=== PATIENT | male | born 1970 | race Caucasian/White ===

== ENCOUNTER 2023-03-24 13:52 | Outpatient (AMB) | payer OTHER, SELFPAY ==
--- NOTE | 2023-03-24 13:54 | MHC.PC.OV ---
Vital Signs 03/24/23 13:56 Height 6 ft Weight 177 lb BMI 24.0 BP 98/62 Blood Pressure Location Rt brachial Position Sitting Pulse 96 Pulse Source Pulse Oximeter Pulse Oximetry (%) 97 Oxygen Delivery Method Room Air Intake Visit Reasons: 6 Month follow up Allergies No Known Allergies Allergy (Verified 03/24/23 13:56) Medication List - Last Reconciled 03/24/23 by EVERT BradyP- hydrochlorothiazide 25 mg PO DAILY lisinopril 20 mg PO DAILY Tobacco use date assessed: 09/21/22 HPI 6 Month follow up HPI Details HTN: Pt's blood pressure is lower today, denies any dizziness. Blood pressure is managed with hydrochlorothiazide 25mg and lisinopril 20mg. Will decrease hydrochlorothiazide from 25mg to 12.5mg. Denies chest pain, shortness of breath, headache, dizziness, and blurred vision. Pt c/o left hip pain. He has been seen for this in the past. Surgery was recommended but not done due to pt's smoking. Will order hip XR to assess present condition. 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 Daniel Rodriguez, Amarilis Pitt, Hunter Jurado and colleagues, with an educational richard from [employer]. Review of Systems Const Reports as per HPI Physical exam (Primary Care) Vital Signs: Last Vital Signs Pulse 96 03/24/23 13:56 BP 98/62 03/24/23 13:56 Pulse Ox 97 03/24/23 13:56 Oxygen Delivery Method Room Air 03/24/23 13:56 BMI result Body Mass Index 24.0 Tobacco/Smoking Status: Tobacco use Status Tobacco use date assessed 09/21/22 03/24/23 13:58 Patient Tobacco Use Status Current everyday Tobacco 03/24/23 13:58 e-Cigarette/Vaping Use Never Used 03/24/23 13:58 Thrive Assessment: Date of Thrive Assessment Date Thrive assessed 09/21/22 03/24/23 13:58 Const General: cooperative Orientation/consciousness: patient oriented x3 Resp Effort & Inspection: normal respiratory effort Auscultation: clear to auscultation bilaterally (dim) Cardio Rate: regular rate Rhythm: regular rhythm Heart sounds: S1 normal heart sound present, S2 normal heart sound present and no murmurs Neuro General: patient oriented x3 Extrem Other: left hip pain noted with left knee to chest raises, adduction, and abduction Psych Appearance: grossly normal Mental Status: mental status grossly normal Speech and movement: Normal speech and movement present Affect: normal affect Attitude: cooperative Thought process: Normal thought process present Thought content: Normal thought content present Insight: Good insight present (Psych) Judgement: Good judgement present (Psych) Assessment and Plan Assessment & Plan (1) Left hip pain: Code(s): M25.552 - Pain in left hip Plan: XR ordered (2) Essential hypertension: Code(s): I10 - Essential (primary) hypertension Plan: hypotensive today (asymptomatic), decreased hctz from 25 to 12.5mg Plan The patient agreed to the use of a electromedical equipment repairer for this encounter. Scribed for DIANNA Leggett by Salma Sylvester electromedical equipment repairer, on 03/24/2023 at 14:05 EST. Orders: Orders XR hip LT min 2V Today M25.552 - Pain in left hip Medications: Changed From hydrochlorothiazide 25 mg PO DAILY 90 tabs 1RF To hydrochlorothiazide 12.5 mg PO DAILY 90 days 90 tabs 1RF Coding Level of Care Code Est Pt Level 3 (85249) Diagnoses Left hip pain M25.552 Essential hypertension I10
[2023-03-24 13:56] VITALS: BP 98/62; PULSE 96; O2SAT 97; BMI 24.0
== END 2023-03-24 15:30 | disposition home or self-care (01) ==
PROVIDERS: PCP Nurse Practitioner Family; Visit Provider Nurse Practitioner Family
DX: M25.552 Pain in left hip (principal); I10 Essential (primary) hypertension
CPT/HCPCS: 99213

== ENCOUNTER 2023-03-25 09:03 | Outpatient (REF) | payer OTHER, SELFPAY ==
--- NOTE | ~2023-03-25 | XR_ITS ---
EXAMINATION: XR HIP, LEFT CLINICAL INFORMATION: Pain. COMPARISON: None available. TECHNIQUE: AP and frog-leg lateral views of the left hip. FINDINGS: There is mild bony demineralization. There is marked narrowing of the superior left acetabular joint space. There is subchondral sclerosis of the acetabular roof. There is subchondral cyst formation of the left femoral head, which is somewhat flattened. There is peripheral osteophyte formation of the articular surfaces of the left hip. No dislocation is seen. There are iliofemoral atherosclerotic calcifications. There are pelvic phleboliths. XR/XR hip LT min 2V IMPRESSION: There are marked degenerative changes of the left hip, with findings suggesting early avascular necrosis. No acute fracture or dislocation is seen.
[2023-03-25 11:22] LABS: MANUAL DIFF FLAG NO
[2023-03-25 11:26] LABS: Appearance Urine Clear; Color Urine Yellow; Glucose Urine UA Negative (Negative); Leukocyte Esterase Urine Negative (Negative); Nitrite Urine Negative (Negative); PH 5.5 (5.0-9.0); Urine Blood Negative (Negative); Urine Ketones Negative (Negative); Urine Protein Negative (Neg-Trace)
[2023-03-25 11:54] LABS: Basophils Absolute Auto 0.1 X10*3/uL (0.0-0.2); Eosinophils Absolute Auto 0.2 X10*3/uL (0.0-0.4); Eosinophils Percent Auto 1.7 % (0-4); Hematocrit 45.3 % (42.0-52.0); Hemoglobin 15.4 g/dl (14.0-18.0); Imm Gran Abs Auto 0.04 X10*3/uL (0.00-0.03); Imm Gran Pct Auto 0.4 % (0.0-0.4); Lymphocytes Absolute Auto 3.3 X10*3/uL (1.2-4.9); Lymphocytes Percent Auto 31.9 % (20-40); Mean Corpuscular Hemoglobin 31.3 pg (27.0-33.0); Mean Corpuscular Volume 92.1 fL (80.0-98.0); Mean Platelet Volume 11.3 fL (9.4-12.4); Monocytes Absolute Auto 0.8 X10*3/uL (0.1-1.2); Monocytes Percent Auto 7.9 % (2-11); Neutrophils Absolute Auto 5.9 x10*3/uL (2.0-8.3); Neutrophils Percent Auto 57.1 % (45-73); Platelet Count 278 X10*3/uL (160-400); Red Blood Count 4.92 X10*6/uL (4.60-5.80); Red Cell Distribution Width 13.4 % (11.0-16.0); White Blood Count 10.4 X10*3/uL (4.8-10.8)
[2023-03-25 12:08] LABS: Alanine Aminotransferase 17 U/L (0-40); Albumin Level 4.4 g/dL (3.5-5.0); Alkaline Phosphatase 71 U/L (39-117); Anion Gap 12 (12-20); Aspartate Amino Transferase 19 U/L (5-37); Bilirubin Total 0.3 mg/dL (0.0-1.0); Blood Urea Nitrogen 28 mg/dL (9-16); Calcium 9.6 mg/dL (8.4-10.2); Carbon Dioxide 27 mmol/L (22-29); Chloride 103 mmol/L (96-108); Cholesterol 205 mg/dL (<200); Estimated Glomerular Filt Rate > 60; Glucose Fasting 105 mg/dL (60-99); HDL Cholesterol 54 mg/dL (>40); LDL Cholesterol Calculated 135 mg/dL (<100); Potassium 5.1 mmol/L (3.3-5.1); Sodium 137 mmol/L (135-145); Total Protein 7.8 g/dL (6.5-8.0); Triglycerides 83 mg/dL (<150)
[2023-03-25 12:10] LABS: Prostate Specific Antigen Scr 0.84 ng/mL (<0.05-4.0)
[2023-03-25 12:29] LABS: TSH reflex Free T4 0.52 uIU/mL (0.32-4.0)
[2023-03-29 01:19] LABS: Venous Lead 3.8 mcg/dL (<3.5)
== END 2023-03-25 09:04 | disposition home or self-care (01) ==
LOC: HO.HMGCX 09:03
PROVIDERS: PCP Nurse Practitioner Family; Visit Provider Nurse Practitioner Family
DX: Z00.00 Encounter for general adult medical examination without abnormal findings (principal); Z77.011 Contact with and (suspected) exposure to lead; M25.552 Pain in left hip; Z12.5 Encounter for screening for malignant neoplasm of prostate
CPT/HCPCS: 36415; 73502; 80053; 80061; 81003; 83655; 84153; 84443; 85025

== ENCOUNTER 2023-04-19 08:03 | Outpatient (AMB) | payer OTHER, SELFPAY ==
[2023-04-19 08:06] VITALS: BMI 24.4
--- NOTE | 2023-04-19 08:06 | A.OFFVIS_ITS ---
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 Dobbs is a 52-year-old male and presents with complaints of progressively worsening left hip pain. He describes his pain as sharp and severe in nature. His pain has gotten worse over the last few years in spite of continued non operative treatment. Most of his pain is located within his left groin and thigh. He has done physical therapy exercises which aggravated his pain. He has also tried Tylenol and anti-inflammatory medicines which gave him minimal relief. The patient has difficulty walking even short distances because of his pain. At this point is left hip pain is interfering with his activities of daily living and his ability to sleep well through the night. 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 Current occupational exposures/hazards: Yes Cognitive needs: No Hearing needs: No Vision needs: No Physical Exam Vital Signs: BMI result Body Mass Index 24.4 Const Other: Well-nourished well-developed very friendly male awake alert and oriented x3 in no acute distress Extrem Other: Bilateral lower extremity examination shows good capillary refill, no skin lesions noted, normal sensation light touch Left hip examination shows decreased range of motion when compared to his right hip, pain with range of motion, no tenderness over his bursa Results Reviewed Results Reviewed: X-rays of the patient's left hip show end-stage degenerative joint disease with grade 4 [id number] arthritis, subchondral sclerosis, no acute bony abnormalities Assessment & Plan Assessment & Plan (1) Osteoarthritis of left hip: Code(s): M16.12 - Unilateral primary osteoarthritis, left hip Plan Mr. Dobbs presents with progressively worsening left hip pain due to end-stage degenerative joint disease. I had a lengthy discussion with the patient regarding the treatment options. At this point he has failed continued non operative treatments. The risks and benefits of left total hip replacement surgery were discussed at length with the patient. The patient wishes to proceed with surgery in the spring. I will have my office contact the patient to pick a surgery date. I will see him back 1-2 weeks prior to his surgery to answer any final questions that he might have. Feel free to call me at any time should questions regarding his orthopedic management arise. Thank you very much for asking me to see this very friendly gentleman. I spent 22 minutes in reviewing the patient's records and imaging studies, seeing the patient and documenting in the medical record. Coding Level of Care Code New Pt Level 2 (40569) Diagnoses Osteoarthritis of left hip M16.12
== END 2023-04-19 08:35 | disposition home or self-care (01) ==
PROVIDERS: PCP Nurse Practitioner Family; Visit Provider Orthopaedic Surgery
DX: M16.12 Unilateral primary osteoarthritis, left hip (principal)
CPT/HCPCS: 99202

== ENCOUNTER → 2023-04-19 08:03 | Outpatient (BNVA) | payer OTHER, SELFPAY | PROVIDERS: PCP Nurse Practitioner Family; Visit Provider Orthopaedic Surgery | DX: M16.12 Unilateral primary osteoarthritis, left hip (principal) | CPT/HCPCS: 99202 ==

== ENCOUNTER 2023-08-24 15:03 | Outpatient (AMB) | payer OTHER, SELFPAY ==
[2023-08-24 15:06] VITALS: BP 112/76; PULSE 80; O2SAT 97; BMI 24.4
--- NOTE | 2023-08-24 15:06 | MHC.PC.OV ---
Vital Signs 08/24/23 15:06 Height 6 ft Weight 180 lb BMI 24.4 BP 112/76 Blood Pressure Location Rt brachial Position Sitting Pulse 80 Pulse Source Pulse Oximeter Pulse Oximetry (%) 97 Intake Visit Reasons: 5 month fu Intake Note: pt is here for 5 month follow up Gunstock Repairer Required: No Accompanied by: Self / Same As Patient Allergies No Known Allergies Allergy (Verified 08/24/23 15:06) Medication List - Last Reconciled 08/24/23 by DIANNA Brady hydrochlorothiazide 12.5 mg PO DAILY 90 days lisinopril 20 mg PO DAILY omeprazole 20 mg PO BID 90 days Tobacco use date assessed: 08/24/23 Dental Screening Dental Screen Date: 08/24/23 Did you have a dental visit in the last 12 months?: Yes Did you have a dental problem in the last 6 months where you did not have access to dental care?: No Was dental information given to patient?: Patient has dentist HPI 5 month fu HPI Details Pt c/o increased acid reflux. He also reports abdominal discomfort and diarrhea (for over 15 years with diarrhea). He does report having intermittent blood in stool, though does also have significant hemorrhoids. Will send omeprazole and order GI panel. Pt reports eating shortly before bed, recommended pt eat 2-3 hours before going to bed. He has bloating as well. He reports yogurt can help. He reported having a colon screen approx 3 years ago, will cont to try to track down, they told me i was clean as a whistle . Pt has been a PPD smoker since age 13. Will refer for low-dose CT. Denies chest pain, shortness of breath, and dizziness. 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 Will recheck/cont to monitor lead levels. [facility] Surgical History No pertinent past surgical history Social History Housing: House Patient Tobacco Use Status: Current everyday Tobacco user Cigarette Packs Per Day: 1 e-Cigarette/Vaping Use: Never Used Second Hand Smoke Exposure: Yes service: No Current occupational status: employed Current occupation: [employer] Current occupational exposures/hazards: Yes Cognitive needs: No Hearing needs: No Vision needs: No Questionnaire PHQ-9 Over the last 2 weeks, how often have you been bothered by any of the following problems? 1. Little interest or pleasure in doing things: nearly every day 2. Feeling down, depressed, or hopeless: not at all 3. Trouble falling or staying asleep, or sleeping too much: not at all 4. Feeling tired or having little energy: more than half the days 5. Poor appetite or overeating: nearly every day 6. Feeling bad about yourself - or that you are a failure or have let yourself or your family down: not at all 7. Trouble concentrating on things, such as reading the newspaper or watching television: not at all 8. Moving or speaking so slowly that other people could have noticed. Or the opposite - being so fidgety or restless that you have been moving around a lot more than usual: not at all 9. Thoughts that you would be better off or of hurting yourself in some way: not at all Total score: 8 Depression Screening Interpretation: Negative Depression Screening Done: Yes 22450 - PHQ-9 Billing: Yes Source: Developed by Drs. Daniel Rodriguez, Amarilis Pitt, Hunter Jurado and colleagues, with an educational richard from [employer]. Thrive Questionnaire Date Thrive assessed: 08/24/23 I am a: Patient What is your living situation today?: I have a steady place to live Within the past 12 months, did the food you bought not last and you didn't have the money to get more?: Never true Within the past 12 months, did you worry whether your food would run out before you got money to buy more?: Never true Do you have trouble paying for medicines?: No Do you have trouble getting transportation to medical appointments?: No Do you have trouble paying your heating and electricity bill?: No Do you have trouble taking care of your child, family member or friend?: No Do you have trouble with day-to-day activities such as bathing, preparing meals, shopping, managing finances, etc.?: No Are you currently unemployed and looking for a job?: No Are you interested in more education?: No Please select the resources that you would like help with: None Currently or been in a relationship where the following occur: no concerns reported THRIVE Score: 0 AUDIT C Alcohol Use Questionnaire (AUDIT-C) 1. How often do you have a drink containing alcohol?: Monthly or less 2. How many drinks containing alcohol do you have on a typical day when you are drinking?: 5 or 6 3. How often do you have six or more drinks on one occasion?: Less than monthly Total Score: 4 Score Reviewed/Action Taken: Yes SHORTY-7 AMB Questionnaire SHORTY-7 Date SHORTY - 7 assessed: 08/24/23 Feeling nervous, anxious, or on edge: 0 = Not at all Not being able to stop or control worryin = Not at all Worrying too much about different things: 0 = Not at all Trouble relaxin = Not at all Being so restless that it is hard to sit still: 0 = Not at all Becoming easily annoyed or irritable: 3 = Nearly every day Feeling afraid as if something awful might happen: 0 = Not at all Total SHORTY-7 score (0-4 normal; 5-9 mild; 10-14 moderate; 15-21 severe): 3 Source: Developed by Drs. Daniel Rodriguez, Amarilis Pitt, Hunter Jurado and colleagues, with an educational richard from [employer]. SHORTY-7 Assessment Billing SHORTY-7 Assessment Tool: SHORTY-7 Assessment 21704 Review of Systems Const Reports as per HPI Physical exam (Primary Care) Vital Signs: Last Vital Signs Pulse 80 08/24/23 15:06 BP 112/76 08/24/23 15:06 Pulse Ox 97 08/24/23 15:06 BMI result Body Mass Index 24.4 Tobacco/Smoking Status: Tobacco use Status Tobacco use date assessed 08/24/23 08/24/23 15:07 Patient Tobacco Use Status Current everyday Tobacco 08/24/23 15:07 e-Cigarette/Vaping Use Never Used 08/24/23 15:07 PHQ-9: PHQ-9 Score PHQ-9: Total score 8 08/24/23 15:18 Depression Screening Interpretation: Negative Thrive Assessment: Date of Thrive Assessment Date Thrive assessed 05/01/24 05/01/24 15:13 Currently or been in a relationship where the following occur: no concerns reported Const General: cooperative Orientation/consciousness: patient oriented x3 Resp Other: lungs diminished though moving air Effort & Inspection: normal respiratory effort Cardio Rate: regular rate Rhythm: regular rhythm Heart sounds: S1 normal heart sound present and S2 normal heart sound present GI Other: no abdominal pain with palpation, hyperactive BS Auscultation: Hyperactive bowel sounds present Skin Other: small macular discoloration to shoulders Neuro General: patient oriented x3 Psych Appearance: grossly normal Mental Status: mental status grossly normal Speech and movement: Normal speech and movement present Affect: normal affect Attitude: cooperative Thought process: Normal thought process present Thought content: Normal thought content present Insight: Good insight present (Psych) Judgement: Good judgement present (Psych) Assessment and Plan Assessment & Plan (1) Smoker: Code(s): F17.200 - Nicotine dependence, unspecified, uncomplicated Plan: Referred for low-dose CT (2) GERD (gastroesophageal reflux disease): Code(s): K21.9 - Gastro-esophageal reflux disease without esophagitis Plan: Sending omeprazole, recommended eating 2-3 hours before bed (3) Diarrhea: Code(s): R19.7 - Diarrhea, unspecified Plan: GI panel ordered (4) Elevated blood lead level: Code(s): R78.71 - Abnormal lead level in blood Plan: Will repeat, monitoring kidney function (5) Skin lesions: Code(s): L98.9 - Disorder of the skin and subcutaneous tissue, unspecified Plan: Referred to derm (6) Abdominal discomfort: Code(s): R10.9 - Unspecified abdominal pain Plan: Sending omeprazole, GI panel ordered Plan The patient agreed to the use of a biomedical equipment technician for this encounter. Scribed for DIANNA Leggett by Salma Sylvester biomedical equipment technician, on 08/24/2023 at 15:15 EST. Orders: Orders Comprehensive Met. Panel Today K21.9 - Gastro-esophageal reflux disease without esophagitis TSH reflex Free T4 Today K21.9 - Gastro-esophageal reflux disease without esophagitis H pylori Ag Stool Today R19.7 - Diarrhea, unspecified CDiff Gene PCR Today R19.7 - Diarrhea, unspecified Erythrocyte Sedimentation Rate Today R19.7 - Diarrhea, unspecified Complete Blood Count Auto Diff Today K21.9 - Gastro-esophageal reflux disease without esophagitis GI Panel Today R19.7 - Diarrhea, unspecified C Reactive Protein Today R19.7 - Diarrhea, unspecified Venous Lead Today R78.71 - Abnormal lead level in blood US abdomen complete Today R10.9 - Unspecified abdominal pain Lipase Today R10.9 - Unspecified abdominal pain Referrals Thoracic Surgery Referral F17.200 - Nicotine dependence, unspecified, uncomplicated Dermatology Referral L98.9 - Disorder of the skin and subcutaneous tissue, unspecified Medications: New omeprazole 20 mg PO BID 90 days 180 caps 0RF Coding Level of Care Code Est Pt Level 3 (31991) Diagnoses Smoker F17.200 GERD (gastroesophageal reflux disease) K21.9 Diarrhea R19.7 Elevated blood lead level R78.71 Skin lesions L98.9 Abdominal discomfort R10.9 Additional Codes SHORTY-7 Assessment Billing - SHORTY-7 Assessment Tool: SHORTY-7 Assessment 15133 ([id number])
== END 2023-08-24 15:49 | disposition home or self-care (01) ==
PROVIDERS: PCP Nurse Practitioner Family; Visit Provider Nurse Practitioner Family
DX: K21.9 Gastro-esophageal reflux disease without esophagitis (principal); F17.210 Nicotine dependence, cigarettes, uncomplicated; R19.7 Diarrhea, unspecified; R78.71 Abnormal lead level in blood; L98.9 Disorder of the skin and subcutaneous tissue, unspecified; R10.9 Unspecified abdominal pain
CPT/HCPCS: 99213

== ENCOUNTER 2023-08-29 07:04 | Outpatient (REF) | payer OTHER, SELFPAY ==
[2023-08-29 10:32] LABS: MANUAL DIFF FLAG NO
[2023-08-29 10:39] LABS: Basophils Absolute Auto 0.1 X10*3/uL (0.0-0.2); Basophils Percent Auto 1.1 % (0-2); Eosinophils Absolute Auto 0.4 X10*3/uL (0.0-0.4); Eosinophils Percent Auto 3.9 % (0-4); Hematocrit 45.4 % (42.0-52.0); Hemoglobin 15.6 g/dl (14.0-18.0); Imm Gran Abs Auto 0.04 X10*3/uL (0.00-0.03); Imm Gran Pct Auto 0.4 % (0.0-0.4); Lymphocytes Absolute Auto 3.8 X10*3/uL (1.2-4.9); Lymphocytes Percent Auto 37.1 % (20-40); Mean Corpuscular HGB Conc 34.4 g/dl (31.0-36.0); Mean Corpuscular Hemoglobin 31.7 pg (27.0-33.0); Mean Corpuscular Volume 92.3 fL (80.0-98.0); Monocytes Absolute Auto 0.9 X10*3/uL (0.1-1.2); Monocytes Percent Auto 8.3 % (2-11); Neutrophils Absolute Auto 5.1 x10*3/uL (2.0-8.3); Neutrophils Percent Auto 49.2 % (45-73); Platelet Count 164 X10*3/uL (160-400); Red Blood Count 4.92 X10*6/uL (4.60-5.80); Red Cell Distribution Width 13.7 % (11.0-16.0); White Blood Count 10.3 X10*3/uL (4.8-10.8)
[2023-08-29 11:07] LABS: Alanine Aminotransferase 19 U/L (0-40); Albumin Level 4.2 g/dL (3.5-5.0); Alkaline Phosphatase 71 U/L (39-117); Anion Gap 13 (12-20); Aspartate Amino Transferase 22 U/L (5-37); Bilirubin Total 0.5 mg/dL (0.0-1.0); Blood Urea Nitrogen 23 mg/dL (9-16); C Reactive Protein 0.13 mg/dL (< or = 0.50); Calcium 9.7 mg/dL (8.4-10.2); Carbon Dioxide 25 mmol/L (22-29); Chloride 103 mmol/L (96-108); Estimated Glomerular Filt Rate > 60; Glucose Random 105 mg/dL (60-115); Lipase 22 U/L (8-78); Potassium 4.3 mmol/L (3.3-5.1); Sodium 137 mmol/L (135-145); Total Protein 7.4 g/dL (6.5-8.0)
[2023-08-29 11:26] LABS: TSH reflex Free T4 0.75 uIU/mL (0.32-4.0)
[2023-08-29 11:42] LABS: Erythrocyte Sedimentation Rate 5 MM/HR (0-15)
[2023-08-31 16:38] LABS: Venous Lead 3.3 mcg/dL (<3.5)
== END 2023-08-29 07:05 | disposition home or self-care (01) ==
LOC: HO.HMGCLDS 07:04
PROVIDERS: PCP Nurse Practitioner Family; Visit Provider Nurse Practitioner Family
DX: K21.9 Gastro-esophageal reflux disease without esophagitis (principal); R78.71 Abnormal lead level in blood; R19.7 Diarrhea, unspecified; R10.9 Unspecified abdominal pain
CPT/HCPCS: 36415; 80053; 83655; 83690; 84443; 85025; 85652; 86140

== ENCOUNTER 2023-08-31 07:45 | Outpatient (REF) | payer OTHER, SELFPAY ==
[2023-08-31 11:33] LABS: CDiff Gene PCR NEGATIVE (Negative)
[2023-08-31 13:08] LABS: Adenovirus F 40/41 Not Detected (Not Detect.); Astrovirus Not Detected (Not Detect.); Campylobacter Not Detected (Not Detect.); Cryptosporidium Not Detected (Not Detect.); Cyclospora cayetanensis Not Detected (Not Detect.); E. coli EAEC Not Detected (Not Detect.); E. coli EPEC Not Detected (Not Detect.); E. coli ETEC Not Detected (Not Detect.); E. coli STEC Not Detected (Not Detect.); Entamoeba histolytica Not Detected (Not Detect.); Giardia lamblia Not Detected (Not Detect.); Norovirus GI/GII Not Detected (Not Detect.); Plesiomonas shigelloides Not Detected (Not Detect.); Rotavirus A Not Detected (Not Detect.); Salmonella Not Detected (Not Detect.); Sapovirus Not Detected (Not Detect.); Shigella sp./EIEC Not Detected (Not Detect.); Vibrio Not Detected (Not Detect.); Vibrio Cholerae Not Detected (Not Detect.); Yersinia enterocolitica Not Detected (Not Detect.)
== END 2023-08-31 07:46 | disposition home or self-care (01) ==
LOC: HO.HMGCLNP 07:45
PROVIDERS: PCP Nurse Practitioner Family; Visit Provider Nurse Practitioner Family
DX: R19.7 Diarrhea, unspecified (principal)
CPT/HCPCS: 87338; 87493; 87507

== ENCOUNTER 2023-08-31 08:23 | Outpatient (REF) | payer OTHER, SELFPAY ==
--- NOTE | ~2023-08-31 | US_ITS ---
EXAMINATION: US ABDOMEN COMPLETE CLINICAL INFORMATION: Unspecified abdominal pain. COMPARISON: None available. TECHNIQUE: Real-time imaging of the abdominal viscera. Limited visualization due to bowel gas. FINDINGS: PANCREAS: Limited visualization of pancreatic tail and head. Imaged portion of pancreatic body is unremarkable. ABDOMINAL AORTA: Imaged portions of abdominal aorta are unremarkable. INFERIOR VENA CAVA: Visualized portions are normal. LIVER: Diffusely heterogeneous hepatic echotexture. Limited visualization. Hepatic contour is unremarkable. Liver is not enlarged. GALLBLADDER: No gallstones. No gallbladder wall thickening. COMMON BILE DUCT: Normal in caliber measuring 0.3 cm in diameter. RIGHT KIDNEY: No hydronephrosis. No renal calculi. Limited visualization. The kidney measures 11.2 cm in maximum dimension. LEFT KIDNEY: No hydronephrosis. No renal calculi. Limited visualization. A 1.3 cm left renal midpole cyst with benign features. There is no indication for follow-up imaging. The kidney measures 11.6 cm in maximum dimension. SPLEEN: Normal. The spleen measures 8.3 cm in maximum dimension. FREE FLUID: None. US/US abdomen complete IMPRESSION: Diffusely heterogeneous hepatic echotexture. Limited visualization. Correlation with liver function tests and clinical exam recommended to determine further management.
== END 2023-08-31 08:24 | disposition home or self-care (01) ==
LOC: HO.HMGCX 08:23
PROVIDERS: PCP Nurse Practitioner Family; Visit Provider Nurse Practitioner Family
DX: R10.9 Unspecified abdominal pain (principal)
CPT/HCPCS: 76700

== ENCOUNTER 2023-12-02 09:16 | Outpatient (AMB) | payer OTHER, SELFPAY ==
--- NOTE | 2023-12-02 07:48 | A.OFFVIS_ITS ---
Intake Visit Reasons: Current Smoker Allergies No Known Allergies Allergy (Verified 08/24/23 15:06) HPI HPI Current Smoker: Details: Initial visit for this 53yo smoker with a 40PYH. Patient has been smoking since age 11 for 42 years at 1ppd. . Reports daily marijuana use. Reports social second hand smoke exposure. 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 Hx elevated lead levels Exposure to asbestos, arsenic, soot, coal dust, diesel fumes. . Denies known family history of lung cancer. Denies personal history of cancers. Denies chest CT in last year. . Denies recent travel outside the [place]. Denies recent respiratory illness or recent hospitalization for respiratory issues. Reports testing positive for COVID. Admits receiving COVID Vaccine. x 3. . Denies fever, chills, new/worsening cough, hemoptysis, hoarseness or dysphagia. Denies significant chest pain, significant dyspnea or unintentional weight loss. Patient Lung Cancer Screening Questionnaire reviewed with patient by provider. . Shared Decision Making Completed. Patient meets criteria. Discussed in detail with patient, the risk vs benefit of LDCT screening. Patient consents to proceed with scan. Discussed smoking cessation. He is motivated to quit - would like referral to our program. [facility] Medical History (Updated 12/02/23 @ 09:23 by Angle Denton PA-C) Essential hypertension Fatty liver GERD (gastroesophageal reflux disease) Osteoarthritis of left hip Nicotine dependence, cigarettes, uncomplicated Exposure to lead Surgical History (Updated 10/13/23 @ 15:36 by Angle Denton PA-C) History of esophagogastroduodenoscopy (EGD) Social History (Updated 12/02/23 @ 09:24 by Angle Denton PA-C) Housing: House Alcohol intake: current Alcohol intake frequency: holidays/special occasions only Patient Tobacco Use Status: Current everyday Tobacco user Cigarette Packs Per Day: 1 Years Smoked: onset 11yo, 1ppd x 42yrs, 40pyh e-Cigarette/Vaping Use: Never Used Second Hand Smoke Exposure: Yes service: No Current occupational status: employed Current occupation: [employer] Current occupational exposures/hazards: Yes Cognitive needs: No Hearing needs: No Vision needs: No Assessment & Plan Assessment & Plan (1) Nicotine dependence, cigarettes, uncomplicated: Comment: (current smoker - onset 11yo, 1ppd x 42yrs, 40pyh) Code(s): F17.210 - Nicotine dependence, cigarettes, uncomplicated Category: Medical Plan: - SDM visit completed today in office. - Patient meets criteria for LDCT for lung cancer screening purposes and is asymptomatic. - Smoking cessation counseling offered. Patients can always call [phone]. - Will arrange for a LDCT scan of the chest for screening purposes at [facility]. - Risks, benefits, and alternatives were discussed in detail and the patient agrees to proceed. - Risks discussed include but are not limited to: radiation exposure, anxiety during testing and while awaiting results, false negatives, false positives and possibility of additional intervention such as further imaging or surgical procedures for benign disease. - Benefits are obviously detection of lung cancer at an early stage which can lead to improved outcomes. - Discussed the importance of screening program compliance with adherence to yearly LDCT scan as scheduled - or sooner interval scans for personalized screening regimen. - Discussed follow up plan. Our office will send a letter discussing results and if needed set up phone call and office visit based on CT findings. - Patient educated on results categorization and the management decisions for suspicious findings potentially found on the screening LDCT scan. Any patient with a Lung RADS score of 3 or 4 will be reviewed by a multidisciplinary team at [facility] to form a plan of action in regards to scan findings. - If further work up is warranted for a suspicious lung finding this will be followed by the Lung Cancer Screening program in conjunction with the Thoracic Surgery Department at [facility]. - A copy of the office note and LDCT will be sent to the patient's PCP - as well as documentation on any associated further plans of care. - Incidental findings on LDCT are the PCP's responsibility. These findings are indicated with an S finding on the LDCT Assessment. A note discussing the findings will be sent to the PCP who is then responsible for further management. - All questions answered.? Coding Level of Care Code Lung Cancer Screening G0296 Diagnoses Nicotine dependence, cigarettes, uncomplicated F17.210
== END 2023-12-02 09:50 | disposition home or self-care (01) ==
PROVIDERS: PCP Nurse Practitioner Family; Referring Provider Nurse Practitioner Family; Visit Provider Physician Assistant Medical
DX: F17.210 Nicotine dependence, cigarettes, uncomplicated (principal)
CPT/HCPCS: G0296

== ENCOUNTER 2023-12-02 09:39 | Outpatient (REF) | payer OTHER, SELFPAY ==
--- NOTE | ~2023-12-02 | CT_ITS ---
EXAMINATION: CT LOW-DOSE SCREENING CHEST WITHOUT CONTRAST CLINICAL INFORMATION: Nicotine dependence, cigarettes, uncomplicated. The patient is a current smoker with a 41 pack-year history of smoking. COMPARISON: None available. TECHNIQUE: Multidetector volumetric CT imaging of the chest is performed on a Siemens SOMATOM Definition scanner without contrast using low dose technique. Additional 2D coronal and sagittal reformatted images and axial 3D maximum intensity projection (MIP) images are generated on the CT workstation. This CT examination was performed using dose optimization techniques as appropriate, variously including the following: *Automated exposure control *Adjustment of mA and/or kV according to patient size (this includes techniques or standardized protocols for targeted exams where dose is matched to indication/reason for exam; i.e. extremities or head) *Use of iterative reconstruction technique TOTAL EXAM DLP: 50 mGy-cm. CTDIvol: 1.34 mGy. FINDINGS: PULMONARY NODULES: No suspicious pulmonary nodules. LUNGS: Lungs bilaterally symmetrically expanded. There is moderate emphysema with a saber-sheath trachea. Mild bronchial thickening is noted without bronchiectasis. No effusion or pneumothorax. Central airways patent. MEDIASTINUM: No mediastinal, hilar or axillary adenopathy or free fluid collection. CORONARY ARTERY CALCIFICATION: Moderate. THYROID GLAND: Unremarkable to the extent seen. CARDIOVASCULAR STRUCTURES: Aortic and heart size normal. No pericardial effusion. CHEST WALL/AXILLA: Unremarkable. UPPER ABDOMEN: Included portions of the solid organs in the upper abdomen unremarkable on noncontrast imaging. OSSEOUS STRUCTURES: No suspicious focal findings. CT/CT lung screening IMPRESSION: No suspicious pulmonary nodules are seen. ASSESSMENT: 1. Lung-RADS Category 1: Negative. There are no nodules or there are definitely benign nodules. N/A 2. Lung-RADS Category S: Negative. There are no clinically significant or potentially clinically significant findings not related to the lungs requiring urgent additional evaluation. RECOMMENDATION: Continued routine annual low-dose CT lung screening in 1 year is recommended. An order for CT CHEST LOW DOSE CANCER SCREENING ([id number]) can be placed. Electronically signed by: Taiwo Ta MD 01/09/2024 10:03 PM EDT
== END 2023-12-02 09:40 | disposition home or self-care (01) ==
LOC: HO.CT 09:39
PROVIDERS: PCP Nurse Practitioner Family; Visit Provider Physician Assistant Medical
DX: Z12.2 Encounter for screening for malignant neoplasm of respiratory organs (principal); F17.210 Nicotine dependence, cigarettes, uncomplicated
CPT/HCPCS: 71271; G0296

== ENCOUNTER 2023-12-07 11:33 | Outpatient (AMB) | payer OTHER, SELFPAY ==
--- NOTE | 2023-12-07 11:35 | A.OFFPC_ITS ---
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 He has taken chantix in the past which did not help. Will send nicotine patches and gum. Pt goes for low-dose CTs. Pt does report shortness of breath with activity. Pt does not want any further pulmonary testing until his CT results are back. Denies fever, chills, and chest pain. [facility]LY [facility], [facility] Medical History Essential hypertension Fatty liver GERD (gastroesophageal reflux disease) Osteoarthritis of left hip Nicotine dependence, cigarettes, uncomplicated Exposure to lead Surgical History History of esophagogastroduodenoscopy (EGD) Social History Housing: House Alcohol intake: current Alcohol intake frequency: holidays/special occasions only Patient Tobacco Use Status: Current everyday Tobacco user Cigarette Packs Per Day: 1 Years Smoked: onset 11yo, 1ppd x 42yrs, 40pyh e-Cigarette/Vaping Use: Never Used Second Hand Smoke Exposure: Yes service: No Current occupational status: employed Current occupation: [employer] Current occupational exposures/hazards: Yes Cognitive needs: No Hearing needs: No Vision needs: No Questionnaire PHQ-9 Over the last 2 weeks, how often have you been bothered by any of the following problems? 96961 - PHQ-9 Billing: Patient declined-do not bill Source: Developed by Drs. Daniel Rodriguez, Amarilis Pitt, Hunter Jurado and colleagues, with an educational richard from [employer]. Thrive Questionnaire Date Thrive assessed: 08/24/23 I am a: Patient What is your living situation today?: I choose not to answer this question Within the past 12 months, did the food you bought not last and you didn't have the money to get more?: I choose not to answer this question Within the past 12 months, did you worry whether your food would run out before you got money to buy more?: I choose not to answer this question Do you have trouble paying for medicines?: I choose not to answer this question Do you have trouble getting transportation to medical appointments?: I choose not to answer this question Do you have trouble paying your heating and electricity bill?: I choose not to answer this question Do you have trouble taking care of your child, family member or friend?: I choose not to answer this question Do you have trouble with day-to-day activities such as bathing, preparing meals, shopping, managing finances, etc.?: I choose not to answer this question Are you currently unemployed and looking for a job?: I choose not to answer this question Are you interested in more education?: I choose not to answer this question Please select the resources that you would like help with: None Currently or been in a relationship where the following occur: I choose not to answer THRIVE Score: 0 AUDIT C Alcohol Use Questionnaire (AUDIT-C) 1. How often do you have a drink containing alcohol?: Never Total Score: 0 SHORTY-7 AMB Questionnaire SHORTY-7 Date SHORTY - 7 assessed: 08/24/23 Feeling nervous, anxious, or on edge: 0 = Not at all Not being able to stop or control worryin = Not at all Worrying too much about different things: 0 = Not at all Trouble relaxin = Not at all Being so restless that it is hard to sit still: 0 = Not at all Becoming easily annoyed or irritable: 0 = Not at all Feeling afraid as if something awful might happen: 0 = Not at all Total SHORTY-7 score (0-4 normal; 5-9 mild; 10-14 moderate; 15-21 severe): 0 Source: Developed by Drs. Daniel Rodriguez, Amarilis Pitt, Hunter Jurado and colleagues, with an educational richard from [employer]. SHORTY-7 Assessment Billing SHORTY-7 Assessment Tool: SHORTY-7 Assessment 91215 Review of Systems Const Reports as per HPI Physical exam (Primary Care) Vital Signs: Last Vital Signs Pulse 67 12/07/23 11:36 BP 118/70 12/07/23 11:36 Pulse Ox 97 12/07/23 11:36 Oxygen Delivery Method Room Air 12/07/23 11:36 BMI result Body Mass Index 24.0 Tobacco/Smoking Status: Tobacco use Status Tobacco use date assessed 08/24/23 12/07/23 11:37 Patient Tobacco Use Status Current everyday Tobacco 12/07/23 11:37 e-Cigarette/Vaping Use Never Used 12/07/23 11:37 Thrive Assessment: Date of Thrive Assessment Date Thrive assessed 08/24/23 12/07/23 11:37 Currently or been in a relationship where the following occur: I choose not to answer Const General: cooperative Orientation/consciousness: patient oriented x3 Resp Other: lungs fairly clear, slightly diminished Effort & Inspection: normal respiratory effort Cardio Rate: regular rate Rhythm: regular rhythm Heart sounds: S1 normal heart sound present and S2 normal heart sound present Neuro General: patient oriented x3 Psych Appearance: grossly normal Mental Status: mental status grossly normal Speech and movement: Normal speech and movement present Affect: normal affect Attitude: cooperative Thought process: Normal thought process present Thought content: Normal thought content present Insight: Good insight present (Psych) Judgement: Good judgement present (Psych) Assessment and Plan Assessment & Plan (1) Nicotine addiction: Code(s): F17.200 - Nicotine dependence, unspecified, uncomplicated (2) Smoker: Code(s): F17.200 - Nicotine dependence, unspecified, uncomplicated Plan: awaiting LDCT results. Starting nicoderm and nicotine gum. Plan The patient agreed to the use of a mobile paramedical examiner for this encounter. Scribed for DIANNA Leggett by Salma Sylvester mobile paramedical examiner, on 12/07/2023 at 11:50 EST. Medications: New nicotine (polacrilex) 4 mg buccal Q2H 100 ea 0RF nicotine 1 patch transdermal DAILY 28 ea 1RF Discontinued omeprazole Discontinued Reason: Patient Refused 20 mg PO BID 90 days 180 caps 0RF Coding Level of Care Code Est Pt Level 3 (29366) Diagnoses Nicotine addiction F17.200 Smoker F17.200 Additional Codes SHORTY-7 Assessment Billing - SHORTY-7 Assessment Tool: SHORTY-7 Assessment 32552 ([id number])
[2023-12-07 11:36] VITALS: BP 118/70; PULSE 67; O2SAT 97; BMI 24.0
== END 2023-12-07 12:05 | disposition home or self-care (01) ==
PROVIDERS: PCP Nurse Practitioner Family; Visit Provider Nurse Practitioner Family
DX: F17.210 Nicotine dependence, cigarettes, uncomplicated (principal)
CPT/HCPCS: 99213

== ENCOUNTER 2024-01-13 08:06 | Outpatient (AMB) | payer OTHER, SELFPAY ==
[2024-01-13 08:09] VITALS: BP 106/62; PULSE 101; TEMP 36.9; O2SAT 96; BMI 23.3
--- NOTE | 2024-01-13 08:09 | AM.OFFWIN_ITS ---
Intake Vital Signs 01/13/24 08:09 Height 6 ft Weight 172 lb BMI 23.3 BP 106/62 Blood Pressure Location Lt brachial Position Sitting Pulse 101 H Pulse Source Pulse Oximeter Temp 98.4 F Temp Source Oral Pulse Oximetry (%) 96 Oxygen Delivery Method Room Air Intake Visit Reasons: EP-severe abdominal pain, chills, insomnia Intake Note: Pt c/o severe abdominal pain, chills, insomnia, very gassy, soft stools .started 2 weeks ago. Patient Tobacco Use Status: Current everyday Tobacco user Allergies No Known Allergies Allergy (Verified 01/13/24 08:14) Do you need a note to return to daycare/school/sports/work: No HPI HPI Comments History of Present Illness Details Patient is a 53-year-old male complaining of increased abdominal discomfort and cramping pain every time he eats. He states he has had lifelong issues with diarrhea and if he has a formed stool, he is surprised , he reports no acute changes in his bowel habits, he denies any thing bloody or black in his stools. He denies any measured fevers but states he has felt chills recently. He states he has been very gassy but he is because he has been taking Gas-X to help with his abdominal pain but it brings him no relief. He has tried increasing his fiber and changing his diet but it does not seem to help. He denies any nausea or vomiting. He states he had a colonoscopy approximately 5 years ago and told it was perfect and he did not need to come back for 10 years. [facility] Medical History Essential hypertension Fatty liver GERD (gastroesophageal reflux disease) Osteoarthritis of left hip Nicotine dependence, cigarettes, uncomplicated Exposure to lead Surgical History History of esophagogastroduodenoscopy (EGD) Social History Housing: House Alcohol intake: current Alcohol intake frequency: holidays/special occasions only Patient Tobacco Use Status: Current everyday Tobacco user Cigarette Packs Per Day: 1 Years Smoked: onset 11yo, 1ppd x 42yrs, 40pyh e-Cigarette/Vaping Use: Never Used Second Hand Smoke Exposure: Yes service: No Current occupational status: employed Current occupation: [employer] Current occupational exposures/hazards: Yes Cognitive needs: No Hearing needs: No Vision needs: No Review of Systems Const All systems reviewed & are unremarkable except as noted in HPI and below Physical Exam Vital Signs: Last Vital Signs Temp 98.4 F 01/13/24 08:09 Pulse 101 H 01/13/24 08:09 BP 106/62 01/13/24 08:09 Pulse Ox 96 01/13/24 08:09 Oxygen Delivery Method Room Air 01/13/24 08:09 BMI result Body Mass Index 23.3 Const General: cooperative, healthy appearing, comfortable, no acute distress and well developed Orientation/consciousness: patient oriented x3 Limitations: no limitations HEENT Head: Yes normal to inspection Ears: hearing grossly normal bilaterally General nose exam: Normal external nose present Face and sinus: Yes normal facial exam Eyes General: appearance normal, both eyes and all related structures Neck Neck: Yes normal visual inspection and Yes full ROM Resp Effort & Inspection: normal respiratory effort and able to speak in complete sentences Auscultation: clear to auscultation bilaterally Cardio Rate: regular rate Rhythm: regular rhythm Heart sounds: normal S1 and S2 GI Inspection: Yes normal to inspection Palpation (GI): Soft to palpation and Tenderness to palpation present (GI) suprapubicly; Solomon's sign negative and with no rebound tenderness Skin General skin exam: no rashes or lesions noted Neuro General: patient oriented x3 Extrem General: Yes normal to inspection Results AMB Urinalysis, Automated UA Leukoctes 0 Sukumar/uL Last Edit by Edgardo Alcaraz CMA on 01/13/24 08:40 UA Nitrite Negative Last Edit by Edgardo Alcaraz CMA on 01/13/24 08:40 UA Urobilinogen 0.2 mg/dL Last Edit by Edgardo Alcaraz CMA on 01/13/24 08:40 UA Protein 15 mg/dL Last Edit by Edgardo Alcaraz CMA on 01/13/24 08:40 UA pH 6.0 Last Edit by Edgardo Alcaraz CMA on 01/13/24 08:40 UA Blood 10 Oplo/uL Last Edit by Edgardo Alcaraz CMA on 01/13/24 08:40 UA Specific [place] 1.015 Last Edit by Edgardo Alcaraz CMA on 01/13/24 08:40 UA Ketone Negative Last Edit by Edgardo Alcaraz CMA on 01/13/24 08:40 UA Bilirubin 0 mg/dL Last Edit by Edgardo Alcaraz CMA on 01/13/24 08:40 UA Glucose 250 mg/dL Last Edit by Edgardo Alcaraz CMA on 01/13/24 08:40 AMB Random Glucose (hemocue) AMB Random Glucose (hemocue) 206 mg/dL Last Edit by Edgardo Alcaraz CMA on 01/13/24 08:41 Assessment & Plan Assessment & Plan (1) Abdominal pain: Code(s): R10.9 - Unspecified abdominal pain Qualifiers: Abdominal location: lower abdomen, unspecified Qualified Code(s): R10.30 - Lower abdominal pain, unspecified Plan: Vital signs are stable, patient writhing in pain in the exam chair, physical exam remarkable for only suprapubic tenderness. UA showing glucose in the urine, no evidence of infection so we did a point of care it was 216, patient reports only having coffee with a very small amount of sugar this morning he did not eat anything with it. Due to the amount of pain the patient is in and he is not a diagnosed diabetic with a fasting glucose of 216, we did send to the emergency department for a thorough workup. Called [facility] Emergency Department with expect. Plan See above Orders: Orders AMB Urinalysis Automated Today Z13.9 - Encounter for screening, unspecified AMB Random Glucose (hemocue) Today Z13.9 - Encounter for screening, unspecified Coding Level of Care Code Est Pt Level 5 (60323) Diagnoses Lower abdominal pain R10.30 Abdominal location: lower abdomen, unspecified
== END 2024-01-13 08:54 | disposition home or self-care (01) ==
PROVIDERS: PCP Nurse Practitioner Family; Visit Provider Physician Assistant
DX: R10.30 Lower abdominal pain, unspecified (principal)

== ENCOUNTER → 2024-01-13 08:06 | Outpatient (BNVA) | payer OTHER, SELFPAY | PROVIDERS: PCP Nurse Practitioner Family | DX: R10.30 Lower abdominal pain, unspecified (principal) | CPT/HCPCS: 81003; 82948; 99212 ==

== ENCOUNTER 2024-01-13 09:05 | Inpatient (IN) | payer OTHER, SELFPAY ==
[2024-01-13] VITALS (11 sets, daily range): BP systolic 97–161; BP diastolic 51–84; PULSE 64–104; RESP 16–20; TEMP 36.1–37.4; O2SAT 96–100; BMI 23.3; BMI 24.2
--- NOTE | ~2024-01-13 | CT_ITS ---
EXAMINATION: CT ABDOMEN AND PELVIS WITH CONTRAST CLINICAL INFORMATION: Suprapubic discomfort. COMPARISON: None available. TECHNIQUE: Multidetector volumetric images were obtained from the superior aspect of the liver through the pubic symphysis following administration 85 mL of Omnipaque 350 intravenous contrast. Sagittal and coronal reformatted images were obtained on the technologist's workstation. Oral contrast: No This CT examination was performed using dose optimization techniques as appropriate, variously including the following: *Automated exposure control *Adjustment of mA and/or kV according to patient size (this includes techniques or standardized protocols for targeted exams where dose is matched to indication/reason for exam; i.e. extremities or head) *Use of iterative reconstruction technique DLP: 422 mGy-cm FINDINGS: LUNG BASES: No focal consolidation or pleural effusion. LIVER, GALLBLADDER, AND BILIARY TREE: The liver is normal in size, shape, and attenuation. No focal hepatic lesion or biliary ductal dilatation is present. The gallbladder is unremarkable with no evidence of radiopaque gallstones, gallbladder wall thickening, or obvious pericholecystic inflammatory changes. PANCREAS: No significant peripancreatic inflammatory changes. Scattered parenchymal calcifications suggestive of sequela of chronic pancreatitis. Few very small up to 0.5 cm low density cystic-appearing observations for instance in the pancreatic body (2:22) and pancreatic head (2:32). No main ductal dilatation. SPLEEN: Unremarkable. ADRENAL GLANDS: Mild asymmetric prominence of the medial limb of the left adrenal gland without a discrete nodule or mass. KIDNEYS AND URETERS: Mild asymmetric left-sided hydroureteronephrosis transitioning within the area of significant inflammatory changes in the sigmoid colon. Simple appearing cortical cyst in the anterior upper left kidney, for which no imaging follow-up is recommended. Subcentimeter vascular calcification in the medial interpolar left kidney (2:26). BLADDER: Unremarkable. GASTROINTESTINAL TRACT: Abnormal wall thickening of the sigmoid colon with organized pericolonic collections measuring on the left 5.4 x 2.6 cm and on the right 4.6 x 2.5 cm (2:66 and 2:63); these collections joint posteriorly into an approximately 4.5 x 4 cm collection (2:68). There is amorphous soft tissue thickening approaching the urinary bladder with distortion of the upper bladder, underlying fistulous connection is difficult to exclude. The stomach and the small bowel are nondilated. Normal appendix. ABDOMINAL WALL: No significant hernia is appreciated. LYMPH NODES: Prominent retroperitoneal lymph nodes measuring up to 0.8 cm in short axis, indeterminate possibly reactive for example at the level of the aortic bifurcation (2:42) and to the left of the aorta at the level of the kidneys (2:36) VASCULAR: Moderate atherosclerotic disease. Normal caliber abdominal aorta. PELVIC VISCERA: Unremarkable. OSSEOUS STRUCTURES: No acute or aggressive appearing osseous findings. Severe degenerative osteoarthritis of the left hip. Moderate degenerative changes in the lumbar spine. CT/CT abdomen pelvis w IV con IMPRESSION: Findings are most suggestive of acute complicated diverticulitis with contained perforation and mural abscesses. Amorphous soft tissue thickening extends to the vicinity of the bladder which is distorted superiorly in which underlying fistulous tracts are difficult to exclude. Out of precaution, when clinically appropriate, correlation with colonoscopy is advised to rule out an inflammatory mass. Prominent retroperitoneal lymph nodes, attention on follow-up in future examinations recommended. Mild asymmetric left-sided hydroureteronephrosis secondary to mass effect from the inflammatory changes in the distal ureter at the level of the sigmoid. Scattered pancreatic calcifications suggesting sequela of chronic pancreatitis with a few up to 0.4 cm low density cystic-appearing observations that could represent sequela of chronic pancreatitis or side branch IPMNs. Recommend evaluation with outpatient abdominal MRI of pancreas protocol/MRCP. This critical result was discussed with Anne Henry at 01/13/2024 10:34 AM CDT and it was ascertained that the content and urgency of the report was understood at the time of direct communication. Electronically signed by: Ary Hunter MD 01/13/2024 11:34 AM EDT
[2024-01-13 09:39] LABS: Glucose, Whole Blood 107 mg/dL (60-115)
[2024-01-13 09:41] LABS: Basophils Absolute Auto 0.1 X10*3/uL (0.0-0.2); Basophils Percent Auto 0.5 % (0-2); Hematocrit 42.8 % (42.0-52.0); Hemoglobin 14.7 g/dl (14.0-18.0); Imm Gran Abs Auto 0.14 X10*3/uL (0.00-0.03); Imm Gran Pct Auto 0.6 % (0.0-0.4); Lymphocytes Absolute Auto 2.7 X10*3/uL (1.2-4.9); Lymphocytes Percent Auto 11.5 % (20-40); MANUAL DIFF FLAG SCAN; Mean Corpuscular HGB Conc 34.3 g/dl (31.0-36.0); Mean Corpuscular Hemoglobin 31.6 pg (27.0-33.0); Mean Platelet Volume 10.6 fL (9.4-12.4); Monocytes Absolute Auto 1.9 X10*3/uL (0.1-1.2); Monocytes Percent Auto 7.9 % (2-11); Neutrophils Absolute Auto 18.7 x10*3/uL (2.0-8.3); Neutrophils Percent Auto 79.5 % (45-73); Platelet Count 333 X10*3/uL (160-400); Red Blood Count 4.65 X10*6/uL (4.60-5.80); SCAN SMEAR FLAG 1; White Blood Count 23.5 X10*3/uL (4.8-10.8)
[2024-01-13 09:42] LABS: Appearance Urine Clear; Color Urine Yellow; Glucose Urine UA Negative (Negative); Leukocyte Esterase Urine Negative (Negative); Nitrite Urine Negative (Negative); PH 5.5 (5.0-9.0); Urine Blood Negative (Negative); Urine Ketones Negative (Negative); Urine Protein Negative (Neg-Trace)
--- NOTE | 2024-01-13 09:46 | ED.GENADULT ---
HPI - General Adult General Chief complaint: Abdominal Pain Stated complaint: Abd pain sent by PCP Time Seen by Provider: 01/13/24 09:42 Source: patient Mode of arrival: ambulatory Limitations: no limitations History of Present Illness ED Provider: Elaine HPI narrative: 53yo M PMHx HTN, GERD, fatty liver presenting from UC with 2 weeks of abdominal pain and diarrhea (patient states his baseline is loose, unformed stools). UC concerned for undiagnosed T2DM due to elevated fasting glucose and glycosuria. Endorses intermittent, subjective fevers, chills. Denies N/V, urinary frequency, urgency, polydipsia, polyphagia. Still having loose, unformed BMs. Had a colonoscopy within the past 5 years patient reports it was normal. Related Data Previous Rx's ?Medication ?Instructions ?Recorded lisinopril 20 mg tablet 20 mg PO DAILY #90 tabs 08/14/23 hydrochlorothiazide 12.5 mg tablet 12.5 mg PO DAILY 90 days #90 tabs 10/21/23 Allergies Allergy/AdvReac Type Severity Reaction Status Date / Time No Known Allergies Allergy Verified 01/13/24 09:20 Review of Systems Review of Systems: Yes all other systems are reviewed and are negative PMFSH Past Medical History Attestation statement: The following information was validated with the patient. Source: old records reviewed and nursing notes reviewed Medical History Essential hypertension Fatty liver GERD (gastroesophageal reflux disease) Osteoarthritis of left hip Nicotine dependence, cigarettes, uncomplicated Exposure to lead Surgical History History of esophagogastroduodenoscopy (EGD) Social History Social History Housing: House Alcohol intake: current Alcohol intake frequency: holidays/special occasions only Patient Tobacco Use Status: Current everyday Tobacco user Cigarette Packs Per Day: 1 Years Smoked: onset 11yo, 1ppd x 42yrs, 40pyh e-Cigarette/Vaping Use: Never Used Second Hand Smoke Exposure: Yes Advance Directives: No Advance Directives Information Provided: No service: No Current occupational status: employed 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 Oriented X3. No acute distress. ? No accessory muscle use Head: Normal external exam. Normocephalic. Atraumatic. ? Eyes: PERRLA. EOMI. Conjunctiva and sclera normal. Eyelids normal. ? ENT: Pharynx normal. Neck: ?Soft full range of motion, no JVD CVS: ?Heart regular rate and rhythm no murmurs and rubs Respiratory: ?Breath sounds are clear to auscultation bilaterally. No wheezing or stridor.? No accessory muscle use noted. Abdomen: ?Soft mildly tender in the lower quadrants b/l L>R . Hyperactive bowel sounds throughout Skin: Skin warm and dry.? Normal skin color.? Normal skin turgor. No rashes/lesions/lacerations noted. Extremities: No lower extremity edema. ? Extremities exhibit normal range of motion.? Extremities nontender. Neuro: Oriented X 3.? No motor deficit.? No sensory deficit.? Reflexes normal Course Reevaluation(s) Reevaluation #1: CBC w/ leukocytosis, no shift. Chemistry was slight bump in BUN and creatinine will hydrate with IV fluids. Normal lactic acid. No other electrolyte abnormalities meeting intervention. Random glucose 97 was not elevated here, beta hydroxybutyrate normal, no acidosis noted on VBG. Urine no infection. Time: 10:45 Reevaluation #2: Patients abd scan concerning for complicated w/ complicated diverticulitis w/ contained perfs and abscess. Recommends Colonoscopy for r/o mass at somepoint Time: 11:27 Reevaluation #3: Will reach out to surgery at this time. Time: 11:30 Additional Reevaluation(s): Patient will go to the OR. Medications Administered Discontinued Medications Generic Name Dose Route Start Last Admin Trade Name Freq PRN Reason Stop Dose Admin Sodium Chloride 1,000 mls @ 999 mls/hr 01/13/24 09:45 01/13/24 10:09 Ns IV 01/13/24 10:45 Not Given .Q1H1M MEE Sodium Chloride 1,000 mls @ 999 mls/hr 01/13/24 10:15 01/13/24 10:09 Ns IV 01/13/24 11:15 Not Given .Q1H1M MEE Sodium Chloride 2,340.54 mls @ 2,340.54 mls/hr 01/13/24 10:06 01/13/24 10:03 Ns 30 ml/kg infuse over 1 hr (2340.54 ml) 01/13/24 11:05 2,340.54 mls/hr IV Administration .Q1H STA Piperacillin Sod/Tazobactam 50 mls @ 100 mls/hr 01/13/24 10:06 01/13/24 11:25 Sod 3.375 gm/ Sodium Chloride IV 01/13/24 10:35 Infused ONCE ONE Infusion Iohexol 100 ml 01/13/24 10:30 01/13/24 10:30 Iohexol 350 Mg/Ml 100 Ml Infus..Btl IV 01/13/24 10:31 85 ml ONCE ONE Administration Medical Decision Making Medical Decision Making MDM Narrative: 53yo M PMHx HTN, GERD, fatty liver presenting from UC with 2 weeks of abdominal pain and diarrhea PE: Soft mildly tender in the lower quadrants b/l LLQ >RLQ. Hyperactive bowel sounds throughout Hx and PE concerning for C. diff colitis, undiagnosed diabetes diverticulitis, UTI, cystitis. Less likely, obstruction, perforation, DKA, malignancy, acute abdomen. Plan: labs, imaging, fluids Differential Diagnosis Differential Diagnoses: The differential diagnosis associated with the presentation includes (Hx and PE concerning for C. diff colitis, undiagnosed diabetes diverticulitis, UTI, cystitis. Less likely, obstruction, perforation, DKA, malignancy, acute abdomen. ) Admission/Observation Consideration of admission/observation: Escalation of care including admission/observation considered Possible Lab Data 01/13/24 09:33 01/13/24 09:33 Labs: Lab Results 01/13/24 01/13/24 01/13/24 Range/Units 09:29 09:33 10:03 WBC 23.5 H (4.8-10.8) X10*3/uL RBC 4.65 (4.60-5.80) X10*6/uL Hgb 14.7 (14.0-18.0) g/dl Hct 42.8 (42.0-52.0) % MCV 92.0 (80.0-98.0) fL MCH 31.6 (27.0-33.0) pg MCHC 34.3 (31.0-36.0) g/dl RDW 13.0 (11.0-16.0) % Plt Count 333 D (160-400) X10*3/uL MPV 10.6 (9.4-12.4) fL Immature Gran % (Auto) 0.6 H (0.0-0.4) % Neut % (Auto) 79.5 H (45-73) % Lymph % (Auto) 11.5 L (20-40) % [place] % (Auto) 7.9 (2-11) % Eos % (Auto) 0.0 (0-4) % Baso % (Auto) 0.5 (0-2) % Lymph # (Auto) 2.7 (1.2-4.9) X10*3/uL [place] # (Auto) 1.9 H (0.1-1.2) X10*3/uL Eos # (Auto) 0.0 (0.0-0.4) X10*3/uL Baso # (Auto) 0.1 (0.0-0.2) X10*3/uL Abs Immat Gran (auto) 0.14 H (0.00-0.03) X10*3/uL Absolute Neuts (auto) 18.7 H (2.0-8.3) x10*3/uL Absolute Nucleated RBC 0.000 (0.0-0.012) X10*3/uL Nucleated RBC % (auto) 0.0 (0.0-0.2) /100WBC Smear Tech's Comments VERIFIED VBG pH (7.32-7.43) VBG pCO2 mmHg VBG pO2 mmHg VBG HCO3 (22-26) mmol/L VBG O2 Saturation % VBG Base Excess mmol/L Sodium 138 (135-145) mmol/L Potassium 4.8 (3.3-5.1) mmol/L Chloride 101 (96-108) mmol/L Carbon Dioxide 29 (22-29) mmol/L Anion Gap 13 (12-20) BUN 24 H (9-16) mg/dL Creatinine 0.97 (0.5-1.4) mg/dL Estim Creat Clear Calc 94.4 Estimated GFR > 60 POC Glucose 107 (60-115) mg/dL Random Glucose 97 (60-115) mg/dL Lactic Acid (0.5-2.0) mmol/L Calcium 10.4 H D (8.4-10.2) mg/dL Magnesium 1.9 Cancelled (1.6-2.6) mg/dL Total Bilirubin 0.3 (0.0-1.0) mg/dL Direct Bilirubin 0.1 (0.0-0.5) mg/dL AST 15 (5-37) U/L ALT 19 (0-40) U/L Alkaline Phosphatase 84 (39-117) U/L Total Protein 7.9 (6.5-8.0) g/dL Albumin 3.9 (3.5-5.0) g/dL Lipase 11 (8-78) U/L Beta-Hydroxybutyrate 0.03 Cancelled (0.02-0.27) mmol/L Urine Color Yellow Urine Appearance Clear Urine pH 5.5 (5.0-9.0) Ur Specific [place] 1.010 (1.005-1.025) Urine Protein Negative (Neg-Trace) mg/dL Urine Glucose (UA) Negative (Negative) mg/dL Urine Ketones Negative (Negative) mg/dL Urine Blood Negative (Negative) Urine Nitrite Negative (Negative) Ur Leukocyte Esterase Negative (Negative) COVID-19 ([facility]) Negative (Negative) COVID-19 Clin Com See Note 01/13/24 01/13/24 Range/Units 10:07 10:15 WBC (4.8-10.8) X10*3/uL RBC (4.60-5.80) X10*6/uL Hgb (14.0-18.0) g/dl Hct (42.0-52.0) % MCV (80.0-98.0) fL MCH (27.0-33.0) pg MCHC (31.0-36.0) g/dl RDW (11.0-16.0) % Plt Count (160-400) X10*3/uL MPV (9.4-12.4) fL Immature Gran % (Auto) (0.0-0.4) % Neut % (Auto) (45-73) % Lymph % (Auto) (20-40) % [place] % (Auto) (2-11) % Eos % (Auto) (0-4) % Baso % (Auto) (0-2) % Lymph # (Auto) (1.2-4.9) X10*3/uL [place] # (Auto) (0.1-1.2) X10*3/uL Eos # (Auto) (0.0-0.4) X10*3/uL Baso # (Auto) (0.0-0.2) X10*3/uL Abs Immat Gran (auto) (0.00-0.03) X10*3/uL Absolute Neuts (auto) (2.0-8.3) x10*3/uL Absolute Nucleated RBC (0.0-0.012) X10*3/uL Nucleated RBC % (auto) (0.0-0.2) /100WBC Smear Tech's Comments VBG pH 7.50 H (7.32-7.43) VBG pCO2 35 mmHg VBG pO2 48 mmHg VBG HCO3 27 H (22-26) mmol/L VBG O2 Saturation 82.0 % VBG Base Excess 4.6 mmol/L Sodium (135-145) mmol/L Potassium (3.3-5.1) mmol/L Chloride (96-108) mmol/L Carbon Dioxide (22-29) mmol/L Anion Gap (12-20) BUN (9-16) mg/dL Creatinine (0.5-1.4) mg/dL Estim Creat Clear Calc Estimated GFR POC Glucose (60-115) mg/dL Random Glucose (60-115) mg/dL Lactic Acid 1.1 (0.5-2.0) mmol/L Calcium (8.4-10.2) mg/dL Magnesium (1.6-2.6) mg/dL Total Bilirubin (0.0-1.0) mg/dL Direct Bilirubin (0.0-0.5) mg/dL AST (5-37) U/L ALT (0-40) U/L Alkaline Phosphatase (39-117) U/L Total Protein (6.5-8.0) g/dL Albumin (3.5-5.0) g/dL Lipase (8-78) U/L Beta-Hydroxybutyrate (0.02-0.27) mmol/L Urine Color Urine Appearance Urine pH (5.0-9.0) Ur Specific [place] (1.005-1.025) Urine Protein (Neg-Trace) mg/dL Urine Glucose (UA) (Negative) mg/dL Urine Ketones (Negative) mg/dL Urine Blood (Negative) Urine Nitrite (Negative) Ur Leukocyte Esterase (Negative) COVID-19 ([facility]) (Negative) COVID-19 Clin Com Critical Care Time Critical Care Time Critical Care Time: Yes Total Critical Care Time: 45 Attestation: I attest to this time spent taking care of the patient, obtaining history, physical, reviewing labs, imaging, treatment of patients condition +/- specialist/hospitalist consult Discharge Plan Discharge Clinical Impression: Diverticulitis of large intestine with complication, Abdominal pain Patient Disposition: Admitted As Inpatient Prescriptions: No Action lisinopril 20 mg tablet 20 mg PO DAILY Qty: 90 1RF hydrochlorothiazide 12.5 mg tablet 12.5 mg PO DAILY 90 Days Qty: 90 1RF Print Language: Haitian
[2024-01-13 09:54] LABS: Alanine Aminotransferase 19 U/L (0-40); Albumin Level 3.9 g/dL (3.5-5.0); Alkaline Phosphatase 84 U/L (39-117); Anion Gap 13 (12-20); Aspartate Amino Transferase 15 U/L (5-37); Bilirubin Direct 0.1 mg/dL (0.0-0.5); Bilirubin Total 0.3 mg/dL (0.0-1.0); Blood Urea Nitrogen 24 mg/dL (9-16); Calcium 10.4 mg/dL (8.4-10.2); Carbon Dioxide 29 mmol/L (22-29); Chloride 101 mmol/L (96-108); Creatinine Clr Calc Pharmacy 94.4; Estimated Glomerular Filt Rate > 60; Glucose Random 97 mg/dL (60-115); Lipase 11 U/L (8-78); Potassium 4.8 mmol/L (3.3-5.1); Sodium 138 mmol/L (135-145); Total Protein 7.9 g/dL (6.5-8.0)
[2024-01-13 09:56] LABS: COVID-19 Test Negative (Negative); IDNOW Serial# 08D9AD1C
[2024-01-13 09:59] LABS: SLIDE REVIEW VERIFIED
[2024-01-13] MEDS: SODIUM CHLORIDE 2340.54 ML IV (10:03)
[2024-01-13 10:10] LABS: Venous Blood Gas Refer to POC result
[2024-01-13 10:11] LABS: VBG Base Excess 4.6 mmol/L; VBG HCO3 27 mmol/L (22-26); VBG pCO2 35 mmHg; VBG pO2 48 mmHg
[2024-01-13] MEDS: iohexoL 350 MG/ML 100 ML INFUS..BTL IV (10:30)
[2024-01-13 10:42] LABS: Lactic Acid 1.1 mmol/L (0.5-2.0)
[2024-01-13] MEDS: Piperacillin Sodium/Tazobactam 3.375 GM in 0.9 % Sodium Chloride 50 ML IV ×3 (10:54→23:03)
[2024-01-13 10:58] LABS: Beta-Hydroxybutyrate 0.03 mmol/L (0.02-0.27); Magnesium 1.9 mg/dL (1.6-2.6)
--- NOTE | 2024-01-13 12:31 | P.HPGS_ITS ---
History of Present Illness History of Present Illness Date of Service: 01/13/24 <Yessenia Rm PA-C - Last Filed: 01/13/24 12:49> 01/17/24 <Carlyle Skelton MD - Last Filed: 01/17/24 12:46> Chief complaint: diverticulitis with abcess <Yessenia Rm PA-C - Last Filed: 01/13/24 12:49> Narrative: Cristian Dobbs is a 53 year old male with PMH of HTN, GERD, fatty liver, smoker who presented to the ED with c/o lower abdominal pain. He reports the pain started 2 weeks ago. It was in his lower abdomen and sharp in nature. It worsened about a week ago and became so severe last night therefore prompting him to seek evaluation. The pain is associated with subjective fevers and diarrhea. Work up in the ED included CBC, BMP, LFTs which was significant for a leukocytosis of 23.5. CT scan abd/pelvis showed diverticulosis, wall thickening of the sigmoid colon with multiple organized pericolonic collections and soft tissue thickening approaching the urinary bladder. He denies nausea, vomiting, melena, hematochezia, dysuria, hematuria, pneumoturia, fecaluria. Reports he had a colonoscopy 4 years ago at [place] which was normal. He denies prior surgical history. <Yessenia Rm PA-C - Last Filed: 01/13/24 12:49> Review of Systems Constitutional: Constitutional: Denies chills and Reports fever(s) <Yessenia Rm PA-C - Last Filed: 01/13/24 12:49> ENT: Denies dizziness <Yessenia Rm PA-C - Last Filed: 01/13/24 12:49> Cardiovascular: Cardiovascular: Denies chest pain <JOE Ojeda - Last Filed: 01/13/24 12:49> Gastrointestinal: Gastrointestinal: Reports as per HPI <J CARLOS Ojdea Last Filed: 01/13/24 12:49> Genitourinary: Genitourinary: Denies dysuria <Yessenia Rm PA-C - Last Filed: 01/13/24 12:49> Integumentary/Breasts: Skin/Breast: Denies rash and Denies jaundice <Yessenia Rm PA-C - Last Filed: 01/13/24 12:49> Neurologic: Denies dizziness <Yessenia Rm PA-C - Last Filed: 01/13/24 12:49> PMF Past Medical History Medical History: Medical History Essential hypertension Fatty liver GERD (gastroesophageal reflux disease) Osteoarthritis of left hip Nicotine dependence, cigarettes, uncomplicated Exposure to lead <Yessenia Rm PA-C - Last Filed: 01/13/24 12:49> Surgical History Surgical History: Surgical History History of esophagogastroduodenoscopy (EGD) <Yessenia Rm PA-C - Last Filed: 01/13/24 12:49> Social History Social History: Social History Household Members: Spouse and Children Housing: House Are you a primary health and social care teacher to a significant other at home: No Do you presently have visiting nurse or other home services: No Alcohol intake: current Alcohol intake frequency: does not drink Patient Tobacco Use Status: Former Tobacco user Tobacco use type: Cigarette Cigarette Packs Per Day: 1 Cigarettes Per Day: 20.0 Years Smoked: 20 Smoked in Last 30 Days: Yes e-Cigarette/Vaping Use: Never Used Patient Interested in Nicotine Replacement: Yes Patient Given Instructions on How to Stop Smoking: No (pt workin on it, currently in a program) Second Hand Smoke Exposure: Yes () Use of substances other than those prescribed or required for medical reasons: Yes Substance Use Type: Marijuana Substance Use Frequency: Chronic Longstanding Last Used Substance: Days (ago) Currently Displaying Signs/Symptoms of Drug Intoxication Withdrawal: No Any prior treatment program specific to substance use: No Have you been hit, kicked, punched, or otherwise hurt by someone within the past year? 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 Current occupational exposures/hazards: Yes Cognitive needs: No Hearing needs: No Vision needs: No <Yessenia Rm PA-C - Last Filed: 01/13/24 12:49> Meds Allergies/Adverse reactions: Allergies Allergy/AdvReac Type Severity Reaction Status Date / Time No Known Allergies Allergy Verified 01/13/24 09:20 <J CARLOS Ojeda Last Filed: 01/13/24 12:49> Active Medications: Current Medications Calcium Carbonate (Calcium Carbonate 750 Mg Tab.Chew) 750 mg PO Q4H PRN PRN Reason: Heartburn Hydromorphone HCl (Hydromorphone Hcl 1 Mg/Ml Syringe) 0.5 mg IVPUSH Q4H PRN; Protocol PRN Reason: Pain, Severe (Pain Scale 7-10) Piperacillin Sod/Tazobactam (Sod 3.375 gm/ Sodium Chloride) 50 mls @ 100 mls/hr IV Q6H MEE Lactated Ringer's (Lr) 1,000 mls @ 125 mls/hr IVCONT .Q8H MEE Melatonin (Melatonin 3 Mg Tablet) 6 mg PO BEDTIME PRN PRN Reason: Insomnia Nicotine (Nicotine 21 Mg Patch.Td24) 21 mg TRANSDERMA DAILY MEE Sodium Chloride (0.9 % Sodium Chloride Flush 3 Ml Syringe) 3 ml IVFLUSH QSHIFT MEE <J CARLOS Ojeda Last Filed: 01/13/24 12:49> Physical Exam Vital Signs: Vital Signs: Last Vital Signs Temp 99.3 F 01/13/24 11:54 Pulse 95 01/13/24 11:54 Resp 16 01/13/24 11:54 BP 134/72 01/13/24 11:54 Pulse Ox 100 01/13/24 11:54 O2 Del Method Room Air 01/13/24 11:54 BMI result Body Mass Index 23.3 <Yessenia Rm J CARLOS Rios Last Filed: 01/13/24 12:49> Const: Other: uncomfortable appearing <Yessenia Rm J CARLOS Rios Last Filed: 01/13/24 12:49> General: no acute distress and alert <Yessenia Rm J CARLOS Rios Last Filed: 01/13/24 12:49> Orientation/consciousness: patient oriented x3 <Yessenia Rm J CARLOS Rios Last Filed: 01/13/24 12:49> Neck: Neck: No JVD <J CARLOS Ojeda Last Filed: 01/13/24 12:49> Resp: Effort & Inspection: normal respiratory effort, not tachypneic and no use of accessory muscles <Yessenia Rm J CARLOS Rios Last Filed: 01/13/24 12:49> Cardio: Rate: regular rate <Yessenia Rm J CARLOS Rios Last Filed: 01/13/24 12:49> GI: Inspection: Yes normal to inspection, No distended, No scar and No visible herniation <Yessenia Rm J CARLOS Rios Last Filed: 01/13/24 12:49> Palpation (GI): Soft to palpation, Tenderness to palpation present (GI) (marked suprapubic and LLQ tenderness) with no rebound tenderness and no guarding <Yessenia Rm J CARLOS Rios Last Filed: 01/13/24 12:49> Skin: General skin exam: no rashes or lesions noted <Yessenia Rm J CARLOS Rios Last Filed: 01/13/24 12:49> Neuro: General: patient oriented x3 and moves all extremities <Yessenia Balderasdeau J CARLOS Rios Last Filed: 01/13/24 12:49> Results Results Labs: Short CBC 01/13/24 Range/Units 09:33 WBC 23.5 H (4.8-10.8) X10*3/uL Hgb 14.7 (14.0-18.0) g/dl Hct 42.8 (42.0-52.0) % Plt Count 333 D (160-400) X10*3/uL BMP 01/13/24 09:33 Sodium 138 Potassium 4.8 Chloride 101 Carbon Dioxide 29 BUN 24 H Creatinine 0.97 Calcium 10.4 H D Liver Function 01/13/24 Range/Units 09:33 Total Bilirubin 0.3 (0.0-1.0) mg/dL Direct Bilirubin 0.1 (0.0-0.5) mg/dL AST 15 (5-37) U/L ALT 19 (0-40) U/L Alkaline Phosphatase 84 (39-117) U/L Albumin 3.9 (3.5-5.0) g/dL Urine 01/13/24 Range/Units 09:33 Urine Color Yellow Urine Appearance Clear Urine pH 5.5 (5.0-9.0) Ur Specific [place] 1.010 (1.005-1.025) Urine Protein Negative (Neg-Trace) mg/dL Urine Glucose (UA) Negative (Negative) mg/dL <Yessenia Rm PA-C - Last Filed: 01/13/24 12:49> Abdomen CT scan report/results: report reviewed and image reviewed <Yessenia Rm PA-C - Last Filed: 01/13/24 12:49> Assessment and Plan (1) Diverticulitis of large intestine with complication: Status: Acute <Yessenia Rm PA-C - Last Filed: 01/13/24 12:49> He has had lower abdominal pain for about 2 weeks now Worsening I have reviewed his CAT scan - complicated diverticulitis with mural abscesses Significantly tender in lower abdomen I explained to him it is best to proceed with resection has resolution and improvement unlikely with antibiotics alone based on radiologic appearance I reviewed with him the technique of hand assisted laparoscopic sigmoid resection possible open with colostomy I explained the risks including but not limited to bleeding, infections, bowel injury, injury to other organs including bladder, well as the benefits and alternatives I explained to him what to expect postoperatively He has given consent His was with him during the visit <Carlyle Skelton MD - Last Filed: 01/17/24 12:46> 53 year old male with PMH of HTN, GERD, fatty liver, smoker presenting with 2 week history of lower abdominal pain with increase in severity with significant leukocytosis and sigmoid wall thickening and large pericolonic abscesses consistent of sigmoid diverticulitis with abscess. There is also note of bladder wall thickening concerning for fistula. Given the CT findings and his significant tenderness it was recommended to proceed with surgery. Technique of procedure of JOSE DAVID sigmoid resection, likely end colostomy was discussed with the patient. He is in agreement. He has been added onto the OR schedule for today. He has been made NPO, started on IVF and IV zosyn. <Yessenia Rm PA-C - Last Filed: 01/13/24 12:49> Quality Stroke Does the patient have a stroke diagnosis?: No <Yessenia Rm PA-C - Last Filed: 01/13/24 12:49> VTE Prior VTE?: No <Yessenia Rm PA-C - Last Filed: 01/13/24 12:49> VTE Risk Level:: Surgical - high <Yessenia Rm PA-C - Last Filed: 01/13/24 12:49> VTE Device Contraindication: N/A - Device Ordered <Yessenia Rm PA-C - Last Filed: 01/13/24 12:49> VTE Drug Contraindication: N/A - Med Ordered <Yessenia Rm PA-C - Last Filed: 01/13/24 12:49> Procedures Date of Service Date of Service: 01/13/24 <Yessenia Rm PA-C - Last Filed: 01/13/24 12:49> 01/17/24 <Carlyle Skelton MD - Last Filed: 01/17/24 12:46>
--- NOTE | 2024-01-13 12:32 | HO.ANESPROP2 ---
[facility] Active Problems Active Problems: All Active Problems Diverticulitis of large intestine with complication (Acute) Abdominal pain (Acute) Nicotine addiction (Acute) Essential hypertension (Acute) GERD (gastroesophageal reflux disease) (Acute) Fatty liver (Acute) Diarrhea (Acute) Abdominal discomfort (Acute) Osteoarthritis of left hip (Acute) Nicotine dependence, cigarettes, uncomplicated (Acute) Elevated blood lead level (Acute) Exposure to lead (Acute) Skin lesions (Acute) Past Medical History Medical History Essential hypertension Fatty liver GERD (gastroesophageal reflux disease) Osteoarthritis of left hip Nicotine dependence, cigarettes, uncomplicated Exposure to lead Family History Family history of problems with anesthesia: No Surgical History Surgical History History of esophagogastroduodenoscopy (EGD) History of Problems with Anesthesia: No Social History Social History Housing: House Are you a primary child day care teacher to a significant other at home: No Do you presently have visiting nurse or other home services: No Alcohol intake: current Alcohol intake frequency: does not drink Patient Tobacco Use Status: Current everyday Tobacco user Tobacco use type: Cigarette Cigarette Packs Per Day: 1 Cigarettes Per Day: 10.0 Years Smoked: onset 11yo, 1ppd x 42yrs, 40pyh e-Cigarette/Vaping Use: Never Used Second Hand Smoke Exposure: No service: No Current occupational status: employed 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 Current occupational exposures/hazards: Yes Cognitive needs: No Hearing needs: No Vision needs: No Meds Allergies Allergy/AdvReac Type Severity Reaction Status Date / Time No Known Allergies Allergy Verified 01/13/24 09:20 Active Medications: Current Medications Calcium Carbonate (Calcium Carbonate 750 Mg Tab.Chew) 750 mg PO Q4H PRN PRN Reason: Heartburn Hydromorphone HCl (Hydromorphone Hcl 1 Mg/Ml Syringe) 0.5 mg IVPUSH Q4H PRN; Protocol PRN Reason: Pain, Severe (Pain Scale 7-10) Piperacillin Sod/Tazobactam (Sod 3.375 gm/ Sodium Chloride) 50 mls @ 100 mls/hr IV Q6H [facility] Lactated Ringer's (Lr) 1,000 mls @ 125 mls/hr IVCONT .Q8H [facility] Melatonin (Melatonin 3 Mg Tablet) 6 mg PO BEDTIME PRN PRN Reason: Insomnia Nicotine (Nicotine 21 Mg Patch.Td24) 21 mg TRANSDERMA DAILY [facility] Sodium Chloride (0.9 % Sodium Chloride Flush 3 Ml Syringe) 3 ml IVFLUSH QSHIFT [facility] Exam Height,Weight and Vital Signs: Height 6 ft Weight 78.018 kg Last Vital Signs Temp 99.3 F 01/13/24 11:54 Pulse 95 01/13/24 11:54 Resp 16 01/13/24 11:54 BP 134/72 01/13/24 11:54 Pulse Ox 100 01/13/24 11:54 O2 Del Method Room Air 01/13/24 11:54 Pertinent Lab Results Pertinent Lab Results: Laboratory Tests 01/13/24 01/13/24 01/13/24 09:29 09:33 10:03 WBC 23.5 H RBC 4.65 Hgb 14.7 Hct 42.8 MCV 92.0 MCH 31.6 MCHC 34.3 RDW 13.0 Plt Count 333 D MPV 10.6 Immature Gran % (Auto) 0.6 H Neut % (Auto) 79.5 H Lymph % (Auto) 11.5 L [place] % (Auto) 7.9 Eos % (Auto) 0.0 Baso % (Auto) 0.5 Lymph # (Auto) 2.7 [place] # (Auto) 1.9 H Eos # (Auto) 0.0 Baso # (Auto) 0.1 Abs Immat Gran (auto) 0.14 H Absolute Neuts (auto) 18.7 H Absolute Nucleated RBC 0.000 Nucleated RBC % (auto) 0.0 Smear Tech's Comments VERIFIED VBG pH VBG pCO2 VBG pO2 VBG HCO3 VBG O2 Saturation VBG Base Excess Sodium 138 Potassium 4.8 Chloride 101 Carbon Dioxide 29 Anion Gap 13 BUN 24 H Creatinine 0.97 Estim Creat Clear Calc 94.4 Estimated GFR > 60 POC Glucose 107 Random Glucose 97 Lactic Acid Calcium 10.4 H D Magnesium 1.9 Cancelled Total Bilirubin 0.3 Direct Bilirubin 0.1 AST 15 ALT 19 Alkaline Phosphatase 84 Total Protein 7.9 Albumin 3.9 Lipase 11 Beta-Hydroxybutyrate 0.03 Cancelled Urine Color Yellow Urine Appearance Clear Urine pH 5.5 Ur Specific [place] 1.010 Urine Protein Negative Urine Glucose (UA) Negative Urine Ketones Negative Urine Blood Negative Urine Nitrite Negative Ur Leukocyte Esterase Negative COVID-19 ([facility]AR) Negative COVID-19 Clin Com See Note 01/13/24 01/13/24 10:07 10:15 WBC RBC Hgb Hct MCV MCH MCHC RDW Plt Count MPV Immature Gran % (Auto) Neut % (Auto) Lymph % (Auto) [place] % (Auto) Eos % (Auto) Baso % (Auto) Lymph # (Auto) [place] # (Auto) Eos # (Auto) Baso # (Auto) Abs Immat Gran (auto) Absolute Neuts (auto) Absolute Nucleated RBC Nucleated RBC % (auto) Smear Tech's Comments VBG pH 7.50 H VBG pCO2 35 VBG pO2 48 VBG HCO3 27 H VBG O2 Saturation 82.0 VBG Base Excess 4.6 Sodium Potassium Chloride Carbon Dioxide Anion Gap BUN Creatinine Estim Creat Clear Calc Estimated GFR POC Glucose Random Glucose Lactic Acid 1.1 Calcium Magnesium Total Bilirubin Direct Bilirubin AST ALT Alkaline Phosphatase Total Protein Albumin Lipase Beta-Hydroxybutyrate Urine Color Urine Appearance Urine pH Ur Specific [place] Urine Protein Urine Glucose (UA) Urine Ketones Urine Blood Urine Nitrite Ur Leukocyte Esterase COVID-19 ([facility]AR) COVID-19 Clin Com Airway Mallampati Class: II (missing multiple teeth, denies any loose) TM Dist: >3cm Neck ROM: Full Heart: rrr Lungs: cta Assessment and Plan Assessment Anesthesia Assessment: Anesthesia Plan Discussed and Chart Reviewed Final Anesthetic Review Family History of Problems with Anesthesia: No History of Problems with Anesthesia: No NPO: Yes ASA Class: II and Emergency Final Preanesthetic Review: No Changes in Pt Med Stat, Meds/Allgs Chart Reviewed and Consent Obtained/Reviewed Patient Risk: Low Procedure Risk: Intermediate Anesthetic Plan Anesthetic Plan: GA Disposition: Standard PACU
[2024-01-13] MEDS: Lactated Ringers 1,000 ML 125 ML IVCONT ×3 (12:46→23:04)
--- NOTE | 2024-01-13 14:55 | W.PM.OPN ---
Operative Note Operative Note Date of Service: 01/13/24 Narrative: Preop diagnosis: Acute Sigmoid diverticulitis, with intramural abscesses Postop diagnosis: Acute sigmoid diverticulitis, with phlegmonous changes, abscesses in the mesentery, fecaliths within the abscess cavity Procedure: Hand assisted laparoscopic sigmoid resection, with a diverting end colostomy, extensive lysis of adhesions Surgeon: Carlyle Skelton MD assistant refinery operator: EZIO Rm The patient is a 53-year-old male with note of severe lower abdominal pain, a CT scan showing intramural abscesses, significant inflammatory changes consistent with diverticulitis. He was also very tender to palpation. In view of this above findings, I explained to him it would be best to proceed with sigmoid resection. I have explained the technique of hand assisted laparoscopic sigmoid resection and stoma formation. I reviewed the risks including but not limited to bleeding, infections, abscesses, as well as the benefits and alternatives and she had given consent He was brought to the operating room and placed in modified lithotomy position under general anesthesia via endotracheal tube. The abdomen and the perineum were prepped and draped in the usual sterile fashion. A Stoll catheter had been placed. A surgical time-out was done. A tap block was done by the anesthesiologist. I made a short low midline l incision using blade 15. This carried down through the full-thickness of the skin subcutaneous fat down to the fascia. The fascia was incised. The peritoneum was entered. I positioned the [place] wound retractor through the wound and applied the Gelfoam along with the insufflating port. We insufflated the pressure of 15 mm Hg. With laparoscopic visualization using a 30 degree 10 mm scope, inserted a 5/12 mm port epigastric area. We moved the camera into this epigastric port. The patient was placed in a steep head-down position. I inserted my hand through the GelPort. We examined laparoscopically. The mid sigmoid was very indurated with note of a very thickened, marked inflamed mesentery. This mid sigmoid was also markedly tethered and adherent to the sidewall. I had to do careful lysis of adhesions using the LigaSure as well as my finger. This was done until was able to release the adhesions and mobilize this marked inflamed sigmoid. I extended my dissection into the left colon by dividing the ligamentous attachments along the white line of Toldt for mobilization. This was done using the LigaSure as well I carefully mobilized more of the distal wide and was able to feel the supple noninflamed segment past the area of inflammation I chose my point of transection in the proximal sigmoid. I used the LigaSure to create a mesenteric window. I divided the sigmoid at this window using an Endo-MARJORIE 60 mm stapler. I also created a mesenteric window and the distal sigmoid near the rectosigmoid junction using the LigaSure and used a similar Endo-MARJORIE 60 mm stapler to divide this. I then serially divided the attached mesentery using the LigaSure. In the area of the inflammation, the mesentery was very indurated, markedly inflamed and had multiple small abscesses with purulent fluid.. I therefore had to divide the mesentery slowly along this area to achieve good hemostasis using the LigaSure. Eventually I was able to complete transection. The specimen sent. There was note of fecalith in the mesentery where the abscess cavities were. I copiously irrigated. I made sure that we had good hemostasis. Once hemostasis was confirmed, I proceeded to then do the colostomy. I created my stoma opening in the left lower quadrant which had been previously marked. I excised the discoid piece of skin left lower quadrant at the had been previously marked. I dissected with electrocautery through the subcutaneous fat into the anterior sheath. I divided the anterior sheath and did muscle-splitting of the rectus through the he is here sheath. I applied a small-sized [place] wound retractor. I used a [place] to pull up the stump of the sigmoid through the [place] wound retractor. The wound retractor was then removed. We proceeded to then close the fascia with a running Maxon 1 stitch on the midline. Prior to this we positioned a drain into the pelvis along the previous inflamed area. I secured the drain to the skin with colon 3-0 stitches We examined laparoscopically using the epigastric port. The closure at the midline appeared intact without any bowel caught by the sutures. There was no twisting of the colostomy. We proceeded to then mature the colostomy by excising the staple line. I applied a circumferential row of Polysorb 3-0 sutures through the full-thickness of the wall of the sigmoid into the subdermal layer . The stoma appeared viable. Dressings were applied. The stoma appliance was placed and the procedure was completed. The patient tolerated procedure well. There were no immediate complications. Initial and final counts of sponges and instruments were correct. Estimated blood loss about 100 cc. The patient was extubated without difficulty and transferred to the recovery room with stable vital signs.
[2024-01-13] MEDS: HYDROmorphone HCl 1 MG/ML SYRINGE 0.5 MG IVPUSH ×2 (16:06→20:32)
[2024-01-13] MEDS: 0.9 % Sodium Chloride Flush 3 ML SYRINGE IVFLUSH (16:10)
[2024-01-13] MEDS: Acetaminophen 1,000 MG/100 ML PIGGYBACK 400 MG IV ×2 (16:10→21:35)
--- NOTE | 2024-01-13 18:02 | PM.EVENT ---
Event Note Date of Service: 01/13/24 Event Note: Seen postop Status post sigmoid resection, end colostomy Adequate pain control Good urine output Stable vital signs Stoma viable looking Continue pain management Family updated at bedside Time Spent With Patient Time: Total time managing care of this patient today ____ minutes.
--- NOTE | 2024-01-13 18:11 | PHA.MEDREC ---
Addendum entered by Russ Salguero RPh 01/13/24 18:18: [facility] reviewed. Original Note: Pharmacy Consult ? Medication Reconciliation Pharmacy has completed the medication reconciliation. Spoke to patient who was able to confirm her husbands Lisinopril 20mg tab once daily. The patient was able to confirm his Hydrochlorothiazide 12.5mg tab 1 tab daily. The and patient confirmed he took his medication this morning.
[2024-01-13] MEDS: oxyCODONE HCl Immed Release 5 MG TABLET PO (18:38)
[2024-01-13] MEDS: Nicotine 7 MG PATCH.TD24 TRANSDERMA (19:30)
[2024-01-13] MEDS: Calcium Carbonate 750 MG TAB.CHEW PO (19:39)
[2024-01-14] MEDS: Acetaminophen 1,000 MG/100 ML PIGGYBACK 400 MG IV ×4 (03:37→21:57)
[2024-01-14 04:00] VITALS: BP 112/63; PULSE 63; RESP 18; TEMP 36.1; O2SAT 96
[2024-01-14] MEDS: Piperacillin Sodium/Tazobactam 3.375 GM in 0.9 % Sodium Chloride 50 ML IV ×4 (04:39→23:09)
[2024-01-14] MEDS: Lactated Ringers 1,000 ML 125 ML IVCONT ×3 (06:03→20:59)
[2024-01-14 07:03] VITALS: BP 138/76; PULSE 65; RESP 18; TEMP 36.2; O2SAT 99
[2024-01-14 07:14] LABS: MANUAL DIFF FLAG NO
[2024-01-14 07:35] LABS: Basophils Absolute Auto 0.1 X10*3/uL (0.0-0.2); Basophils Percent Auto 0.3 % (0-2); Hemoglobin 13.1 g/dl (14.0-18.0); Imm Gran Abs Auto 0.14 X10*3/uL (0.00-0.03); Imm Gran Pct Auto 0.7 % (0.0-0.4); Lymphocytes Absolute Auto 1.4 X10*3/uL (1.2-4.9); Mean Corpuscular HGB Conc 33.6 g/dl (31.0-36.0); Mean Corpuscular Hemoglobin 30.8 pg (27.0-33.0); Mean Corpuscular Volume 91.8 fL (80.0-98.0); Monocytes Absolute Auto 1.3 X10*3/uL (0.1-1.2); Monocytes Percent Auto 6.4 % (2-11); Neutrophils Absolute Auto 17.1 x10*3/uL (2.0-8.3); Neutrophils Percent Auto 85.6 % (45-73); Platelet Count 277 X10*3/uL (160-400); Red Blood Count 4.25 X10*6/uL (4.60-5.80); Red Cell Distribution Width 13.2 % (11.0-16.0)
[2024-01-14 07:53] LABS: Anion Gap 14 (12-20); Blood Urea Nitrogen 13 mg/dL (9-16); Calcium 8.9 mg/dL (8.4-10.2); Carbon Dioxide 27 mmol/L (22-29); Chloride 102 mmol/L (96-108); Creatinine Clr Calc Pharmacy 99.5; Estimated Glomerular Filt Rate > 60; Glucose Fasting 114 mg/dL (60-99); Potassium 4.4 mmol/L (3.3-5.1); Sodium 139 mmol/L (135-145)
[2024-01-14] MEDS: lisinopriL 20 MG TABLET PO (08:06)
[2024-01-14] MEDS: Calcium Carbonate 750 MG TAB.CHEW PO ×3 (08:06→21:00)
[2024-01-14] MEDS: Nicotine 21 MG PATCH.TD24 TRANSDERMA (08:07)
[2024-01-14] MEDS: HYDROmorphone HCl 1 MG/ML SYRINGE 0.5 MG IVPUSH ×3 (08:23→21:00)
[2024-01-14] MEDS: oxyCODONE HCl Immed Release 5 MG TABLET PO ×3 (09:13→18:31)
--- NOTE | 2024-01-14 09:15 | PC.NURSE ---
Stoll D/C patient tolerated it well,DTV #1 at 1500
--- NOTE | 2024-01-14 09:39 | PM.PNGS ---
Subjective Subjective Date of Service: 01/14/24 Interval history: Feels okay Good pain control Says he felt a little bit of flatus via this colostomy earlier Physical Exam Vital Signs: Vital Signs: Last Vital Signs Temp 97.1 F 01/14/24 07:03 Pulse 65 01/14/24 07:03 Resp 18 01/14/24 07:03 BP 138/76 01/14/24 07:03 Pulse Ox 99 01/14/24 07:03 O2 Del Method Room Air 01/14/24 07:03 BMI result Body Mass Index 24.2 Const: General: comfortable and no acute distress Resp: Effort & Inspection: normal respiratory effort Cardio: Rate: regular rate GI: Other: Stoma viable looking, no significant output yet, dressings dry, HUSSEIN drain dark serosanguineous output Palpation (GI): Soft to palpation, not firm and no guarding Objective Data Active Medications Calcium Carbonate (Calcium Carbonate 750 Mg Tab.Chew) 750 mg PO Q4H PRN PRN Reason: Heartburn Last Admin: 01/14/24 08:06 Dose: 750 mg Documented By: TRAV Hydromorphone HCl (Hydromorphone Hcl 1 Mg/Ml Syringe) 0.5 mg IVPUSH Q4H PRN; Protocol PRN Reason: Pain, Severe (Pain Scale 7-10) Last Admin: 01/14/24 08:23 Dose: 0.5 mg Documented By: TRAV Piperacillin Sod/Tazobactam (Sod 3.375 gm/ Sodium Chloride) 50 mls @ 100 mls/hr IV Q6H [facility] Last Infusion: 01/14/24 05:13 Dose: Infused Documented By: KARI Lactated Ringer's (Lr) 1,000 mls @ 125 mls/hr IVCONT .Q8H [facility] Last Admin: 01/14/24 06:03 Dose: 125 mls/hr Documented By: KARI Acetaminophen (Ofirmev) 1,000 mg in 100 mls @ 400 mls/hr IV Q6H [facility] Last Infusion: 01/14/24 03:57 Dose: Infused Documented By: KARI Lisinopril (Lisinopril 20 Mg Tablet) 20 mg PO DAILY [facility]; Protocol Last Admin: 01/14/24 08:06 Dose: 20 mg Documented By: TRAV Melatonin (Melatonin 3 Mg Tablet) 6 mg PO BEDTIME PRN PRN Reason: Insomnia Naloxone HCl (Naloxone Hcl 0.4 Mg/Ml Vial) 0.04 mg IVPUSH Q5M PRN PRN Reason: Excessive sedation or RR < 8 Nicotine (Nicotine 21 Mg Patch.Td24) 21 mg TRANSDERMA DAILY [facility] Last Admin: 01/14/24 08:07 Dose: 21 mg Documented By: TRAV Oxycodone HCl (Oxycodone Hcl Immed Release 5 Mg Tablet) 5 mg PO Q4H PRN PRN Reason: Pain, Moderate(Pain Scale 4-6) Last Admin: 01/14/24 09:13 Dose: 5 mg Documented By: TRAV Sodium Chloride (0.9 % Sodium Chloride Flush 3 Ml Syringe) 3 ml IVFLUSH QSHIFT [facility] Last Admin: 01/14/24 08:08 Dose: Not Given Documented By: TRAV Non-Admin Reason: IV Running Labs 01/14/24 05:57 01/14/24 05:57 Labs: Laboratory Results - last 24 hr 01/13/24 01/13/24 01/13/24 09:29 09:33 10:03 MCV 92.0 MCH 31.6 MCHC 34.3 RDW 13.0 Plt Count 333 D MPV 10.6 Immature Gran % (Auto) 0.6 H Neut % (Auto) 79.5 H Lymph % (Auto) 11.5 L [place] % (Auto) 7.9 Eos % (Auto) 0.0 Baso % (Auto) 0.5 Lymph # (Auto) 2.7 [place] # (Auto) 1.9 H Eos # (Auto) 0.0 Baso # (Auto) 0.1 Abs Immat Gran (auto) 0.14 H Absolute Neuts (auto) 18.7 H Absolute Nucleated RBC 0.000 Nucleated RBC % (auto) 0.0 Smear Tech's Comments VERIFIED VBG pH VBG pCO2 VBG pO2 VBG HCO3 VBG O2 Saturation VBG Base Excess Anion Gap 13 Estim Creat Clear Calc 94.4 Estimated GFR > 60 POC Glucose 107 Random Glucose 97 Fasting Glucose Lactic Acid Calcium 10.4 H D Magnesium 1.9 Cancelled Total Bilirubin 0.3 Direct Bilirubin 0.1 AST 15 ALT 19 Alkaline Phosphatase 84 Total Protein 7.9 Albumin 3.9 Lipase 11 Beta-Hydroxybutyrate 0.03 Cancelled Urine Color Yellow Urine Appearance Clear Urine pH 5.5 Ur Specific [place] 1.010 Urine Protein Negative Urine Glucose (UA) Negative Urine Ketones Negative Urine Blood Negative Urine Nitrite Negative Ur Leukocyte Esterase Negative COVID-19 ([facility]) Negative COVID-19 Clin Com See Note Blood Type Antibody Screen 01/13/24 01/13/24 01/13/24 10:07 10:15 12:59 MCV MCH MCHC RDW Plt Count MPV Immature Gran % (Auto) Neut % (Auto) Lymph % (Auto) [place] % (Auto) Eos % (Auto) Baso % (Auto) Lymph # (Auto) [place] # (Auto) Eos # (Auto) Baso # (Auto) Abs Immat Gran (auto) Absolute Neuts (auto) Absolute Nucleated RBC Nucleated RBC % (auto) Smear Tech's Comments VBG pH 7.50 H VBG pCO2 35 VBG pO2 48 VBG HCO3 27 H VBG O2 Saturation 82.0 VBG Base Excess 4.6 Anion Gap Estim Creat Clear Calc Estimated GFR POC Glucose Random Glucose Fasting Glucose Lactic Acid 1.1 Calcium Magnesium Total Bilirubin Direct Bilirubin AST ALT Alkaline Phosphatase Total Protein Albumin Lipase Beta-Hydroxybutyrate Urine Color Urine Appearance Urine pH Ur Specific [place] Urine Protein Urine Glucose (UA) Urine Ketones Urine Blood Urine Nitrite Ur Leukocyte Esterase COVID-19 ([facility]) COVID-19 Clin Com Blood Type O Negative Antibody Screen NEGATIVE 01/14/24 05:57 MCV 91.8 MCH 30.8 MCHC 33.6 RDW 13.2 Plt Count 277 MPV 12.0 Immature Gran % (Auto) 0.7 H Neut % (Auto) 85.6 H Lymph % (Auto) 7.0 L [place] % (Auto) 6.4 Eos % (Auto) 0.0 Baso % (Auto) 0.3 Lymph # (Auto) 1.4 [place] # (Auto) 1.3 H Eos # (Auto) 0.0 Baso # (Auto) 0.1 Abs Immat Gran (auto) 0.14 H Absolute Neuts (auto) 17.1 H Absolute Nucleated RBC 0.000 Nucleated RBC % (auto) 0.0 Smear Tech's Comments VBG pH VBG pCO2 VBG pO2 VBG HCO3 VBG O2 Saturation VBG Base Excess Anion Gap 14 Estim Creat Clear Calc 99.5 Estimated GFR > 60 POC Glucose Random Glucose Fasting Glucose 114 H Lactic Acid Calcium 8.9 D Magnesium Total Bilirubin Direct Bilirubin AST ALT Alkaline Phosphatase Total Protein Albumin Lipase Beta-Hydroxybutyrate Urine Color Urine Appearance Urine pH Ur Specific [place] Urine Protein Urine Glucose (UA) Urine Ketones Urine Blood Urine Nitrite Ur Leukocyte Esterase COVID-19 ([facility]) COVID-19 Clin Com Blood Type Antibody Screen Procedures Date of Service Date of Service: 01/14/24 Progress Note: A&P Assessment and plan (1) Diverticulitis of large intestine with complication: Status: Acute Assessment and Plan: Status post Lucia's procedure large intramural abscess, severe inflammatory changes Clinically doing well WBC trending down Abdomen soft Await return of GI functions with stoma output Ambulate DC Stoll IV antibiotics Keep on clears Pain management Time Spent With Patient Time: Total time managing care of this patient today ____ minutes. Quality Stroke Does the patient have a stroke diagnosis?: No VTE Prior VTE?: No VTE Risk Level:: Surgical - high VTE Device Contraindication: N/A - Device Ordered VTE Drug Contraindication: N/A - Med Ordered
--- NOTE | 2024-01-14 10:00 | MHC.CM.PN ---
Patient lives at home w/ . Functionally independent. Denies use of DME or services. PCP Ryan Arrieta [employer] Reports he has an HCP naming his , [place], as [facility]. Copy requested. DP: Home w/ VNA for SN services, new colostomy. Referral to [facility]. Awaiting response. to transport. CM will continue to follow.
--- NOTE | 2024-01-14 10:26 | HO.POSTANES ---
Post Anesthesia Evaluation Post Anesthesia Evaluation Date of Service: 01/14/24 Vital Signs: Vital Signs Temp Pulse Resp BP Pulse Ox O2 Del Method 01/14/24 07:03 97.1 F 65 18 138/76 99 Room Air 01/14/24 04:00 96.9 F 63 18 112/63 96 Room Air 01/13/24 23:46 97.0 F 64 16 113/61 96 Room Air Anesthesia: General Endotracheal-GETA Mental Status: Awake Pain Control: Satisfactory Nausea/Vomiting: None Hydration: Adequate Anesthesia-Related Issues: No Anes. Related Issues
--- NOTE | 2024-01-14 10:51 | PC.NURSE ---
no need to obtain GI panel or C-diff specimen per Dr. Skelton
[2024-01-14 15:40] VITALS: BP 156/86; PULSE 69; RESP 20; TEMP 36.3; O2SAT 99
[2024-01-14] MEDS: 0.9 % Sodium Chloride Flush 3 ML SYRINGE IVFLUSH (16:24)
[2024-01-14 19:26] VITALS: BP 128/72; PULSE 76; RESP 18; TEMP 36.2; O2SAT 97
[2024-01-14] MEDS: Melatonin 3 MG TABLET 6 MG PO (21:01)
[2024-01-14] MEDS: Heparin Sodium,Porcine 5,000 UNIT/ML VIAL 5000 UNIT SUBCUT (21:58)
[2024-01-14 23:28] VITALS: BP 143/81; PULSE 64; RESP 18; TEMP 36.4; O2SAT 98
[2024-01-15 03:28] VITALS: BP 157/82; PULSE 55; RESP 18; TEMP 36.6; O2SAT 99
[2024-01-15] MEDS: Acetaminophen 1,000 MG/100 ML PIGGYBACK 400 MG IV ×4 (04:28→21:37)
[2024-01-15] MEDS: Calcium Carbonate 750 MG TAB.CHEW PO ×2 (04:31→10:45)
[2024-01-15] MEDS: Piperacillin Sodium/Tazobactam 3.375 GM in 0.9 % Sodium Chloride 50 ML IV ×4 (04:57→23:21)
[2024-01-15] MEDS: Heparin Sodium,Porcine 5,000 UNIT/ML VIAL 5000 UNIT SUBCUT ×3 (05:29→21:35)
[2024-01-15] MEDS: Lactated Ringers 1,000 ML 125 ML IVCONT (05:29)
[2024-01-15 07:30] VITALS: BP 127/70; PULSE 72; RESP 16; TEMP 36.2; O2SAT 97
[2024-01-15] MEDS: Nicotine 21 MG PATCH.TD24 TRANSDERMA (08:07)
[2024-01-15] MEDS: 0.9 % Sodium Chloride Flush 3 ML SYRINGE IVFLUSH (08:08)
[2024-01-15] MEDS: lisinopriL 20 MG TABLET PO (08:09)
[2024-01-15] MEDS: oxyCODONE HCl Immed Release 5 MG TABLET PO ×2 (08:10→14:00)
[2024-01-15] MEDS: Lactated Ringers 1,000 ML 80 ML IVCONT ×2 (09:02→21:38)
--- NOTE | 2024-01-15 09:19 | P.PNGS_ITS ---
Subjective Subjective Date of Service: 01/17/24 Interval history: says he feels well denies signficant pain states he may have passed flatus via stoma voiding well Physical Exam 2 Vital Signs: Vital Signs: Last Vital Signs Temp 97.1 F 01/15/24 07:30 Pulse 72 01/15/24 07:30 Resp 16 01/15/24 07:30 BP 127/70 01/15/24 07:30 Pulse Ox 97 01/15/24 07:30 O2 Del Method Room Air 01/15/24 07:30 BMI result Body Mass Index 24.2 Const: General: comfortable Resp: Effort & Inspection: normal respiratory effort Cardio: Rate: regular rate GI: Other: mildly distended, HUSSEIN drain, serosanguinous stoma viable, no output Palpation (GI): Soft to palpation, not firm and no guarding Objective Data Active Medications Calcium Carbonate (Calcium Carbonate 750 Mg Tab.Chew) 750 mg PO Q4H PRN PRN Reason: Heartburn Last Admin: 01/15/24 04:31 Dose: 750 mg Documented By: KARI Heparin Sodium (Porcine) (Heparin Sodium,Porcine 5,000 Unit/Ml Vial) 5,000 unit SUBCUT Q8H [facility] Last Admin: 01/15/24 05:29 Dose: 5,000 unit Documented By: KARI Hydromorphone HCl (Hydromorphone Hcl 1 Mg/Ml Syringe) 0.5 mg IVPUSH Q4H PRN; Protocol PRN Reason: Pain, Severe (Pain Scale 7-10) Last Admin: 01/14/24 21:00 Dose: 0.5 mg Documented By: KARI Piperacillin Sod/Tazobactam (Sod 3.375 gm/ Sodium Chloride) 50 mls @ 100 mls/hr IV Q6H [facility] Last Infusion: 01/15/24 05:34 Dose: Infused Documented By: KARI Lactated Ringer's (Lr) 1,000 mls @ 80 mls/hr IVCONT .[id number] [facility] Last Admin: 01/15/24 09:02 Dose: 80 mls/hr Documented By: TRAV Acetaminophen (Ofirmev) 1,000 mg in 100 mls @ 400 mls/hr IV Q6H [facility] Last Infusion: 01/15/24 04:56 Dose: Infused Documented By: KARI Lisinopril (Lisinopril 20 Mg Tablet) 20 mg PO DAILY [facility]; Protocol Last Admin: 01/15/24 08:09 Dose: 20 mg Documented By: TRAV Melatonin (Melatonin 3 Mg Tablet) 6 mg PO BEDTIME PRN PRN Reason: Insomnia Last Admin: 01/14/24 21:01 Dose: 6 mg Documented By: KARI Naloxone HCl (Naloxone Hcl 0.4 Mg/Ml Vial) 0.04 mg IVPUSH Q5M PRN PRN Reason: Excessive sedation or RR < 8 Nicotine (Nicotine 21 Mg Patch.Td24) 21 mg TRANSDERMA DAILY [facility] Last Admin: 01/15/24 08:07 Dose: 21 mg Documented By: TRAV Oxycodone HCl (Oxycodone Hcl Immed Release 5 Mg Tablet) 5 mg PO Q4H PRN PRN Reason: Pain, Moderate(Pain Scale 4-6) Last Admin: 01/15/24 08:10 Dose: 5 mg Documented By: TRAV Sodium Chloride (0.9 % Sodium Chloride Flush 3 Ml Syringe) [facility] Last Admin: 01/15/24 08:08 Dose: 3 ml Documented By: TRAV Labs 01/16/24 05:21 01/16/24 05:21 Microbiology Microbiology Results: Microbiology 01/13/24 10:15 Blood Culture - Preliminary Blood - Venous No growth after 24 hours. 01/13/24 10:15 Blood Culture - Preliminary Blood - Venous No growth after 24 hours. Procedures Date of Service Date of Service: 01/17/24 Progress Note: A&P Assessment and plan (1) Diverticulitis of large intestine with complication: Status: Acute Assessment and Plan: doing well ambulate keep on clears for now await return of GI function on IV abx pain mgt at bedside, updated Time Spent With Patient Time: Total time managing care of this patient today ____ minutes. Quality Stroke Does the patient have a stroke diagnosis?: No VTE Prior VTE?: No VTE Risk Level:: Surgical - high VTE Device Contraindication: N/A - Device Ordered VTE Drug Contraindication: N/A - Med Ordered
[2024-01-15 12:00] VITALS: BP 143/71; PULSE 70; RESP 16; TEMP 36.4; O2SAT 99
--- NOTE | 2024-01-15 13:21 | PC.NURSE ---
Patient reports passing small amt of flatus thru colostomy
[2024-01-15 15:26] VITALS: BP 155/84; PULSE 66; RESP 16; TEMP 36.1; O2SAT 98
[2024-01-15 19:21] VITALS: BP 133/83; PULSE 82; RESP 18; TEMP 36.3; O2SAT 98
[2024-01-15] MEDS: Melatonin 3 MG TABLET 6 MG PO (21:35)
[2024-01-15] MEDS: HYDROmorphone HCl 1 MG/ML SYRINGE 0.5 MG IVPUSH (21:36)
[2024-01-15 23:33] VITALS: BP 130/80; PULSE 70; RESP 18; TEMP 36.4; O2SAT 97
[2024-01-16 03:22] VITALS: BP 122/82; PULSE 60; RESP 16; TEMP 36.6; O2SAT 98
[2024-01-16] MEDS: Piperacillin Sodium/Tazobactam 3.375 GM in 0.9 % Sodium Chloride 50 ML IV ×4 (04:38→22:39)
[2024-01-16] MEDS: Acetaminophen 1,000 MG/100 ML PIGGYBACK 400 MG IV ×2 (04:39→10:29)
[2024-01-16] MEDS: Heparin Sodium,Porcine 5,000 UNIT/ML VIAL 5000 UNIT SUBCUT ×3 (05:30→21:01)
[2024-01-16 06:26] LABS: Hematocrit 36.5 % (42.0-52.0); Hemoglobin 12.3 g/dl (14.0-18.0); Mean Corpuscular HGB Conc 33.7 g/dl (31.0-36.0); Mean Corpuscular Volume 91.9 fL (80.0-98.0); Mean Platelet Volume 11.5 fL (9.4-12.4); Platelet Count 308 X10*3/uL (160-400); Red Blood Count 3.97 X10*6/uL (4.60-5.80)
[2024-01-16 06:41] LABS: Anion Gap 12 (12-20); Blood Urea Nitrogen 9 mg/dL (9-16); Carbon Dioxide 27 mmol/L (22-29); Chloride 105 mmol/L (96-108); Creatinine Clr Calc Pharmacy 115.9; Estimated Glomerular Filt Rate > 60; Glucose Random 87 mg/dL (60-115); Potassium 3.9 mmol/L (3.3-5.1); Sodium 140 mmol/L (135-145)
[2024-01-16 07:26] VITALS: BP 150/83; PULSE 66; RESP 16; TEMP 36.6; O2SAT 96
--- NOTE | 2024-01-16 07:47 | P.PNGS_ITS ---
Subjective Subjective Date of Service: 01/16/24 <Yessenia Rm PA-C - Last Filed: 01/16/24 07:57> 01/16/24 <Carlyle Skelton MD - Last Filed: 01/16/24 09:15> Interval history: States he has been passing flatus all weekend, no stool output. Tolerating liquids and feels hungry. Has been OOB. <Yessenia Rm PA-C - Last Filed: 01/16/24 07:57> Physical Exam 2 Vital Signs: Vital Signs: Last Vital Signs Temp 97.9 F 01/16/24 07:26 Pulse 66 01/16/24 07:26 Resp 16 01/16/24 07:26 BP 150/83 H 01/16/24 07:26 Pulse Ox 96 01/16/24 07:26 O2 Del Method Room Air 01/16/24 07:26 BMI result Body Mass Index 24.2 <Yessenia Rm PA-C - Last Filed: 01/16/24 07:57> Const: General: comfortable, no acute distress and alert <Yessenia Rm PA-C - Last Filed: 01/16/24 07:57> Orientation/consciousness: patient oriented x3 <Yessenia Rm PA-C - Last Filed: 01/16/24 07:57> Resp: Effort & Inspection: normal respiratory effort <Yessenia Rm PA-C - Last Filed: 01/16/24 07:57> GI: Other: HUSSEIN drain cloudy serosanguineous ostomy slightly retracted, pink centrally, no stool output <Yessenia Rm PA-C - Last Filed: 01/16/24 07:57> Inspection: No distended and Yes incision (clean) <Yessenia Rm PA-C - Last Filed: 01/16/24 07:57> Palpation (GI): Soft to palpation, Tenderness to palpation present (GI) (mild incisional) and no guarding <J CARLOS Ojeda Last Filed: 01/16/24 07:57> Skin: General skin exam: no rashes or lesions noted and no jaundice < Yessenia Rm PA-C - Last Filed: 01/16/24 07:57> Neuro: General: patient oriented x3 and moves all extremities <Yessenia Rm PA-C - Last Filed: 01/16/24 07:57> Objective Data Active Medications Calcium Carbonate (Calcium Carbonate 750 Mg Tab.Chew) 750 mg PO Q4H PRN PRN Reason: Heartburn Last Admin: 01/15/24 10:45 Dose: 750 mg Documented By: TRAV Heparin Sodium (Porcine) (Heparin Sodium,Porcine 5,000 Unit/Ml Vial) 5,000 unit SUBCUT Q8H [facility] Last Admin: 01/16/24 05:30 Dose: 5,000 unit Documented By: OCTAVIOILMena Hydrochlorothiazide (Hydrochlorothiazide 12.5 Mg Tablet) 12.5 mg PO DAILY [facility]; Protocol Hydromorphone HCl (Hydromorphone Hcl 1 Mg/Ml Syringe) 0.5 mg IVPUSH Q4H PRN; Protocol PRN Reason: Pain, Severe (Pain Scale 7-10) Last Admin: 01/15/24 21:36 Dose: 0.5 mg Documented By: KARI Piperacillin Sod/Tazobactam (Sod 3.375 gm/ Sodium Chloride) 50 mls @ 100 mls/hr IV Q6H [facility] Last Infusion: 01/16/24 05:34 Dose: Infused Documented By: KARI Lactated Ringer's (Lr) 1,000 mls @ 80 mls/hr IVCONT .[id number] [facility] Last Admin: 01/15/24 21:38 Dose: 80 mls/hr Documented By: KARI Acetaminophen (Ofirmev) 1,000 mg in 100 mls @ 400 mls/hr IV Q6H [facility] Last Infusion: 01/16/24 05:02 Dose: Infused Documented By: KARI Lisinopril (Lisinopril 20 Mg Tablet) 20 mg PO DAILY [facility]; Protocol Last Admin: 01/15/24 08:09 Dose: 20 mg Documented By: TRAV Melatonin (Melatonin 3 Mg Tablet) 6 mg PO BEDTIME PRN PRN Reason: Insomnia Last Admin: 01/15/24 21:35 Dose: 6 mg Documented By: KARI Naloxone HCl (Naloxone Hcl 0.4 Mg/Ml Vial) 0.04 mg IVPUSH Q5M PRN PRN Reason: Excessive sedation or RR < 8 Nicotine (Nicotine 21 Mg Patch.Td24) 21 mg TRANSDERMA DAILY [facility] Last Admin: 01/15/24 08:07 Dose: 21 mg Documented By: TRAV Oxycodone HCl (Oxycodone Hcl Immed Release 5 Mg Tablet) 5 mg PO Q4H PRN PRN Reason: Pain, Moderate(Pain Scale 4-6) Last Admin: 01/15/24 14:00 Dose: 5 mg Documented By: TRAV Sodium Chloride (0.9 % Sodium Chloride Flush 3 Ml Syringe) 3 ml IVFLUSH QSHIFT [facility] Last Admin: 01/16/24 00:11 Dose: Not Given Documented By: KARI Non-Admin Reason: IV Running <Yessenia Rm PA-C - Last Filed: 01/16/24 07:57> Labs CBC & Chem 7: 01/16/24 05:21 01/16/24 05:21 <Yessenia Rm PA-C - Last Filed: 01/16/24 07:57> Labs: Laboratory Results - last 24 hr 01/16/24 05:21 MCV 91.9 MCH 31.0 MCHC 33.7 RDW 13.0 Plt Count 308 MPV 11.5 Absolute Nucleated RBC 0.000 Nucleated RBC % (auto) 0.0 Anion Gap 12 Estim Creat Clear Calc 115.9 Estimated GFR > 60 Random Glucose 87 Calcium 9.0 <Yessenia Rm PA-C - Last Filed: 01/16/24 07:57> Microbiology Microbiology Results: Microbiology 01/13/24 10:15 Blood Culture - Preliminary Blood - Venous No growth after 48 hours. 01/13/24 10:15 Blood Culture - Preliminary Blood - Venous No growth after 48 hours. <Ysesenia Rm PA-C - Last Filed: 01/16/24 07:57> Procedures Date of Service Date of Service: 01/16/24 <Yessenia Rm PA-C - Last Filed: 01/16/24 07:57> 01/16/24 <Carlyle Skelton MD - Last Filed: 01/16/24 09:15> Progress Note: A&P Assessment and plan (1) Diverticulitis of large intestine with complication: Status: Acute <Yessenia Rm PA-C - Last Filed: 01/16/24 07:57> Assessment and Plan: Describes flatus via the colostomy No significant stool yet Feels well overall Abdomen is soft and benign Okay to advance diet slowly Ambulate HUSSEIN drain serosanguineous Seen and examined independently <Carlyle Skelton MD - Last Filed: 01/16/24 09:15> Assessment and Plan: POD #3 s/p Hand assisted laparoscopic sigmoid resection, with a diverting end colostomy, extensive lysis of adhesions for Acute sigmoid diverticulitis, with phlegmonous changes, abscesses in the mesentery, fecaliths within the abscess cavity. Doing well post op, states he is passing flatus but no significant gas in appliance, no stool. VSS. Abd exam benign with appropriate post op tenderness, nondistended, clean incisions. Ostomy slightly retracted. Advance to full liquids, cont OOB/ambulation. Ostomy education. Await stool via ostomy. WBC downtrending, cont IV abx, IVF for now. <Yessenia Rm PA-C - Last Filed: 01/16/24 07:57> Time Spent With Patient Time: Total time managing care of this patient today ____ minutes. <Yessenia Rm PA-C - Last Filed: 01/16/24 07:57> Quality Stroke Does the patient have a stroke diagnosis?: No <Yessenia Rm PA-C - Last Filed: 01/16/24 07:57> VTE Prior VTE?: No <Yessenia Rm PA-C - Last Filed: 01/16/24 07:57> VTE Risk Level:: Surgical - high <Yessenia Rm PA-C - Last Filed: 01/16/24 07:57> VTE Device Contraindication: N/A - Device Ordered <Yessenia Rm PA-C - Last Filed: 01/16/24 07:57> VTE Drug Contraindication: N/A - Med Ordered <J CARLOS Ojeda Last Filed: 01/16/24 07:57>
[2024-01-16] MEDS: lisinopriL 20 MG TABLET PO (08:00)
[2024-01-16] MEDS: HYDROmorphone HCl 1 MG/ML SYRINGE 0.5 MG IVPUSH ×3 (08:00→21:00)
[2024-01-16] MEDS: Nicotine 21 MG PATCH.TD24 TRANSDERMA (08:00)
[2024-01-16] MEDS: hydroCHLOROthiazide 12.5 MG TABLET PO (08:00)
[2024-01-16] MEDS: Lactated Ringers 1,000 ML 80 ML IVCONT ×2 (10:29→23:14)
[2024-01-16 12:00] VITALS: BP 147/84; PULSE 87; RESP 16; TEMP 36.7; O2SAT 96
--- NOTE | 2024-01-16 14:52 | HO.OSTOMY ---
Ostomy Consult: Initial Teaching 53yr old male admitted to [facility] on 01/13/24 see H&P for detailed history and admission.? Consult for new ostomy teaching. ?He had an End Colostomy creation on 01/13/[address] Skelton. ?Upon entry into patient's room, he is sitting in his recliner chair with his at bedside. He is alert and oriented x 3, he currently has no complaints. ?Introductions were completed, he is agreeable to continuing with teaching. ? We discussed his pain control at 08/02 at the current moment, he reports increasing the use of his IS and ambulating the entire unit multiple times. ?We began by discussing general knowledge about the Colostomy and questions he had. ?We discussed opening and closing the ostomy pouch. He was able to independently provide a return demonstration on an empty pouch. ?He had not yet emptied his pouch only bowel sweat is noted, gas was observed. We discussed the importance of emptying pouch when 1/3 to 1/2 full, how to empty pouch, and lining water with toilet paper to prevent splash back. With an empty Coloplast pouch he performed a demonstration. He was also educated on when to contact professor of musicology/Dr Skelton's office/seek emergency medical treatment. Patient was given some ostomy pouches for transition to home. Aware that Rx written for pouches and rings will be sent by Outpt nurse to [place] for home delivery.? Reviewed written education with patient and left at bedside for further review. ?He did watch the education videos supplied by [facility]. Permission was granted for pouch assessment and silent leak was noted from 3-9 o'clock.? Stoma is moist and necrotic areas of viable red tissue noted. Flush to skin and slight creases at 3 & 9. The abdoemn is firmly distended - patient is tolerating full liquids, belching and +gas noted. Awaiting bowel function return. We performed a pouch change into a convex pouch Coloplast # [id number] since he has creases noted ay 3 and 9 o'clock. He participated in the pouch changed. He reported having no questions at this time. ?Patient was made aware that I will return to bedside later in week for ongoing education - however to note patient seems to have a good understanding of care and material at this time. ?He will benefit from VNA services at time of discharge. ?All questions and concerns addressed at this time. His was present for all teaching. Of note there is some firm erythema noted to the left of the lower incision and to the inferior aspect of the stoma will monitor. Permission granted for coloplast care delivery. Next teaching session goals: Demonstrate open and close independently Steps to a pouch change he is able to recall We discussed the following steps: 1. Empty pouch before pouch change 2. Remove pouch using push/pull technique from top to bottom 3. Cleanse stoma and skin with tap water only - no soap or baby wipes 4. Pat dry 5. Measure stoma and cut new pouch no more than 1/8 inch larger than stoma and no smaller than stoma 6. If instructed by your ostomy nurse stretch barrier seal to the size of the stoma and press onto skin around stoma (up to the edge of the stoma but not onto the stoma) 7. Press the new pouch into place and hold for several minutes (close pouch tail) 8. Empty pouch when 1/3 to 1/2 full 9. Change pouch twice weekly on a schedule (for example, every Tuesday and ) and as needed for any leaking (feels like intense itch or burn at edge of stoma) 10. May order pre-cut pouches (already cut to size of stoma) once stoma measures the same size consistently. ?
--- NOTE | 2024-01-16 15:27 | MHC.CM.PN ---
PT IS SURGICAL NOT DIASCUSSED AT ROUNDS DC PLAN WILL BE HOME WITH VNA
[2024-01-16 15:55] VITALS: BP 140/86; PULSE 80; RESP 16; TEMP 36.8; O2SAT 97
[2024-01-16] MEDS: oxyCODONE HCl Immed Release 5 MG TABLET PO (16:48)
[2024-01-16 19:51] VITALS: BP 158/83; PULSE 72; RESP 17; TEMP 37; O2SAT 96
[2024-01-16] MEDS: Melatonin 3 MG TABLET 6 MG PO (21:00)
[2024-01-16] MEDS: 0.9 % Sodium Chloride Flush 3 ML SYRINGE IVFLUSH (23:18)
[2024-01-16 23:28] VITALS: BP 174/88; PULSE 70; RESP 16; TEMP 36.2; O2SAT 96
[2024-01-17] VITALS (7 sets, daily range): BP systolic 118–162; BP diastolic 74–91; PULSE 60–85; RESP 16–18; TEMP 36–37; O2SAT 94–97
[2024-01-17] MEDS: HYDROmorphone HCl 1 MG/ML SYRINGE 0.5 MG IVPUSH ×4 (01:09→21:07)
[2024-01-17] MEDS: Piperacillin Sodium/Tazobactam 3.375 GM in 0.9 % Sodium Chloride 50 ML IV ×4 (05:17→22:32)
[2024-01-17] MEDS: Heparin Sodium,Porcine 5,000 UNIT/ML VIAL 5000 UNIT SUBCUT ×3 (05:20→21:06)
[2024-01-17] MEDS: lisinopriL 20 MG TABLET PO (07:59)
[2024-01-17] MEDS: hydroCHLOROthiazide 12.5 MG TABLET PO (07:59)
[2024-01-17] MEDS: Nicotine 21 MG PATCH.TD24 TRANSDERMA (08:00)
--- NOTE | 2024-01-17 08:11 | PM.PNGS ---
Subjective Subjective Date of Service: 01/17/24 <Yessenia Rm PA-C - Last Filed: 01/17/24 08:35> 01/17/24 <Carlyle Skelton MD - Last Filed: 01/17/24 09:53> Interval history: Had increasing gas pains last night, bloating. Feels somewhat better this morning but very tired. <Yessenia Rm PA-C - Last Filed: 01/17/24 08:35> Physical Exam Vital Signs: Vital Signs: Last Vital Signs Temp 97.9 F 01/17/24 07:36 Pulse 60 01/17/24 07:36 Resp 18 01/17/24 07:36 BP 151/91 H 01/17/24 07:59 Pulse Ox 96 01/17/24 07:36 O2 Del Method Room Air 01/17/24 07:36 BMI result Body Mass Index 24.2 <Yessenia Rm PA-C - Last Filed: 01/17/24 08:35> Const: General: comfortable, no acute distress and alert <Yessenia Rm PA-C - Last Filed: 01/17/24 08:35> Orientation/consciousness: patient oriented x3 <Yessenia Rm PA-C - Last Filed: 01/17/24 08:35> Resp: Effort & Inspection: normal respiratory effort <Yessenia Rm PA-C - Last Filed: 01/17/24 08:35> GI: Other: ostomy retracted, no significant output in appliance HUSSEIN drain serous, scant output <Yessenia Rm PA-C - Last Filed: 01/17/24 08:35> Inspection: Yes distended (mildly) and Yes incision (paul intact, some erythema centrally ) <Yessenia Rm PA-C - Last Filed: 01/17/24 08:35> Palpation (GI): Soft to palpation, Tenderness to palpation present (GI) and no guarding <J CARLOS Ojeda Last Filed: 01/17/24 08:35> Skin: General skin exam: no rashes or lesions noted <J CARLOS Ojeda Last Filed: 01/17/24 08:35> Neuro: General: patient oriented x3 and moves all extremities <Yessenia Rm PA-C - Last Filed: 01/17/24 08:35> Objective Data Active Medications Calcium Carbonate (Calcium Carbonate 750 Mg Tab.Chew) 750 mg PO Q4H PRN PRN Reason: Heartburn Last Admin: 01/15/24 10:45 Dose: 750 mg Documented By: TRAV Heparin Sodium (Porcine) (Heparin Sodium,Porcine 5,000 Unit/Ml Vial) 5,000 unit SUBCUT Q8H [facility] Last Admin: 01/17/24 05:20 Dose: 5,000 unit Documented By: CRISTIAN Hydrochlorothiazide (Hydrochlorothiazide 12.5 Mg Tablet) 12.5 mg PO DAILY [facility]; Protocol Last Admin: 01/17/24 07:59 Dose: 12.5 mg Documented By: NASIM Hydromorphone HCl (Hydromorphone Hcl 1 Mg/Ml Syringe) 0.5 mg IVPUSH Q4H PRN; Protocol PRN Reason: Pain, Severe (Pain Scale 7-10) Last Admin: 01/17/24 07:59 Dose: 0.5 mg Documented By: NASIM Piperacillin Sod/Tazobactam (Sod 3.375 gm/ Sodium Chloride) 50 mls @ 100 mls/hr IV Q6H [facility] Last Infusion: 01/17/24 05:53 Dose: Infused Documented By: ELVIS Lactated Ringer's (Lr) 1,000 mls @ 80 mls/hr IVCONT .[id number] [facility] Last Admin: 01/16/24 23:14 Dose: 80 mls/hr Documented By: CRISTIAN Lisinopril (Lisinopril 20 Mg Tablet) 20 mg PO DAILY [facility]; Protocol Last Admin: 01/17/24 07:59 Dose: 20 mg Documented By: NASIM Melatonin (Melatonin 3 Mg Tablet) 6 mg PO BEDTIME PRN PRN Reason: Insomnia Last Admin: 01/16/24 21:00 Dose: 6 mg Documented By: CRISTIAN Naloxone HCl (Naloxone Hcl 0.4 Mg/Ml Vial) 0.04 mg IVPUSH Q5M PRN PRN Reason: Excessive sedation or RR < 8 Nicotine (Nicotine 21 Mg Patch.Td24) 21 mg TRANSDERMA DAILY [facility] Last Admin: 01/17/24 08:00 Dose: 21 mg Documented By: NASIM Oxycodone HCl (Oxycodone Hcl Immed Release 5 Mg Tablet) 5 mg PO Q4H PRN PRN Reason: Pain, Moderate(Pain Scale 4-6) Last Admin: 01/16/24 16:48 Dose: 5 mg Documented By: SHERON Sodium Chloride (0.9 % Sodium Chloride Flush 3 Ml Syringe) 3 ml IVFLUSH QSHIFT [facility] Last Admin: 01/17/24 07:07 Dose: Not Given Documented By: NASIM Non-Admin Reason: IV Running <Yessenia Rm PA-C - Last Filed: 01/17/24 08:35> Labs CBC & Chem 7: 01/16/24 05:21 01/16/24 05:21 <Yessenia Rm PA-C - Last Filed: 01/17/24 08:35> Procedures Date of Service Date of Service: 01/17/24 <Yessenia Rm PA-C - Last Filed: 01/17/24 08:35> 01/17/24 <Carlyle Skelton MD - Last Filed: 01/17/24 09:53> Progress Note: A&P Assessment and plan (1) Diverticulitis of large intestine with complication: Status: Acute <Yessenia Rm PA-C - Last Filed: 01/17/24 08:35> Assessment and Plan: Passing flatus via the stoma No stools yet Abdomen is soft and benign HUSSEIN drain thin serous We will keep on full liquids Await full return of GI functions Ambulate Seen and examined independently <Carlyle Skelton MD - Last Filed: 01/17/24 09:53> Assessment and Plan: POD #4 s/p Hand assisted laparoscopic sigmoid resection, with a diverting end colostomy, extensive lysis of adhesions for Acute sigmoid diverticulitis, with phlegmonous changes, abscesses in the mesentery, fecaliths within the abscess cavity. Increase in gas pains last night, somewhat improved this morning. VSS. Abd exam benign with appropriate post op tenderness, slightly distended this am but soft, midline incision with erythema centrally. Ostomy slightly retracted. Full liquids as tolerated, cont OOB/ambulation. Ostomy education. Await stool via ostomy. Cont IV abx, IVF for now. Will return to dc HUSSEIN drain and remove a few paul from midline incision/probe wound given erythema. Hospitalist consult for uncontrolled HTN. SBP ranging from 140s-160s on home antihypertensives. <Yessenia Rm PA-C - Last Filed: 01/17/24 08:35> Time Spent With Patient Time: Total time managing care of this patient today ____ minutes. <Yessenia Rm PA-C - Last Filed: 01/17/24 08:35> Quality Stroke Does the patient have a stroke diagnosis?: No <Yessenia Rm PA-C - Last Filed: 01/17/24 08:35> VTE Prior VTE?: No <Yessenia Rm PA-C - Last Filed: 01/17/24 08:35> VTE Risk Level:: Surgical - high <Yessenia Rm PA-C - Last Filed: 01/17/24 08:35> VTE Device Contraindication: N/A - Device Ordered <Yessenia Rm PA-C - Last Filed: 01/17/24 08:35> VTE Drug Contraindication: N/A - Med Ordered <Yessenia Rm PA-C - Last Filed: 01/17/24 08:35>
--- NOTE | 2024-01-17 08:52 | HO.PM.IMCN ---
History of Present Illness Data of Consult Service Date: 01/17/24 Primary Care Provider: DIANNA Rodriguez HPI 53-year-old man status post sigmoid resection with end colostomy with noted elevated blood pressure. Noted leukocytosis but other labs within acceptable limits, elevated blood pressure reading of 174/88, asymptomatic. Review of Systems Review of Systems: Denies any recent fever chills or decrease in appetite respiratory denies any shortness of breath or cough cardiovascular denies chest pain gastrointestinal genitourinary denies any dysuria frequency or hematuria musculoskeletal denies any joint pain or swelling neuropsych denies any weakness or seizures all other systems reviewed are negative [facility] Medical History Essential hypertension Fatty liver GERD (gastroesophageal reflux disease) Osteoarthritis of left hip Nicotine dependence, cigarettes, uncomplicated Exposure to lead Surgical History History of esophagogastroduodenoscopy (EGD) Social History Household Members: Spouse and Children Housing: House Are you a primary health care sanitary technician to a significant other at home: No Do you presently have visiting nurse or other home services: No Alcohol intake: current Alcohol intake frequency: does not drink Patient Tobacco Use Status: Former Tobacco user Tobacco use type: Cigarette Cigarette Packs Per Day: 1 Cigarettes Per Day: 20.0 Years Smoked: 20 Smoked in Last 30 Days: Yes e-Cigarette/Vaping Use: Never Used Patient Interested in Nicotine Replacement: Yes Patient Given Instructions on How to Stop Smoking: No (pt workin on it, currently in a program) Second Hand Smoke Exposure: Yes () Use of substances other than those prescribed or required for medical reasons: Yes Substance Use Type: Marijuana Substance Use Frequency: Chronic Longstanding Last Used Substance: Days (ago) Currently Displaying Signs/Symptoms of Drug Intoxication Withdrawal: No Any prior treatment program specific to substance use: No Have you been hit, kicked, punched, or otherwise hurt by someone within the past year? If so, by whom?: No Do you feel safe in your current relationship?: Yes Is there a partner from a previous relationship who is making you feel unsafe now?: No Are you made to feel afraid or neglected: No Are you DNR?: No Advance Directives: No Advance Directives Information Provided: No Advance Directives on File: No Do you have a plan to hurt others: No Plan Recently lost weight without trying: No Eating poorly because of decreased appetite: No Nutrition Risks: No Nutritional Risk Poor oral hygiene: Yes service: No Current occupational status: employed Current occupation: [employer] Current occupational exposures/hazards: Yes Cognitive needs: No Hearing needs: No Vision needs: No Meds Allergies Allergy/AdvReac Type Severity Reaction Status Date / Time No Known Allergies Allergy Verified 01/13/24 09:20 Active Medications: Current Medications Calcium Carbonate (Calcium Carbonate 750 Mg Tab.Chew) 750 mg PO Q4H PRN PRN Reason: Heartburn Last Admin: 01/15/24 10:45 Dose: 750 mg Heparin Sodium (Porcine) (Heparin Sodium,Porcine 5,000 Unit/Ml Vial) 5,000 unit SUBCUT Q8H [facility] Last Admin: 01/17/24 05:20 Dose: 5,000 unit Hydrochlorothiazide (Hydrochlorothiazide 12.5 Mg Tablet) 12.5 mg PO DAILY [facility]; Protocol Last Admin: 01/17/24 07:59 Dose: 12.5 mg Hydromorphone HCl (Hydromorphone Hcl 1 Mg/Ml Syringe) 0.5 mg IVPUSH Q4H PRN; Protocol PRN Reason: Pain, Severe (Pain Scale 7-10) Last Admin: 01/17/24 07:59 Dose: 0.5 mg Piperacillin Sod/Tazobactam (Sod 3.375 gm/ Sodium Chloride) 50 mls @ 100 mls/hr IV Q6H [facility]EE Last Infusion: 01/17/24 05:53 Dose: Infused Lactated Ringer's (Lr) 1,000 mls @ 80 mls/hr IVCONT .[id number] [facility]EE Last Admin: 01/16/24 23:14 Dose: 80 mls/hr Lisinopril (Lisinopril 20 Mg Tablet) 20 mg PO DAILY [facility]; Protocol Last Admin: 01/17/24 07:59 Dose: 20 mg Melatonin (Melatonin 3 Mg Tablet) 6 mg PO BEDTIME PRN PRN Reason: Insomnia Last Admin: 01/16/24 21:00 Dose: 6 mg Naloxone HCl (Naloxone Hcl 0.4 Mg/Ml Vial) 0.04 mg IVPUSH Q5M PRN PRN Reason: Excessive sedation or RR < 8 Nicotine (Nicotine 21 Mg Patch.Td24) 21 mg TRANSDERMA DAILY [facility] Last Admin: 01/17/24 08:00 Dose: 21 mg Oxycodone HCl (Oxycodone Hcl Immed Release 5 Mg Tablet) 5 mg PO Q4H PRN PRN Reason: Pain, Moderate(Pain Scale 4-6) Last Admin: 01/16/24 16:48 Dose: 5 mg Sodium Chloride (0.9 % Sodium Chloride Flush 3 Ml Syringe) 3 ml IVFLUSH QSHIFT [facility] Last Admin: 01/17/24 07:07 Dose: Not Given Physical Exam Vital Signs and Narrative: Vital Signs: Last Vital Signs Temp 97.9 F 01/17/24 07:36 Pulse 60 01/17/24 07:36 Resp 18 01/17/24 07:36 BP 151/91 H 01/17/24 07:59 Pulse Ox 96 01/17/24 07:36 O2 Del Method Room Air 01/17/24 07:36 BMI result Body Mass Index 24.2 Appearing in no acute distress head is normocephalic atraumatic eyes pupils are PERRLA sclera is anicteric mouth throat mucous membranes are intact and moist neck is supple no lymphadenopathy, no JVD noted lung sounds are clear to auscultation heart regular rate rhythm, clear S1, S2 positive bowel sounds, abdomen is soft, nontender neuro patient is alert x3, no focal deficits Results Labs 01/16/24 05:21 01/16/24 05:21 Assessment and Plan (1) Essential hypertension: Status: Acute Plan 53-year-old man admitted by general surgery and is status post sigmoid resection and end colostomy Sigmoid resection Management as per surgical team Pain management Hypertension Elevated blood pressures noted Likely some component of pain Continue lisinopril and hydrochlorothiazide Monitor blood pressures closely Tobacco use Continue nicotine replacement therapy Discussed the importance of nicotine cessation DVT prophylaxis with heparin Full code Medical consultation complete. Will sign off
[2024-01-17] MEDS: Lactated Ringers 1,000 ML 80 ML IVCONT ×2 (10:45→23:10)
[2024-01-17] MEDS: oxyCODONE HCl Immed Release 5 MG TABLET PO ×2 (10:54→16:31)
--- NOTE | 2024-01-17 14:30 | HO.OSTOMY ---
Ostomy Consult: Follow up Teaching 53yr old male admitted to [facility] on 01/13/24 see H&P for detailed history and admission.? Consult for new ostomy teaching. ?He had an End Colostomy creation on 01/13/[address] Skelton. ?Upon entry into patient's room, he is sitting in his recliner chair, he is alert and oriented x 3, he currently has no complaints. ?He recalls my roll in his care, he is agreeable to continuing with teaching. ? We discussed his pain control at 08/02 at the current moment, he reports increasing the use of his IS and ambulating the entire unit multiple times. ?We began by discussing questions regarding his Colostomy and he denies questions. Unfortunately he has not yet had stool output but he continued with +gas. He is able to provide me a open close on the pouch attached to his abdomen. He is able to verbally walk me through a pouch change. I will continue to follow up with patient for continued teaching needs when stoma function starts.
[2024-01-17] MEDS: Melatonin 3 MG TABLET 6 MG PO (21:07)
[2024-01-18] VITALS (8 sets, daily range): BP systolic 134–158; BP diastolic 73–91; PULSE 75–85; RESP 16–20; TEMP 36.6–36.9; O2SAT 96–99
[2024-01-18] MEDS: oxyCODONE HCl Immed Release 5 MG TABLET PO ×4 (03:12→23:09)
[2024-01-18] MEDS: Piperacillin Sodium/Tazobactam 3.375 GM in 0.9 % Sodium Chloride 50 ML IV ×4 (05:15→23:17)
[2024-01-18] MEDS: Heparin Sodium,Porcine 5,000 UNIT/ML VIAL 5000 UNIT SUBCUT ×3 (05:15→23:07)
[2024-01-18] MEDS: HYDROmorphone HCl 1 MG/ML SYRINGE 0.5 MG IVPUSH ×2 (05:57→10:00)
--- NOTE | 2024-01-18 08:20 | HO.STUDPN_ITS ---
Subjective Subjective Date of Service: 01/18/24 <[facility] - Last Filed: 01/18/24 14:22> 01/19/24 <Carlyle Skelton MD - Last Filed: 01/19/24 12:17> 01/20/24 <Yessenia Rm PA-C - Last Filed: 01/20/24 10:57> Interval History: 53 year old male admitted status post Lucia's procedure for a large intramural abscess and severe inflammatory changes. Pt reports that he is feeling much better. He is able to pass gas as well as have stool. Pt is ambulating. Pt reports that he is feeling a little fatigued, waking up every 2 hours at night due to hospital noise. Yesterday pt reports that after smelling food pt had one episode of regurgitation. Pt reports that he is having pressure on his rectum that is relieved with urination. Pt reports that he has been using the incentive spiromter throughout the day. < [facility] - Last Filed: 01/18/24 14:22> Constitutional No chills, no fever, slight fatigue <Helena mad - Last Filed: 01/18/24 14:22> Respiratory No SOB, no coughing, no wheezing <Helena mad - Last Filed: 01/18/24 14:22> Gastrointestinal slight nasuea, one episdoe of regurgitation last night <Helena mad - Last Filed: 01/18/24 14:22> Genitourinary No dysuria <Helena mad - Last Filed: 01/18/24 14:22> Neurologic No numbness, no tingling <Helena mad - Last Filed: 01/18/24 14:22> Endocrine No sweating <Helena mad - Last Filed: 01/18/24 14:22> Physical Exam 2 Vital Signs: Vital Signs: Last Vital Signs Temp 97.8 F 01/18/24 07:28 Pulse 75 01/18/24 07:28 Resp 18 01/18/24 07:28 BP 144/75 H 01/18/24 07:28 Pulse Ox 98 01/18/24 07:28 O2 Del Method Room Air 01/18/24 07:28 BMI result Body Mass Index 24.2 <[facility] Last Filed: 01/18/24 14:22> Const: Other: Well appearing, alert, interactive <[facility] - Last Filed: 01/18/24 14:22> Resp: Other: Normal respiratory effort. No wheezing or rhonchi present. <[facility] - Last Filed: 01/18/24 14:22> Cardio: Other: RRR normal S1 and S2 present, no murmurs appreciated. <[facility] - Last Filed: 01/18/24 14:22> GI: Other: Hyperactive bowel sounds. Stoma pink. Fluid present in colostomy bag. <[facility] - Last Filed: 01/18/24 14:22> Skin: Other: No rashes or lesions. <[facility] - Last Filed: 01/18/24 14:22> Objective Data Active Medications Calcium Carbonate (Calcium Carbonate 750 Mg Tab.Chew) 750 mg PO Q4H PRN PRN Reason: Heartburn Last Admin: 01/15/24 10:45 Dose: 750 mg Documented By: TRAV Heparin Sodium (Porcine) (Heparin Sodium,Porcine 5,000 Unit/Ml Vial) 5,000 unit SUBCUT Q8H [facility] Last Admin: 01/18/24 05:15 Dose: 5,000 unit Documented By: CRISTIAN Hydrochlorothiazide (Hydrochlorothiazide 12.5 Mg Tablet) 12.5 mg PO DAILY [facility]; Protocol Last Admin: 01/17/24 07:59 Dose: 12.5 mg Documented By: NASIM Hydromorphone HCl (Hydromorphone Hcl 1 Mg/Ml Syringe) 0.5 mg IVPUSH Q4H PRN; Protocol PRN Reason: Pain, Severe (Pain Scale 7-10) Last Admin: 01/18/24 05:57 Dose: 0.5 mg Documented By: CRISTIAN Piperacillin Sod/Tazobactam (Sod 3.375 gm/ Sodium Chloride) 50 mls @ 100 mls/hr IV Q6H [facility] Last Infusion: 01/18/24 05:53 Dose: Infused Documented By: CRISTIAN Lactated Ringer's (Lr) 1,000 mls @ 80 mls/hr IVCONT .[id number] [facility] Last Admin: 01/17/24 23:10 Dose: 80 mls/hr Documented By: CRISTIAN Lisinopril (Lisinopril 20 Mg Tablet) 20 mg PO DAILY [facility]; Protocol Last Admin: 01/17/24 07:59 Dose: 20 mg Documented By: NASIM Melatonin (Melatonin 3 Mg Tablet) 6 mg PO BEDTIME PRN PRN Reason: Insomnia Last Admin: 01/17/24 21:07 Dose: 6 mg Documented By: CRISTIAN Naloxone HCl (Naloxone Hcl 0.4 Mg/Ml Vial) 0.04 mg IVPUSH Q5M PRN PRN Reason: Excessive sedation or RR < 8 Nicotine (Nicotine 21 Mg Patch.Td24) 21 mg TRANSDERMA DAILY [facility] Last Admin: 01/17/24 08:00 Dose: 21 mg Documented By: NASIM Oxycodone HCl (Oxycodone Hcl Immed Release 5 Mg Tablet) 5 mg PO Q4H PRN PRN Reason: Pain, Moderate(Pain Scale 4-6) Last Admin: 01/18/24 03:12 Dose: 5 mg Documented By: CRISTIAN Sodium Chloride (0.9 % Sodium Chloride Flush 3 Ml Syringe) 3 ml IVFLUSH QSHIFT [facility] Last Admin: 01/18/24 07:00 Dose: Not Given Documented By: NASIM Non-Admin Reason: IV Running <[facility] Last Filed: 01/18/24 14:22> Labs CBC & Chem 7: 01/16/24 05:21 01/16/24 05:21 <[facility] - Last Filed: 01/18/24 14:22> Assessment and Plan (1) Diverticulitis of large intestine with complication: Status: Acute <[facility] - Last Filed: 01/18/24 14:22> Assessment and Plan: Advance food today, encourage small bites. Encourage use of incentive spirometer every hour. <[facility] - Last Filed: 01/18/24 14:22> Advance food today, encourage small bites. Encourage use of incentive spirometer every hour. Patient feels well and ready for discharge. Tolerating solid food, gas pains resolved. Ostomy now with stool output. Stable for dc to home with VNA services. <Yessenia Rm PA-C - Last Filed: 01/20/24 10:57> Quality Stroke Does the patient have a stroke diagnosis?: No <Helena Ahmad - Last Filed: 01/18/24 14:22> VTE Prior VTE?: No <Helena Ahmad - Last Filed: 01/18/24 14:22> VTE Risk Level:: Surgical - high <Helena Ahmad - Last Filed: 01/18/24 14:22> VTE Device Contraindication: N/A - Device Ordered <Helena Ahmad - Last Filed: 01/18/24 14:22> VTE Drug Contraindication: N/A - Med Ordered <Helena Ahmad - Last Filed: 01/18/24 14:22>
[2024-01-18] MEDS: lisinopriL 20 MG TABLET PO (08:24)
[2024-01-18] MEDS: hydroCHLOROthiazide 12.5 MG TABLET PO (08:24)
[2024-01-18] MEDS: Nicotine 21 MG PATCH.TD24 TRANSDERMA (08:25)
--- NOTE | 2024-01-18 09:11 | PM.PNGS ---
Subjective Subjective Date of Service: 01/18/24 <Yessenia Rm PA-C - Last Filed: 01/18/24 09:14> 01/18/24 <Carlyle Skelton MD - Last Filed: 01/18/24 10:10> Interval history: Feels ok this morning. No significant abd pain. Passing flatus from ostomy but no significant stool yet. OOB and ambulating without difficulty. Wants to eat and go home. <Yessenia Rm PA-C - Last Filed: 01/18/24 09:14> Physical Exam Vital Signs: Vital Signs: Last Vital Signs Temp 97.8 F 01/18/24 07:28 Pulse 75 01/18/24 07:28 Resp 18 01/18/24 07:28 BP 144/75 H 01/18/24 08:24 Pulse Ox 98 01/18/24 07:28 O2 Del Method Room Air 01/18/24 07:28 BMI result Body Mass Index 24.2 <Yessenia Rm PA-C - Last Filed: 01/18/24 09:14> Const: General: comfortable, no acute distress and alert <Yessenia Rm PA-C - Last Filed: 01/18/24 09:14> Resp: Effort & Inspection: normal respiratory effort <J CARLOS Ojeda Last Filed: 01/18/24 09:14> GI: Other: ostomy retracted, no stool in appliance erythema of midline incision persists, no significant drainage, wound opening where paul removed <Yessenia Rm PA-C - Last Filed: 01/18/24 09:14> Inspection: No distended <Yessenia Rm PA-C - Last Filed: 01/18/24 09:14> Palpation (GI): Soft to palpation, Tenderness to palpation present (GI) (mild incisional) and no guarding <J CARLOS Ojeda Last Filed: 01/18/24 09:14> Percussion: Yes normal to percussion <J CARLOS Ojeda Last Filed: 01/18/24 09:14> Skin: General skin exam: no rashes or lesions noted <J CARLOS Ojeda Last Filed: 01/18/24 09:14> Objective Data Active Medications Calcium Carbonate (Calcium Carbonate 750 Mg Tab.Chew) 750 mg PO Q4H PRN PRN Reason: Heartburn Last Admin: 01/15/24 10:45 Dose: 750 mg Documented By: TRAV Heparin Sodium (Porcine) (Heparin Sodium,Porcine 5,000 Unit/Ml Vial) 5,000 unit SUBCUT Q8H [facility] Last Admin: 01/18/24 05:15 Dose: 5,000 unit Documented By: CRISTIAN Hydrochlorothiazide (Hydrochlorothiazide 12.5 Mg Tablet) 12.5 mg PO DAILY [facility]; Protocol Last Admin: 01/18/24 08:24 Dose: 12.5 mg Documented By: NASIM Hydromorphone HCl (Hydromorphone Hcl 1 Mg/Ml Syringe) 0.5 mg IVPUSH Q4H PRN; Protocol PRN Reason: Pain, Severe (Pain Scale 7-10) Last Admin: 01/18/24 05:57 Dose: 0.5 mg Documented By: CRISTIAN Piperacillin Sod/Tazobactam (Sod 3.375 gm/ Sodium Chloride) 50 mls @ 100 mls/hr IV Q6H [facility] Last Infusion: 01/18/24 05:53 Dose: Infused Documented By: CRISTIAN Lactated Ringer's (Lr) 1,000 mls @ 80 mls/hr IVCONT .[id number] [facility] Last Admin: 01/17/24 23:10 Dose: 80 mls/hr Documented By: CRISTIAN Lisinopril (Lisinopril 20 Mg Tablet) 20 mg PO DAILY [facility]; Protocol Last Admin: 01/18/24 08:24 Dose: 20 mg Documented By: NASIM Melatonin (Melatonin 3 Mg Tablet) 6 mg PO BEDTIME PRN PRN Reason: Insomnia Last Admin: 01/17/24 21:07 Dose: 6 mg Documented By: CRISTIAN Naloxone HCl (Naloxone Hcl 0.4 Mg/Ml Vial) 0.04 mg IVPUSH Q5M PRN PRN Reason: Excessive sedation or RR < 8 Nicotine (Nicotine 21 Mg Patch.Td24) 21 mg TRANSDERMA DAILY [facility] Last Admin: 01/18/24 08:25 Dose: 21 mg Documented By: NASIM Oxycodone HCl (Oxycodone Hcl Immed Release 5 Mg Tablet) 5 mg PO Q4H PRN PRN Reason: Pain, Moderate(Pain Scale 4-6) Last Admin: 01/18/24 03:12 Dose: 5 mg Documented By: CRISTIAN Sodium Chloride (0.9 % Sodium Chloride Flush 3 Ml Syringe) 3 ml IVFLUSH QSHIFT [facility] Last Admin: 01/18/24 07:00 Dose: Not Given Documented By: NASIM Non-Admin Reason: IV Running <Yessenia Rm PA-C - Last Filed: 01/18/24 09:14> Labs CBC & Chem 7: 01/16/24 05:21 01/16/24 05:21 <Yessenia Rm PA-C - Last Filed: 01/18/24 09:14> Procedures Date of Service Date of Service: 01/18/24 <Yessenia Rm PA-C - Last Filed: 01/18/24 09:14> 01/18/24 <Carlyle Skelton MD - Last Filed: 01/18/24 10:10> Progress Note: A&P Assessment and plan (1) Diverticulitis of large intestine with complication: Status: Acute <Yessenia Rm PA-C - Last Filed: 01/18/24 09:14> Assessment and Plan: Feels great Passing flatus via stoma Small amount of liquid stool He says he wants to eat Advance diet If tolerating, plan to DC home later on today Instructions given Seen and examined independently <Carlyle Skelton MD - Last Filed: 01/18/24 10:10> Assessment and Plan: POD #5 s/p Hand assisted laparoscopic sigmoid resection, with a diverting end colostomy, extensive lysis of adhesions for Acute sigmoid diverticulitis, with phlegmonous changes, abscesses in the mesentery, fecaliths within the abscess cavity. Doing well, will advance to solid diet today. Dc IVF. Bowel regimen. Home maybe later today if tolerating solid diet with VNA services on PO abx. Dry dressing to midline incision for wound drainage. Patient comfortable with plan. Will return later today. <Yessenia Rm PA-C - Last Filed: 01/18/24 09:14> Time Spent With Patient Time: Total time managing care of this patient today ____ minutes. <Yessenia Rm PA-C - Last Filed: 01/18/24 09:14> Quality Stroke Does the patient have a stroke diagnosis?: No <Yessenia Rm PA-C - Last Filed: 01/18/24 09:14> VTE Prior VTE?: No <Yessenia Rm PA-C - Last Filed: 01/18/24 09:14> VTE Risk Level:: Surgical - high <Yessenia Rm PA-C - Last Filed: 01/18/24 09:14> VTE Device Contraindication: N/A - Device Ordered <Yessenia Rm PA-C - Last Filed: 01/18/24 09:14> VTE Drug Contraindication: N/A - Med Ordered <Yessenia Rm PA-C - Last Filed: 01/18/24 09:14>
--- NOTE | 2024-01-18 09:37 | HO.OSTOMY ---
Ostomy Consult: Follow up Teaching 53yr old male [place] [facility] [place] see H&P for detailed history and admission.? Consult for new ostomy teaching. ?He had an End Colostomy creation on 01/13/[address] Skelton. ?Met patient ambulating in hallway. Patient reports he is intermittently suffering from nausea and did vomit yesterday evening. He reports he is tolerating his diet (full liquids) this morning. +gas output but no stool output noted, light mobley liquid noted in pouch. He is ambulating the entire unit multiple times throughout the day. ? I will continue to follow up with patient for continued teaching needs when stoma function starts.
[2024-01-18] MEDS: Docusate Sodium 100 MG CAPSULE PO ×2 (10:54→19:31)
[2024-01-18] MEDS: polyethylene glycoL 3350 17 GM POWD.PACK PO (10:55)
--- NOTE | 2024-01-18 12:24 | MHC.CM.PN ---
EMR REVIEWED AND PER MD ROUNDS, PT WILL ADVANCE DIET TODAY AND IF TOLERATES, MAY DC HOME TODAY. [facility] VNA UPDATED. CM WILL CONTINUE TO FOLLOW FOR PLAN.
--- NOTE | 2024-01-18 14:29 | W.MHC.F2F ---
Service Date Service Date: 01/18/24 Encounter Date of encounter: 01/18/24 Reasons for Services Signs and symptoms assessed: abdominal pain, PO intake, ostomy output and appearance Reason for senior care: wound care and postoperative assessment and/or care Homebound: Leaving the home is medically contraindicated at this time without the asist of a device and/or another person due th the listed conditions above and below. Reason homebound: weakness related to hospital stay and unable to drive Homebound supporting statement: Mr. Dobbs is s/p JOSE DAVID sigmoid resection, end colostomy. He will need VNA services for ostomy care. Certification: Based on the above findings, I certify that this patient is confined to the home and needs intermittent senior care care, physical therapy and/or speech therapy, or continues to need occupational therapy. The patient is under my care, and I have initiated the establishment of the plan of care. The patient will be followed by a physician who will periodically review the plan of care. Time Spent With Patient Time: Total time managing care of this patient today ____ minutes.
--- NOTE | 2024-01-18 15:23 | HO.OSTOMY ---
Ostomy Consult: Follow up Teaching 53yr old male admitted to [facility] on 01/13/24 see H&P for detailed history and admission.? Consult for new ostomy teaching. ?He had an End Colostomy creation on 01/13/[address] Skelton. ?Received TT from staff patient requesting ostomy nurse to bedside. Arrival to bedside patient had emptied his pouch he reports no issues. Pouch was assessed and no stool noted on outer pouch however the pouch was lifting from the 9 o'clock area suspect due to midline incision drainage. Agreeable to flat pouch application(Coloplast [id number]) offset from midline to accommodate midline drainage. Significant increase in erythema noted to midline TT to General Surg EZIO Ojeda. She arrived to bedside and removed midline paul and seropurulent drainage immediate once probed with Qtip. Pt tolerated well. Gauze kerlix packing applied and dry secondary dressing applied. Patient is upset and tearful with the level of discomfort he is having with cramping. He reports correlation of eating and abdominal pain - patient encouraged to listen to his body and back off of oral intake - direct care nurse aware. The patient understands his amount of ambulation and limiting narcotics will benefit bowel function return. Will follow up with pt tomorrow morning.
[2024-01-18] MEDS: Melatonin 3 MG TABLET 6 MG PO (23:09)
[2024-01-18] MEDS: 0.9 % Sodium Chloride Flush 3 ML SYRINGE IVFLUSH (23:44)
[2024-01-19 04:00] VITALS: BP 156/79; PULSE 74; RESP 16; TEMP 36.3; O2SAT 98
[2024-01-19] MEDS: Heparin Sodium,Porcine 5,000 UNIT/ML VIAL 5000 UNIT SUBCUT (06:09)
[2024-01-19] MEDS: Piperacillin Sodium/Tazobactam 3.375 GM in 0.9 % Sodium Chloride 50 ML IV (06:09)
[2024-01-19 07:18] VITALS: BP 143/83; PULSE 78; RESP 18; TEMP 36.4; O2SAT 95
[2024-01-19 08:17] VITALS: BP 143/83
[2024-01-19] MEDS: Nicotine 21 MG PATCH.TD24 TRANSDERMA (08:17)
[2024-01-19] MEDS: lisinopriL 20 MG TABLET PO (08:17)
[2024-01-19] MEDS: hydroCHLOROthiazide 12.5 MG TABLET PO (08:17)
[2024-01-19] MEDS: polyethylene glycoL 3350 17 GM POWD.PACK PO (08:17)
[2024-01-19] MEDS: Docusate Sodium 100 MG CAPSULE PO (08:17)
[2024-01-19] MEDS: oxyCODONE HCl Immed Release 5 MG TABLET PO (08:17)
[2024-01-19] MEDS: 0.9 % Sodium Chloride Flush 3 ML SYRINGE IVFLUSH (08:24)
--- NOTE | 2024-01-19 08:55 | HO.STUDPN_ITS ---
Subjective Subjective Date of Service: 01/19/24 <Helena Carlton - Last Filed: 01/19/24 10:52> 01/19/24 <Carlyle Skelton MD - Last Filed: 01/19/24 12:16> 01/20/24 <Yessenia Rm PA-C - Last Filed: 01/20/24 10:59> Interval History: 53 yo cisgender male status post funes procedure day 6. Pt reports that he had severe cramping and belching pain seconds after eating around noon yesterday. Pt reports that last night he had a couple of bites of yogurt and 1/4 of ham sandwich.He had one episode of regurgitation. Pt took a shower yesterday and shortly after was able to have his first stool. Pt had a light breakfast this morning and reported decreased cramping compared to yesterday. Pt is ambulating well, notes paul hurt near sugerical site when standing up and ambulating. Pt has been using incentive spirometer. No regurgitation, no nausea today. <Helena Ahmad - Last Filed: 01/19/24 10:52> Constitutional Slight chills (pt reports related to hospital temperature changes), no fatigue <Helena Ahmad - Last Filed: 01/19/24 10:52> ENT Ears, Nose, Mouth, and Throat: Denies dizziness <Helena Ahmad - Last Filed: 01/19/24 10:52> Cardiovascular no palpitations <Helena Ahmad - Last Filed: 01/19/24 10:52> Respiratory no SOB <Helena Ahmad - Last Filed: 01/19/24 10:52> Gastrointestinal No episodes of regurgitation, no nausea, no vomiting <Helena Ahmad - Last Filed: 01/19/24 10:52> Musculoskeletal Musculoskeletal: Denies arthralgias and Denies numbness <Helena Ahmad - Last Filed: 01/19/24 10:52> Neurologic Neurologic: Denies dizziness and Denies numbness <Helena Ahmad - Last Filed: 01/19/24 10:52> Physical Exam 2 Vital Signs: Vital Signs: Last Vital Signs Temp 97.5 F 01/19/24 07:18 Pulse 78 01/19/24 07:18 Resp 18 01/19/24 07:18 BP 143/83 H 01/19/24 08:17 Pulse Ox 95 01/19/24 07:18 O2 Del Method Room Air 01/19/24 07:18 BMI result Body Mass Index 24.2 <[facility] - Last Filed: 01/19/24 10:52> Const: General: no acute distress and alert <[facility] - Last Filed: 01/19/24 10:52> Chest: Other: RRR, normal S1 and S2 <[facility] - Last Filed: 01/19/24 10:52> Resp: Other: no wheezing or rhonic, normal respiratory effort <[facility] Last Filed: 01/19/24 10:52> GI: Other: slight distension, hyperactive bowel movments, no tenderness on palpation. <[facility] - Last Filed: 01/19/24 10:52> Skin: Other: Drainage on lower surgical sound site. Erythematous. Otherwise well healing paul. Colostomy bag with brown fluid stool present, not able to visual stoma.Skin intact, no rash. <[facility] - Last Filed: 01/19/24 10:52> Objective Data Active Medications Calcium Carbonate (Calcium Carbonate 750 Mg Tab.Chew) 750 mg PO Q4H PRN PRN Reason: Heartburn Last Admin: 01/15/24 10:45 Dose: 750 mg Documented By: TRAV Docusate Sodium (Docusate Sodium 100 Mg Capsule) 100 mg PO BID [facility] Last Admin: 01/19/24 08:17 Dose: 100 mg Documented By: SHERON Heparin Sodium (Porcine) (Heparin Sodium,Porcine 5,000 Unit/Ml Vial) 5,000 unit SUBCUT Q8H [facility] Last Admin: 01/19/24 06:09 Dose: 5,000 unit Documented By: JUANIS Hydrochlorothiazide (Hydrochlorothiazide 12.5 Mg Tablet) 12.5 mg PO DAILY [facility]; Protocol Last Admin: 01/19/24 08:17 Dose: 12.5 mg Documented By: SHERON Piperacillin Sod/Tazobactam (Sod 3.375 gm/ Sodium Chloride) 50 mls @ 100 mls/hr IV Q6H [facility] Last Infusion: 01/19/24 06:41 Dose: Infused Documented By: JUANIS Lisinopril (Lisinopril 20 Mg Tablet) 20 mg PO DAILY [facility]; Protocol Last Admin: 01/19/24 08:17 Dose: 20 mg Documented By: SHERON Melatonin (Melatonin 3 Mg Tablet) 6 mg PO BEDTIME PRN PRN Reason: Insomnia Last Admin: 01/18/24 23:09 Dose: 6 mg Documented By: LISA Naloxone HCl (Naloxone Hcl 0.4 Mg/Ml Vial) 0.04 mg IVPUSH Q5M PRN PRN Reason: Excessive sedation or RR < 8 Nicotine (Nicotine 21 Mg Patch.Td24) 21 mg TRANSDERMA DAILY [facility] Last Admin: 01/19/24 08:17 Dose: 21 mg Documented By: SHERON Oxycodone HCl (Oxycodone Hcl Immed Release 5 Mg Tablet) 5 mg PO Q4H PRN PRN Reason: Pain, Moderate(Pain Scale 4-6) Last Admin: 01/19/24 08:17 Dose: 5 mg Documented By: SHERON Polyethylene Glycol (Polyethylene Glycol 3350 17 Gm Powd.Pack) 17 gm PO DAILY [facility] Last Admin: 01/19/24 08:17 Dose: 17 gm Documented By: SHERON Sodium Chloride (0.9 % Sodium Chloride Flush 3 Ml Syringe) [facility] Last Admin: 01/19/24 08:24 Dose: 3 ml Documented By: SHERON <Helena Ahmad - Last Filed: 01/19/24 10:52> Labs CBC & Chem 7: 01/16/24 05:21 01/16/24 05:21 <Helena Ahmad - Last Filed: 01/19/24 10:52> Microbiology Microbiology Results: Microbiology 01/13/24 10:15 Blood Culture - Final Blood - Venous No growth after 5 days. 01/13/24 10:15 Blood Culture - Final Blood - Venous No growth after 5 days. <Helena Ahmad - Last Filed: 01/19/24 10:52> Assessment and Plan (1) Diverticulitis of large intestine with complication: Status: Acute <Helena Ahmad - Last Filed: 01/19/24 10:52> Assessment and Plan: s/p Lucia's procedure stoma with good output tolerating diet feels well says he is ready to go home looks well seen and examined independently <Carlyle Skelton MD - Last Filed: 01/19/24 12:16> Assessment and Plan: Pt is ambulating well, educated patient on changing dressing at home and to schedule follow up in office, continue antibiotics and stool softner at home. D/C patient [facility] Last Filed: 01/19/24 10:52> Quality Stroke Does the patient have a stroke diagnosis?: No <[facility] - Last Filed: 01/19/24 10:52> VTE Prior VTE?: No [facility] Last Filed: 01/19/24 10:52> VTE Risk Level:: Surgical - high [facility] Last Filed: 01/19/24 10:52> VTE Device Contraindication: N/A - Device Ordered <[facility] - Last Filed: 01/19/24 10:52> VTE Drug Contraindication: N/A - Med Ordered <[facility] - Last Filed: 01/19/24 10:52>
--- NOTE | 2024-01-19 09:36 | MHC.CM.PN ---
DP: PT HAS BEEN MEDICALLY CLEARED FOR DC HOME WITH [facility] FOR OSTOMY TEACHING/OVERSIGHT. EXTRA SUPPLIES TO BE SENT HOME WITH PT. [facility] WILL TRANSPORT
--- NOTE | 2024-01-19 13:08 | P.DS_ITS ---
DS: Providers Provider Date of Service: 01/19/24 Date of admission: 01/13/24 11:50 Date of discharge: 01/19/24 [facility] Attending physician on admission: Carlyle Skelton Consults: 01/13/24 15:48 Consult to Ostomy Care Routine 01/17/24 08:34 Consult to Hospitalist Routine Comment: Consulting Provider: Hospitalist Reason For Exam: hypertension Attending physician on discharge: Carlyle Skelton DS: Diagnosis Discharge Diagnosis (1) Diverticulitis of large intestine with complication: Status: Acute DS: Summary Hospital Course Hospital Course: HPI AT ADMISSION: Cristian Dobbs is a 53 year old male with PMH of HTN, GERD, fatty liver, smoker who presented to the ED with c/o lower abdominal pain. He reports the pain started 2 weeks ago. It was in his lower abdomen and sharp in nature. It worsened about a week ago and became so severe last night therefore prompting him to seek evaluation. The pain is associated with subjective fevers and diarrhea. Work up in the ED included CBC, BMP, LFTs which was significant for a leukocytosis of 23.5. CT scan abd/pelvis showed diverticulosis, wall thickening of the sigmoid colon with multiple organized pericolonic collections and soft tissue thickening approaching the urinary bladder. He denies nausea, vomiting, melena, hematochezia, dysuria, hematuria, pneumoturia, fecaluria. Reports he had a colonoscopy 4 years ago at [place] which was normal. He denies prior surgical history. HOSPITAL COURSE: He was admitted to the surgical service for treatment of the sigmoid diverticulitis with intramural abscess. It was discussed that he would likely not improve without surgery and it was therefore recommended to proceed with JOSE DAVID sigmoid resection, likely end colostomy, possible ileostomy. He was added onto the OR schedule for that day. He was started on IVF and IV zosyn. Hospitalist consult was obtained for management of his medical comorbidities including ETOH abuse and was started on CIWA precautions and phenobarbitol protocol. Addiction medicine was also consulted. On 01/13/24, Hand assisted laparoscopic sigmoid resection, with a diverting end colostomy, extensive lysis of adhesions was performed by Dr. Skelton without immediate complication. Acute sigmoid diverticulitis, with phlegmonous changes, abscesses in the mesentery, fecaliths within the abscess cavity. The patient tolerated the procedure well. He had a slow but uncomplicated recovery course. On POD #1 his padilla was removed. He began to pass flatus and was advanced from clear liquids to full liquids. He was ambulated and activity was increased throughout his post op course. His HUSSEIN drain had scant nonpurulent output and was removed. Ostomy ed ucation was performed. He began to pass stool and was advanced to solids. He was weaned off IV analgesics. On the day of discharge, he was tolerating a solid diet without nausea or vomiting, had good GI function and was ambulating without difficulty. His pain was controlled on oral analgesics. He was hemodynamically stable with clean incision with mild surrounding erythema and viable ostomy with good output. He was discharged to home on 01/19/24 in stable condition with VNA services. He was discharged on an oral course of Augmentin. He is to follow up in the office in 1-2 weeks. Daily dressing changes to midline incision while wound remains open and draining superiorly. Status at Discharge Functional status at discharge: independent ambulation Time Attestation Discharge Coordination Time (in mins): 45 Quality: Safe Use of Opioids Does Pt have an Active Cancer Diagnosis on the Problem List?: No Quality: Stroke Does the patient have a stroke diagnosis?: No Physical Exam Vital Signs: Vital Signs: Last Vital Signs Temp 97.5 F 01/19/24 07:18 Pulse 78 01/19/24 07:18 Resp 18 01/19/24 07:18 BP 143/83 H 01/19/24 08:17 Pulse Ox 95 01/19/24 07:18 O2 Del Method Room Air 01/19/24 07:18 BMI result Body Mass Index 24.2 Const: General: comfortable, no acute distress and alert Orientation/consciousness: patient oriented x3 Resp: Effort & Inspection: normal respiratory effort GI: Other: ostomy retracted, beefy red centrally, small amount of stool in appliance incision with erythema that extends laterally towards ostomy, improved wound remains open superiorly from where paul removed and pocket of fat necrosis drained Inspection: No distended Palpation (GI): Soft to palpation, Tenderness to palpation present (GI) and no guarding Skin: General skin exam: no rashes or lesions noted Neuro: General: patient oriented x3 DS: Data Data Completed and Pending Completed studies during hospitalization [Text1]: 09/20/24 14:16 Surgical [PTH] Routine Colon, sigmoid, segmental resection: Complicated diverticular disease with mural and mesenteric abscess formation and extensive acute fibrinous serositis with adhesions Discharge Plan Discharge Anticipated Discharge Date/Time: 01/18/24 15:56 Patient Disposition: Home Health Service Discharge Diagnosis: diverticulitis with abscess Referrals: [facility] [Outside] - 1 Week (HOME SERVICES FOR LONG-TERM VISITS- COLOSTOMY TEACHING/OVERSIGHT. A NURSE WILL CALL YOU TO SET UP FIRST VISIT.) Ryan Arrieta FNP- [Primary Care Provider] - 1 Week Carlyle Skelton MD [Physician] - 2 Weeks Discharge Medications: New oxycodone 5 mg tablet 5 mg PO Q4H PRN (Reason: pain (scale score 7-10)) Qty: 26 0RF Rx Instructions: Partial Fill upon patient request. docusate sodium [Colace] 100 mg capsule 100 mg PO BID Qty: 24 0RF amoxicillin-pot clavulanate 875-125 mg tablet 1 tab PO BID Qty: 10 0RF Continued lisinopril 20 mg tablet 20 mg PO DAILY Qty: 90 1RF hydrochlorothiazide 12.5 mg tablet 12.5 mg PO DAILY 90 Days Qty: 90 1RF Discharge Orders: Discharge Order (Routine); Ordered 01/19/24 Ordered By: Yessenia Rm Diet: Advance to usual diet Activity on Discharge: No heavy lifting Stand Alone Forms: Patient Portal Discharge page Print Language: Macedonian Activity Restrictions/Additional Instructions: If the incision area is tender, you may apply an ice pack for short intervals (No more than 20 minutes on, followed by at least 20 minutes off). Do not apply heat. Do not use creams, lotions, or topical antibiotics. These can cause infect ion or allergic reaction. Ok to shower. You have paul closing your incision and these will be removed approximately 10-14 days after surgery. Keep midline open wound covered with dry gauze while it remains open. Colostomy care: change appliance every 3-4 days or as needed. NO HEAVY LIFTING (>10lbs) or strenuous activity. Follow up in office. ([phone]) Call Your Doctor If: -Your temperature exceeds 101.5? F -You experience excessive pain or swelling -You have an unexpected reaction to medication -You have excessive bleeding -You experience continued vomiting/nausea -Your incision begins to separate -Your incision shows signs of infection such as increased redness, swelling, excessive pain, drainage (light blood or clear fluid is normal) or hea t Care Plan Goals: Return to baseline health and resume normal activities following recovery period. Health Concerns: HTN sigmoid diverticulitis with abscess Plan of Treatment: s/p sigmoid resection, end colostomy antibiotics VNA for ostomy care f/u in office in 2 weeks Assessment: Doing well post op. Discharge Date/Time: 01/19/24 10:01
== END 2024-01-19 10:01 | disposition home health service (06) | DRG 231 ==
LOC: HO.ED 11:56 → HO.EDOVER 11:59 → HO.S3 12:11
PROVIDERS: Physician Assistant; Surgery; Admitting Provider Physician Assistant Surgical; Emergency Provider Emergency Medicine; PCP Nurse Practitioner Family; Visit Provider Physician Assistant Surgical
PROC: 0DTE0ZZ Resection of Large Intestine, Open Approach (ICD-10-PCS; principal; 2024-01-13 13:30)
DX: K57.20 Diverticulitis of large intestine with perforation and abscess without bleeding (principal); K76.0 Fatty (change of) liver, not elsewhere classified; K66.0 Peritoneal adhesions (postprocedural) (postinfection); G89.18 Other acute postprocedural pain; K56.41 Fecal impaction; Z20.822 Contact with and (suspected) exposure to COVID-19; Z87.891 Personal history of nicotine dependence; Z79.899 Other long term (current) drug therapy
CPT/HCPCS: 36415; 74177; 80048; 80076; 81003; 82010; 82803; 82947; 83605; 83690; 83735; 85025; 85027; 86850; 86900; 86901; 87040; 87635; 88307; 99285; C1758; J0131; J0665; J1100; J1170; J1644; J2371; J2405; J2543; J2704; J2795; J3010; J7120; Q9967

== ENCOUNTER → 2024-01-13 11:50 | Outpatient (BNV) | payer OTHER, SELFPAY | PROVIDERS: Admitting Provider Physician Assistant Surgical; Emergency Provider Emergency Medicine; PCP Nurse Practitioner Family; Visit Provider Nurse Practitioner Acute Care | DX: I10 Essential (primary) hypertension (principal) | CPT/HCPCS: 99223 ==

== ENCOUNTER → 2024-01-13 11:50 | Outpatient (BNV) | payer OTHER, SELFPAY | PROVIDERS: Admitting Provider Physician Assistant Surgical; Emergency Provider Emergency Medicine; PCP Nurse Practitioner Family; Visit Provider Surgery | DX: K57.32 Diverticulitis of large intestine without perforation or abscess without bleeding (principal) | CPT/HCPCS: 44206; 99024; 99223; 99429; 99499; G0180 ==

== ENCOUNTER 2024-01-23 10:56 | Outpatient (AMB) | payer OTHER, SELFPAY ==
--- NOTE | 2024-01-23 10:59 | MHC.OFFVIS ---
Vital Signs 01/23/24 11:09 Height 6 ft Weight 163 lb BMI 22.1 BP 122/70 Blood Pressure Location Rt brachial Position Sitting Pulse 91 Intake Visit Reasons: wound oozing Intake Note: Patient presents for post-op assessment status post Hand assisted laparoscopic sigmoid resection, with a diverting end colostomy, extensive lysis of adhesions. Pt c/o; reports wound is oozing. Card Sorter Required: No Accompanied by: Spouse Allergies No Known Allergies Allergy (Verified 01/23/24 11:09) HPI HPI wound oozing: Details: 53-year-old male here for postop visit. He had undergone emergency hand assisted laparoscopic sigmoid resection with an end colostomy for severe diverticulitis with abscesses last 01/13/2024. He was discharged on postop day number 6. He is doing well at home. He has good oral intake. His stoma has been functioning well He called to be seen today because his stoma appliance had leak yesterday and there was stool leaking over to the midline incision. He says that this looked ?ugly? and he was concerned about this yesterday so he had to be seen today He says that his stoma appliance has leak since yesterday. He denies any fever or chills. [facility] Medical History (Updated 01/23/24 @ 11:35 by Carlyle Skelton MD) Acute diverticulitis Essential hypertension Fatty liver GERD (gastroesophageal reflux disease) Osteoarthritis of left hip Nicotine dependence, cigarettes, uncomplicated Exposure to lead Surgical History Hx of surgical procedure (~01/13/24) History of esophagogastroduodenoscopy (EGD) Social History Household Members: Spouse and Children Housing: House Are you a primary animal care attendant to a significant other at home: No Do you presently have visiting nurse or other home services: No Alcohol intake: current Alcohol intake frequency: does not drink Patient Tobacco Use Status: Former Tobacco user Tobacco use type: Cigarette Cigarette Packs Per Day: 1 Cigarettes Per Day: 20.0 Years Smoked: 20 e-Cigarette/Vaping Use: Never Used Second Hand Smoke Exposure: Yes () Substance Use Type: Marijuana service: No Current occupational status: employed Current occupation: [employer] Current occupational exposures/hazards: Yes Cognitive needs: No Hearing needs: No Vision needs: No Review of Systems Const Denies chills and Denies fever(s) Card Denies chest pain with activity Resp Denies cough GI Details: Colostomy functioning Physical Exam Vital Signs: Last Vital Signs Pulse 91 01/23/24 11:09 BP 122/70 01/23/24 11:09 BMI result Body Mass Index 22.1 Const General: comfortable and no acute distress Resp Effort & Inspection: normal respiratory effort GI Other: Colostomy functioning well, midline incision healing well, not infected, skin separation in the upper part from where paul had been previously removed because of drainage Palpation (GI): Soft to palpation, not firm, nontender and no guarding Assessment & Plan Assessment & Plan (1) Acute diverticulitis: Code(s): K57.92 - Diverticulitis of intestine, part unspecified, without perforation or abscess without bleeding Category: Medical Plan: Status post sigmoid resection, end colostomy. He is doing well. His incision is actually dry. The remaining paul are intact. I instructed him on good wound care especially if the stoma appliance leaks. I explained to him that he does not have dietary restrictions at this point. I advised him to avoid lifting anything more than 20 lb for at least a full 4 weeks after his procedure He has a scheduled follow up with me next week so I will re-evaluate him. Coding Level of Care Code Global (71043) Diagnoses Acute diverticulitis K57.92
[2024-01-23 11:09] VITALS: BP 122/70; PULSE 91; BMI 22.1
== END 2024-01-23 11:43 | disposition home or self-care (01) ==
PROVIDERS: PCP Nurse Practitioner Family; Visit Provider Surgery
DX: K57.92 Diverticulitis of intestine, part unspecified, without perforation or abscess without bleeding (principal)
CPT/HCPCS: 99024

== ENCOUNTER → 2024-01-23 10:56 | Outpatient (BNVA) | payer OTHER, SELFPAY | PROVIDERS: PCP Nurse Practitioner Family; Visit Provider Surgery | DX: K57.92 Diverticulitis of intestine, part unspecified, without perforation or abscess without bleeding (principal) | CPT/HCPCS: 99212 ==

== ENCOUNTER 2024-01-30 14:14 | Outpatient (AMB) | payer OTHER, SELFPAY ==
--- NOTE | 2024-01-30 14:15 | MHC.OFFVIS ---
Vital Signs 01/30/24 14:16 Height 6 ft Weight 165 lb 8 oz BMI 22.4 BP 128/71 Blood Pressure Location Rt brachial Position Sitting Pulse 101 H Intake Visit Reasons: wound care follow up Intake Note: This patient presents for wound check. Pt c/o; reports still has discharge blood with pus mixature, reports no other complaints at this time. [employer] Required: No Accompanied by: Other Relationship Allergies No Known Allergies Allergy (Verified 01/30/24 14:24) HPI HPI wound care follow up: Details: He is here for follow-up for his colostomy. He is doing well but he has complaints about his colostomy appliance leaking frequently. His stoma is functioning well. He has good oral intake. [facility] Acute diverticulitis Essential hypertension Fatty liver GERD (gastroesophageal reflux disease) Osteoarthritis of left hip Nicotine dependence, cigarettes, uncomplicated Exposure to lead Surgical History Hx of surgical procedure (~01/13/24) History of esophagogastroduodenoscopy (EGD) Social History Household Members: Spouse and Children Housing: House Are you a primary geriatric care manager to a significant other at home: No Do you presently have visiting nurse or other home services: No Alcohol intake: current Alcohol intake frequency: does not drink Patient Tobacco Use Status: Former Tobacco user Tobacco use type: Cigarette Cigarette Packs Per Day: 1 Cigarettes Per Day: 20.0 Years Smoked: 20 e-Cigarette/Vaping Use: Never Used Second Hand Smoke Exposure: Yes () Substance Use Type: Marijuana service: No Current occupational status: employed Current occupation: [employer] Current occupational exposures/hazards: Yes Cognitive needs: No Hearing needs: No Vision needs: No Review of Systems Const Denies chills and Denies fever(s) Card Denies chest pain Resp Denies cough GI Details: Colostomy functioning well Physical Exam Vital Signs: Last Vital Signs Pulse 101 H 01/30/24 14:16 BP 128/71 01/30/24 14:16 BMI result Body Mass Index 22.4 Const General: comfortable and no acute distress Resp Effort & Inspection: normal respiratory effort GI Other: His colostomy is functioning well. There was note of a small skin separation on the midline incision but this is smaller compared to last week Palpation (GI): Soft to palpation and not firm Assessment & Plan Assessment & Plan (1) Acute diverticulitis: Code(s): K57.92 - Diverticulitis of intestine, part unspecified, without perforation or abscess without bleeding Category: Medical Plan: Status post Lucia's procedure. We changed his stoma appliance and showed him other tricks to try to get this to stick for longer periods of time I released all his skin paul. I applied dry dressings to with the skin separation on the midline incision. He he is to continue to do the same wound care I will see him in the office in about 2 weeks. His was with him during the visit. Coding Level of Care Code Global (55427) Diagnoses Acute diverticulitis K57.92
[2024-01-30 14:16] VITALS: BP 128/71; PULSE 101; BMI 22.4
== END 2024-01-30 14:51 | disposition home or self-care (01) ==
PROVIDERS: PCP Nurse Practitioner Family; Visit Provider Surgery
DX: K57.92 Diverticulitis of intestine, part unspecified, without perforation or abscess without bleeding (principal)
CPT/HCPCS: 99024

== ENCOUNTER → 2024-01-30 14:14 | Outpatient (BNVA) | payer OTHER, SELFPAY | PROVIDERS: PCP Nurse Practitioner Family; Visit Provider Surgery | DX: K57.92 Diverticulitis of intestine, part unspecified, without perforation or abscess without bleeding (principal); Z43.3 Encounter for attention to colostomy | CPT/HCPCS: 99212 ==

== ENCOUNTER 2024-02-13 08:56 | Outpatient (AMB) | payer OTHER, SELFPAY ==
--- NOTE | 2024-02-13 09:52 | MHC.OFFWIV ---
Intake Vital Signs 02/13/24 09:54 Height 6 ft Weight 165 lb BMI 22.4 BP 122/84 Blood Pressure Location Lt brachial Position Sitting Pulse 78 Pulse Source Pulse Oximeter Pulse Oximetry (%) 97 Oxygen Delivery Method Room Air Intake Visit Reasons: EP ?Tick bite Intake Note: Patient here for tick bite that under right arm on side. He states he removed it last night. Patient Tobacco Use Status: Former Tobacco user Allergies No Known Allergies Allergy (Verified 02/13/24 09:53) Do you need a note to return to daycare/school/sports/work: No HPI EP ?Tick bite HPI Details This note is constructed using voice recognition software. While every effort has been made to ensure accuracy, quad stayer errors may have been included. The patient is a 53 year old male who presents to the clinic today with tick bite. He notes that his removed a tick from his right axilla yesterday. He has an unknown amount of time that this was on, and the tick was fully engorged at time of removal. He denies fever, chills, body aches. He does note that he has about 3 weeks after surgery including adding a colostomy bag. [facility] Medical History Acute diverticulitis Essential hypertension Fatty liver GERD (gastroesophageal reflux disease) Osteoarthritis of left hip Nicotine dependence, cigarettes, uncomplicated Exposure to lead Surgical History Hx of surgical procedure (~01/13/24) History of esophagogastroduodenoscopy (EGD) Social History Household Members: Spouse and Children Housing: House Are you a primary health care sanitary technician to a significant other at home: No Do you presently have visiting nurse or other home services: No Alcohol intake: current Alcohol intake frequency: does not drink Patient Tobacco Use Status: Former Tobacco user Tobacco use type: Cigarette Cigarette Packs Per Day: 1 Cigarettes Per Day: 20.0 Years Smoked: 20 e-Cigarette/Vaping Use: Never Used Second Hand Smoke Exposure: Yes () Substance Use Type: Marijuana service: No Current occupational status: employed Current occupation: [place] Current occupational exposures/hazards: Yes Cognitive needs: No Hearing needs: No Vision needs: No Review of Systems Const All systems reviewed & are unremarkable except as noted in HPI and below Physical Exam Vital Signs: Last Vital Signs Pulse 78 02/13/24 09:54 BP 122/84 02/13/24 09:54 Pulse Ox 97 02/13/24 09:54 Oxygen Delivery Method Room Air 02/13/24 09:54 BMI result Body Mass Index 22.4 Const General: cooperative, healthy appearing, comfortable, no acute distress and well developed Orientation/consciousness: patient oriented x3 Limitations: no limitations Resp Effort & Inspection: normal respiratory effort and able to speak in complete sentences Skin Other: Right axilla with 3 mm area from bite with minimally surrounding errythema. Neuro General: patient oriented x3 Assessment & Plan Assessment & Plan (1) Tick bite: Code(s): W57.XXXA - Bitten or stung by nonvenomous insect and other nonvenomous arthropods, initial encounter Qualifiers: Encounter type: initial encounter Site of tick bite: thoracic wall Front or back of thoracic wall: front Thoracic wall location detail: right Qualified Code(s): S20.361A - Insect bite (nonvenomous) of right front wall of thorax, initial encounter; W57.XXXA - Bitten or stung by nonvenomous insect and other nonvenomous arthropods, initial encounter Plan: No obvious signs of infection, discussed treatment prophylactically to prevent tick-borne illness, in setting unknown implantation, and the fact that the tick was engorged, we elected to treat prophylactically with doxycycline. Advised patient to take this with food, avoid sun exposure. Advised patient to follow up as needed with worsening or failure to resolve, as well as to monitor for symptoms of tick-borne illness for the next 30 days. Plan See above for full details and plan. Medications: New doxycycline hyclate 200 mg (2 x 100 mg) PO ONCE 2 caps 0RF Coding Level of Care Code Est Pt Level 3 (06789) Diagnoses Tick bite of right front wall of thorax, initial encounter S20.361A; W57.XXXA Encounter type: initial encounter Site of tick bite: thoracic wall Front or back of thoracic wall: front Thoracic wall location detail: right
[2024-02-13 09:54] VITALS: BP 122/84; PULSE 78; O2SAT 97; BMI 22.4
== END 2024-02-13 10:11 | disposition home or self-care (01) ==
PROVIDERS: PCP Nurse Practitioner Family; Visit Provider Registered Nurse
DX: S20.361A Insect bite (nonvenomous) of right front wall of thorax, initial encounter (principal); W57.XXXA Bitten or stung by nonvenomous insect and other nonvenomous arthropods, initial encounter

== ENCOUNTER → 2024-02-13 08:56 | Outpatient (BNVA) | payer OTHER, SELFPAY | PROVIDERS: PCP Nurse Practitioner Family; Visit Provider Registered Nurse | DX: Z48.815 Encounter for surgical aftercare following surgery on the digestive system (principal); Z87.19 Personal history of other diseases of the digestive system; Z93.3 Colostomy status; S40.861A Insect bite (nonvenomous) of right upper arm, initial encounter; W57.XXXA Bitten or stung by nonvenomous insect and other nonvenomous arthropods, initial encounter; Y93.9 Activity, unspecified; Y92.9 Unspecified place or not applicable; Y99.9 Unspecified external cause status | CPT/HCPCS: 99212 ==

== ENCOUNTER 2024-02-13 14:41 | Outpatient (AMB) | payer OTHER, SELFPAY ==
--- NOTE | 2024-02-13 14:43 | MHC.OFFVIS ---
Vital Signs 02/13/24 14:50 Height 6 ft Weight 171 lb 15.369 oz BMI 23.3 Pulse 76 Intake Visit Reasons: 2 week wound care follow up Intake Note: Patient is seen in office for 2 weeks follow up/wound check, post hand assisted laparoscopic sigmoid resection. 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 He is open wound on the midline is healing well. He says that his stoma appliances also staying in place much longer now. He denies any current complaints. [facility] Medical History Acute diverticulitis Essential hypertension Fatty liver GERD (gastroesophageal reflux disease) Osteoarthritis of left hip Nicotine dependence, cigarettes, uncomplicated Exposure to lead Surgical History Hx of surgical procedure (~01/13/24) History of esophagogastroduodenoscopy (EGD) Social History Household Members: Spouse and Children Housing: House Are you a primary client care consultant to a significant other at home: No Do you presently have visiting nurse or other home services: No Alcohol intake: current Alcohol intake frequency: does not drink Patient Tobacco Use Status: Former Tobacco user Tobacco use type: Cigarette Cigarette Packs Per Day: 1 Cigarettes Per Day: 20.0 Years Smoked: 20 e-Cigarette/Vaping Use: Never Used Second Hand Smoke Exposure: Yes () Substance Use Type: Marijuana service: No Current occupational status: employed Current occupation: [place] Current occupational exposures/hazards: Yes Cognitive needs: No Hearing needs: No Vision needs: No Review of Systems Const Denies chills and Denies fever(s) Card Denies chest pain Resp Denies cough GI Denies abdominal pain Physical Exam Vital Signs: Last Vital Signs Pulse 76 02/13/24 14:50 BMI result Body Mass Index 23.3 Const General: comfortable and no acute distress Resp Effort & Inspection: normal respiratory effort GI Other: Colostomy functioning well; midline incision well healed with a small area that has skin separation but with granulation tissue, about 1 cm in diameter Palpation (GI): Soft to palpation, not firm and nontender Assessment & Plan Assessment & Plan (1) Acute diverticulitis: Code(s): K57.92 - Diverticulitis of intestine, part unspecified, without perforation or abscess without bleeding Category: Medical Plan: Status post Lucia's procedure. He is doing well postoperatively. His stoma is functioning well. He denies any GI complaints. The midline incision continues to heal I will see him again in the office in about 1 month. We will probably schedule him for a colonoscopy prior to reversal. He understands the plan. Coding Level of Care Code Global (35195) Diagnoses Acute diverticulitis K57.92
[2024-02-13 14:50] VITALS: PULSE 76; BMI 23.3
== END 2024-02-13 15:11 | disposition home or self-care (01) ==
PROVIDERS: PCP Nurse Practitioner Family; Visit Provider Surgery
DX: K57.92 Diverticulitis of intestine, part unspecified, without perforation or abscess without bleeding (principal)
CPT/HCPCS: 99024

== ENCOUNTER 2024-03-15 09:46 | Outpatient (AMB) | payer OTHER, SELFPAY ==
[2024-03-15 09:46] VITALS: BP 119/70; PULSE 92; BMI 23.6
--- NOTE | 2024-03-15 09:46 | A.OFFVIS_ITS ---
Vital Signs 03/15/24 09:46 Height 6 ft Weight 174 lb BMI 23.6 BP 119/70 Blood Pressure Location Rt brachial Position Sitting Pulse 92 Intake Visit Reasons: one month wound check Intake Note: This patient presents for post-op follow-up status post Hand assisted laparoscopic sigmoid resection, with a diverting end colostomy, extensive lysis of adhesions. Pt c/o; reports no changes or complaints at this time. Doctor Of Podiatric Medicine Required: No Accompanied by: Self / Same As Patient Allergies No Known Allergies Allergy (Verified 03/15/24 09:52) Medication List - Last Reconciled 03/15/24 by Carlyle Skelton MD docusate sodium (Colace) 100 mg PO BID doxycycline hyclate 200 mg (2 x 100 mg) PO ONCE hydrochlorothiazide 12.5 mg PO DAILY 90 days lisinopril 20 mg PO DAILY oxycodone 5 mg PO Q4H PRN HPI HPI one month wound check: Details: 53-year-old male here for a follow-up after a Lucia's procedure. He had undergone emergency sigmoid resection with an end colostomy last 01/13/2024 for severe diverticulitis with a phlegmon and intramural abscess. He had been doing well since that time. He says this is colostomy is functioning well. He has had no problems with the stoma appliance anymore He feels well overall. He is a known smoker but he says he is trying to quit. [facility] Medical History (Updated 03/15/24 @ 10:04 by Carlyle Skelton MD) Colostomy in place Acute diverticulitis Essential hypertension Fatty liver GERD (gastroesophageal reflux disease) Osteoarthritis of left hip Nicotine dependence, cigarettes, uncomplicated Exposure to lead Surgical History Hx of surgical procedure (~01/13/24) History of esophagogastroduodenoscopy (EGD) Social History Household Members: Spouse and Children Housing: House Are you a primary direct care counselor to a significant other at home: No Do you presently have visiting nurse or other home services: No Alcohol intake: current Alcohol intake frequency: does not drink Patient Tobacco Use Status: Former Tobacco user Tobacco use type: Cigarette Cigarette Packs Per Day: 1 Cigarettes Per Day: 20.0 Years Smoked: 20 e-Cigarette/Vaping Use: Never Used Second Hand Smoke Exposure: Yes () Substance Use Type: Marijuana service: No Current occupational status: employed Current occupation: [place] Current occupational exposures/hazards: Yes Cognitive needs: No Hearing needs: No Vision needs: No Review of Systems Const Denies chills and Denies fever(s) Card Denies chest pain, Denies dyspnea and Denies dyspnea on exertion Resp Denies cough, Denies dyspnea and Denies dyspnea on exertion GI Denies hematochezia and Denies change in bowel habits Denies hematuria and Denies difficulty urinating Musc Denies back pain and Denies limited range of motion Neuro Denies focal weakness and Denies convulsions Psych Denies depression and Denies mood swings Physical Exam Vital Signs: Last Vital Signs Pulse 92 03/15/24 09:46 BP 119/70 03/15/24 09:46 BMI result Body Mass Index 23.6 Const General: comfortable and no acute distress Orientation/consciousness: patient oriented x3 Neck Neck: Yes no lymphadenopathy Resp Auscultation: clear to auscultation bilaterally Cardio Rhythm: regular rhythm GI Other: Colostomy in place on the left side, with good output Palpation (GI): Soft to palpation, nontender and no guarding Neuro General: patient oriented x3 Assessment & Plan Assessment & Plan (1) Colostomy in place: Code(s): Z93.3 - Colostomy status Category: Medical Plan: He is doing very well after sigmoid resection and end colostomy last February,. He is says he is ready for reversal. I am going to do his colonoscopy via the stoma in the rectum prior to scheduling him for reversal as he says it has been 5 years since his last colonoscopy. I reviewed with him the technique of this procedure. I explained the risks including but not limited to bleeding and perforation. He understands and wants to proceed. Coding Level of Care Code Est Pt Level 3 (09072) Diagnoses Colostomy in place Z93.3
== END 2024-03-15 10:16 | disposition home or self-care (01) ==
PROVIDERS: PCP Nurse Practitioner Family; Visit Provider Surgery
DX: Z93.3 Colostomy status (principal)
CPT/HCPCS: 99024

== ENCOUNTER → 2024-03-15 09:46 | Outpatient (BNVA) | payer OTHER, SELFPAY | PROVIDERS: PCP Nurse Practitioner Family; Visit Provider Surgery | DX: Z93.3 Colostomy status (principal) | CPT/HCPCS: 99212 ==

== ENCOUNTER 2024-04-03 09:03 | Outpatient (AMB) | payer OTHER, SELFPAY ==
--- NOTE | 2024-04-03 10:05 | AM.OFFWIN_ITS ---
Intake Vital Signs 04/03/24 10:10 Weight 176 lb BP 124/80 Blood Pressure Location Rt brachial Position Sitting Pulse 74 Pulse Source Pulse Oximeter Temp 97.1 F Temp Source Oral Pulse Oximetry (%) 98 Oxygen Delivery Method Room Air Intake Visit Reasons: EP-sore throat, fever, chills, sinus Intake Note: Patient here for sore throat,fever, chills and sinus pressure that has been present for about Patient Tobacco Use Status: Former Tobacco user Allergies No Known Allergies Allergy (Verified 04/03/24 10:09) Do you need a note to return to daycare/school/sports/work: No HPI HPI Comments History of Present Illness Details History The patient is a 53-year-old male presenting with a sore throat, rhinorrhea, and chills, with the symptoms having begun a few days ago. Initially, he experienced a sore throat that intensified as the day progressed, and it became particularly bothersome in the evening. He also reported a runny nose and, last night, developed chills that persisted throughout the night, although he did not measure his temperature. Despite these symptoms, he does not have a history of asthma or Chronic Obstructive Pulmonary Disease (COPD), although he mentioned recent surgery and an ongoing effort to quit smoking, using a nicotine patch. The patient acknowledged his 's similar sore throat the previous week, which resolved without further complications. He denied any respiratory complaints such as wheezing or shortness of breath. The patient has not tested for COVID-19 at home and has been managing the symptoms with increased fluid intake and rest. The sore throat seems to exacerbate as the day progresses, improving slightly by morning. Physical Exam General: Cooperative, healthy appearing, comfortable and no acute distress Orientation/consciousness: Patient oriented x3 Limitations: No limitations Head: Normal to inspection Ears: Hearing grossly normal bilaterally, external ears normal and TM's normal bilaterally Nose: Normal external nose present, Normal nares present and No nasal discharge present Face and sinus: Normal facial exam and Yes sinuses nontender Mouth: Normal oral and palatal mucosa present and moist mucous membranes Throat: Yes tonsils normal, Yes uvula midline. Posterior oropharynx erythema Eyes: Appearance normal, both eyes and all related structures Neck: Normal visual inspection Respiratory: Clear to auscultation bilaterally. Normal respiratory effort, able to speak in complete sentences, no respiratory distress, not tachypneic, no tripod positioning and no use of accessory muscles Cardiovascular: Regular rate and rhythm. Normal S1 and S2 Skin: No rashes or lesions noted Neuro: Patient oriented x3 Extremities: Normal to inspection and Yes no clubbing, cyanosis or edema PFSH Medical History (Updated 04/03/24 @ 10:22 by Deidre Grossman PA-C) Colostomy in place Acute diverticulitis Essential hypertension Fatty liver GERD (gastroesophageal reflux disease) Osteoarthritis of left hip Nicotine dependence, cigarettes, uncomplicated Exposure to lead Surgical History Hx of surgical procedure (~01/13/24) History of esophagogastroduodenoscopy (EGD) Social History Household Members: Spouse and Children Housing: House Are you a primary rn progressive care unit to a significant other at home: No Do you presently have visiting nurse or other home services: No Alcohol intake: current Alcohol intake frequency: does not drink Patient Tobacco Use Status: Former Tobacco user Tobacco use type: Cigarette Cigarette Packs Per Day: 1 Cigarettes Per Day: 20.0 Years Smoked: 20 e-Cigarette/Vaping Use: Never Used Second Hand Smoke Exposure: Yes () Substance Use Type: Marijuana service: No Current occupational status: employed Current occupation: [place] Current occupational exposures/hazards: Yes Cognitive needs: No Hearing needs: No Vision needs: No Review of Systems Const All systems reviewed & are unremarkable except as noted in HPI and below Physical Exam Vital Signs: Last Vital Signs Temp 97.1 F 04/03/24 10:10 Pulse 74 04/03/24 10:10 BP 124/80 04/03/24 10:10 Pulse Ox 98 04/03/24 10:10 Oxygen Delivery Method Room Air 04/03/24 10:10 Results AMB Rapid Strep AMB Rapid Strep Negative Last Edit by SIMRAN Suárez on 04/03/24 10:31 Assessment & Plan Assessment & Plan (1) URI, acute: Code(s): J06.9 - Acute upper respiratory infection, unspecified Plan: - The presentation is suggestive of a viral etiology, possibly influenza, COVID- 19, or RSV. Testing for these viral infections will be conducted to confirm the diagnosis. - Given the improvement in symptoms and the lack of bacterial suspicion, antibiotics are not indicated at this stage. - The patient is advised to continue symptomatic treatment, including ample hydration and rest. - He is instructed to notify his primary care physician if symptoms worsen or if new symptoms arise, as the current assessment suggests a self-limiting viral infection. - A chest X-ray is not deemed necessary currently, given the absence of respiratory complaints and improving symptoms. Patient was informed and verbally consented to the use of an ambient scribe for clinic note documentation during this visit Orders: Orders SARS-CoV2/FLU/RSV Today J06.9 - Acute upper respiratory infection, unspecified AMB Rapid Strep Screen Today Z13.9 - Encounter for screening, unspecified Coding Level of Care Code Est Pt Level 3 (50413) Diagnoses URI, acute J06.9
[2024-04-03 10:10] VITALS: BP 124/80; PULSE 74; TEMP 36.2; O2SAT 98
== END 2024-04-03 11:16 | disposition home or self-care (01) ==
PROVIDERS: PCP Nurse Practitioner Family; Visit Provider Physician Assistant
DX: J06.9 Acute upper respiratory infection, unspecified (principal); Z13.9 Encounter for screening, unspecified

== ENCOUNTER 2024-04-03 09:03 | Outpatient (REF) | payer OTHER, SELFPAY ==
[2024-04-03 16:18] LABS: Influenza A PCR NEGATIVE (Negative); Influenza B PCR NEGATIVE (Negative); Resp Syncy Virus RNA Qual PCR NEGATIVE (Negative); SARS COV2 PCR INHOUSE NEGATIVE (Negative)
== END 2024-04-03 09:04 | disposition home or self-care (01) ==
LOC: HO.LAB 09:03
PROVIDERS: PCP Nurse Practitioner Family; Visit Provider Physician Assistant
DX: J06.9 Acute upper respiratory infection, unspecified (principal)
CPT/HCPCS: 0241U; 87880; 99212

== ENCOUNTER 2024-04-06 11:48 | Day surgery (SDC) | payer OTHER, SELFPAY ==
[2024-04-04 09:51] VITALS: BMI 23.6
--- NOTE | 2024-04-06 12:01 | MHC.SHP ---
Pre-Procedural Eval Section A - 24 Hr Update-Section A only Date of Service: 04/06/24 The patient is an INPATIENT: No Changes since office visit: No Cold of Flu in the past 2 weeks, No New Medical Problems, No Changes in Medication and No Patient answered all questions The patient has been examined within 24 hours of the surgical procedure. The History & Physical has been completed within 30 days and I have reviewed it.: Yes Section B - Complete if H&P > 30 days Chief Complaint: Colostomy status Allergies: Allergies Allergy/AdvReac Type Severity Reaction Status Date / Time No Known Allergies Allergy Verified 04/03/24 10:09 Plan I have reviewed the history and physical and performed a pertinent physical examination on my patient. No changes have occurred unless specified. Time Spent With Patient Time: Total time managing care of this patient today ____ minutes.
[2024-04-06 12:02] VITALS: BMI 22.8
[2024-04-06 12:12] VITALS: BP 103/57; PULSE 93; RESP 16; TEMP 36.4; O2SAT 95
[2024-04-06] MEDS: Lactated Ringers 1,000 ML 100 ML IVCONT (12:22)
--- NOTE | 2024-04-06 12:30 | P.CONAN_ITS ---
Documented by User: Indira Arce NP 04/04/24 13:37 HPI - Anesthesia Eval Consult details Narrative: 53yo M for Colonoscopy with possible Polypectomy,via Stoma and Rectum s/p colon resect with ostomy with GA-ETT 7 PMFSH Active Problems Active Problems: All Active Problems URI, acute (Acute) Colostomy in place (Acute) Acute diverticulitis (Acute) Nicotine addiction (Acute) GERD (gastroesophageal reflux disease) (Acute) Fatty liver (Acute) Osteoarthritis of left hip (Acute) Nicotine dependence, cigarettes, uncomplicated (Acute) Elevated blood lead level (Acute) Exposure to lead (Acute) Past Medical History Medical History (Updated 04/03/24 @ 10:22 by Deidre Grossman PA-C) Colostomy in place Acute diverticulitis Essential hypertension Fatty liver GERD (gastroesophageal reflux disease) Osteoarthritis of left hip Nicotine dependence, cigarettes, uncomplicated Exposure to lead Family History Family history of problems with anesthesia: No Surgical History Surgical History Hx of surgical procedure (~01/13/24) History of esophagogastroduodenoscopy (EGD) History of Problems with Anesthesia: No Social History Social History Household Members: Spouse and Children Housing: House Are you a primary intensive care anaesthetist to a significant other at home: No Do you presently have visiting nurse or other home services: No Alcohol intake: current Alcohol intake frequency: holidays/special occasions only Patient Tobacco Use Status: Current everyday Tobacco user Tobacco use type: Cigarette Cigarette Packs Per Day: 1 Cigarettes Per Day: 4 Years Smoked: 20 e-Cigarette/Vaping Use: Never Used Second Hand Smoke Exposure: Yes () Use of substances other than those prescribed or required for medical reasons: No Substance Use Type: Marijuana Are you DNR?: No Advance Directives: No Advance Directives Information Provided: Yes Recently lost weight without trying: No Nutrition Risks: No Nutritional Risk Poor oral hygiene: Yes service: No Current occupational status: employed Current occupation: [place] Current occupational exposures/hazards: Yes Cognitive needs: No Hearing needs: No Vision needs: No Meds Allergies Allergy/AdvReac Type Severity Reaction Status Date / Time No Known Allergies Allergy Verified 04/03/24 10:09 Exam Height,Weight and Vital Signs: Height 6 ft Weight 78.925 kg Assessment and Plan Assessment Anesthesia Assessment: Chart Reviewed Final Anesthetic Review Family History of Problems with Anesthesia: No History of Problems with Anesthesia: No Documented by User: Jodi Bridges DO 04/06/24 12:32 [facility] Past Medical History Medical History (Updated 04/03/24 @ 10:22 by Deidre Grossman PA-C) Colostomy in place Acute diverticulitis Essential hypertension Fatty liver GERD (gastroesophageal reflux disease) Osteoarthritis of left hip Nicotine dependence, cigarettes, uncomplicated Exposure to lead Family History Family history of problems with anesthesia: No Surgical History Surgical History Hx of surgical procedure (~01/13/24) History of esophagogastroduodenoscopy (EGD) History of Problems with Anesthesia: No Social History Social History Household Members: Spouse and Children Housing: House Are you a primary intensive care anaesthetist to a significant other at home: No Do you presently have visiting nurse or other home services: No Alcohol intake: current Alcohol intake frequency: holidays/special occasions only Patient Tobacco Use Status: Current everyday Tobacco user Tobacco use type: Cigarette Cigarette Packs Per Day: 1 Cigarettes Per Day: 4 Years Smoked: 20 e-Cigarette/Vaping Use: Never Used Second Hand Smoke Exposure: Yes () Use of substances other than those prescribed or required for medical reasons: No Substance Use Type: Marijuana Are you DNR?: No Advance Directives: No Advance Directives Information Provided: Yes Recently lost weight without trying: No Nutrition Risks: No Nutritional Risk Poor oral hygiene: Yes service: No Current occupational status: employed 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[employer] Current occupational exposures/hazards: Yes Cognitive needs: No Hearing needs: No Vision needs: No Meds Allergies Allergy/AdvReac Type Severity Reaction Status Date / Time No Known Allergies Allergy Verified 04/03/24 10:09 Exam Exam Date and Time: 04/06/24 1230 Height,Weight and Vital Signs: Height 6 ft Weight 78.925 kg Vital Signs Temperature 97.6 F 04/06/24 12:12 Pulse Rate 93 04/06/24 12:12 Respiratory Rate 16 04/06/24 12:12 Blood Pressure 103/57 L 04/06/24 12:12 Pulse Oximetry 95 04/06/24 12:12 Oxygen Delivery Method Room Air 04/06/24 12:12 Temperature 97.6 F 04/06/24 12:12 Pulse Rate 93 04/06/24 12:12 Respiratory Rate 16 04/06/24 12:12 Blood Pressure 103/57 L 04/06/24 12:12 Pulse Oximetry 95 04/06/24 12:12 Oxygen Delivery Method Room Air 04/06/24 12:12 Airway Mallampati Class: I TM Dist: >3cm Neck ROM: Full Loose/Missing/Broken Teeth: Yes (multiple missing and broken teeth) Heart: S1S2 Lungs: CTAB Assessment and Plan Assessment Anesthesia Assessment: Anesthesia Plan Discussed and Chart Reviewed Final Anesthetic Review Family History of Problems with Anesthesia: No History of Problems with Anesthesia: No NPO: Yes ASA Class: II Final Preanesthetic Review: No Changes in Pt Med Stat, Meds/Allgs Chart Reviewed, Consent Obtained/Reviewed and Anes Risks/Benef Reviewed Patient Risk: Low Procedure Risk: Low Anesthetic Plan Anesthetic Plan: MAC: and Agree w/ Assess. and Plan Disposition: Standard PACU
--- NOTE | 2024-04-06 12:56 | W.PM.OPN ---
Operative Note Operative Note Date of Service: 04/06/24 Narrative: Preop diagnosis: status post Lucia's procedure for diverticular abscess Postop diagnosis: The same, with normal colonoscopy findings Procedure: Colonoscopy via the stoma in the rectum Surgeon: Carlyle Skelton MD The patient is a 53-year-old male who had undergone emergency Lucia's procedure December, for severe diverticulitis with an abscess. He is here for colonoscopy via the stoma and rectum to evaluate the entire colon prior to reversal of the stoma. He understood the technique of the planned procedure as well as the risks, benefits, and alternatives He was brought to the operating room. He was placed in left lateral decubitus position under monitored anesthesia care. A surgical time-out was done. A full digital rectal exam was done. There were no palpable anal lesions. The the tip of the Olympus colonoscope was gently introduced through the anal orifice and advanced with insufflation to the very end of the Lucia's pouch. The rectal pouch was about 25 cm in diameter. I proceeded to examined the entire distal sigmoid and rectum carefully. There were no lesions seen. There was no diverticulosis noted. The rectum in the anal canal was unremarkable and the scope was then withdrawn completely with desufflation The patient was then placed supine. The scope was gently introduced through the colostomy and advanced with insufflation all the of the right colon. The cecum was intubated. The cecum was identified via visualization of the ileocecal valve as well as the appendiceal orifice. The cecal mucosa was unremarkable. The scope was gradually withdrawn with careful examination of the entire colonic mucosa being done with scope withdrawal. The patient had adequate bowel prep so it was unlikely that any lesion may have been missed. I did not see any polyp or any lesion throughout the entire colon. There was no diverticulosis noted The scope was then withdrawn completely with desufflation. The patient tolerated the procedure well. There were no immediate complications. The patient was transferred to the recovery room with stable vital signs.
[2024-04-06 12:59] VITALS: BP 85/39; PULSE 76; RESP 16; TEMP 36.8; O2SAT 98
[2024-04-06 13:05] VITALS: BP 89/48; PULSE 88; RESP 18; O2SAT 98
[2024-04-06 13:20] VITALS: BP 99/49; PULSE 87; RESP 18; TEMP 36.6; O2SAT 98
== END 2024-04-06 14:47 | disposition home or self-care (01) ==
PROVIDERS: PCP Nurse Practitioner Family; Visit Provider Surgery
PROC: 0DBE8ZZ Excision of Large Intestine, Via Natural or Artificial Opening Endoscopic (ICD-10-PCS; CPT 44388; principal; 2024-04-06 13:10)
DX: Z12.11 Encounter for screening for malignant neoplasm of colon (principal); Z93.3 Colostomy status; Z87.19 Personal history of other diseases of the digestive system; K76.0 Fatty (change of) liver, not elsewhere classified; I10 Essential (primary) hypertension; K21.9 Gastro-esophageal reflux disease without esophagitis; Z79.899 Other long term (current) drug therapy; Z77.011 Contact with and (suspected) exposure to lead; F17.210 Nicotine dependence, cigarettes, uncomplicated
CPT/HCPCS: 44388; J2003; J2371; J2704

== ENCOUNTER → 2024-04-06 11:48 | Outpatient (BNV) | payer OTHER, SELFPAY | PROVIDERS: PCP Nurse Practitioner Family; Visit Provider Surgery | DX: K57.80 Diverticulitis of intestine, part unspecified, with perforation and abscess without bleeding (principal); Z93.3 Colostomy status | CPT/HCPCS: 44388; 45330 ==

== ENCOUNTER 2024-04-19 09:51 | Outpatient (AMB) | payer OTHER, SELFPAY ==
--- NOTE | 2024-04-19 09:52 | A.OFFVIS_ITS ---
Vital Signs 04/19/24 10:01 Height 6 ft Weight 171 lb BMI 23.2 BP 104/61 Blood Pressure Location Rt brachial Position Sitting Pulse 114 H Intake Visit Reasons: S/P colonoscopy via stoma and rectum Intake Note: This patient presents for a follow-up assessment status post colonoscopy via stoma and rectum. Pt c/o; reports no complaints. 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 He had undergone emergency sigmoid resection with an end colostomy last 01/13/2024 for severe diverticulitis with a phlegmon and intramural abscess. He had been doing well since that time. He says his is colostomy is functioning well. He has had no problems with the stoma appliance anymore He feels well overall. He had undergone a colonoscopy via the stoma in the rectum 2 weeks ago and this does not reveal any other pathology in the colon. He says he is ready for reversal therefore . He continues to smoke. [facility] Medical History Colostomy in place Acute diverticulitis Essential hypertension Fatty liver GERD (gastroesophageal reflux disease) Osteoarthritis of left hip Nicotine dependence, cigarettes, uncomplicated Exposure to lead Surgical History Hx of surgical procedure (~01/13/24) History of esophagogastroduodenoscopy (EGD) Social History Household Members: Spouse and Children Housing: House Are you a primary rn critical care to a significant other at home: No Do you presently have visiting nurse or other home services: No Alcohol intake: current Alcohol intake frequency: holidays/special occasions only Patient Tobacco Use Status: Current everyday Tobacco user Tobacco use type: Cigarette Cigarette Packs Per Day: 1 Cigarettes Per Day: 4 Years Smoked: 20 e-Cigarette/Vaping Use: Never Used Second Hand Smoke Exposure: Yes () Substance Use Type: Marijuana service: No Current occupational status: employed Current occupation: [employer] Current occupational exposures/hazards: Yes Cognitive needs: No Hearing needs: No Vision needs: No Review of Systems Const Denies chills and Denies fever(s) Card Denies chest pain, Denies dyspnea and Denies dyspnea on exertion Resp Denies cough, Denies dyspnea and Denies dyspnea on exertion GI Details: Has colostomy Denies hematochezia and Denies change in bowel habits Denies hematuria and Denies difficulty urinating Musc Denies back pain and Denies limited range of motion Neuro Denies focal weakness and Denies convulsions Psych Denies depression and Denies mood swings Physical Exam Vital Signs: Last Vital Signs Pulse 114 H 04/19/24 10:01 BP 104/61 04/19/24 10:01 BMI result Body Mass Index 23.2 Const General: comfortable and no acute distress Orientation/consciousness: patient oriented x3 Neck Neck: Yes no lymphadenopathy Resp Auscultation: clear to auscultation bilaterally Cardio Rhythm: regular rhythm GI Other: Colostomy in place on the left abdomen Palpation (GI): Soft to palpation, nontender and no guarding Neuro General: patient oriented x3 Assessment & Plan Assessment & Plan (1) Colostomy in place: Code(s): Z93.3 - Colostomy status Category: Medical Plan: He had undergone emergency hand assisted laparoscopic Lucia's procedure last December, for severe sigmoid diverticulitis with phlegmon and intramural abscess. He has been doing well since then. His colonoscopy 2 weeks ago was unremarkable I had a long discussion with him about the technique of hand assisted reversal of his ostomy, possible conversion to open, possible diverting loop ileostomy. I explained the risks including but not limited to bleeding, infections, bowel injury, staple line or anastomotic leak, blood clots, pneumonia, abscess formation, inherent risks of anesthesia, as well as the benefits and alternatives. I also explained to him what to expect postoperatively. He understands that if he has a diverting loop ileostomy, he we will need another surgery to reverse this. He says he understands the above fully. His was with him during the visit I counseled him on the benefits of smoking cessation. Coding Level of Care Code Est Pt Level 3 (59421) Diagnoses Colostomy in place Z93.3
--- OUTSIDE RECORDS SUMMARY | 2024-04-19 09:53 | XMS_ITS | Data Portability ---
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 Plan of Treatment Reminders Order Date Submit Date Provider Last Modified By Organization Details Last Modified Time Details Appointments None recorded. Lab None recorded. Referral None recorded. Procedures None recorded. Surgeries None recorded. Imaging US, breast - left side chest wall pain at 3:00 position 2020 CHELSY Not available 15:26:09 XR, chest - r/o pneumonia, cont bronchitis [email or web address] [facility] ([facility]), [address] , [place], [address], 15:34:27 Medication Orders Chantix Continuing Month Box 1 mg tablet 2020 [facility], [address] [place] [address], [address], 17:37:37 Chantix Starting Month Box 0.5 mg (11)-1 mg (42) tablets in dose pack 2020 [facility], [address] [place] [address], [address], 17:37:41 Zithromax Z-Jacek 250 mg tablet [address] [place] [address] Pharmacy, [address] [place] [address], [address], 16:41:49 codeine 10 mg-guaifene sin 100 mg/5 mL oral liquid 2020 021 [facility], [address] [place] [address], [address], 17:37:34 lisinopril 20 mg tablet 2020 021 [facility], [address] [place] [address], [address], 12:19:36 bupropion HCl XL 150 mg 24 hr tablet, extended release 2020 021 [facility], [address] [place] [address], [address], 12:19:39 Patient TargetsNo targets recorded. Patient Instructions Encounter Date Encounter Id Patient Instructions Last Modified By Organization Details Last Modified Time 09/16/2020 [id number] deciding about using medicines to quit smoking [email or web address] Not available 09/16/2020 08:34:21 Quitting Tobacco: Care Instructions urcolo Not available 09/16/2020 08:34:21 Well Visit 50 to 65: [facility] Not [facility] 09/16/2020 08:34:21 Counseling done {{Patient not ready to quit Contemplati ng quitting Taperin g Cigarettes francisco d up for support prescrip tion for stop smoking medication given}} {{Patient not ready to quit Contemplati ng quitting Taperin g Cigarettes francisco d up for support prescrip tion for stop smoking medication given}} Goal for follow up visit {{adding exercise regular meals stress management impro ving sleep therapist identifying sponsor}} {{adding exercise regular meals stress management impro ving sleep therapist identifying sponsor}} {{adding exercise regular meals stress management impro ving sleep therapist identifying sponsor}}My Health To Do List {{go to Specle or call s ign up for xiomara text 2 quit or other stop smoking xiomara contact [employer]gov}} {{go to Specle or call s ign up for xiomara text 2 quit or other stop smoking xiomara contact [employer]gov}} {{go to Specle or call s ign up for xiomara text 2 quit or other stop smoking xiomara contact [employer]gov}} [email or web address] Not available 09/16/2020 08:05:17 11/17/2020 [id number] deciding about using medicines to quit smoking [email or web address] Not available 11/17/2020 14:26:26 Quitting Tobacco: Care Instructions [email or web address] Not available 11/17/2020 14:26:26 Counseling done {{Patient not ready to quit Contemplati ng quitting Taperin g Cigarettes francisco d up for support prescrip tion for stop smoking medication given}} {{Patient not ready to quit Contemplati ng quitting Taperin g Cigarettes francisco d up for support prescrip tion for stop smoking medication given}} Goal for follow up visit {{adding exercise regular meals stress management impro ving sleep therapist identifying sponsor}} {{adding exercise regular meals stress management impro Bravoflyg sleep therapist identifying sponsor}} {{adding exercise regular meals stress management impro ving sleep therapist identifying sponsor}}My Health To Do List {{go to Specle or call s ign up for xiomara text 2 quit or other stop smoking xiomara contact [employer]gov}} {{go to Specle or call s ign up for xiomara text 2 quit or other stop smoking xiomara contact [employer]}} {{go to Specle or call s ign up for xiomara text 2 quit or other stop smoking xiomara contact [employer]gov}} [email or web address] Not available 11/17/2020 14:07:29 11/24/2020 [id number] deciding about using medicines to quit smoking [email or web address] Not available 11/24/2020 16:56:02 Quitting Tobacco: Care Instructions [email or web address] Not available 11/24/2020 16:56:02 Counseling done {{Patient not ready to quit Contemplati ng quitting Taperin g Cigarettes francisco d up for support prescrip tion for stop smoking medication given}} {{Patient not ready to quit Contemplati ng quitting Taperin g Cigarettes francisco d up for support prescrip tion for stop smoking medication given}} Goal for follow up visit {{adding exercise regular meals stress management impro ving sleep therapist identifying sponsor}} {{adding exercise regular meals stress management impro ving sleep therapist identifying sponsor}} {{adding exercise regular meals stress management impro ving sleep therapist identifying sponsor}}My Health To Do List {{go to Specle or call s ign up for xiomara text 2 quit or other stop smoking xiomara contact [employer]}} {{go to Specle or call s ign up for xiomara text 2 quit or other stop smoking xiomara contact [employer]}} {{go to Specle or call s ign up for xiomara text 2 quit or other stop smoking xiomara contact [employer]}} Not available 11/24/2020 16:31:37 03/12/2021 [id number] deciding about using medicines to quit smoking [email or web address] Not available 03/12/2021 17:38:39 Quitting Tobacco: Care Instructions [email or web address] Not available 03/12/2021 17:38:39 Counseling done {{Patient not ready to quit Contemplati ng quitting* Taperi ng Cigarettes francisco d up for support prescrip tion for stop smoking medication given}} {{Patient not ready to quit Contemplati ng quitting Taperin g Cigarettes francisco d up for support* prescri ption for stop smoking medication given}} .new rx wellbutrin discussed benefits of new medication prescribed today and potential side effects.?? will notify office if develops any severe side effects or is unable to tolerate new medication.?? will follow-up??withi n the next 4-8 weeks to??evaluate the medication's??ef fectiveness. [email or web address] Not available 03/12/2021 21:52:46 Reason for Referral None Reported. Results Created Date Observation Date Name Description Value Unit Range Abnormal Flag Note LastModifiedBy Organization Detail LastModifiedTime 03/17/20 20 03/17/2020 HbA1c (hemo globi n A1c), blood hemoglobin A1C 5.8 % 4.8-6. 0 Goal: <7% in Patie nts with Diabe sandhya Not Available [address], [address], 03/17/2020 11:09:58 03/17/20 20 03/17/2020 HbA1c (hemo globi n A1c), blood estimated average glucose 119.8 mg/dL Not Available [address], [address], 03/17/2020 11:09:58 03/17/20 20 03/17/2020 BMP, serum or plasm a glucose 98 mg/dL 70-100 Not Available [address], [address], 03/17/2020 11:52:54 03/17/20 20 03/17/2020 BMP, serum or plasm a BUN 14 mg/dL 7-18 Not Available [address], [address], 03/17/2020 11:52:54 03/17/20 20 03/17/2020 BMP, serum or plasm a creatinine 0.9 mg/dL 0.8-1. 3 Not Available [address], [address], 03/17/2020 11:52:54 03/17/20 20 03/17/2020 BMP, serum or plasm a B/C 15.6 ratio Not Available [address], [address], 03/17/2020 11:52:54 03/17/20 20 03/17/2020 BMP, serum or plasm a GFR -non 94.6 mL/mi n Recom malik d GFR by the Natio nal Kidne y Found ation >60 mL/mi n/1.7 3m2 - Olga l <60 mL/mi n/1.7 3m2 - Chron ic Kidne y Disea se <15 mL/mi n/1.7 3m2 - Kidne y Annieu re Not Available [address], [address], 03/17/2020 11:52:54 03/17/20 20 03/17/2020 BMP, serum or plasm a GFR - if 114.4 mL/mi n For Afric an Ameri can patie nts: Resul ts Multi plied by 1.21 Not Available [address], [address], 03/17/2020 11:52:54 03/17/20 20 03/17/2020 BMP, serum or plasm a sodium 137 mmol/ L 136-14 5 Not Available [address], [address], 03/17/2020 11:52:54 03/17/20 20 03/17/2020 BMP, serum or plasm a potassium 4.8 mmol/ L 3.5-5. 1 Not Available [address], [address], 03/17/2020 11:52:54 03/17/2003/17/2020 BMP, serum or plasm a chloride 100 mmol/ L 96-107 Not Available [address], [address], 03/17/2020 11:52:54 03/17/20 20 03/17/2020 BMP, serum or plasm a anion gap 10.1 5.0-15 .0 Not Available [address], [address], 03/17/2020 11:52:54 03/17/2003/17/2020 BMP, serum or plasm a CO2 27 mmol/ L 21-32 Not Available [address], [address], 03/17/2020 11:52:54 03/17/20 20 03/17/2020 BMP, serum or plasm a calcium 9.0 mg/dL 8.5-10 .3 Not Available [address], [address], 03/17/2020 11:52:54 03/17/20 20 03/17/2020 PSA, serum or plasm a PSA 0.75 NG/mL 0.00-4 .00 Not Available [address], [address], 03/17/2020 17:11:58 09/10/19 21 09/10/2020 BMP, serum or plasm a glucose 102 mg/dL 70-100 high Not Available [address], [address], 09/10/2020 11:04:36 09/10/19 21 09/10/2020 BMP, serum or plasm a BUN 13 mg/dL 7-18 Not Available [address], [address], 09/10/2020 11:04:36 09/10/19 21 09/10/2020 BMP, serum or plasm a creatinine 0.9 mg/dL 0.8-1. 3 Not Available [address], [address], 09/10/2020 11:04:36 09/10/19 21 09/10/2020 BMP, serum or plasm a B/C 14.4 ratio Not Available [address], [address], 09/10/2020 11:04:36 09/10/19 21 09/10/2020 BMP, serum or plasm a GFR -non 94.2 mL/mi n Recom malik d GFR by the Natio nal Kidne y Found ation >60 mL/mi n/1.7 3m2 - Olga l <60 mL/mi n/1.7 3m2 - Chron ic Kidne y Disea se <15 mL/mi n/1.7 3m2 - Kidne y Failu re Not Available [address], [address], 09/10/2020 11:04:36 09/10/19 21 09/10/2020 BMP, serum or plasm a GFR - if 114.0 mL/mi n For Afric an Ameri can patie nts: Resul ts Multi plied by 1.21 Not Available [address], [address], 09/10/2020 11:04:36 09/10/19 21 09/10/2020 BMP, serum or plasm a sodium 139 mmol/ L 136-14 5 Not Available [address], [address], 09/10/2020 11:04:36 09/10/19 21 09/10/2020 BMP, serum or plasm a potassium 4.7 mmol/ L 3.5-5. 1 Not Available [address], [address], 09/10/2020 11:04:36 09/10/19 21 09/10/2020 BMP, serum or plasm a chloride 102 mmol/ L 96-107 Not Available [address], [address], 09/10/2020 11:04:36 09/10/19 21 09/10/2020 BMP, serum or plasm a anion gap 9.3 5.0-15 .0 Not Available [address], [address], 09/10/2020 11:04:36 09/10/19 21 09/10/2020 BMP, serum or plasm a CO2 28 mmol/ L 21-32 Not Available [address], [address], 09/10/2020 11:04:36 09/10/19 21 09/10/2020 BMP, serum or plasm a calcium 8.5 mg/dL 8.5-10 .3 Not Available [address], [address], 09/10/2020 11:04:36 09/10/19 21 09/10/2020 lipid panel , serum cholesterol 193 mg/dL <200 mg/dl Carlin able 200-2 39 mg/dl Borde rline High >240 mg/dl High Not Available [address], [address], 09/10/2020 11:04:43 09/10/19 21 09/10/2020 lipid panel , serum triglyceride s 89 mg/dL <150 mg/dL Olga l 150-1 99 mg/dL Borde rline High 200-4 99 mg/dL High >500 mg/dL Very High Not Available [address], [address], 09/10/2020 11:04:43 09/10/19 21 09/10/2020 lipid panel , serum direct HDL 46 mg/dL <40 mg/dl - Major Risk for CHD >60 mg/dl - Negat jayden Risk for CHD Not Available [address], [address], 09/10/2020 11:04:43 09/10/19 21 09/10/2020 uric acid, serum or plasm a uric acid 3.8 mg/dL 3.5-7. 2 Not Available [address], [address], 09/10/2020 11:04:44 09/10/1909/10/2020 LDL, direc t, serum direct LDL 124 mg/dL RISK CATEG ORY LDL GOAL _ CHD or CHD Risk Equiv alent s <100 mg/dl (10-y ear risk >20%) 2+ Risk Facto rs <130 mg/dl (10-y ear risk <= 20%) 0-1 Risk Facto r??? <160 mg/dl ??? Almos t all peopl e with 0-1 risk facto r have a 10 year risk <10%, thus 10 year risk asses ment in peopl e with 0-1 risk facto r is not neces rob. Not Available [address], [address], 09/10/2020 11:04:45 03/23/2003/24/2021 BASIC METAB OLIC PANEL glucose 100 mg/dL 70-100 Not Available [address], [address], 03/24/2021 12:27:32 03/23/20 21 03/24/2021 BASIC METAB OLIC PANEL BUN 16 mg/dL 7-18 Not Available [address], [address], 03/24/2021 12:27:32 03/23/2003/24/2021 BASIC METAB OLIC PANEL creatinine 1.1 mg/dL 0.8-1. 3 Not Available [address], [address], 03/24/2021 12:27:32 03/23/20 21 03/24/2021 BASIC METAB OLIC PANEL B/C 14.5 ratio Not Available [address], [address], 03/24/2021 12:27:32 03/23/2003/24/2021 BASIC METAB OLIC PANEL GFR 74.7 mL/mi n Recom malik d GFR by the Natio nal Kidne y Found ation >60 mL/mi n/1.7 3m2 - Olga l <60 mL/mi n/1.7 3m2 - Chron ic Kidne y Disea se <15 mL/mi n/1.7 3m2 - Kidne y Failu re Not Available [address], [address], 03/24/2021 12:27:32 03/23/20 21 03/24/2021 BASIC METAB OLIC PANEL sodium 134 mmol/ L 136-14 5 low Not Available [address], [address], 03/24/2021 12:27:32 03/23/20 21 03/24/2021 BASIC METAB OLIC PANEL potassium 5.3 mmol/ L 3.5-5. 1 high Not Available [address], [address], 03/24/2021 12:27:32 03/23/20 21 03/24/2021 BASIC METAB OLIC PANEL chloride 99 mmol/ L 96-107 Not Available [address], [address], 03/24/2021 12:27:32 03/23/20 21 03/24/2021 BASIC METAB OLIC PANEL anion gap 7.5 5.0-15 .0 Not Available [address], [address], 03/24/2021 12:27:32 03/23/20 21 03/24/2021 BASIC METAB OLIC PANEL CO2 28 mmol/ L 21-32 Not Available [address], [address], 03/24/2021 12:27:32 03/23/20 21 03/24/2021 BASIC METAB OLIC PANEL calcium 9.1 mg/dL 8.5-10 .3 Not Available [address], [address], 03/24/2021 12:27:32 03/23/20 21 03/24/2021 LIPID PANEL cholesterol 223 mg/dL <200 mg/dl Carlin able 200-2 39 mg/dl Borde rline High >240 mg/dl High Not Available [address], [address], 03/24/2021 12:27:34 03/23/20 21 03/24/2021 LIPID PANEL triglyceride s 86 mg/dL <150 mg/dL Olga l 150-1 99 mg/dL Borde rline High 200-4 99 mg/dL High >500 mg/dL Very High Not Available [address], [address], 03/24/2021 12:27:34 03/23/20 21 03/24/2021 LIPID PANEL direct HDL 52 mg/dL <40 mg/dl - Major Risk for CHD >60 mg/dl - Negat jayden Risk for CHD Not Available [address], [address], 03/24/2021 12:27:34 03/23/20 21 03/24/2021 DIREC T LDL direct LDL 156 mg/dL RISK CATEG ORY LDL GOAL _ CHD or CHD Risk Equiv alent s <100 mg/dl (10-y ear risk >20%) 2+ Risk Facto rs <130 mg/dl (10-y ear risk <= 20%) 0-1 Risk Facto r??? <160 mg/dl ??? Almos t all peopl e with 0-1 risk facto r have a 10 year risk <10%, thus 10 year risk asses ment in peopl e with 0-1 risk facto r is not neces rob. Not Available [address], [address], 03/24/2021 12:27:35 10/03/19 21 10/02/2020 bi US breas t limit ed (left ) Refer to the mammog sara report . Electr onical ly Signed by: Kaden andrade on 021 3:05 PM Interp reted by: Kaden andrade MD Signed by: Kaden andrade MD 1 Final result DINA L FURCOL O DINA L FURCOL O DINA L FURCOL O tfurcolo [facility] [address] [place] [address], [address], 10/03/2020 08:21:27 10/03/19 21 10/02/2020 bi mammo gram diagn ostic with tomos ynthe sis with CAD (bila teral ) 50-yea r-old male who presen ts for left breast pain at 3:00. This a baseli ne exam. Interp retati on made in conjun ction with comput er-aid ed detect ion and tomosy nthesi s. Standa rd views obtain ed. The breast s are almost entire ly fatty. Minima l increa se densit y in the left retroa reolar region . No mass, distor tion or suspic ious calcif icatio ns. Benign left nipple areola r comple x macroc alcifi cation s. Left breast ultras ound was obtain ed. Imagin g was obtain ed of the area of pain which is latera l to the nipple . No abnorm ality identi fied. IMPRES BENI: No findin gs to accoun t for latera l left breast pain. Minima l left breast gyneco mastia . No mammog raphic eviden ce of malign malathi. Clinic al follow -up recomm ended. Findin gs relaye d to the patien t via the techno logist . BI-RAD S CATEGO RY: 2 - Benign findin g. DENSIT Y: The breast tissue is almost entire ly fat. LEFT RECOMM ENDATI ON DUE DATE: No Follow Up Requir ed Left Clinic al Follow Up RIGHT RECOMM ENDATI ON DUE DATE: No Follow Up Requir ed Right No Follow Up Requir ed Electr onical ly Signed by: Kaden andrade on 021 3:08 PM Interp reted by: Kaden andrade MD Signed by: Kaden andrade MD 1 Final result Left pain 3 olock DINA L FURCOL O DINA L FURCOL O DINA L FURCOL O kbekele [facility] [address] , [place], [address], 10/17/2020 12:14:06 10/03/19 21 10/02/2020 stacie BRADSHAW No observ ation record ed. [facility] [address] [place] [address] [place], [address], 10/03/2020 08:21:28 10/03/19 21 10/02/2020 MAMMO , diagn ostic No observ ation record ed. [facility] [address] [place] [address] [place], [address], 10/03/2020 08:21:28 11/26/1911/25/2020 XR, chest OBSERV ATION: CLINIC AL HISTOR Y: Cough for 3 weeks. TECHNI QUE: Fronta l view and latera l view of the chest obtain ed. COMPAR CESILIA: None. FINDIN GS: The heart is normal in size and config uratio n. There is no hilar or medias tinal enlarg ement. There is no focal lung consol idatio n or infilt rate. The bony thorax is intact . IMPRES BENI: No acute diseas e. Electr onical ly signed Sorin moffett Physic jagdish: Celeste Sanchez ms [email or web address] [facility] [address] [place] [address] [place], [address], 11/26/2020 16:07:41 Result Notes None recorded. Problems Name Problem SNOMED Code Status Onset Date Resolution Date Notes Provider Name and Address Organization Details Recorded Time History of exposure to lead 552572268 Active Dina Furcolo D.O. [address] [place], [place] [address] [place], [address], [facility] 5 11:04:01 Osteoarthri tis of hip 044246968 Active Dina Furcolo D.O. [address] [place], [place] [address], [address], [facility] 5 11:04:01 Elevated blood-press ure reading without diagnosis of hypertensio n 011530376 Completed 11/06/2015 Kelsey Contreras MD [address] [place], [place] [address], [address], [facility] 6 17:38:03 Tobacco user 668700445 Active Dina Furcolo D.O. [address] [place], [place] [address], [address], [facility] 5 11:04:15 Essential hypertensio n 75244509 Active 2015 Kelsey Contreras MD [address] [place], [place] [address], [address], [facility] 6 17:38:13 Mixed hyperlipide tricia 818457539 Completed 200304/14/2015 Dina Lawson.O. [address] [place], [address], [facility] 5 11:04:01 Sweating fever 362236298 Completed 07/05/2013 Dina Lawson.O. [address] [place], [address], [facility] 5 11:04:01 Benign essential hypertensio n 8286576 Completed 200304/14/2015 Dina BarlowO. [address] [place], [address], [facility] 5 11:04:01 Elevated blood-press ure reading without diagnosis of hypertensio n 644595175 Completed 200307/09/2014 Kelsey Contreras MD [address], 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 [address], [facility] [place], [address], [facility] 5 11:04:01 Peripheral enthesopath ies and allied syndromes 913227500 Completed 07/05/2013 Dina Lawson.O. [address] [place], [address], [facility] 5 11:04:01 Malaise and fatigue 565860588 Completed 03/14/2013 Dina BarlowO. [address], [facility] [place], [address], [facility] 5 11:04:01 Toxic effect of lead compound Completed 07/05/2013 Dina BarlowO. [address], [facility] [place], [address], [facility] 11:04:01 Problem Notes None recorded. Procedures Surgical History Date Name Laterality Status Provider Name and Address Organization Details Recorded Time 03/12/20 21 Smoking cessation counseling completed Brenna Huitron [facility] 03/12/2021 17:05:28 03/12/20 21 COPD Screening Questions completed Brenna Huitron [facility] 03/12/2021 17:25:03 11/25/19 21 Smoking cessation counseling completed Anna Russell, MAJOR [address] [place] [address], [address], [facility] 11/25/2020 14:31:40 11/18/19 21 Smoking cessation counseling completed Zoey Echeverria [facility] 11/17/2020 14:07:29 09/17/19 21 Smoking cessation counseling completed Brenna Huitron [facility] 09/16/2020 08:05:18 09/17/19 21 Carbon Monoxide Testing completed Brenna Huitron [facility] 09/16/2020 08:05:18 09/17/19 21 prevention-card iovascular risk reduction counseling completed Brenna Huitron [facility] 09/16/2020 07:59:56 09/17/19 21 prevention-jimmy al alcohol misuse screening completed Brenna Huitron [facility] 09/16/2020 07:59:56 02/27/20 20 Smoking cessation counseling [place], [address], [facility] 02/27/2020 12:23:06 10/10/19 20 Smoking cessation counseling completed Dina Melton D.O. [address] [place] [address], [address], [facility] 10/10/2019 10:41:37 12/22/19 19 [address]: Therapeutic Exercise completed Ryan Su PT [address] [place], [address], [facility] 12/21/2018 15:22:30 12/22/19 19 [address]120: Manual Therapy completed Ryan Su PT [address] [place], [address], [facility] 12/21/2018 15:22:36 12/19/19 19 00523: Therapeutic Exercise completed Ryan Su, PT [address] [place], [address], [facility] 12/19/2018 10:13:16 12/19/19 19 74609: Manual Therapy completed Ryan Su, PT [address] [place], [address], [facility] 12/19/2018 10:13:22 12/14/19 19 Smoking Cessation Counselling completed Ryan Su, PT [address] [place], [address], [facility] 12/14/2018 10:10:02 12/14/19 19 Physical Activity Counselling completed Ryan Su, PT [address] [place], [address], [facility] 12/14/2018 10:09:52 12/14/19 19 03701: PT Eval, Moderate Complexity completed Ryan Su, PT [address] [place], [address], [facility] 12/14/2018 10:09:55 12/14/19 19 Smoking cessation counseling completed Brenna Huitron [facility] 12/13/2018 09:27:56 12/14/19 19 Carbon Monoxide Testing completed DILMA Rosa [facility] 12/13/2018 09:27:56 10/31/19 19 Camille - EGD completed Logan Obrien MD [address] [place] [address], [address], [facility] 10/30/2018 10:09:49 10/31/19 19 Camille - Colonoscopy completed Logan Obrien MD [address] [place] [address], [address], [facility] 10/30/2018 10:25:02 09/12/19 19 Smoking cessation counseling completed DILMA Rosa [facility] 09/11/2018 10:17:33 09/12/19 19 Carbon Monoxide Testing completed Kalab Tomy, [facility] 09/11/2018 10:17:33 09/16/19 18 Refraction completed Araceli Chinchilla, [address], [place], [address], [facility] 09/15/2017 07:46:53 08/26/19 18 [facility] 08/[facility]2017 13:42:48 08/26/19 18 Carbon Monoxide Testing completed Brenna Alstone [facility] 08/25/2017 13:42:48 12/22/19 16 Smoking cessation counseling completed Brenna [facility]ron [facility] [facility] 12/22/2015 16:32:26 12/10/19 16 POC Urinalysis Testing completed Lyubov Escobar LPN [facility] 12/10/2015 12:30:17 11/20/19 16 Smoking cessation counseling completed Sheila Osiel [facility] 11/20/2015 16:02:39 04/14/20 15 Smoking cessation counseling completed Rose Zacarias MA [facility] 04/14/2015 10:36:26 11/14/19 15 Smoking cessation counseling completed Sheilarosalinda Cartagena [facility] 11/13/2014 14:34:32 11/09/19 15 Smoking cessation counseling completed Nicol Reynoso LPN [facility] 11/08/2014 17:48:04 07/10/19 15 Smoking cessation counseling completed Sheila Cartagena [facility] 07/09/2014 08:16:02 06/17/19 15 Smoking cessation counseling completed Lyubov Escobar LPN [facility] 06/17/2014 17:09:17 07/06/19 14 Smoking cessation counseling completed Mely Luque MA [facility] 07/05/2013 15:02:42 11/30/19 13 Smoking cessation counseling completed Mely Luque MA [facility] 11/29/2012 10:00:36 Imaging Results Imaging Date Name Status LastModified by Organization Details LastModified Time 10/02/2020 bi US breast limited (left) completed [facility] [address] [place], [address], 10/03/2020 08:21:27 10/02/2020 bi mammogram diagnostic with tomosynthesis with CAD (bilateral) completed [facility] [address], [place], [address], 10/17/2020 12:14:06 10/02/2020 [facility] - Out[facility] Radiology [address] [place] [address] [place], [address], 10/03/2020 08:21:28 10/02/2020 MAMMO, diagnostic completed [facility] [address] [place] [address] [place], [address], 10/03/2020 08:21:28 11/25/2020 XR, chest completed [address] (Imaging) [address] [place], [address], 11/26/2020 16:07:41 Procedure Notes None recorded. Medical Equipment None Reported. Allergies No known drug allergies Medications Name Sig Start Date Stop Date Status Note LastModified by Organization Details LastModified Time azithromy catherine 250 mg tablet TAKE 2 TABLETS (500 MG) BY ORAL ROUTE ONCE DAILY FOR 1 DAY THEN 1 TABLET (250 MG) BY ORAL ROUTE ONCE DAILY FOR 4 DAYS 11/24 completed Fuinishe d course. PP Not Available Not Available Not Available nicotine (polacril ex) 2 mg gum Chew 1 piece of gum 4 times a day by oral route. 09/08 completed Not Available Not Available Not Available bacitraci n 500 unit/gram eye ointment Apply 1 applicat ion twice a day by ophthalm ic route as directed . 2012 active Not Available Not Available Not Avai lable lisinopri l 20 mg tablet TAKE 1 TABLET BY MOUTH DAILY 09/08 completed Not Available Not Available Not Available Tubersol 5 tub. unit/0.1 mL intraderm al injection solution 2008 active Not Available Not Available Not Avai lable clindamyc in HCl 150 mg capsule Take 3 capsules 3 times a day by oral route for 10 days. active Not Available Not Available No t Available tramadol 50 mg tablet 08/25 completed Not Available Not Available Not Available amoxicill in 250 mg chewable tablet 08/25 completed Not Available Not Available Not Available oxycodone -acetamin ophen 5 mg-325 mg tablet active Not Available Not Available Not Available lisinopri l 10 mg tablet TAKE 1 TABLET BY MOUTH DAILY TAKE IN ADDITION TO THE LISINOPR IL 20 MG TABLET 03/12 completed Not Available Not Available Not Available nicotine 21 mg/24 hr daily transderm al patch Apply 1 patch every day by transder mal route. 03/12 completed Not Available Not Available Not Available amoxicill in 250 mg capsule active Not Available Not Available Not Available levofloxa catherine 500 mg tablet active Not Available Not Available No t Available colchicin e 0.6 mg tablet Take 1 tablet twice a day by oral route for 5 days. 10/09 completed Not Available Not Available Not Available fluticaso ne propionat e 50 mcg/actua tion nasal spray,trevor pension 12/21 completed PRN Not Available Not Available Not Available amoxicill in 875 mg-potass ium clavulana te 125 mg tablet Take 1 tablet twice a day by oral route for 10 days. 02/26 completed Not Available Not Available Not Available oxycodone 5 mg tablet Take 1 tablet every 4-6 hours by oral route as needed. 10/09 completed Not Available Not Available Not Available TobraDex 0.3 %-0.1 % eye drops,trevor pension INSTILL 1 DROP INTO AFFECTED EYE(S) BY OPHTHALM IC ROUTE QID OD 09/11 completed Not Available Not Available Not Available bupropion HCl XL 150 mg 24 hr tablet, extended release Take 1 tablet every day by oral route. 09/08 completed Not Available Not Available Not Available Chantix Continuin g Month Box 1 mg tablet Take 1 tablet twice a day by oral route. 03/12 completed Not taking 11/24/20 PP Not Available Not Available Not Available Chantix Starting Month Box 0.5 mg (11)-1 mg (42) tablets in dose pack take as dorected over 4 weeks 03/12 completed Not taking 11/24/20 PP Not Available Not Available Not Available Virtussin AC 10 mg-100 mg/5 mL oral liquid Take 10 mL every 4 hours by oral route as directed for 7 days. 03/12 completed Not Available Not Available Not Available Vitals Date Recorded Body height Body temperature Heart rate Systolic blood pressure Diastolic blood pressure Provider Name and Address Organization Details Last Updated DateTime 03/31/2020 179.07 cm 97.4 [degF] 81 /min 130 mm[Hg] 78 mm[Hg] Paola Gifford [employer] [facility] 0 08:39:54 Date Recorded Body height Body mass index (BMI) Body weight Heart rate Systolic blood pressure Diastolic blood pressure Provider Name and Address Organization Details Last Updated DateTime 1 179.07 cm 26.7 kg/m2 45795.9 6 g 83 /min 135 mm[Hg] 80 mm[Hg] Brenna Huitron [facility] 1 08:08:28 Date Recorded Body height Systolic blood pressure Diastolic blood pressure Provider Name and Address Organization Details Last Updated DateTime 11/17/2020 179.07 cm 160 mm[Hg] 80 mm[Hg] Zoey Echeverria [facility] 11/17/2020 14:05:12 Date Recorded Body height Body temperature Oxygen saturation Oxygen saturation in Arterial blood by Pulse oximetry Heart rate Systolic blood pressure Diastolic blood pressure Provider Name and Address Organization Details Last Updated DateTime 1 179.07 cm 98.5 [degF] 95 % 95 % 77 /min 159 mm[Hg] 82 mm[Hg] Avani Rojo [facility] 1 16:29:09 Date Recorded Body height Body mass index (BMI) Body weight Heart rate Systolic blood pressure Diastolic blood pressure Systolic blood pressure Diastolic blood pressure Provider Name and Address Organization Details Last Updated DateTime 1 179.07 cm 26.9 kg/m2 94752.5 5 g 80 /min 138 mm[Hg] 75.98 mm[Hg] 127 mm[Hg] 73 mm[Hg] Brenna Huitron [facility] 1 17:24:42 Social History Question Answer Notes LastModified by Organizat ion Details LastModified Time Tobacco Smoking Status Current Every Day Smoker 10 cig a day/ 2 packs a week 20 yrs Declined [place] 11/18/15 ns, Not Available [employer] 09/17/2010 02:07:54 What Is Your Level Of Alcohol Consumption? Occasional Information not available 08/25/2017 Do You Wear A Helmet When Biking? Yes Information not available 12/22/2015 How Much Tobacco Do You Chew? None [email or web address] Information not available 11/29/2012 Education 11 [email or web address] Information not available 03/11/2011 Are There Any Guns Present In Your Home? No Information not available 12/22/2015 Live Alone Or With Others? With Others 1 Child [email or web address] Information not available 09/11/2008 Does The Patient Have Difficulty Speaking Paraguayan? No Information not available 04/14/2015 Does The Patient Have Difficulty Reading Paraguayan? No Information not available 04/14/2015 Patient Has Health Care Proxy Signed And In Chart No Forms Given 02/16/12, 04/14/15 [email or web address] Information not available 02/16/2012 Marital Status Information not available 03/11/2011 Mosquito Repellent Used Routinely No Information not available 12/22/2015 What Was The Date Of Your Most Recent Tobacco Screening? 11/24/2020 Information not available 11/24/2020 How Many Children Do You Have? 1 [email or web address] Information not available 03/11/2011 What Is Your Current Pack Years? [email or web address] Information not available 04/14/2015 Seat Belts Used Routinely Yes Information not available 12/22/2015 Are You Sexually Active? Yes [email or web address] Information not available 03/11/2011 Smoke Alarm In Home Yes Information not available 12/22/2015 General Stress Level Medium Information not available 12/22/2015 Do You Use Sunscreen Routinely? No Information not available 12/22/2015 Sex: Unknown Functional Status None recorded. Mental Status None recorded. Family History Relationship Description Onset Age of this Age Resolved Age Notes LastModified by Organization Details LastModified Time Mother Diabetes mellitus [email or web address] Not available 2013 15:38:59 Notes:MOM: d80: renal failur e, DM late in life, [place] x6, CVAx3 DAD: 86y/o: some kind of cancer ?colon, MIx6 BRO: 6: [place] early 40s, chol SIS: 3: doesn't know health hx. KIDS: 1 daughter: a&w Medical History No medical history recorded. Immunizations Vaccine Type Date Status Note Provider Nam e and Address Organization Details Recorded Time pneumococcal polysaccharide PPV23 2 completed Not Available [facility] 05/12/2019 02:14:55 Tdap 2 completed Not Available [facility] 05/12/2019 02:15:48 Influenza, split virus, quadrivalent, PF 0 completed Evette Jefferson LPN [facility] 03/17/2020 08:30:20 Influenza, split virus, quadrivalent, PF 1 completed Dina Melton D.O. [address] [place] [address], [id number] 03/12/2021 17:38:39 Past Encounters Encounter ID Performer Location Encounter Start Date Encounter Closed Date Diagnosis/Indication Diagnosis SNOMED-CT Code Diagnosis ICD10 Code [id number] [place] [facility], OFFICE [address] [place] [address] 11/14/2003 15:27:09 11/15/2003 08:22:55 [id number] [place] [facility] OFFICE [address] [place] [address] 12/18/2003 16:17:12 12/19/2003 08:43:34 [id number] [place] [facility] OFFICE [address] [place] [address] 01/13/2004 16:37:44 01/14/2004 09:00:47 [id number] [place] [facility] OFFICE [address] [place] [address] 02/21/2004 09:19:29 02/24/2004 09:41:50 [id number] [place] [facility] OFFICE [address] [place] [address] 03/02/2004 09:19:50 03/02/2004 16:52:51 [id number] [place] [facility] OFFICE [address] [place] [address] 03/31/2004 16:35:43 04/01/2004 09:08:08 [id number] , [facility] [place] [place], OFFICE [address] [place] [address] 09/11/2008 09:09:36 09/12/2008 09:09:39 [id number] , [facility] [place], OFFICE [address] [address] 09/13/2008 10:29:18 09/17/2008 08:24:12 [id number] [facility] [place] [address] [place] [address] 09/13/2008 10:28:50 09/13/2008 10:28:57 [id number] , [facility], OFFICE [address] [address] 04/11/2009 08:00:07 04/14/2009 07:56:02 [id number] , [facility], [address] [place] [address] 06/01/2009 10:48:12 06/04/2009 08:22:25 [id number] , [facility] OFFICE [address] [address] 08/16/2011 10:16:35 08/16/2011 10:58:59 [id number] [facility] , [facility] [place] [facility] [address] [place] [address] 08/19/2011 12:22:45 08/20/2011 11:11:03 [id number] Joey Carvajal III, MD , [facility] [place], OFFICE [address] [address] 02/16/2012 08:57:05 02/16/2012 10:00:02 [id number] Jane Sanderson MD , [facility] [facility], OFFICE [address] [place] [place] [address] 10/05/2012 16:41:36 10/05/2012 17:13:10 [id number] Mely Luque MA , [facility], OFFICE [address] [place] [address] 11/29/2012 09:51:53 11/29/2012 10:13:00 [id number] Jane Bridges , [facility], OFFICE [address] [place] [address] 07/05/2013 14:49:51 07/06/2013 08:30:23 Benign essential hypertension 8939655 Adult heal th examination 156448899 Counseling 510837406 Tobacco user 762121307 Elevated blood-pressure reading without diagnosis of hypertension 029164965 History of exposure to lead 188680673 [id number] [facility], OFFICE [address] [place] [address] 06/17/2014 16:56:48 06/17/2014 17:28:31 Tobacco user 160620839 Hip pain 04880113 Tinea cruris 475213839 Epidermoid cyst of skin 529851689 [id number] Sheila Cartagena [facility], OFFICE [address] [place] [address] 07/09/2014 08:08:37 07/12/2014 11:25:12 Benign essential hypertension 8310531 Tobacco user 322679801 Adult heal th examination 816521937 Counseling 449675559 [id number] Suni Albright [facility], OFFICE [address] [place] [address] 11/08/2014 17:15:37 11/08/2014 19:49:26 Tobacco user 684830524 Tachycardia 7975848 Dyspnea 597504919 [id number] Latoya Nael [facility], OFFICE [address] [place] [address] 11/13/2014 14:24:40 11/14/2014 11:35:05 Tobacco user 373274105 Chest wall pain 61331566 6 Maxillary sinusitis 8834 8008 Tachycardia 8598191 [id number] Ari Astudillo MD [facility], OFFICE [address] [place] [address] [place] [address] 01/22/2015 10:25:43 01/22/2015 11:08:03 Maxillary sinusitis 13465863 Pre-surger y evaluation 816335153 [id number] Dina Melton D.O. [facility], OFFICE [address] [place] [address] 04/14/2015 10:30:30 04/14/2015 11:03:18 Tobacco user 526988214 Z72.0 Elevated blood-pressure reading without diagnosis of hypertension 978339238 R03.0 [id number] Kelsey Contreras MD [facility], OFFICE [address] [place] [address] 11/06/2015 15:44:30 11/06/2015 16:24:25 Benign essential hypertension 2031284 I10 Venous thrombosis 608226 003 I82.90 [id number] Kelsey Contreras MD , [facility] [facility], OFFICE [address] [place] [address] [place] [address] 11/20/2015 15:56:09 11/24/2015 11:04:22 Cigarette smoker 77107251 F17.210 Tobacco user 935067132 Z 72.0 Essential hypertension 55242286 I10 [id number] Cedrick Reza MD , [facility], OFFICE [address] [place] [address] [place] [address] 12/10/2015 12:26:47 12/15/2015 11:52:57 Lightheadedness 860200168 R42 [id number] Dina Melton D.O. , [facility], OFFICE [address] [place] [address] [place] [address] 12/22/2015 15:44:55 12/22/2015 17:05:15 Adult health examination 772304546 Z00.00 Counseling 339722185 Z71 .9 Mixed hyperlipidemia 267 473500 E78.2 Cigarette smoker 9506604 7 F17.210 Tobacco user 196927568 Z 72.0 Essential hypertension 22906890 I10 [id number] Dina Metlon D.O. , [facility], OFFICE [address] [place] [address] [place] [address] 08/25/2017 13:32:19 08/25/2017 14:52:57 Adult health examination 327283902 Z00.00 Counseling 420279417 Z71 .9 Depression screening 171 335229 Z13.89 Benign ess ential hypertension 0987585 I10 Cigarette smoker 2643199 7 F17.210 Tobacco user 163194401 Z 72.0 [id number] Araceli Chinchilla, OD [facility], [facility] [address] [place] [address] 09/15/2017 07:37:28 09/15/2017 08:40:35 Presbyopia 89574861 H52.4 [id number] Cedrick Reza MD , [facility], OFFICE [address] [place] [address] [place] [address] 02/07/2018 08:51:25 02/07/2018 17:36:56 Pain in eye 21294876 H57.11 Facial laceration 980972 008 S01.81XA [id number] Araceli Chinchilla, OD [facility], [address] [address] 02/07/2018 09:35:00 02/07/2018 11:39:17 Conjunctivitis 2581694 H10.9 [id number] Araceli Donohue Amor, OD [facility], [address] [address] 02/09/2018 15:10:03 02/09/2018 15:44:44 Conjunctivitis 4825083 H10.9 [id number] Dina Melton D.O. , [facility], OFFICE [address] [place] [address] [place] [address] 09/11/2018 09:50:02 09/11/2018 10:47:00 Adult health examination 126174999 Z00.00 Counseling 114213858 Z71 .9 Depression screening 171 676144 Z13.89 Cigarette smoker 1875223 7 F17.210 Tobacco user 403540741 Z 72.0 Screening for malignant neoplasm of colon 074533278 Z12.11 Essential hypertension 64184317 I10 Benign ess ential hypertension 8344934 I10 [id number] Lyubov Escobar LPN , [facility], OFFICE [address] [place] [address] [place] [address] 09/25/2018 08:11:04 09/25/2018 08:35:59 Essential hypertension 27452432 I10 [id number] Fausto Quinonez RN [facility], [address] [address] 10/30/2018 08:22:38 10/30/2018 12:53:43 [id number] Dina Melton D.O. , [facility], OFFICE [address] [place] [address] [place] [address] 12/13/2018 09:23:42 12/13/2018 09:44:40 Cigarette smoker 47436232 F17.210 Tobacco user 362762792 Z 72.0 Contusion of lower back 650503349 S30.0XXA Knee pain 05181979 M25.5 69 [id number] Ryan Nur i, PT Physical Therapy, [address] [address] 12/13/2018 11:58:48 12/14/2018 10:13:18 Low back pain 581132743 M54.5 [id number] Ryan Nur i, PT Physical Therapy, [address] [place] [address] 12/18/2018 14:57:15 12/19/2018 13:05:05 Low back pain 343097104 M54.5 [id number] Ryan Nur i, PT Physical Therapy, [address] [place] [address] 12/21/2018 14:46:41 12/21/2018 15:37:52 Low back pain 795032878 M54.5 [id number] Logan Modi MD , [facility], [address] [place] [address] 03/31/2019 11:39:22 03/31/2019 12:44:11 Foot pain 27466882 M79.825 [id number] Dina Melton D.O. [facility], OFFICE [address] [place] [address] 10/10/2019 10:21:06 10/10/2019 11:02:56 Acute sinusitis 74208637 J01.90 Benign ess ential hypertension 9809188 I10 Tobacco user 830715952 Z 72.0 [id number] Dina Melton D.O. [facility], OFFICE [address] [place] [address] 02/27/2020 11:46:03 02/27/2020 16:11:11 Essential hypertension 04846976 I10 Tobacco user 533321640 Z 72.0 Benign ess ential hypertension 2519799 I10 Nocturia 976669843 R35.1 [id number] Evette Jefferson LPN [facility], OFFICE [address] [place] [address] [place] [address] 03/17/2020 08:20:01 03/19/2020 07:41:57 Active or passive immunization 342213507 Z23 [id number] Paola Gifford LPN [facility], OFFICE [address] [place] [address] 03/31/2020 08:21:26 03/31/2020 08:50:26 Essential hypertension 87692462 I10 [id number] [facility], OFFICE [address] [place] [address] 09/16/2020 07:54:50 09/16/2020 08:35:08 Adult health examination 032916747 Z00.00 Counseling 796316875 Z71 .9 Depression screening 171 082004 Z13.31 Screening for alcohol abuse 241903265 Z13.39 Essential hypertension 32425585 I10 Cigarette smoker 6519947 7 F17.210 Tobacco user 354940563 Z 72.0 Mastodynia of left breast 7682105888 0915095 N64.4 [id number] Cedrick Reza MD , [facility], OFFICE [address] [place] [address] 11/17/2020 13:59:54 11/18/2020 07:58:03 Cigarette smoker 44794531 F17.210 Tobacco user 878619364 Z 72.0 Acute bronchitis 0789627 2 J20.9 [id number] Anna Russell NP , [facility], [address] [place] [address] 11/24/2020 15:37:49 11/26/2020 15:34:26 Cigarette smoker 66160046 F17.210 Tobacco user 665784975 Z 72.0 Cough 04698091 R05 [id number] Dina Melton D.O. , [facility], OFFICE [address] [place] [address] 03/12/2021 16:57:44 03/15/2021 14:26:19 Essential hypertension 53871879 I10 Cigarette smoker 2882291 7 F17.210 Tobacco user 569164887 Z 72.0 Active or passive immunization 833265725 Z23 Anxiety 01575457 F41.9 Health Concerns Section Related Observation LastModified by Organization Detai ls LastModified Time None Recorded Concern Status LastModified by Organization Details LastModified Time None Recorded Advance Directives Directive None Recorded Payers Encounter Date Sequence Insurance Name Policy Number Policy Diaz Covered Member ID Diaz Member ID Guarantor Name 03/31/2020 1 [place] 20[place] - [facility] (MEDICAID) Cristian Dobbs [id number] Cristian Dobbs 09/16/2020 1 [place] 20[place] [facility] (MEDICAID) Cristian Dobbs [id number] Cristian Dobbs 11/17/2020 1 [place] 20[place] - [facility] (MEDICAID) Cristian Mcclendonrow [id number] Cristian Dobbs 11/24/2020 1 [place] 20[place] - [facility] (MEDICAID) Cristian Lawson Dilia [id number] Cristian Mcclendonshirley 03/12/2021 1 [place] 20[place] - [facility] (MEDICAID) Cristian Lawson Dilia [id number] Cristian Dilia Notes Date Note Type Note Provider Name and Address Organization Details Recorded Time 0 text/html Patient presents for BP check. Paola Gifford LPN [facility] 03/31/2020 08:50:25 1 text/html Physical Exam/MaleReported bypatient.PHAPatient is here for a Wellness Visit. He describes his health status as good. Patient's health is the same as last year.Notes:thinking about quitting all year longleft sided chest wall painRisk Assessment and Lifestyle Change Counseling-male 40-49Reported bypatient.Coronary Artery Disease Risk Assessment:No personal history of hypertension; Lipids in good range; No personal history of diabetes; No history of peripheral vascular disease, AAA, or carotid disease; No personal history of coronary artery disease Colon Cancer Risk Assessment:No history of adenomatous colon polyps Lung Cancer Risk Assessment:Has used cigarettes;Environmental exposure to asbestos Risk for Sexually transmitted disease Assessment:Monogamous relationship Cognitive/Behavioral Risk Assessment:No history of depression DietCounseled about eating a diet low in trans and saturated fats and high in fiber, fruits and vegetables Advanced DirectivesDiscussed the importance of a health care proxy and advanced directives Emergerncy Department and Urgent Care:Counseled about appropriate use of the emergency room and availability of urgent care at [facility] HypertensionReported bypatient.Control:Patient understands medications are to lower blood pressure Compliance:Noncompliant with medications;Noncompliant with diet;Noncompliant with follow-up visits Barriers to Carehas no time; under stress Self Care:uses BP c[facility] Associated Symptoms:No chest pain; No shortness of breath; No edema; No fatigue; No palpitations; No decline in exercise capacity; [place] [facility]-sm[facility] [id number] bypatient.Notes:has tried patches and gumwanting to quit Dina Furcolo D.O. 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 Smoking less- unable to with current coughHas chantixDenied other quit aides Anna Russell NP [address] [place], [id number], [facility] 11/25/2020 14:35:58 1 text/html Time for intake: {{1 2 3 4* 5 6 7 8 9 10 1 1 12 13 14 15 16 17 18 19 20 21 22 23 24 25}} minutes. 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 [address] [place], [id number], [facility] 03/12/2021 21:53:16
[2024-04-19 10:01] VITALS: BP 104/61; PULSE 114; BMI 23.2
== END 2024-04-19 10:13 | disposition home or self-care (01) ==
PROVIDERS: PCP Nurse Practitioner Family; Visit Provider Surgery
DX: Z93.3 Colostomy status (principal)
CPT/HCPCS: 99213

== ENCOUNTER → 2024-04-19 09:51 | Outpatient (BNVA) | payer OTHER, SELFPAY | PROVIDERS: PCP Nurse Practitioner Family; Visit Provider Surgery | DX: Z87.19 Personal history of other diseases of the digestive system (principal); Z93.3 Colostomy status | CPT/HCPCS: 99212 ==

== ENCOUNTER 2024-05-29 06:15 | Inpatient (IN) | payer OTHER, SELFPAY ==
[2024-05-25 13:13] VITALS: BMI 23.2
--- NOTE | 2024-05-28 11:40 | HO.ANESPROP2 ---
Documented by User: Indira Arce NP 05/28/24 11:41 HPI - Anesthesia Eval Consult details Narrative: 54yo M for Hand Assist Colostomy Reversal Laparoscopic,possible open,possible Stoma s/p colo 03/2024 with MAC s/p colon resect with ostomy with GA-ETT 7 PMFSH Active Problems Active Problems: All Active Problems (Updated 04/03/24 @ 10:22 by Deidre Grossman PA-C) URI, acute (Acute) Nicotine addiction (Acute) Elevated blood lead level (Acute) Colostomy in place (Acute) Acute diverticulitis (Acute) GERD (gastroesophageal reflux disease) (Acute) Fatty liver (Acute) Osteoarthritis of left hip (Acute) Nicotine dependence, cigarettes, uncomplicated (Acute) Exposure to lead (Acute) Past Medical History Medical History Colostomy in place Acute diverticulitis Nicotine dependence, cigarettes, uncomplicated Fatty liver GERD (gastroesophageal reflux disease) Osteoarthritis of left hip Exposure to lead Essential hypertension Family History Family history of problems with anesthesia: No Surgical History Surgical History (Updated 05/29/24 @ 06:19 by Koki Kent RN) H/O oral surgery H/O colonoscopy Hx of surgical procedure (~01/13/24) History of esophagogastroduodenoscopy (EGD) History of Problems with Anesthesia: No Social History Social History (Updated 05/25/24 @ 13:13 by Lois Santos RN) Household Members: Spouse and Children Housing: House Are you a primary student career development specialist to a significant other at home: No Do you presently have visiting nurse or other home services: No Alcohol intake: current Alcohol intake frequency: holidays/special occasions only Patient Tobacco Use Status: Never used Tobacco Tobacco use type: Cigarette Cigarettes Per Day: 4 Years Smoked: 20 e-Cigarette/Vaping Use: Never Used Second Hand Smoke Exposure: Yes () Use of substances other than those prescribed or required for medical reasons: Yes Substance Use Type: Marijuana Rastafarian Healthcare Practices: no sabianism documented Advance Directives: No (SO is primary copntact) Advance Directives Information Provided: Yes (as abov enoted) Advance Directives on File: No Nutrition Risks: No Nutritional Risk service: No Current occupational status: employed 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 Current occupational exposures/hazards: Yes Cognitive needs: No Hearing needs: No Vision needs: No Meds Allergies Allergy/AdvReac Type Severity Reaction Status Date / Time No Known Allergies Allergy Verified 05/29/24 06:19 Home Medications ?Medication ?Instructions ?Recorded ?Confirmed ?Last Taken ?Type nicotine 14 mg/24 hr daily 1 patch transdermal DAILY 05/29/24 05/29/24 Unknown History transdermal patch Exam Height,Weight and Vital Signs: Height 6 ft Weight 77.564 kg Pertinent Lab Results Pertinent Lab Results: Laboratory Tests 01/16/24 05:21 WBC 12.0 H Hgb 12.3 L Hct 36.5 L Plt Count 308 Sodium 140 Potassium 3.9 Chloride 105 Carbon Dioxide 27 BUN 9 Creatinine 0.79 Assessment and Plan Assessment Anesthesia Assessment: Chart Reviewed Final Anesthetic Review Family History of Problems with Anesthesia: No History of Problems with Anesthesia: No Documented by User: Russ Molina MD 05/29/24 09:30 [facility] Past Medical History Medical History Colostomy in place Acute diverticulitis Nicotine dependence, cigarettes, uncomplicated Fatty liver GERD (gastroesophageal reflux disease) Osteoarthritis of left hip Exposure to lead Essential hypertension Surgical History Surgical History (Updated 05/29/24 @ 06:19 by Koki Kent RN) H/O oral surgery H/O colonoscopy Hx of surgical procedure (~01/13/24) History of esophagogastroduodenoscopy (EGD) Social History Social History (Updated 05/25/24 @ 13:13 by Lois Santos RN) Household Members: Spouse and Children Housing: House Are you a primary student career development specialist to a significant other at home: No Do you presently have visiting nurse or other home services: No Alcohol intake: current Alcohol intake frequency: holidays/special occasions only Patient Tobacco Use Status: Never used Tobacco Tobacco use type: Cigarette Cigarettes Per Day: 4 Years Smoked: 20 e-Cigarette/Vaping Use: Never Used Second Hand Smoke Exposure: Yes () Use of substances other than those prescribed or required for medical reasons: Yes Substance Use Type: Marijuana Rastafarian Healthcare Practices: no sabianism documented Advance Directives: No (SO is primary copntact) Advance Directives Information Provided: Yes (as abov enoted) Advance Directives on File: No Nutrition Risks: No Nutritional Risk service: No Current occupational status: employed 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 Current occupational exposures/hazards: Yes Cognitive needs: No Hearing needs: No Vision needs: No Meds Allergies Allergy/AdvReac Type Severity Reaction Status Date / Time No Known Allergies Allergy Verified 05/29/24 06:19 Home Medications ?Medication ?Instructions ?Recorded ?Confirmed ?Last Taken ?Type nicotine 14 mg/24 hr daily 1 patch transdermal DAILY 05/29/24 05/29/24 Unknown History transdermal patch Exam Airway Mallampati Class: II TM Dist: >3cm Neck ROM: Full Loose/Missing/Broken Teeth: Yes Assessment and Plan Assessment Anesthesia Assessment: Anesthesia Plan Discussed Final Anesthetic Review NPO: Yes ASA Class: III Final Preanesthetic Review: No Changes in Pt Med Stat, Meds/Allgs Chart Reviewed, Consent Obtained/Reviewed and Anes Risks/Benef Reviewed Patient Risk: Intermediate Procedure Risk: Low Anesthetic Plan Anesthetic Plan: GA and Regional Block Disposition: Standard PACU
[2024-05-29] VITALS (14 sets, daily range): BP systolic 87–142; BP diastolic 54–79; PULSE 68–84; RESP 12–18; TEMP 36.1–36.3; O2SAT 95–100; BMI 22.8; BMI 24.0
[2024-05-29] MEDS: Lactated Ringers 1,000 ML 100 ML IVCONT ×3 (06:39→23:30)
--- OUTSIDE RECORDS SUMMARY | 2024-05-29 06:46 | XMS_ITS | Data Portability ---
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 Plan of Treatment [...] r/o pneumonia, cont bronchitis [email or web address] [facility] ([facility]), [address] , [place], [address], 15:34:27 Medication Orders Chantix Continuing Month Box 1 mg tablet 2020 [facility], [address] [place] [address], [address], 17:37:37 Chantix Starting Month Box 0.5 mg (11)-1 mg (42) tablets in dose pack 2020 [facility], [address] [place] [address], [address], 17:37:41 Zithromax Z-Jacek 250 mg tablet 2020 [email or web address] [place] [address] Pharmacy, [address] [place] [address], [address], 16:41:49 codeine 10 mg-guaifene sin 100 mg/5 mL oral liquid 2020 021 [facility], [address] [place] [address], [address], 17:37:34 lisinopril 20 mg tablet 2020 021 [facility], [address] [place] [address], [address], 12:19:36 bupropion HCl XL 150 mg 24 hr tablet, extended release 2020 021 [facility], [address] [place] [address], [address], 12:19:39 Patient TargetsNo targets recorded. Patient Instructions Encounter Date Encounter Id Patient Instructions Last Modified By Organization Details Last Modified Time 09/16/2020 [id number] deciding about using medicines to quit smoking [email or web address] Not available 09/16/2020 08:34:21 Quitting Tobacco: Care Instructions urcolo Not available 09/16/2020 08:34:21 Well Visit 50 to 65: [facility] 09/16/2020 08:34:21 Counseling done [...] sponsor}}My Health To Do List {{go to [employer] or call s ign up for xiomara text 2 quit or other stop smoking xiomara contact [employer]}} {{go to [employer] or call s ign up for xiomara text 2 quit or other stop smoking xiomara contact [employer]}} {{go to [employer] or call s ign up for xiomara text 2 quit or other stop smoking xiomara contact [employer]}} [email or web address] Not available 09/16/2020 08:05:17 11/17/2020 [id number] deciding about using medicines to quit smoking [...] {{adding exercise regular meals stress management 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}} {{adding exercise regular meals stress management impro ving sleep therapist identifying sponsor}}My Health To Do List {{go to [employer] or call s ign up for xiomara text 2 quit or other stop smoking xiomara contact [employer].gov}} {{go to [employer] or call s ign up for xiomara text 2 quit or other stop smoking xiomara contact [employer]}} {{go to [employer] or call s ign up for xiomara text 2 quit or other stop smoking xiomara contact [employer]}} [email or web address] Not available 11/17/2020 14:07:29 11/24/2020 [id number] deciding about using medicines to quit smoking Not available 11/24/2020 16:56:02 Quitting Tobacco: Care Instructions [email or web address] Not available 11/24/2020 16:56:02 Counseling done {{Patient [...] sponsor}}My Health To Do List {{go to [employer] or call s ign up for xiomara text 2 quit or other stop smoking xiomara contact [employer]}} {{go to [employer] or call s ign up for xiomara text 2 quit or other stop smoking xiomara contact [employer]}} {{go to [employer] or call s ign up for xiomara text 2 quit or other stop smoking xiomara contact [employer]}} Not available 11/24/2020 16:31:37 03/12/2021 [id number] deciding about using medicines to quit smoking [...] Patie nts with Diabe sandhya Not Available [address], [address], 03/17/2020 11:09:58 03/17/20 20 03/17/2020 HbA1c (hemo globi n A1c), blood estimated average glucose 119.8 mg/dL Not Available [address], [address], 03/17/2020 11:09:58 03/17/20 20 03/17/2020 BMP, serum or plasm a glucose 98 mg/dL 70-100 Not Available [address], [address], 03/17/2020 11:52:54 03/17/20 20 03/17/2020 BMP, serum or plasm a BUN 14 mg/dL 7-18 Not Available [address], [address], 03/17/2020 11:52:54 03/17/20 20 03/17/2020 BMP, serum or plasm a creatinine 0.9 mg/dL 0.8-1. 3 Not Available [address], [address], 03/17/2020 11:52:54 03/17/20 20 03/17/2020 BMP, serum or plasm a B/C 15.6 ratio Not Available [address], [address], 03/17/2020 11:52:54 03/17/20 20 03/17/2020 BMP, serum or plasm a GFR -non 94.6 mL/mi n Recom malik d GFR by the Natio nal Kidne y Found ation >60 mL/mi n/1.7 3m2 - Olga l <60 mL/mi n/1.7 3m2 - Chron ic Kidne y Disea se <15 mL/mi n/1.7 3m2 - Kidne y Annieu re Not Available [address], [address], 03/17/2020 11:52:54 03/17/20 20 03/17/2020 BMP, serum or plasm a GFR - if 114.4 mL/mi n For Afric an Ameri can patie nts: Resul ts Multi plied by 1.21 Not Available [address], [address], 03/17/2020 11:52:54 03/17/20 20 03/17/2020 BMP, serum or plasm a sodium 137 mmol/ L 136-14 5 Not Available [address], [address], 03/17/2020 11:52:54 03/17/20 20 03/17/2020 BMP, serum or plasm a potassium 4.8 mmol/ L 3.5-5. 1 Not Available [address], [address], 03/17/2020 11:52:54 03/17/2003/17/2020 BMP, serum or plasm a chloride 100 mmol/ L 96-107 Not Available [address], [address], 03/17/2020 11:52:54 03/17/20 20 03/17/2020 BMP, serum or plasm a anion gap 10.1 5.0-15 .0 Not Available [address], [address], 03/17/2020 11:52:54 03/17/2003/17/2020 BMP, serum or plasm a CO2 27 mmol/ L 21-32 Not Available [address], [address], 03/17/2020 11:52:54 03/17/20 20 03/17/2020 BMP, serum or plasm a calcium 9.0 mg/dL 8.5-10 .3 Not Available [address], [address], 03/17/2020 11:52:54 03/17/20 20 03/17/2020 PSA, serum or plasm a PSA 0.75 NG/mL 0.00-4 .00 Not Available [address], [address], 03/17/2020 17:11:58 09/10/19 21 09/10/2020 BMP, serum or plasm a glucose 102 mg/dL 70-100 high Not Available [address], [address], 09/10/2020 11:04:36 09/10/19 21 09/10/2020 BMP, serum or plasm a BUN 13 mg/dL 7-18 Not Available [address], [address], 09/10/2020 11:04:36 09/10/19 21 09/10/2020 BMP, serum or plasm a creatinine 0.9 mg/dL 0.8-1. 3 Not Available [address], [address], 09/10/2020 11:04:36 09/10/19 21 09/10/2020 BMP, serum or plasm a B/C 14.4 ratio Not Available [address], [address], 09/10/2020 11:04:36 09/10/19 21 09/10/2020 BMP, serum or plasm a GFR -non 94.2 mL/mi n Recom malik d GFR by the Natio nal Kidne y Found ation >60 mL/mi n/1.7 3m2 - Olga l <60 mL/mi n/1.7 3m2 - Chron ic Kidne y Disea se <15 mL/mi n/1.7 3m2 - Kidne y Failu re Not Available [address], [address], 09/10/2020 11:04:36 09/10/19 21 09/10/2020 BMP, serum or plasm a GFR - if 114.0 mL/mi n For Afric an Ameri can patie nts: Resul ts Multi plied by 1.21 Not Available [address], [address], 09/10/2020 11:04:36 09/10/19 21 09/10/2020 BMP, serum or plasm a sodium 139 mmol/ L 136-14 5 Not Available [address], [address], 09/10/2020 11:04:36 09/10/19 21 09/10/2020 BMP, serum or plasm a potassium 4.7 mmol/ L 3.5-5. 1 Not Available [address], [address], 09/10/2020 11:04:36 09/10/19 21 09/10/2020 BMP, serum or plasm a chloride 102 mmol/ L 96-107 Not Available [address], [address], 09/10/2020 11:04:36 09/10/19 21 09/10/2020 BMP, serum or plasm a anion gap 9.3 5.0-15 .0 Not Available [address], [address], 09/10/2020 11:04:36 09/10/19 21 09/10/2020 BMP, serum or plasm a CO2 28 mmol/ L 21-32 Not Available [address], [address], 09/10/2020 11:04:36 09/10/19 21 09/10/2020 BMP, serum or plasm a calcium 8.5 mg/dL 8.5-10 .3 Not Available [address], [address], 09/10/2020 11:04:36 09/10/19 21 09/10/2020 lipid panel , serum cholesterol 193 mg/dL <200 mg/dl Carlin able 200-2 39 mg/dl Borde rline High >240 mg/dl High Not Available [address], [address], 09/10/2020 11:04:43 09/10/19 21 09/10/2020 lipid panel , serum triglyceride s 89 mg/dL <150 mg/dL Olga l 150-1 99 mg/dL Borde rline High 200-4 99 mg/dL High >500 mg/dL Very High Not Available [address], [address], 09/10/2020 11:04:43 09/10/19 21 09/10/2020 lipid panel , serum direct HDL 46 mg/dL <40 mg/dl - Major Risk for CHD >60 mg/dl - Negat jayden Risk for CHD Not Available [address], [address], 09/10/2020 11:04:43 09/10/19 21 09/10/2020 uric acid, serum or plasm a uric acid 3.8 mg/dL 3.5-7. 2 Not Available [address], [address], 09/10/2020 11:04:44 09/10/1909/10/2020 LDL, direc t, serum [...] r is not neces rob. Not Available [address], [address], 09/10/2020 11:04:45 03/23/2003/24/2021 BASIC METAB OLIC PANEL glucose 100 mg/dL 70-100 Not Available [address], [address], 03/24/2021 12:27:32 03/23/20 21 03/24/2021 BASIC METAB OLIC PANEL BUN 16 mg/dL 7-18 Not Available [address], [address], 03/24/2021 12:27:32 03/23/2003/24/2021 BASIC METAB OLIC PANEL creatinine 1.1 mg/dL 0.8-1. 3 Not Available [address], [address], 03/24/2021 12:27:32 03/23/20 21 03/24/2021 BASIC METAB OLIC PANEL B/C 14.5 ratio Not Available [address], [address], 03/24/2021 12:27:32 03/23/2003/24/2021 BASIC METAB OLIC PANEL GFR 74.7 mL/mi n Recom malik d GFR by the Natio nal Kidne y Found ation >60 mL/mi n/1.7 3m2 - Olga l <60 mL/mi n/1.7 3m2 - Chron ic Kidne y Disea se <15 mL/mi n/1.7 3m2 - Kidne y Failu re Not Available [address], [address], 03/24/2021 12:27:32 03/23/20 21 03/24/2021 BASIC METAB OLIC PANEL sodium 134 mmol/ L 136-14 5 low Not Available [address], [address], 03/24/2021 12:27:32 03/23/20 21 03/24/2021 BASIC METAB OLIC PANEL potassium 5.3 mmol/ L 3.5-5. 1 high Not Available [address], [address], 03/24/2021 12:27:32 03/23/20 21 03/24/2021 BASIC METAB OLIC PANEL chloride 99 mmol/ L 96-107 Not Available [address], [address], 03/24/2021 12:27:32 03/23/20 21 03/24/2021 BASIC METAB OLIC PANEL anion gap 7.5 5.0-15 .0 Not Available [address], [address], 03/24/2021 12:27:32 03/23/20 21 03/24/2021 BASIC METAB OLIC PANEL CO2 28 mmol/ L 21-32 Not Available [address], [address], 03/24/2021 12:27:32 03/23/20 21 03/24/2021 BASIC METAB OLIC PANEL calcium 9.1 mg/dL 8.5-10 .3 Not Available [address], [address], 03/24/2021 12:27:32 03/23/20 21 03/24/2021 LIPID PANEL cholesterol 223 mg/dL <200 mg/dl Carlin able 200-2 39 mg/dl Borde rline High >240 mg/dl High Not Available [address], [address], 03/24/2021 12:27:34 03/23/20 21 03/24/2021 LIPID PANEL triglyceride s 86 mg/dL <150 mg/dL Olga l 150-1 99 mg/dL Borde rline High 200-4 99 mg/dL High >500 mg/dL Very High Not Available [address], [address], 03/24/2021 12:27:34 03/23/20 21 03/24/2021 LIPID PANEL direct HDL 52 mg/dL <40 mg/dl - Major Risk for CHD >60 mg/dl - Negat jayden Risk for CHD Not Available [address], [address], 03/24/2021 12:27:34 03/23/20 21 03/24/2021 DIREC T [...] r is not neces rob. Not Available [address], [address], 03/24/2021 12:27:35 10/03/19 21 10/02/2020 bi US breas t limit ed (left ) Refer to the mammog sara report . Electr onical ly Signed by: Kaden andrade on 021 3:05 PM Interp reted by: Kaden andrade MD Signed by: Kaden andrade MD 1 Final result DINA L FURCOL O DINA L FURCOL O DINA L FURCOL O tfurcolo [facility] [address] [place] [address], [address], 10/03/2020 08:21:27 10/03/19 21 10/02/2020 bi mammo [...] FURCOL O DINA L FURCOL O kbekele [facility] [address] , [place], [address], 10/17/2020 12:14:06 10/03/19 21 10/02/2020 stacie BRADSHAW No observ ation record ed. [facility] [address] [place] [address] [place], [address], 10/03/2020 08:21:28 10/03/19 21 10/02/2020 MAMMO , diagn ostic No observ ation record ed. [facility] [address] [place] [address] [place], [address], 10/03/2020 08:21:28 11/26/1911/25/2020 XR, chest OBSERV ATION: [...] Physic jagdish: Celeste Sanchez ms [email or web address] [facility]) [address] [place] [address] [place], [address], 11/26/2020 16:07:41 Result Notes None recorded. Problems Name Problem SNOMED Code Status Onset Date Resolution Date Notes Provider Name and Address Organization Details Recorded Time History of exposure to lead 566668264 Active Dina Furcolo D.O. [address] [place], [place] [address], [address], [facility] 5 11:04:01 Osteoarthri tis of hip 410798893 Active Dina Furcolo D.O. [address] [place], [place] [address], [address], [facility] 5 11:04:01 Elevated blood-press ure reading without diagnosis of hypertensio n 401068054 Completed 11/06/2015 Kelsey Contreras MD [address] [place], [place] [address], [address], [facility] 6 17:38:03 Tobacco user 224686410 Active Dina Furcolo D.O. [address] [place], [place] [address], [address], [facility] 5 11:04:15 Essential hypertensio n 18806304 Active 2015 Kelsey Contreras MD [address] [place], [place] [address], [address], [facility] 6 17:38:13 Mixed hyperlipide tricia 153363555 Completed 200304/14/2015 Dina Lawson.O. [address] [facility] [place], [address], [facility] 5 11:04:01 Sweating fever 322806071 Completed 07/05/2013 Dina Lawson.O. [address] [facility] [place], [address], [facility] 5 11:04:01 Benign essential hypertensio n 1497444 Completed 200304/14/2015 Dina BarlowO. 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 [address] [facility], [address], [facility] 5 11:04:01 Peripheral enthesopath ies and allied syndromes 798039204 Completed 07/05/2013 Dina Lawson.O. [address] [facility], [address], [facility] 5 11:04:01 Malaise and fatigue 071906525 Completed 03/14/2013 Dina BarlowO. [address] [facility] [place], [address], [facility] 5 11:04:01 Toxic effect of lead compound Completed 07/05/2013 Dina BarlowO. [address] [facility], [address], [facility] 11:04:01 Problem Notes None recorded. Procedures Surgical History Date Name Laterality Status Provider Name and Address Organization Details Recorded Time 03/12/20 21 Smoking cessation counseling completed Brenna Huitron [facility] 03/12/2021 17:05:28 03/12/20 21 COPD Screening Questions completed Brenna Huitron [facility] 03/12/2021 17:25:03 11/25/19 21 Smoking cessation counseling completed Anna Russell, MAJOR [address] [place] [address], [address], [facility] 11/25/2020 14:31:40 11/18/19 21 Smoking cessation counseling completed Zoey Echeverria [facility] 11/17/2020 14:07:29 09/17/19 21 Smoking cessation counseling completed Brenna Huitron [facility] 09/16/2020 08:05:18 09/17/19 21 Carbon Monoxide Testing completed Brenna Huitron [facility] 09/16/2020 08:05:18 09/17/19 21 prevention-card iovascular risk reduction counseling completed Brenna Huitron [facility] 09/16/2020 07:59:56 09/17/19 21 prevention-jimmy al alcohol misuse screening completed Brenna Huitron [facility] 09/16/2020 07:59:56 02/27/20 20 Smoking cessation counseling [place], [address], [facility] 02/27/2020 12:23:06 10/10/19 20 Smoking cessation counseling completed Dina Melton D.O. [address] [place] [address], [address], [facility] 10/10/2019 10:41:37 12/22/19 19 [address]: Therapeutic Exercise completed Ryan Su PT [address] [place], [address], [facility] 12/21/2018 15:22:30 12/22/19 19 [address]: Manual Therapy completed Ryan Su PT [address] [place], [address], [facility] 12/21/2018 15:22:36 12/19/19 19 [address]: Therapeutic Exercise completed Ryan Su, PT [address] [place], [address], [facility] 12/19/2018 10:13:16 12/19/19 19 [address]34: Manual Therapy completed Ryan Su, PT [address] [place], [address], [facility] 12/19/2018 10:13:22 12/14/19 19 Smoking Cessation Counselling completed Ryan Su, PT [address] [place], [address], [facility] 12/14/2018 10:10:02 12/14/19 19 Physical Activity Counselling completed Ryan Su, PT [address] [place], [address], [facility] 12/14/2018 10:09:52 12/14/19 19 [address]: PT Eval, Moderate Complexity completed Ryan Su, PT [address] [place], [address], [facility] 12/14/2018 10:09:55 12/14/19 19 Smoking cessation counseling completed Brenna Huitron Phoebe [facility] 12/13/2018 09:27:56 12/14/19 19 Carbon Monoxide Testing completed DILMA Rosa [facility] 12/13/2018 09:27:56 10/31/19 19 Camille - EGD completed Logan Obrien MD [address] [place] [address], [address], [facility] 10/30/2018 10:09:49 10/31/19 19 Camille - Colonoscopy completed Lgoan Obrien MD [address] [place] [address], [address], [facility] 10/30/2018 10:25:02 09/12/19 19 Smoking cessation counseling completed DILMA Rosa [facility] 09/11/2018 10:17:33 09/12/19 19 Carbon Monoxide Testing completed Kalab Tomy, [facility] 09/11/2018 10:17:33 09/16/19 18 Refraction completed Araceli Chinchilla, [address], [place], [address], [facility] 09/15/2017 07:46:53 08/26/19 18 [facility] 08/25/2017 13:42:48 08/26/19 18 Carbon Monoxide Testing completed Brenna Alstone [facility] 08/25/2017 13:42:48 12/22/19 16 Smoking cessation counseling completed Brenna Huitron [facility] 12/22/2015 16:32:26 12/10/19 16 POC Urinalysis Testing completed Lyubov Escobar LPN [facility] 12/10/2015 12:30:17 11/20/19 16 Smoking cessation counseling completed Sheila Osiel [facility] 11/20/2015 16:02:39 04/14/20 15 Smoking cessation counseling completed Rose Zacarias MA [facility] 04/14/2015 10:36:26 11/14/19 15 Smoking cessation counseling completed Sheilarosalinda Cartagena [facility] 11/13/2014 14:34:32 11/09/19 15 Smoking cessation counseling completed Nicol Reynoso LPN [facility] 11/08/2014 17:48:04 07/10/19 15 Smoking cessation counseling completed Sheila Cartagena [facility] 07/09/2014 08:16:02 06/17/19 15 Smoking cessation counseling completed Lyubov Escobar LPN [facility] 06/17/2014 17:09:17 07/06/19 14 Smoking cessation counseling completed Mely Luque MA [facility] 07/05/2013 15:02:42 11/30/19 13 Smoking cessation counseling completed Mely Luque MA [facility] 11/29/2012 10:00:36 Imaging Results Imaging Date Name Status LastModified by Organization Details LastModified Time 10/02/2020 bi US breast limited (left) completed [facility] [address] [place], [address], 10/03/2020 08:21:27 10/02/2020 bi mammogram diagnostic with tomosynthesis with CAD (bilateral) completed [facility] [address], [place], [address], 10/17/2020 12:14:06 10/02/2020 [facility] [address] [place] [address] [place], [address], 10/03/2020 08:21:28 10/02/2020 MAMMO, diagnostic completed [facility] [address] [place] [address] [place], [address], 10/03/2020 08:21:28 11/25/2020 XR, chest completed [address] (Imaging) [address] [place], [address], 11/26/2020 16:07:41 Procedure Notes None recorded. Medical [...] /min 130 mm[Hg] 78 mm[Hg] Paola Gifford UNDERWRITING ASSISTANT [facility] 0 08:39:54 Date Recorded Body height Body mass index (BMI) Body weight Heart rate Systolic blood pressure Diastolic blood pressure Provider Name and Address Organization Details Last Updated DateTime 1 179.07 cm 26.7 kg/m2 49604.9 6 g 83 /min 135 mm[Hg] 80 mm[Hg] Brenna Huitron [facility] 1 08:08:28 Date Recorded Body height Systolic blood pressure Diastolic blood pressure Provider Name and Address Organization Details Last Updated DateTime 11/17/2020 179.07 cm 160 mm[Hg] 80 mm[Hg] Zoey Echeverria [facility] 11/17/2020 14:05:12 Date Recorded Body height Body temperature Oxygen saturation Oxygen saturation in Arterial blood by Pulse oximetry Heart rate Systolic blood pressure Diastolic blood pressure Provider Name and Address Organization Details Last Updated DateTime 1 179.07 cm 98.5 [degF] 95 % 95 % 77 /min 159 mm[Hg] 82 mm[Hg] Avani Rojo [facility] 1 16:29:09 Date Recorded Body height Body mass index (BMI) Body weight Heart rate Systolic blood pressure Diastolic blood pressure Systolic blood pressure Diastolic blood pressure Provider Name and Address Organization Details Last Updated DateTime 1 179.07 cm 26.9 kg/m2 91299.5 5 g 80 /min 138 mm[Hg] 75.98 mm[Hg] 127 mm[Hg] 73 mm[Hg] Brenna Huitron [facility] 1 17:24:42 Social History Question Answer [...] 09/11/2008 Does The Patient Have Difficulty Speaking Austrian? No Information not available 04/14/2015 Does The Patient Have Difficulty Reading Austrian? No Information not available 04/14/2015 Patient Has [...] renal failur e, DM late in life, GA x6, CVAx3 DAD: 84y/o: some kind of cancer ?colon, MIx6 BRO: 6: GA early 40s, chol SIS: 3: doesn't know health hx. KIDS: 1 daughter: a&w Medical History No medical history recorded. Immunizations Vaccine Type Date Status Note Provider Nam e and Address Organization Details Recorded Time pneumococcal polysaccharide PPV23 2 completed Not Available [facility] 05/12/2019 02:14:55 Tdap 2 completed Not Available [facility] 05/12/2019 02:15:48 Influenza, split virus, quadrivalent, PF 0 completed Evette Jefferson LPN [facility] 03/17/2020 08:30:20 Influenza, split virus, quadrivalent, PF 1 completed Dina Melton D.O. [address] [place] [address], [phone] 03/12/2021 17:38:39 Past Encounters Encounter ID Performer Location Encounter Start Date Encounter Closed Date Diagnosis/Indication Diagnosis SNOMED-CT Code Diagnosis ICD10 Code Diagnosis Note [id number] [facility] [address] [place] [address] 11/14/2003 15:27:09 11/15/2003 08:22:55 [id number] [facility] [address] [place] [address] 12/18/2003 16:17:12 12/19/2003 08:43:34 [id number] [facility] [address] [place] [address] 01/13/2004 16:37:44 01/14/2004 09:00:47 [id number] [facility] [address] [place] [address] 02/21/2004 09:19:29 02/24/2004 09:41:50 [id number] [facility] [address] [place] [address] 03/02/2004 09:19:50 03/02/2004 16:52:51 [id number] [facility] [address] [place] [address] 03/31/2004 16:35:43 04/01/2004 09:08:[id number] [facility], OFFICE [address] [place] [address] 09/11/2008 09:09:36 09/12/2008 09:09:[id number] [facility], OFFICE [address] [place] [address] 09/13/2008 10:29:18 09/17/2008 08:24:12 [id number] [facility] [address] [place] [address] 09/13/2008 10:28:50 09/13/2008 10:28:57 [id number] [facility] OFFICE [address] [place] [address] 04/11/2009 08:00:07 04/14/2009 07:56:02 [id number] [facility], OFFICE [address] [place] [address] 06/01/2009 10:48:12 06/04/2009 08:22:25 [id number] [facility] OFFICE [address] [place] [address] 1 08/16/2011 10:16:35 08/16/2011 10:58:59 [id number] [facility] , [facility] [address] [place] [address] 08/19/2011 12:22:45 08/20/2011 11:11:03 [id number] Joey Castelan III, MD [facility], OFFICE [address] [place] [address] 1 02/16/2012 08:57:05 02/16/2012 10:00:02 [id number] Jane Sanderson MD , [facility], OFFICE [address] [place] [address] 10/05/2012 16:41:36 10/05/2012 17:13:10 [id number] MA [facility], OFFICE [address] [place] [address] 11/29/2012 09:51:53 11/29/2012 10:13:[id number] [facility], OFFICE [address] [place] [address] 1 07/05/2013 14:49:51 07/06/2013 08:30:23 Benign essential hypertension 3389090 Blood pressure at goal Adult heal th examination [id number] see Risk Assessment and Lifestyle Change Counseling section above Counseling 026043170 Tobacco user 083115178 Elevated blood-pressure reading without diagnosis of hypertension 341895820 History of exposure to lead 715350657 current lead level remains low. Alejandro is being very cautious about lead exposure, wearing a mask when working. [id number] [facility], OFFICE [address] [place] [address] 1 06/17/2014 16:56:48 06/17/2014 17:28:31 Tobacco user 520871857 Hip pain 04252361 Tinea cruris 832111729 Epidermoid cyst of skin 669560667 [id number] Sheila Cartagena [facility], OFFICE [address] [place] [address] 1 07/09/2014 08:08:37 07/12/2014 11:25:12 Benign essential hypertension 4400941 Blood pressure at goal Blood pressure NOT at goal. Tobacco user 028752006 Adult [facility] examination 562665830 see Risk Assessment and Lifestyle Change Counseling section above Counseling [id number] Suni Albright [facility], OFFICE [address] [place] [address] 1 11/08/2014 17:15:37 11/08/2014 19:49:26 Tobacco user 508918226 Tachycardia 0435673 sinu s tach on EKG lab/xray closed late TUE- will send to [facility] for labs/imagi ng may be related to nicotine withdrawal - recommend using patch, not e-cig Dyspnea 252193661 smoker , right sided chest pain O2 sat 97% will get CXR [id number] Latoya Nayak [facility], OFFICE [address] [place] [address] 1 11/13/2014 14:24:40 11/14/2014 11:35:05 Tobacco user 523642828 Chest wall pain 097192880 Muscular etiology. Maxillary sinusitis 28107588 Add nasal saline. Tachycardia 1124794 Puls e 104, Alejandro is very anxious. [id number] Ari Astudillo MD [facility], OFFICE [address] [place] [address] 1 01/22/2015 10:25:43 01/22/2015 11:08:03 Maxillary sinusitis 49543949 Pre-surger y evaluation 998878774 [id number] Dina Melton D.O. [facility], OFFICE [address] [place] [address] 04/14/2015 10:30:30 04/14/2015 11:03:18 Tobacco user 273120486 Z72.0 motivated to quit - but too chaotic tis year 1st cigatrette - usually around 10 am- later Elevated blood-pressure reading without diagnosis of hypertension 989440484 R03.0 better today [id number] Kelsey Contreras MD , [facility], OFFICE [address] [place] [address] 11/06/2015 15:44:30 11/06/2015 16:24:25 Benign essential hypertension 0772661 I10 not controlled , not on meds, will start on lisinopril 10 mg w FU visit in 2 wk to recheck his BW Venous thrombosis 845046 003 I82.90 of the superficia l vein injured as a normal reaction of the vessel injury to stop bleeding, counseled [id number] Kelsey Contreras MD , [facility], OFFICE [address] [place] [address] 1 11/20/2015 15:56:09 11/24/2015 11:04:22 Cigarette smoker 85200785 F17.210 counseled, not ready to quit and if ready then will do it w/o meds Tobacco user 860397055 Z 72.0 same as above Essential hypertension 65615308 I10 better, will cont lisinopril current dose [id number] Cedrick Reza MD , [facility], OFFICE [address] [place] [address] 12/10/2015 12:26:47 12/15/2015 11:52:57 Lightheadedness 490252442 R42 recurrence of orthostati c symptoms from few years ago, DR castelan had tried to evaluate him during an event, but never got to. has had half a dozen over 5 years. this is third day, escalating . 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 [id number] Dina PERRY, [facility], OFFICE [address] [place] [address] 12/22/2015 15:44:55 12/22/2015 17:05:15 Adult health examination 197366993 Z00.00 see Risk Assessment and Lifestyle Change Counseling section above Counseling 206608281 Z71 .9 Mixed hyperlipidemia 267 619780 E78.2 Cholestero l is at goal Cigarette smoker 8701469 7 F17.210 did quit last yearsmokes less than 20 cigs per daywife does take a pill to cut down - he will let me know what it is Tobacco user 446057127 Z 72.0 Essential hypertension 55607483 I10 takes lisinopril dailymildl y elevated- repeat improved [id number] Dina PERRY, [facility], OFFICE [address] [place] [address] 08/25/2017 13:32:19 08/25/2017 14:52:57 Adult health examination 649451346 Z00.00 see Risk Assessment and Lifestyle Change Counseling section above Counseling 761464689 Z71 .9 Depression screening 171 936295 Z13.89 depression screening tool administer ed, entered into emr, scored and discussed, time greater than 7.5 minutes Benign ess ential hypertension 0885012 I10 Blood pressure elevated- does not take his BP meds daily as he should- really encouraged to take dailyrecom mend baby ASAsmokes 10 cigs per day Cigarette smoker 8136683 7 F17.210 smokes less than 10 cigs per dayimprove d from 2 ppd a few years agodoesn;t like pills- patches sweat off. does have gumis motivated to not smoke morewill continue to try and smoke less Tobacco user 007847949 Z 72.0 [id number] Araceli Chinchilla, [facility], [facility] [address] [place] [address] 09/15/2017 07:37:28 09/15/2017 08:40:35 Presbyopia 18469871 H52.4 [id number] Cedrick Reza MD , [facility], OFFICE [address] [place] [address] 02/07/2018 08:51:25 02/07/2018 17:36:56 Pain in eye 63007299 H57.11 Right eye pain following injury- hit in face with lead line from horse. Now with worsening eye pain and light sensitivit y x 2-3 days. Will send upstairs to optho for eval now. Facial laceration 803562 008 S01.81XA Multiple small healing laceration s to forehead/u nder right eye. No signs of infection. Keep area clean and discussed signs/symp toms to monitor for. [id number] Araceli Chinchilla, [facility], [address] [address] 02/07/2018 09:35:00 02/07/2018 11:39:17 Conjunctivitis 1146942 H10.9 [id number] Araceli Chinchilla, [facility], [address] [address] 02/09/2018 15:10:03 02/09/2018 15:44:44 Conjunctivitis 2492012 H10.9 c/o topical medication for another 4 days then d/c it. [id number] Dina Melton D.O. , [facility], OFFICE [address] [facility] [place] [place] [address] 09/11/2018 09:50:02 09/11/2018 10:47:00 Adult health examination 383898288 Z00.00 see Risk Assessment and Lifestyle Change Counseling section above Counseling 266415577 Z71 .9 Depression screening 171 703402 Z13.89 depression screening tool administer ed, entered into emr, scored and discussed, time greater than 7.5 minutes Cigarette smoker 2163676 7 F17.210 smokes less than 10 cigs per daynot motivated to quitencour aged him to go to dentist- poor dentititon Tobacco user 001055720 Z 72.0 Screening for malignant neoplasm of colon 619518084 Z12.11 Referral for a DIRECT booked colonoscop y. This patient is a healthy ASA Class 1 or 2 patient (only mild systemic disease), or a STABLE, well controlled insulin dependent diabetic. They do not have serious cardiac disease ie GA/angiopl asty within 1 year, symptomati c CHF; renal failure with CKD 4 or 5; take Coumadin, Plavix, Aggrenox, etc. Essential hypertension 19232133 I10 Benign ess ential hypertension 3399564 I10 doesn't take his BP medwill start higher dose and f/u at BP clinic in 3 weeks. if still >140/90- will increase lisinopril to 30 mg daily [id number] Lyubov Escobar LPN , [facility], OFFICE [address] [place] [address] 09/25/2018 08:11:04 09/25/2018 08:35:59 Essential hypertension 94593825 I10 [id number] Fausto Quinonez RN [facility], [address] [address] 10/30/2018 08:22:38 10/30/2018 12:53:43 [id number] Dina Melton D.O. , [facility], OFFICE [address] [place] [address] 12/13/2018 09:23:42 12/13/2018 09:44:40 Cigarette smoker 95320255 F17.210 smoking more while out of work for a few days and recent paintrying to get more activemoti vated to cut down, not motivated to quitcurren tly Tobacco user 878361624 Z 72.0 Contusion of lower back 199355385 S30.0XXA Knee pain 94906085 M25.5 69 contusions post legsupprot jayden care, ok to use aspercreme , heating pads [id number] Ryan Nur i, PT [facility], [address] [address] 12/13/2018 11:58:48 12/14/2018 10:13:18 Low back pain 516144127 M54.5 [id number] Ryan Nur i, PT [facility], [address] [address] 12/18/2018 14:57:15 12/19/2018 13:05:05 Low back pain 178422510 M54.5 [id number] Ryan Nur i, PT [facility], [address] [address] 12/21/2018 14:46:41 12/21/2018 15:37:52 Low back pain 080650485 M54.5 [id number] Logan Modi MD , [facility], [address] [place] [address] 03/31/2019 11:39:22 03/31/2019 12:44:11 Foot pain 60313486 M79.426 [id number] Dina Melton D.O. , [facility], OFFICE [address] [place] [address] 10/10/2019 10:21:06 10/10/2019 11:02:56 Acute sinusitis 28766347 J01.90 prev sinus infection after dental extraction 2018poor dentition Benign ess ential hypertension 9364304 I10 doesn't take his BP often Tobacco user 280185047 Z 72.0 cutting back on cigarettes [id number] Dina Melton D.O. 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 BP check- will schedule him in BP clinic- goal is <140/90 Tobacco user 786351845 Z 72.0 smoking only 10 cigs a daydoes use nicotine patches/gu mwith his new job- better influences - smoking less Benign ess ential hypertension 6367107 I10 doesn't take his BP often- recommend coming to BP clinic- with flu shot as well Nocturia 346918867 R35.1 drinks a lot of water - stays hydrated- feels like her wakes 304 times at night for urinating [id number] Evette Jefferson LPN , [facility], [address]ICE [address] [place] [address] 03/17/2020 08:20:01 03/19/2020 07:41:57 Active or passive immunization 634781602 Z23 [id number] Paola Gifford LPN , [facility], OFFICE [address] [place] [address] 03/31/2020 08:21:26 03/31/2020 08:50:26 Essential hypertension 47498222 I10 stopped drinking 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, OFFICE [address] [place] [address] 09/16/2020 07:54:50 09/16/2020 08:35:08 Adult health examination 165139637 Z00.00 see Risk Assessment and Lifestyle Change Counseling section above Counseling 175556265 Z71 .9 including cardiovasc ular risk reduction counseling Depression screening 171 361571 Z13.31 depression screening tool administer ed, entered into emr, scored and discussed, time greater than 7.5 minutes Screening for alcohol abuse 071342759 Z13.39 Essential hypertension 00488633 I10 at goal as <140/90 on lisinopril 20 mg Cigarette smoker 3878430 7 F17.210 willing to start chantix Tobacco user 439619012 Z 72.0 willing to try chantix- 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 worked for his friends Mastodynia of left breast 3279010785 5740473 N64.4 off and on pain for the last 2 months left side of chest- reproducib le- no palpable rib deformity or mass palpated will do breats u/s [id number] Cedrick Reza MD , [facility], OFFICE [address] [place] [address] 11/17/2020 13:59:54 11/18/2020 07:58:03 Cigarette smoker 60323512 F17.210 Tobacco user 389470107 Z 72.0 Acute bronchitis 7141369 2 J20.9 bibasilar rales cleared with coughworki ng today , no DOEPMH ptstates he had covid 19 c/o diamond and loss smellrx Z pack [id number] Anna Russell NP , [facility], [address] [place] [address] 11/24/2020 15:37:49 11/26/2020 15:34:26 Cigarette smoker 06340132 F17.210 Tobacco user 620616259 Z 72.0 Has nicotine gum; has tried chantix - not smoking now with cough Cough 31559444 R05 Start guaifenesi n/codeineW ill order chest Xray to r/o pna.RTO for worsening sx or no improvemen t. [id number] Dina Melton D.O. , [facility], [address]ICE [address] [place] [address] 03/12/2021 16:57:44 03/15/2021 14:26:19 Essential hypertension 74985158 I10 suspect will need better BP controil- will be trying to quit smokingtod ay took 20 mg lisinoipri l- but has been incorrectl y filling the 10 mg pills Cigarette smoker 7477340 7 F17.210 previously used chantix- discussed recallsinc e desiring to quit- will do outreach with Edis Annmichelleronaldo to underlying anxiety- ok to start wellbutrin Tobacco user 825808946 Z 72.0 Active or passive immunization 859074947 Z23 Anxiety 31893242 F41.9 Health Concerns Section Related Observation LastModified by Organization Detai ls LastModified Time None Recorded Concern Status LastModified by Organization Details LastModified Time None Recorded Advance Directives Directive None Recorded Payers Encounter Date Sequence Insurance Name Policy Number Policy Diaz Covered Member ID Diaz Member ID Guarantor Name 03/31/2020 1 [place] PRIOR [place] 2022 - [facility] (MEDICAID) Cristian Dobbs [id number] Cristian Dobbs 09/16/2020 1 [place] 20[place] - [facility] (MEDICAID) Cristian Dobbs [id number] Cristian Dobbs 11/17/2020 1 [place] 20[place] - [facility] (MEDICAID) rCistian Dobbs [id number] Cristian Dobbs 11/24/2020 1 [place] - [facility] (MEDICAID) Cristian Dobbs [id number] Cristian Dobbs 03/12/2021 1 [place] 20[place] - [facility] (MEDICAID) Cristian Dobbs [id number] Cristian Dobbs Notes Date Note Type Note Provider Name and Address Organization Details Recorded Time 0 text/html Patient presents for BP check. Paola Gifford LPN [facility] 03/31/2020 08:50:25 1 text/html Physical Exam/MaleReported bypatient.PHAPatient [...] room and availability of urgent care at [facility] HypertensionReported bypatient.Control:Patient understands medications are to lower blood pressure Compliance:Noncompliant with medications;Noncompliant with diet;Noncompliant with follow-up visits Barriers to Carehas no time; under stress Self Care:uses BP cuffs [facility] Associated Symptoms:No chest pain; No shortness of breath; No edema; No fatigue; No palpitations; No decline in exercise capacity; No snoring/[facility] [place]-sm[place] [id number] bypatient.Notes:has tried patches and gumwanting to quit Dina Melton D.O. 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 Smoking less- unable to with current coughHas chantixDenied other quit aides Anna Russell NP [address] [place], [address], [facility] 11/25/2020 14:35:58 1 text/html Time for intake: {{1 2 3 4* 5 6 7 8 9 10 1 1 12 13 14 15 16 17 18 19 20 21 22 23 24 25}} minutes. 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 [address] [place] [address], [phone], [facility] 03/12/2021 21:53:16
--- OUTSIDE RECORDS SUMMARY | 2024-05-29 06:46 | XMS_ITS | Encounter Summary ---
Author Organization [employer] Address [address] [place] [address] Care Team Providers Care Dx Board Operator Name Role Phone Unavailable Primary Care Provider Unavailabl e Reason for Visit * Reason Onset Date Comments tx clarification/active request 09/12/2023 Encounter Details Date Type Department Care Team (Late st Contact Info) Description 09/12/[address] [facility] [address] [place], [place] [phone] Bárbara Wilkins BDS [address] [place], [place] [phone] tx clarification/active request Social History Tobacco Use Types Packs/Day Years Used Date Smoking Tobacco: Every Day Cigarettes Smokeless Tobacco: Never Sex and Gender Information Value Date Recorded Sex Assigned at Male 07/04/2023 10:59 AM EDT Legal Sex Male 10:58 AM EDT Gender Identity Male 07/04/2023 10:59 AM EDT Sexual Orientation Straight 07/04/2023 10 :59 AM EDT documented as of this encounter Miscellaneous Notes * Telephone Encounter - Court Brannon - 09/14/2023 9:22 AM EDT This message was sent to Dr. Foley and it is addressed to him on PAR side * Telephone Encounter - Ciaran Stallings DMD - 09/12/2023 8:30 AM EDT Please follow up with Dr. Foley * Telephone Encounter - Court Brannon - 09/12/2023 8:26 AM EDT Patient called in asking for appt with Oral Surgeon. Appt was not requested and not sure if I missed it but don't see a note patient needs to be scheduled with oral surgeon. Pls clarify and/or request visit so patient can go on wait list to see oral surgeon. documented in this encounter Plan of Treatment Not on file documented as of this encounter Visit Diagnoses Not on filedocumented in this encounter
--- OUTSIDE RECORDS SUMMARY | 2024-05-29 06:46 | XMS_ITS | Clinical Summary ---
Author Organization [employer] Address [address] [place] [address] [place] [address] Care Team Providers Care Government Affairs Specialist Name Role Phone Unavailable Primary Care Provider Unavailabl e Allergies No known active allergies Medications hydroCHLOROthiazid e (Microzide) 12.5 MG capsule 07/09/2023 Active lisinopril 20 MG tablet 05/09/2023 Active Encounters Date Type Department Care Team Description 04/03/2024 3:30 PM EST Office Visit [facility] [address] [place] [address] Bárbara Wilkins BDS Partially edentulous maxilla, unspecified edentulism class (Primary Dx); Partially edentulous mandible, unspecified edentulism class 03/19/2024 3:30 PM EST Office Visit [facility] [address] [place] [address] Bárbara Wilkins BDS from Last 3 Months Social History Tobacco Use Types Packs/Day Years Used Date Smoking Tobacco: Every Day Cigarettes Smokeless Tobacco: Never Tobacco Cessation:Ready to Q uit: Not Asked; Counseling Given: Not Answered Sex and Gender Information Value Date Recorded Sex Assigned at Male 07/04/2023 10:59 AM EDT Legal Sex Male 10:58 AM EDT Gender Identity Male 07/04/2023 10:59 AM EDT Sexual Orientation Straight 07/04/2023 10 :59 AM EDT Last Filed Vital Signs Vital Sign Reading Time Taken Comments Blood Pressure 124/62 02/22/2024 11:05 AM EDT Pulse 91 02/22/2024 11:05 AM EDT Temperature - - Respiratory Rate - - Oxygen Saturation - - Inhaled Oxygen Concentration - - Weight - - Height - - Body Mass Index - - Plan of Treatment Health Maintenance Due Date Last Done Comments CT Colonography 1968 Colonoscopy 1968 Colorectal Cancer Screening 1968 Dental Oral Exam 1968 Depression Screening 1968 FIT DNA/Cologuard 1968 FIT 1968 FOBT 1968 HIV Screening 1968 Lipid Panel 1968 SDOH Screening 1968 Sigmoidoscopy 1968 Alcohol/Substance Use Screening 1980 Hepatitis C Screening 1986 Hepatitis B Vaccines (1 of 3 - 19+ 3-dose series) 1987 Pneumococcal Vaccine: 50+ Years (2 of 2 - PCV) 02/15/2013 02/16/2012 Zoster Vaccines (1 of 2) 2018 DTaP/Tdap/Td Vaccines (2 - T d or Tdap) 02/15/2022 02/16/2012 COVID-19 Vaccine (3 - 2023-2 5 season) 2023 12/04/2020, 11/06/2020 Influenza Vaccine (#1) 2023 , 03/17/2020 Dental X-Ray: Bitewings 07/20/2024 07/20/2023 Dental Prophylaxis 08/23/2024 02/22/2024 Tobacco Screening 04/03/2025 04/03/2024 Dental X-Ray: Full Mouth 07/20/2026 07/20/2023 RSV Patients and Patients Aged 60 years or older (1 - 1-dose 75+ series) 2043 HIB Vaccines Aged Out No longer eligi ble based on patient's age to complete this topic HPV Vaccines Aged Out No longer eligi ble based on patient's age to complete this topic Hepatitis A Vaccines Aged Out No long er eligible based on patient's age to complete this topic IPV Vaccines Aged Out No longer eligi ble based on patient's age to complete this topic Meningococcal Vaccine Aged Out No kristen amanda eligible based on patient's age to complete this topic RSV under 20 months Aged Out No longe r eligible based on patient's age to complete this topic Rotavirus Vaccines Aged Out No longer eligible based on patient's age to complete this topic Procedures Procedure Name Priority Date/Time Associated Diagnosis Comments WAX TRY IN Routine 04/03/2024 3:30 PM EST BITE REGISTRATION Routine 03/19/2024 3:3 0 PM EST PROPHYLAXIS - ADULT Routine 02/22/2024 1 1:00 AM EDT DIAGNOSTIC - DIAGNOSTIC IMAGING - INTRAORAL - COMPREHENSIVE SERIES OF RADIOGRAPHIC IMAGES Routine 07/20/2023 10:00 AM EDT from Last 3 Months or Most Recently Relevant to Health Maintenance Insurance [facility] - [facility] PARTIAL (MEDICAID)
--- OUTSIDE RECORDS SUMMARY | 2024-05-29 06:46 | XMS_ITS | Encounter Summary ---
Author Organization [facility] Address [address] [place] [address] Care Team Providers Care Laborer Plumbing Name Role Phone Unavailable Primary Care Provider Unavailabl e Reason for Visit * Reason Onset Date Comments alveloplasty [facility]?? 11/10/2023 Encounter Details Date Type Department Care Team (Late st Contact Info) Description 11/10/2023 Telephone C [facility] [address], [place] [id number] Bárbara Wilkins Macy [address] [place], [place] [id number] alveloplasty [facility]?? Social History Tobacco Use Types Packs/Day Years [...] * Telephone Encounter - Court Brannon - 11/10/2023 10:01 AM EDT Patient called here 2 times requesting a visit for aguilar removal prior to doing dentures/partials. I transferred call over to [facility] first time and he called back again. Reason being that there is no active request for Oral Surgery request for alveloplasty for [facility] documented or requested in patient chart. They want to be scheduled but if its not active requested I'm unable to have office schedule. Ca n this be clarified? I did tell him that he would get a call back from either office to clarify buthe said he was also going in office today for stitch removal and he will address when he comes in DR documented in this encounter Plan of Treatment Not on file documented as of this encounter Visit Diagnoses Not on filedocumented in this encounter
[2024-05-29] MEDS: Albuterol Sulfate (0.083%) 2.5 MG/3 ML VIAL.NEB INHALE (06:57)
--- NOTE | 2024-05-29 07:20 | MHC.SHP ---
Pre-Procedural Eval Section A - 24 Hr Update-Section A only Date of Service: 05/29/24 Section B - Complete if H&P > 30 days Chief Complaint: For reversal of colostomy Details of Present Illness: A Lucia's procedure in December,, for severe diverticulitis, now for reversal of colostomy, possible diverting loop ileostomy Relevant Family History (Specify if Yes): No Relevant Social History: None Present Medications: see Short Stay Collaborative assessment Medical History: Significant History (Smoker, GERD, arthritis) Allergies: Allergies Allergy/AdvReac Type Severity Reaction Status Date / Time No Known Allergies Allergy Verified 05/29/24 06:19 Review of Systems Sugical H&P ROS: Negative: Constitution, Cardiovascular and Respiratory Exam Surgical H&P Exam: Normal: Heart, Normal: Lungs and Normal: Abdomen (Colostomy on the left side) Plan Diagnosis/Plan: Unchanged I have reviewed the history and physical and performed a pertinent physical examination on my patient. No changes have occurred unless specified. Time Spent With Patient Time: Total time managing care of this patient today ____ minutes.
--- NOTE | 2024-05-29 07:20 | PHA.MEDREC ---
Pharmacy Consult ? Medication Reconciliation Pharmacy has completed the medication reconciliation. Spoke to patient at bedside, he confirmed he takes his water pill and a 20mg pill for blood pressure as well as the middle dose nicotine patch.
--- NOTE | 2024-05-29 07:41 | PC.NURSE ---
Patient in preop, BP low. Patient denies lightheadedness/dizziness at this time. States Sometimes I am lightheaded at home but I feel good now . IV placed and fluids started. BPs retaken often and patient remains asymptomatic, see Vital Signs. Dr. Molina made aware and at bedside. No new orders at this time.
[2024-05-29] MEDS: cefoTEtan disodium 2 GM VIAL IVPUSH (08:28)
--- NOTE | 2024-05-29 10:37 | P.OP_ITS ---
Operative Note Operative Note Date of Service: 05/29/24 Narrative: Preop diagnosis: Status post Lucia's procedure for severe diverticulitis Postop diagnosis: The same Procedure: Hand assisted laparoscopic reversal of an end-colostomy, extensive lysis of adhesions, reanastomosis with an end-to-end circular stapler, flexible sigmoidoscopy Surgeon: Carlyle Skelton MD geological survey field assistant: EZIO Rm The patient is a 54-year-old male who had undergone Lucia's procedure for she had diverticulitis December,. He is here for reversal of the colostomy. He understood the technique of the planned procedure as well as the risks, benefits, and alternatives He was brought to the operating room. He was placed in modified lithotomy position under general anesthesia via endotracheal tube. A TAP block was done by the anesthesiologist. A Stoll catheter was inserted. The abdomen was prepped and draped in the usual sterile fashion. A surgical time-out was done. The patient received Cefotan 2 g IV preoperatively. I closed the rectal stump with a running 3-0 Polysorb stitch earlier. I made a short incision on the low midline with a blade 15. It was carried down through the full-thickness of the skin and subcutaneous fat. It it was noted that there was note of a lot of fibrotic changes in the abdominal wall in view of his previous incision. I expose the fascia. I incised the fascia carefully in layers until the peritoneum was entered. I incised the fascial opening to demise the length of the skin incision. There was note of extensive adhesions in the left side of the abdominal wall. There was a small bowel loop that was extensively adherent on this area. We had to carefully do lysis of adhesions with the Metzenbaum scissors slowly, care being taken so as not to injure the involved small bowel. Eventually were able to release this loop I was able to then apply the Bismark wound retractor. We attached the GelPort along with the insufflating port. We used the 10 mm 30 degree scope through the GelPort. With laparoscopic visualization I proceeded to then insert a 5/12 mm port in the epigastric area. We moved the camera through this working port. The insufflating port was removed. The patient was placed in a steep head-down position. I inserted my hand through the GelPort. I reflected the bowel loops away from the pelvis. There was note of extensive adhesions tethering the small bowel to the pelvis and the rectal stump. We had to do careful lysis of adhesions extensively using Metzenbaum scissors as well as the LigaSure. This part of the procedure took some time Eventually as able to release small bowel loops away from the pelvis as well as from the rectal stump. I used a moist lap to reflect all the small bowel loops away from the pelvis and achieve good visualization I was able to identify the long rectal stump. I carefully defined this. I incised the peritoneum of the rectal stump on both the left and right side using the LigaSure. I mobilized this all the way to the distal rectum. Since there was note of a good length of the rectal stump I decided to transect this in preparation for our end-to-end anastomosis. I created a mesenteric defect in the distal rectum. I used the powered 45 mm stapler across this mesenteric defect and divided the distal rectum. I then proceeded to transect the attached mesentery using the LigaSure. This old rectal stump was therefore delivered and sent as a specimen I examined the colostomy site from the peritoneal side. There were some adhesions from the peritoneal side which I divided with the LigaSure I then desufflated and proceeded to mobilize and free up the colostomy. I incised the skin surrounding the stoma with a blade 15. I carried down the incision with electrocautery through the full-thickness of the skin and subcutaneous fat to expose the fascia. I bluntly dissected the fascia to expose the interface between the colon wall and the fascial edge. I divided adhesions within this interface using the Metzenbaum scissors to free up the entire colon stump. This took an extended period time in view of the amount of adhesions surrounding the area. Eventually was able to free up the entire colostomy stump and this was reduced into the peritoneal cavity through the incision There were more adhesions tethering the stoma from the peritoneal side which I divided with Metzenbaum scissors and electrocautery. Eventually the entire stoma was completely freed. I proceeded to prepare the stump for the anvil. I excised the edge of the stoma using electrocautery. I dilated the new opening of the colon to medium-sized dilator. I then applied my pursestring using a Prolene 2-0. I positioned the anvil of the 28 mm EEA stapler into the lumen and tightened the pursestring. I cleaned up excess fatty tissue from the pursestring itself . I replaced this pursestringed stump back into the peritoneal cavity. I reapplied the Bismark wound retractor and the GelPort. I examined laparoscopically there was note of adhesions tethering the left colon to the sidewall so I had to carefully lyse this with LigaSure to allow more length into the pelvis. I also divided the ligamentous attachments along the white line of Toldt on the left colon to achieve more length We tested the stump for length and this reach the pelvis without difficulty. I changed gloves at this point. The assistant property manager then proceeded to use the dilators through the rectal stump. We then positioned the 28 mm EEA stapler apparatus into the rectal stump. We chose the wall anterior to the staple line. We activated the spike of the apparatus. We attached the anvil into the apparatus and tightened the stapler. Suture that there were no bowel loops caught between the staple lines. The stapler was fired to create our circular anastomosis. We removed the entire EEA apparatus. Both anastomotic donuts were intact and complete We insufflated with a bulb syringe into the rectum to check for any leak. The staple line was immersed in irrigation fluid and there was no bubbling seen He proceeded to do a flexible sigmoidoscopy to examined the staple line. The assistant property manager proceeded to insert the flexible sigmoidoscope into the rectum with insufflation past the staple line. We removed withdrew and examined the staple line. There was note of good hemostasis. The staple line appeared intact and nonischemic. The rest of the rectum was unremarkable as we withdrew the sigmoidoscope completely We then proceeded to examine the peritoneal cavity laparoscopically. There was note of good hemostasis so we desufflated. I then proceeded to examine the small bowel loops from distal to proximal. We particularly examined the areas that were earlier adherent and required lysis of adhesions. These were all intact with any significant serosal tear nor injury Once the small bowel loops were examined carefully, we proceeded to replaced this back into the peritoneal cavity I then proceeded to close the fascia of the midline with a running Maxon 1 stitch. We examined this laparoscopically from the epigastric port and this appeared intact without any bowel caught by the sutures We desufflated through the epigastric port and removed this. I closed all skin incisions with skin paul. Iodoform packing was placed on the old colostomy site in between the paul Dressings were applied. The procedure was completed The patient tolerated the procedure well. There were no immediate complications. Initial and final counts of sponges and instruments were correct. Estimated blood loss about 100 cc The patient was extubated without difficulty and transferred to the recovery room with stable vital signs
[2024-05-29] MEDS: Acetaminophen 1,000 MG/100 ML PIGGYBACK 400 MG IV ×3 (11:09→23:29)
[2024-05-29] MEDS: HYDROmorphone HCl 0.5 MG/0.5 ML SYRINGE IVPUSH ×3 (14:25→23:31)
--- NOTE | 2024-05-29 14:57 | PM.EVENT ---
Event Note Date of Service: 05/29/24 Event Note: Seen postop Underwent reversal of end colostomy earlier today Appears to have good pain control Stable vital signs Abdomen is soft Good urine output, clear Pain management Incentive spirometry at bedside, updated On clear liquids Time Spent With Patient Time: Total time managing care of this patient today ____ minutes.
[2024-05-29] MEDS: Nicotine 14 MG PATCH.TD24 TRANSDERMA (16:16)
[2024-05-29] MEDS: Calcium Carbonate 750 MG TAB.CHEW PO (20:32)
[2024-05-29] MEDS: Melatonin 3 MG TABLET 6 MG PO (20:50)
[2024-05-30 04:00] VITALS: BP 134/71; PULSE 73; RESP 16; TEMP 36.4; O2SAT 97
[2024-05-30] MEDS: HYDROmorphone HCl 0.5 MG/0.5 ML SYRINGE IVPUSH ×2 (04:47→20:08)
[2024-05-30] MEDS: Acetaminophen 1,000 MG/100 ML PIGGYBACK 200 MG IV (04:47)
[2024-05-30 06:32] LABS: MANUAL DIFF FLAG NO
[2024-05-30 06:34] LABS: Basophils Percent Auto 0.2 % (0-2); Hematocrit 40.4 % (42.0-52.0); Hemoglobin 14.2 g/dl (14.0-18.0); Imm Gran Abs Auto 0.06 X10*3/uL (0.00-0.03); Imm Gran Pct Auto 0.5 % (0.0-0.4); Lymphocytes Absolute Auto 1.2 X10*3/uL (1.2-4.9); Lymphocytes Percent Auto 9.3 % (20-40); Mean Corpuscular HGB Conc 35.1 g/dl (31.0-36.0); Mean Corpuscular Hemoglobin 31.1 pg (27.0-33.0); Mean Corpuscular Volume 88.6 fL (80.0-98.0); Mean Platelet Volume 10.9 fL (9.4-12.4); Monocytes Absolute Auto 0.9 X10*3/uL (0.1-1.2); Monocytes Percent Auto 7.3 % (2-11); Neutrophils Absolute Auto 10.5 x10*3/uL (2.0-8.3); Neutrophils Percent Auto 82.7 % (45-73); Platelet Count 222 X10*3/uL (160-400); Red Blood Count 4.56 X10*6/uL (4.60-5.80); Red Cell Distribution Width 13.8 % (11.0-16.0); White Blood Count 12.6 X10*3/uL (4.8-10.8)
--- NOTE | 2024-05-30 06:37 | P.PNGS_ITS ---
Subjective Subjective Date of Service: 05/30/24 <[facility] - Last Filed: 05/30/24 07:08> 05/30/24 <Yessenia Rm PA-C - Last Filed: 05/30/24 07:53> 05/30/24 <Carlyle Skelton MD - Last Filed: 05/30/24 07:57> Interval history: Patient seen and examined this morning. Patient states he feels sore, mostly when he repositions himself in bed. Has some pain in abdomen upon inspiration. Has not been OOB. No bowel movment or flatulence yet. Ryan chest pain, shortness of breath, nausea, or vomiting. <[facility] - Last Filed: 05/30/24 07:08> Physical Exam 2 Vital Signs: Vital Signs: Last Vital Signs Temp 97.6 F 05/30/24 04:00 Pulse 73 05/30/24 04:00 Resp 16 05/30/24 04:00 BP 134/71 05/30/24 04:00 Pulse Ox 97 05/30/24 04:00 O2 Del Method Room Air 05/30/24 04:00 O2 Flow Rate 2 05/29/24 11:12 BMI result Body Mass Index 24.0 <[facility] Last Filed: 05/30/24 07:08> Const: Other: Well appearing male, laying in bed, awake, calm, in no acute distress <[facility] Last Filed: 05/30/24 07:08> Orientation/consciousness: patient oriented x3 <[facility] Last Filed: 05/30/24 07:08> HEENT: Head: Yes normocephalic and Yes atraumatic <[facility] Last Filed: 05/30/24 07:08> Eyes: Other: no scleral icterus noted <[facility] Last Filed: 05/30/24 07:08> Resp: Other: Lungs clear to auscultation, no increased work of breathing <[facility] Last Filed: 05/30/24 07:08> Cardio: Other: Regular rate and rhythm <[facility] - Last Filed: 05/30/24 07:08> GI: Other: Abdomen is soft and non tender, non distended, dressings intact with slight saturation. <[facility] - Last Filed: 05/30/24 07:08> Other: Abdomen is soft and non tender, non distended, dressings intact with slight saturation of old colostomy site <Yessenia Rm PA-C - Last Filed: 05/30/24 07:53> : Other: Urinary catheter in place <[facility] - Last Filed: 05/30/24 07:08> Skin: Other: No lesions or rashes noted. <[facility] - Last Filed: 05/30/24 07:08> Neuro: General: patient oriented x3 <[facility] - Last Filed: 05/30/24 07:08> Extrem: Other: Moving all extremities normally. No lower extremity edema noted. <[facility] - Last Filed: 05/30/24 07:08> Objective Data Active Medications Calcium Carbonate (Calcium Carbonate 750 Mg Tab.Chew) 750 mg PO Q4H PRN PRN Reason: Heartburn Last Admin: 05/29/24 20:32 Dose: 750 mg Documented By: SANTY Heparin Sodium (Porcine) (Heparin Sodium,Porcine 5,000 Unit/Ml Vial) 5,000 unit SUBCUT Q8H [facility] Hydromorphone HCl (Hydromorphone Hcl 0.5 Mg/0.5 Ml Syringe) 0.5 mg IVPUSH Q3H PRN; Protocol PRN Reason: Pain, Severe (Pain Scale 7-10) Last Admin: 05/30/24 04:47 Dose: 0.5 mg Documented By: SANTY Lactated Ringer's (Lr) 1,000 mls @ 100 mls/hr IVCONT .Q10H MEE Last Admin: 05/29/24 23:30 Dose: 100 mls/hr Documented By: SANTY Acetaminophen (Ofirmev) 1,000 mg in 100 mls @ 400 mls/hr IV Q6H [facility] Last Infusion: 05/30/24 05:29 Dose: Infused Documented By: SANTY Lisinopril (Lisinopril 20 Mg Tablet) 20 mg PO DAILY [facility]; Protocol Melatonin (Melatonin 3 Mg Tablet) 6 mg PO BEDTIME PRN PRN Reason: Insomnia Last Admin: 05/29/24 20:50 Dose: 6 mg Documented By: SANTY Nicotine (Nicotine 14 Mg Patch.Td24) 14 mg TRANSDERMA DAILY [facility] Last Admin: 05/29/24 16:16 Dose: 14 mg Documented By: AMADO Oxycodone HCl (Oxycodone Hcl Immed Release 5 Mg Tablet) 5 mg PO Q4H PRN PRN Reason: Pain, Moderate(Pain Scale 4-6) Sodium Chloride (0.9 % Sodium Chloride Flush 3 Ml Syringe) 3 ml IVFLUSH QSHIFT [facility] Last Admin: 05/29/24 21:12 Dose: Not Given Documented By: SANTY Non-Admin Reason: IV Running <[facility] - Last Filed: 05/30/24 07:08> Labs CBC & Chem 7: 05/30/24 05:32 05/30/24 05:32 <[facility] - Last Filed: 05/30/24 07:08> Labs: Laboratory Results - last 24 hr 05/29/24 07:29 Blood Type O Negative Antibody Screen NEGATIVE <[facility] - Last Filed: 05/30/24 07:08> Procedures Date of Service Date of Service: 05/30/24 <[facility] Last Filed: 05/30/24 07:08> 05/30/24 <Yessenia Rm PA-C - Last Filed: 05/30/24 07:53> 05/30/24 <Carlyle Skelton MD - Last Filed: 05/30/24 07:57> Progress Note: A&P Assessment and plan (1) Colostomy in place: Status: Acute <[facility] - Last Filed: 05/30/24 07:08> Assessment and Plan: s/p reversal of colostomy POD1 says he ahd a good night pain well controlled denies flatus abd soft looks well await return of GI function ambulate incentive spirometry seen and examined independently <Carlyle Skelton MD - Last Filed: 05/30/24 07:57> (2) History of colostomy reversal: Status: Acute <[facility] Last Filed: 05/30/24 07:08> Assessment and Plan: Patient is POD1 s/p Hand assisted laparoscopic reversal of an end- colostomy. Abdominal exam benign, appropriate tenderness to incision sites, dressings intact. Patient tolerating clear liquids well. No BM or Flatulence. Vitals wnl. Continue current pain regimen. Continue bowel regimen. D/C urinary catheter today. Increase activity, incentive spirometer. Increase diet with evidence of bowel function. <[facility] - Last Filed: 05/30/24 07:08> Patient is POD1 s/p Hand assisted laparoscopic reversal of an end- colostomy. Abdominal exam benign, appropriate tenderness to incision sites, dressings intact. Patient tolerating clear liquids well. No BM or Flatulence. Vitals wnl. Continue current pain regimen. Continue bowel regimen. D/C urinary catheter today. Increase activity, incentive spirometer. Increase diet with evidence of bowel function. Seen independently and agree with Jackson JACQUES. Patient is POD #1 s/p hand assisted laparoscopic reversal of an end-colostomy, extensive lysis of adhesions, reanastomosis with an end-to-end circular stapler, flexible sigmoidoscopy. Doing well post op. VSS. Abd exam is benign with appropriate post op tenderness, dressings intact, packing in place. Am labs reviewed. Dc padilla. Dec IVF. Will advance to full liquids and hold on further advancement until evidence of GI function. Cont OOB/ambulation, IS use. Patient comfortable with plan. <Yessenia Rm PA-C - Last Filed: 05/30/24 07:53> Time Spent With Patient Time: Total time managing care of this patient today ____ minutes. <[facility]nghdy-[facility] - Last Filed: 05/30/24 07:08> Quality Stroke Does the patient have a stroke diagnosis?: No <Yessenia Rm PA-C - Last Filed: 05/30/24 07:53> VTE Prior VTE?: No <Yessenia Rm PA-C - Last Filed: 05/30/24 07:53> VTE Risk Level:: Medical - moderate - high <Fjhhzy-IE-Iyzviyi- [facility] - Last Filed: 05/30/24 07:08> VTE Device Contraindication: N/A - Device Ordered <Qzwurh-UN-Tewscxo- [facility] - Last Filed: 05/30/24 07:08> VTE Drug Contraindication: N/A - Med Ordered <Zixepv-JP-Gkbngte- [facility] - Last Filed: 05/30/24 07:08>
[2024-05-30 06:52] LABS: Anion Gap 11 (12-20); Blood Urea Nitrogen 12 mg/dL (9-16); Calcium 8.5 mg/dL (8.4-10.2); Carbon Dioxide 23 mmol/L (22-29); Chloride 104 mmol/L (96-108); Creatinine Clr Calc Pharmacy 119.1; Estimated Glomerular Filt Rate > 60; Glucose Fasting 105 mg/dL (60-99); Potassium 4.1 mmol/L (3.3-5.1); Sodium 134 mmol/L (135-145)
[2024-05-30 07:42] VITALS: BP 146/79; PULSE 70; RESP 18; TEMP 36.6; O2SAT 98
--- NOTE | 2024-05-30 08:03 | HO.POSTANES ---
Post Anesthesia Evaluation Post Anesthesia Evaluation Date of Service: 05/30/24 Vital Signs: Vital Signs Temp Pulse Resp BP Pulse Ox O2 Del Method 05/30/24 07:42 97.8 F 70 18 146/79 H 98 Room Air 05/30/24 04:00 97.6 F 73 16 134/71 97 Room Air 05/29/24 23:32 97.3 F 74 16 142/79 H 95 Room Air Anesthesia: General Endotracheal-GETA Mental Status: Awake Pain Control: Satisfactory Nausea/Vomiting: None Hydration: Adequate Anesthesia-Related Issues: No Anes. Related Issues
[2024-05-30] MEDS: lisinopriL 20 MG TABLET PO (08:16)
[2024-05-30] MEDS: hydroCHLOROthiazide 12.5 MG TABLET PO (08:16)
[2024-05-30] MEDS: oxyCODONE HCl Immed Release 5 MG TABLET PO ×2 (08:19→16:14)
[2024-05-30] MEDS: Nicotine 14 MG PATCH.TD24 TRANSDERMA (08:20)
[2024-05-30] MEDS: Lactated Ringers 1,000 ML 100 ML IVCONT ×2 (08:27→20:13)
--- NOTE | 2024-05-30 09:29 | MHC.CM.PN ---
PATIENT LIVES IN A HOME W/ . FUNCTIONALLY INDEPENDENT. DENIES USE OF DME OR SERVICES, THOUGH HAS USED [facility] IN THE PAST. 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 COPY REQUESTED. DECLINES TO COMPLETE NEW FORM. DP: HOME SELF CARE. TO TRANSPORT. CM WILL CONTINUE TO FOLLOW.
[2024-05-30] MEDS: Acetaminophen 1,000 MG/100 ML PIGGYBACK 400 MG IV ×3 (11:58→22:30)
[2024-05-30] MEDS: Heparin Sodium,Porcine 5,000 UNIT/ML VIAL 5000 UNIT SUBCUT ×2 (11:59→20:12)
[2024-05-30] MEDS: Calcium Carbonate 750 MG TAB.CHEW PO ×2 (12:04→20:11)
--- NOTE | 2024-05-30 14:37 | PM.EVENT ---
Event Note Date of Service: 05/30/24 Event Note: Seen earlier on afternoon rounds He has been ambulating Adequate pain control Abdomen is soft I pulled out to packing strips, dressings replaced He states he may have passed flatus once Continue ambulation Await return of GI function Pain management He is able to void without a catheter Time Spent With Patient Time: Total time managing care of this patient today ____ minutes.
[2024-05-30 15:15] VITALS: BP 148/74; PULSE 71; RESP 18; TEMP 36.7; O2SAT 98
[2024-05-30 19:33] VITALS: BP 132/77; PULSE 73; RESP 20; TEMP 36.6; O2SAT 96
[2024-05-30] MEDS: Melatonin 3 MG TABLET 6 MG PO (22:28)
[2024-05-31 04:00] VITALS: BP 132/75; PULSE 73; RESP 16; TEMP 36.4; O2SAT 95
[2024-05-31] MEDS: Heparin Sodium,Porcine 5,000 UNIT/ML VIAL 5000 UNIT SUBCUT ×3 (04:05→19:38)
[2024-05-31] MEDS: Acetaminophen 1,000 MG/100 ML PIGGYBACK 400 MG IV ×4 (04:07→22:05)
--- NOTE | 2024-05-31 06:43 | PM.PNGS ---
Subjective Subjective Date of Service: 05/31/24 <Qkrsgf-GD-Oilccbe-Ah Esa - Last Filed: 05/31/24 06:59> 05/31/24 <Yessenia Rm PA-C - Last Filed: 05/31/24 07:46> 05/31/24 <Carlyle Skelton MD - Last Filed: 05/31/24 08:00> Interval history: Patient seen and examined this morning. States pain is a 6/10. Pain is worse when ambulating. Urinating without difficulty, tolerating diet. Has not had bowel movement, has not passed flatus. Denies chest pain, shortness of breath, nausea, vomiting or chills. <[facility] - Last Filed: 05/31/24 06:59> Patient seen and examined this morning. States pain is a 6/10. Pain is worse when ambulating. Urinating without difficulty, tolerating diet. Has not had bowel movement, has not passed flatus. Denies chest pain, shortness of breath, nausea, vomiting or chills. Has been ambulating halls. <Yessenia Rm PA-C - Last Filed: 05/31/24 07:46> Physical Exam Vital Signs: Vital Signs: Last Vital Signs Temp 97.6 F 05/31/24 04:00 Pulse 73 05/31/24 04:00 Resp 16 05/31/24 04:00 BP 132/75 05/31/24 04:00 Pulse Ox 95 05/31/24 04:00 O2 Del Method Room Air 05/31/24 04:00 O2 Flow Rate 2 05/29/24 11:12 BMI result Body Mass Index 24.0 <[facility] - Last Filed: 05/31/24 06:59> Const: Other: well appering male laying in bed calm, awake, in no acute distress <[facility] - Last Filed: 05/31/24 06:59> Orientation/consciousness: patient oriented x3 <[facility] - Last Filed: 05/31/24 06:59> Resp: Other: Lungs clear to auscultation, no increased work of breathing. <[facility] - Last Filed: 05/31/24 06:59> Cardio: Other: Regular rate and rhythm. <[facility] Last Filed: 05/31/24 06:59> GI: Other: Abdomen is soft and non tender, non distended. Dressings intact. <[facility] - Last Filed: 05/31/24 06:59> Other: Abdomen is soft and non tender, non distended. incisions clean, wound belkis removed <Yessenia Rm PA-C - Last Filed: 05/31/24 07:46> Percussion: Yes normal to percussion <Yessenia Rm PA-C - Last Filed: 05/31/24 07:46> Skin: General skin exam: no rashes or lesions noted <Yessenia Rm PA-C - Last Filed: 05/31/24 07:46> Neuro: General: patient oriented x3 <[facility] - Last Filed: 05/31/24 06:59> Extrem: Other: Moving all extremities normally, no lower extremity edema noted. <[facility] - Last Filed: 05/31/24 06:59> Objective Data Active Medications Calcium Carbonate (Calcium Carbonate 750 Mg Tab.Chew) 750 mg PO Q4H PRN PRN Reason: Heartburn Last Admin: 05/30/24 20:11 Dose: 750 mg Documented By: ALIX Heparin Sodium (Porcine) (Heparin Sodium,Porcine 5,000 Unit/Ml Vial) 5,000 unit SUBCUT Q8H [facility] Last Admin: 05/31/24 04:05 Dose: 5,000 unit Documented By: ALIX Hydrochlorothiazide (Hydrochlorothiazide 12.5 Mg Tablet) 12.5 mg PO DAILY [facility]; Protocol Last Admin: 05/30/24 08:16 Dose: 12.5 mg Documented By: AMADO Hydromorphone HCl (Hydromorphone Hcl 0.5 Mg/0.5 Ml Syringe) 0.5 mg IVPUSH Q3H PRN; Protocol PRN Reason: Pain, Severe (Pain Scale 7-10) Last Admin: 05/30/24 20:08 Dose: 0.5 mg Documented By: ALIX Acetaminophen (Ofirmev) 1,000 mg in 100 mls @ 400 mls/hr IV Q6H [facility] Last Infusion: 05/31/24 05:04 Dose: Infused Documented By: ALIX Lisinopril (Lisinopril 20 Mg Tablet) 20 mg PO DAILY [facility]; Protocol Last Admin: 05/30/24 08:16 Dose: 20 mg Documented By: AMADO Melatonin (Melatonin 3 Mg Tablet) 6 mg PO BEDTIME PRN PRN Reason: Insomnia Last Admin: 05/30/24 22:28 Dose: 6 mg Documented By: ALIX Nicotine (Nicotine 14 Mg Patch.Td24) 14 mg TRANSDERMA DAILY [facility] Last Admin: 05/30/24 08:20 Dose: 14 mg Documented By: AMADO Oxycodone HCl (Oxycodone Hcl Immed Release 5 Mg Tablet) 5 mg PO Q4H PRN PRN Reason: Pain, Moderate(Pain Scale 4-6) Last Admin: 05/30/24 16:14 Dose: 5 mg Documented By: AMADO Sodium Chloride (0.9 % Sodium Chloride Flush 3 Ml Syringe) 3 ml IVFLUSH QSHIFT [facility] Last Admin: 05/31/24 00:27 Dose: Not Given Documented By: ALIX Non-Admin Reason: IV Running <[facility] - Last Filed: 05/31/24 06:59> Labs CBC & Chem 7: 05/30/24 05:32 05/30/24 05:32 <[facility] - Last Filed: 05/31/24 06:59> Labs: Laboratory Results - last 24 hr 05/30/24 05:32 Anion Gap 11 L Estim Creat Clear Calc 119.1 Estimated GFR > 60 Fasting Glucose 105 H Calcium 8.5 <[facility] - Last Filed: 05/31/24 06:59> Procedures Date of Service Date of Service: 05/31/24 <[facility] Last Filed: 05/31/24 06:59> 05/31/24 <Yessenia Rm PA-C - Last Filed: 05/31/24 07:46> 05/31/24 <Carlyle Skelton MD - Last Filed: 05/31/24 08:00> Progress Note: A&P Assessment and plan (1) History of colostomy reversal: Status: Acute <Jackie Paz - Last Filed: 05/31/24 06:59> Assessment and Plan: feels ok describes pain on incision with movement ambulating denies significant flatus abd soft clinically looks well await full return of GI function keep on clears for now ambulate seen and examined independently <Carlyle Skelton MD - Last Filed: 05/31/24 08:00> Assessment and Plan: Patient is POD2 s/p hand assisted laparoscopic reversal of an end-colostomy extensive lysis of adhesions, reanastomosis with an end-to-end circular stapler, flexible sigmoidoscopy Abdominal exam benign, appropriate tenderness to incision sites, dressings intact. Patient tolerating clear liquids well. No BM or Flatulence. Vitals wnl. Continue current pain regimen. Increase diet with evidence of bowel function. Cont OOB/ambulation, IS use. <Jylsha-UB-Pjaaora- Jackson - Last Filed: 05/31/24 06:59> Patient is POD2 s/p hand assisted laparoscopic reversal of an end-colostomy extensive lysis of adhesions, reanastomosis with an end-to-end circular stapler, flexible sigmoidoscopy Abdominal exam benign, appropriate tenderness to incision sites, dressings intact. Patient tolerating clear liquids well. No BM or Flatulence. Vitals wnl. Continue current pain regimen. Increase diet with evidence of bowel function. Cont OOB/ambulation, IS use. Agree with above assessment and plan by Jackson JACQUES. He is doing well post op, awaiting return of GI function. VSS. Abd exam benign with clean incisions, old colostomy site packing removed. Once GI function returns, can advance diet. Cont increasing activity. Patient comfortable with plan. <Yessenia Rm PA-C - Last Filed: 05/31/24 07:46> Time Spent With Patient Time: Total time managing care of this patient today ____ minutes. <Laverne Jackson - Last Filed: 05/31/24 06:59> Quality Stroke Does the patient have a stroke diagnosis?: No <Thquvy-CH-Pllfsnf- Jackson - Last Filed: 05/31/24 06:59> VTE Prior VTE?: No <Wvcfsb-YK-Tngpces- Jackson - Last Filed: 05/31/24 06:59> VTE Risk Level:: Medical - moderate - high <Prnrhe-LX-Ozraiqc- [place] - Last Filed: 05/31/24 06:59> VTE Device Contraindication: N/A - Device Ordered <Wsdrnp-LP-Pjjgoyz- [place] - Last Filed: 05/31/24 06:59> VTE Drug Contraindication: N/A - Med Ordered <Wggjsj-KY-Jzjmxjn- [place] - Last Filed: 05/31/24 06:59>
[2024-05-31 07:31] VITALS: BP 146/80; PULSE 76; RESP 18; TEMP 36.8; O2SAT 95
[2024-05-31] MEDS: hydroCHLOROthiazide 12.5 MG TABLET PO (07:32)
[2024-05-31] MEDS: lisinopriL 20 MG TABLET PO (07:32)
[2024-05-31] MEDS: HYDROmorphone HCl 0.5 MG/0.5 ML SYRINGE IVPUSH ×3 (07:33→22:01)
[2024-05-31] MEDS: Nicotine 14 MG PATCH.TD24 TRANSDERMA (07:33)
[2024-05-31] MEDS: Calcium Carbonate 750 MG TAB.CHEW PO ×2 (10:18→22:00)
[2024-05-31 15:20] VITALS: BP 151/74; PULSE 82; RESP 18; TEMP 36.4; O2SAT 95
[2024-05-31] MEDS: 0.9 % Sodium Chloride Flush 3 ML SYRINGE IVFLUSH ×2 (16:29→19:39)
[2024-05-31] MEDS: oxyCODONE HCl Immed Release 5 MG TABLET PO (17:44)
[2024-05-31 19:11] VITALS: BP 130/77; PULSE 79; RESP 19; TEMP 36.8; O2SAT 94
[2024-05-31] MEDS: Melatonin 3 MG TABLET 6 MG PO (22:00)
[2024-06-01 04:00] VITALS: BP 125/73; PULSE 79; RESP 16; TEMP 36.7; O2SAT 93
[2024-06-01] MEDS: Heparin Sodium,Porcine 5,000 UNIT/ML VIAL 5000 UNIT SUBCUT ×2 (04:27→10:29)
[2024-06-01] MEDS: Acetaminophen 1,000 MG/100 ML PIGGYBACK 400 MG IV ×2 (04:31→10:28)
[2024-06-01 07:22] VITALS: BP 139/81; PULSE 63; RESP 18; TEMP 36.3; O2SAT 93
--- NOTE | 2024-06-01 07:57 | PM.PNGS ---
Subjective Subjective Date of Service: 06/01/24 <Yessenia Rm PA-C - Last Filed: 06/01/24 08:12> 06/01/24 <Carlyle Skelton MD - Last Filed: 06/01/24 08:17> Interval history: Feels well. Tolerating solid diet and passing continuous flatus. No BM yet. OOB and ambulating halls without difficulty. <Yessenia Rm PA-C - Last Filed: 06/01/24 08:12> Physical Exam Vital Signs: Vital Signs: Last Vital Signs Temp 97.3 F 06/01/24 07:22 Pulse 63 06/01/24 07:22 Resp 18 06/01/24 07:22 BP 139/81 06/01/24 07:22 Pulse Ox 93 06/01/24 07:22 O2 Del Method Room Air 06/01/24 07:22 O2 Flow Rate 2 05/29/24 11:12 BMI result Body Mass Index 24.0 <Yessenia Rm PA-C - Last Filed: 06/01/24 08:12> Const: General: comfortable, no acute distress and alert <Yessenia Rm PA-C - Last Filed: 06/01/24 08:12> Orientation/consciousness: patient oriented x3 <Yessenia Rm PA-C - Last Filed: 06/01/24 08:12> Resp: Effort & Inspection: normal respiratory effort <Yessenia Rm PA-C - Last Filed: 06/01/24 08:12> GI: Inspection: Yes incision (clean) <Yessenia Rm PA-C - Last Filed: 06/01/24 08:12> Palpation (GI): Soft to palpation, Tenderness to palpation present (GI) (mild incisional) and no guarding <J CARLOS Ojeda Last Filed: 06/01/24 08:12> Skin: General skin exam: no rashes or lesions noted <J CARLOS Ojeda Last Filed: 06/01/24 08:12> Neuro: General: patient oriented x3 and moves all extremities <J CARLOS Ojeda Last Filed: 06/01/24 08:12> Objective Data Active Medications Calcium Carbonate (Calcium Carbonate 750 Mg Tab.Chew) 750 mg PO Q4H PRN PRN Reason: Heartburn Last Admin: 05/31/24 22:00 Dose: 750 mg Documented By: ALIX Heparin Sodium (Porcine) (Heparin Sodium,Porcine 5,000 Unit/Ml Vial) 5,000 unit SUBCUT Q8H [facility] Last Admin: 06/01/24 04:27 Dose: 5,000 unit Documented By: ALIX Hydrochlorothiazide (Hydrochlorothiazide 12.5 Mg Tablet) 12.5 mg PO DAILY [facility]; Protocol Last Admin: 05/31/24 07:32 Dose: 12.5 mg Documented By: DIMPLE Hydromorphone HCl (Hydromorphone Hcl 0.5 Mg/0.5 Ml Syringe) 0.5 mg IVPUSH Q3H PRN; Protocol PRN Reason: Pain, Severe (Pain Scale 7-10) Last Admin: 05/31/24 22:01 Dose: 0.5 mg Documented By: ALIX [facility]etaminophen [facility] 1,000 mg in 100 mls @ 400 mls/hr IV Q6H [facility] Last Infusion: 06/01/24 04:48 Dose: Infused Documented By: ALIX Lisinopril (Lisinopril 20 Mg Tablet) 20 mg PO DAILY [facility]; Protocol Last Admin: 05/31/24 07:32 Dose: 20 mg Documented By: DIMPLE Melatonin (Melatonin 3 Mg Tablet) 6 mg PO BEDTIME PRN PRN Reason: Insomnia Last Admin: 05/31/24 22:00 Dose: 6 mg Documented By: ALIX Nicotine (Nicotine 14 Mg Patch.Td24) 14 mg TRANSDERMA DAILY [facility] Last Admin: 05/31/24 07:33 Dose: 14 mg Documented By: DIMPLE Oxycodone HCl (Oxycodone Hcl Immed Release 5 Mg Tablet) 5 mg PO Q4H PRN PRN Reason: Pain, Moderate(Pain Scale 4-6) Last Admin: 05/31/24 17:44 Dose: 5 mg Documented By: DIMPLE Sodium Chloride (0.9 % Sodium Chloride Flush 3 Ml Syringe) 3 ml IVFLUSH QSHIFT [facility] Last Admin: 05/31/24 19:39 Dose: 3 ml Documented By: ALIX <Yessenia Rm PA-C - Last Filed: 06/01/24 08:12> Labs CBC & Chem 7: 05/30/24 05:32 05/30/24 05:32 <Yessenia Rm PA-C - Last Filed: 06/01/24 08:12> Procedures Date of Service Date of Service: 06/01/24 <Yessenia Rm PA-C - Last Filed: 06/01/24 08:12> 06/01/24 <Carlyle Skelton MD - Last Filed: 06/01/24 08:17> Progress Note: A&P Assessment and plan (1) History of colostomy reversal: Status: Acute <Yessenia Rm PA-C - Last Filed: 06/01/24 08:12> Assessment and Plan: passing good amounts of flatus he feels well tolerating regular diet well ambulating abd soft, benign, incisions clean he says he feels ready to be discharged instructions reinforced with pt seen and examined independently <Carlyle Skelton MD - Last Filed: 06/01/24 08:17> Assessment and Plan: POD #3 s/p JOSE DAVID colostomy reversal. Doing well post op, passing continuous flatus, tolerating solid diet. VSS. Abd exam benign with clean incisions. Stable for dc to home today. Will dc on bowel regimen. Patient comfortable with plan. F/u in office in 2 weeks. <Yessenia Rm PA-C - Last Filed: 06/01/24 08:12> Time Spent With Patient Time: Total time managing care of this patient today ____ minutes. <Yessenia Rm PA-C - Last Filed: 06/01/24 08:12> Quality Stroke Does the patient have a stroke diagnosis?: No <J CARLOS Ojeda Last Filed: 06/01/24 08:12> VTE Prior VTE?: No <Yessenia Rm PA-C - Last Filed: 06/01/24 08:12> VTE Risk Level:: Medical - moderate - high <J CARLOS Ojeda Last Filed: 06/01/24 08:12> VTE Device Contraindication: N/A - Device Ordered <Yessenia Rm PA-C - Last Filed: 06/01/24 08:12> VTE Drug Contraindication: N/A - Med Ordered <Yessenia Rm PA-C - Last Filed: 06/01/24 08:12>
[2024-06-01] MEDS: Nicotine 14 MG PATCH.TD24 TRANSDERMA (08:00)
[2024-06-01] MEDS: hydroCHLOROthiazide 12.5 MG TABLET PO (08:01)
[2024-06-01] MEDS: lisinopriL 20 MG TABLET PO (08:01)
[2024-06-01] MEDS: oxyCODONE HCl Immed Release 5 MG TABLET PO ×2 (08:01→12:21)
[2024-06-01] MEDS: 0.9 % Sodium Chloride Flush 3 ML SYRINGE IVFLUSH (08:01)
--- NOTE | 2024-06-01 08:25 | MHC.CM.PN ---
PT TO DC HOME TODAY WITH NO SERVICES VIA PRIVATE TRANSPORT
[2024-06-01] MEDS: Calcium Carbonate 750 MG TAB.CHEW PO (08:32)
--- NOTE | 2024-06-01 10:03 | PM.DS ---
DS: Providers Provider Date of Service: 06/01/24 Date of admission: 05/29/24 06:15 Date of discharge: 06/01/24 Primary care physician: Ryan Arrieta [facility] DS: Diagnosis Discharge Diagnosis (1) History of colostomy reversal: Status: Acute DS: Summary Hospital Course Hospital Course: HPI AT ADMISSION: The patient is a 54-year-old male who had undergone Lucia's procedure for she had diverticulitis December,. He is here for reversal of the colostomy. He understood the technique of the planned procedure as well as the risks, benefits, and alternatives HOSPITAL COURSE: On 05/29/24, hand assisted laparoscopic reversal of an end-colostomy, extensive lysis of adhesions, reanastomosis with an end-to-end circular stapler, flexible sigmoidoscopy was performed by Dr. Skelton without complication. The patient tolerated the procedure well and was admitted to the medical/surgical floor for observation. The patient had an uncomplicated recovery course. On POD #1, his padilla was removed. He was activity was increased. His diet was advanced to solids once he began to pass flatus on POD #2. He remained inpatient until POD #3 for pain control. On the day of discharge, he was tolerating a solid diet without nausea or vomiting. His pain was well controlled. He was ambulating without difficulty. He was passing a good amount of flatus. He was hemodynamically stable with a benign abd exam and clean incisions. His wound belkis were removed from his old ostomy site. He was discharged to home on 06/01/24 in stable condition. He is to follow up in the office in 1 week. He was discharged on stool softeners. Status at Discharge Functional status at discharge: independent ambulation Overall status at discharge: patient is progressing back to baseline Time Attestation Discharge Coordination Time (in mins): 40 Quality: Safe Use of Opioids Does Pt have an Active Cancer Diagnosis on the Problem List?: No Quality: Stroke Does the patient have a stroke diagnosis?: No Physical Exam Vital Signs: Vital Signs: Last Vital Signs Temp 97.3 F 06/01/24 07:22 Pulse 63 06/01/24 07:22 Resp 18 06/01/24 07:22 BP 139/81 06/01/24 07:22 Pulse Ox 93 06/01/24 07:22 O2 Del Method Room Air 06/01/24 07:22 O2 Flow Rate 2 05/29/24 11:12 BMI result Body Mass Index 24.0 Const: General: comfortable, no acute distress and alert Orientation/consciousness: patient oriented x3 Resp: Effort & Inspection: normal respiratory effort GI: Other: incisions clean, paul intact old colostomy site wound belkis removed, scant drainage Inspection: No distended Palpation (GI): Soft to palpation, Tenderness to palpation present (GI) (mild incisional) and no guarding Skin: General skin exam: no rashes or lesions noted Neuro: General: patient oriented x3 and moves all extremities DS: Data Data Completed and Pending Completed studies during hospitalization [Text1]: Pending at discharge 05/29/24 10:57 Surgical [PTH] Routine A. Rectal stump (colostomy reversal): Colonic mucosa with lymphoid aggregates and minor crypt distortion, otherwise no specific change. B. Colostomy (colostomy reversal): Intact mucocutaneous anastomosis with mild inflammation and hyperplasia. C. EEA rings (colostomy reversal): Two annular portions of bowel mucosa and wall with no specific change, consistent with anastomotic rings. Procedures Bypass Sigmoid Colon to Cutaneous, Open Approach (01/13/24) Excision of Sigmoid Colon, Open Approach (01/13/24) Introduction of Anesthetic Agent into Peripheral Nerves and Plexi, Percutaneous Approach (01/13/24) Release Sigmoid Colon, Open Approach (01/13/24) Discharge Plan Discharge Anticipated Discharge Date/Time: 06/01/24 10:46 Patient Disposition: Home, Self-Care Discharge Diagnosis: s/p JOSE DAVID colostomy reversal Referrals: Ryan Arrieta FNP-[facility] [Primary Care Provider] - 1 Week Carlyle Skelton MD [Physician] - 2 Weeks Discharge Medications: New oxycodone 5 mg tablet 5 mg PO Q4H PRN (Reason: pain (scale score 7-10)) Qty: 26 0RF Rx Instructions: Partial Fill upon patient request. docusate sodium [Colace] 100 mg capsule 100 mg PO BID Qty: 60 2RF Continued hydrochlorothiazide 12.5 mg tablet 12.5 mg PO DAILY 90 Days Qty: 90 1RF lisinopril 20 mg tablet 20 mg PO DAILY Qty: 90 1RF nicotine 14 mg/24 hr Patch 24 Hour 1 patch TRANSDERMAL DAILY Discharge Orders: Discharge Order (Routine); Ordered 06/01/24 Ordered By: Carlyle Skelton Diet: Advance to usual diet Activity on Discharge: No heavy lifting Stand Alone Forms: Patient Portal Discharge page Print Language: [place]ese Activity Restrictions/Additional Instructions: If the incision area is tender, you may apply an ice pack for short intervals (No more than 20 minutes on, followed by at least 20 minutes off). Do not apply heat. Do not use creams, lotions, or topical antibiotics. These can cause infection or allergic reaction. Ok to shower. You have paul closing your incision and these will be removed approximately 10-14 days after surgery. Can keep dressing on old colostomy site if it continues to drain. NO HEAVY LIFTING (>10lbs) or strenuous activity. Follow up in office. ([phone]) Call Your Doctor If: -Your temperature exceeds 101.5? F -You experience excessive pain or swelling -You have an unexpected reaction to medication -You have excessive bleeding -You experience continued vomiting/nausea -Your incision begins to separate -Your incision shows signs of infection such as increased redness, swelling, excessive pain, drainage (light blood or clear fluid is normal) or heat Care Plan Goals: Return to baseline health and resume normal activities following recovery period. Health Concerns: HTN hx of sigmoid diverticulitis with microperforation s/p JOSE DAVID sigmoid resection, end colostomy Plan of Treatment: S/p JOSE DAVID colostomy reversal primary colorectal anastomosis Pain control, wound care F/u in office in 2 weeks Assessment: Doing well post op. Discharge Date/Time: 06/01/24 13:13
== END 2024-06-01 13:13 | disposition home or self-care (01) | DRG 231 ==
LOC: HO.SSSA 06:45 → HO.S3 11:23
PROVIDERS: Physician Assistant Surgical; Admitting Provider Surgery; PCP Nurse Practitioner Family; Visit Provider Surgery
PROC: 0DBE4ZZ Excision of Large Intestine, Percutaneous Endoscopic Approach (ICD-10-PCS; CPT 44227; principal; 2024-05-29 07:30)
DX: Z43.3 Encounter for attention to colostomy (principal); F17.210 Nicotine dependence, cigarettes, uncomplicated; G89.18 Other acute postprocedural pain; Z71.6 Tobacco abuse counseling; K66.0 Peritoneal adhesions (postprocedural) (postinfection); Z79.899 Other long term (current) drug therapy
CPT/HCPCS: 36415; 80048; 85025; 86850; 86900; 86901; 88304; 88305; 88307; 94640; C1758; J0131; J1100; J1171; J1644; J2003; J2405; J2704; J2795; J3010; J7120

== ENCOUNTER → 2024-05-29 06:15 | Outpatient (BNV) | payer OTHER, SELFPAY | PROVIDERS: Admitting Provider Surgery; PCP Nurse Practitioner Family; Visit Provider Surgery | DX: Z93.3 Colostomy status (principal); Z98.890 Other specified postprocedural states | CPT/HCPCS: 99024; 99499 ==

== ENCOUNTER 2024-06-14 10:02 | Outpatient (AMB) | payer OTHER, SELFPAY ==
--- NOTE | 2024-06-14 10:03 | MHC.OFFVIS ---
Vital Signs 06/14/24 10:12 Height 6 ft BMI Reason not done Patient refused/unable BP 121/82 Blood Pressure Location Rt brachial Position Sitting Pulse 111 H Intake Visit Reasons: S/P reversal colostomy Intake Note: This patient presents for post-op assessment status post Hand assisted laparoscopic reversal of an end-colostomy, extensive lysis of adhesions, reanastomosis with an end-to-end circular stapler, flexible sigmoidoscopy. Pt c/o; no complaints pertaining to surgery. Accounts Receivable Processor Required: No Accompanied by: Self / Same As Patient Allergies No Known Allergies Allergy (Verified 06/14/24 10:13) HPI HPI S/P reversal colostomy: Details: He underwent reversal of his colostomy last May 29, 2024. He was discharged on postop day 3. He says he is doing well at home. He had has no problems with bowel movements or oral intake. He has been ambulating well and has been staying active. [facility] Medical History (Updated 06/14/24 @ 10:20 by Carlyle Skelton MD) Colostomy in place Acute diverticulitis Nicotine dependence, cigarettes, uncomplicated Fatty liver GERD (gastroesophageal reflux disease) Osteoarthritis of left hip Exposure to lead Essential hypertension Surgical History Hx of surgical procedure (~05/29/24) H/O oral surgery H/O colonoscopy Hx of surgical procedure (~01/13/24) History of esophagogastroduodenoscopy (EGD) Social History Household Members: Spouse Housing: House Are you a primary critical care specialist to a significant other at home: No Do you presently have visiting nurse or other home services: No Alcohol intake: current Alcohol intake frequency: holidays/special occasions only Comment: counts correct Patient Tobacco Use Status: Current everyday Tobacco user Tobacco use type: Cigarette Cigarettes Per Day: 4 Years Smoked: 20 e-Cigarette/Vaping Use: Never Used Second Hand Smoke Exposure: No Substance Use Type: Marijuana service: No Current occupational status: employed 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 Current occupational exposures/hazards: Yes Cognitive needs: No Hearing needs: No Vision needs: No Review of Systems Const Denies chills and Denies fever(s) Card Denies chest pain Resp Denies cough GI Denies abdominal pain Physical Exam Vital Signs: Last Vital Signs Pulse 111 H 06/14/24 10:12 BP 121/82 06/14/24 10:12 Const Other: Looks well General: comfortable and no acute distress Resp Effort & Inspection: normal respiratory effort Cardio Rate: regular rate GI Other: All incisions are well healed, not infected, paul intact Palpation (GI): Soft to palpation, not firm, nontender and no guarding Assessment & Plan Assessment & Plan (1) Colostomy in place: Code(s): Z93.3 - Colostomy status Category: Medical Plan: Status post reversal of his colostomy. He is doing very well. He has good GI functions. All incisions are well healed. I removed all his skin paul. I advised him to avoid lifting anything more than 20 lb for 3-4 more weeks. He can otherwise follow up on a p.r.n. basis Coding Level of Care Code Global (18711) Diagnoses Colostomy in place Z93.3
[2024-06-14 10:12] VITALS: BP 121/82; PULSE 111
== END 2024-06-14 10:23 | disposition home or self-care (01) ==
PROVIDERS: PCP Nurse Practitioner Family; Visit Provider Surgery
DX: Z93.3 Colostomy status (principal)
CPT/HCPCS: 99024

== ENCOUNTER → 2024-06-14 10:02 | Outpatient (BNVA) | payer OTHER, SELFPAY | PROVIDERS: PCP Nurse Practitioner Family; Visit Provider Surgery | DX: Z93.3 Colostomy status (principal) | CPT/HCPCS: 99212 ==

== ENCOUNTER 2024-07-27 08:34 | Outpatient (AMB) | payer OTHER, SELFPAY ==
--- NOTE | 2024-07-27 08:37 | AM.OFFWIN_ITS ---
Intake Vital Signs 07/27/24 08:42 BP 112/70 Blood Pressure Location Lt brachial Position Sitting Pulse 95 Pulse Source Pulse Oximeter Temp 98.7 F Temp Source Oral Pulse Oximetry (%) 99 Intake Visit Reasons: EP-lt arm pain and numbness Patient Tobacco Use Status: Current everyday Tobacco user Allergies No Known Allergies Allergy (Verified 07/27/24 08:41) Do you need a note to return to daycare/school/sports/work: Yes HPI EP-lt arm pain and numbness HPI Details This is a 54-year-old male patient who presents to the walk-in clinic with a 1 day history of left arm pain, tingling, and numbness. He states this started after work yesterday. No trauma or injuries. He states that the back of his arm, near his triceps is painful, and this radiates down his arm to his fingers. He states that at times, his middle 3 fingers are numb, however at this time all fingers on left hand are numb. He denies any history of neck injuries or surgeries. Denies any chest pain, dizziness, palpitations, recent illnesses, fever or chills. He states pain is constant. Also notes some pain in his axillary area. He states that he had a colostomy and subsequent reversal back in May, and had some left over pain medication from his postop course. He states that he took a 5 mg oxycodone, and this did not help with the pain at all. [facility] Medical History Colostomy in place Acute diverticulitis Nicotine dependence, cigarettes, uncomplicated Fatty liver GERD (gastroesophageal reflux disease) Osteoarthritis of left hip Exposure to lead Essential hypertension Surgical History Hx of surgical procedure (~05/29/24) H/O oral surgery H/O colonoscopy Hx of surgical procedure (~01/13/24) History of esophagogastroduodenoscopy (EGD) Social History Household Members: Spouse Housing: House Are you a primary wound care center consultant to a significant other at home: No Do you presently have visiting nurse or other home services: No Alcohol intake: current Alcohol intake frequency: holidays/special occasions only Comment: counts correct Patient Tobacco Use Status: Current everyday Tobacco user Tobacco use type: Cigarette Cigarettes Per Day: 4 Years Smoked: 20 e-Cigarette/Vaping Use: Never Used Second Hand Smoke Exposure: No Substance Use Type: Marijuana service: No Current occupational status: employed 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 Current occupational exposures/hazards: Yes Cognitive needs: No Hearing needs: No Vision needs: No Review of Systems Const All systems reviewed & are unremarkable except as noted in HPI and below Physical Exam Vital Signs: Last Vital Signs Temp 98.7 F 07/27/24 08:42 Pulse 95 07/27/24 08:42 BP 112/70 07/27/24 08:42 Pulse Ox 99 07/27/24 08:42 Const General: cooperative Nutritional Appearance: average body habitus Limitations: no limitations HEENT Head: Yes normal to inspection Ears: hearing grossly normal bilaterally Neck Neck: Yes normal visual inspection, Yes full ROM, Yes no lymphadenopathy and Yes no JVD Resp Effort & Inspection: normal respiratory effort Auscultation: clear to auscultation bilaterally Cardio Rate: regular rate Rhythm: regular rhythm Back/Spine/Pelvis Other: + spurlings to left Cervical Spine: normal cervical lordosis, cervical muscular tenderness and pain with cervical ROM (left lateral bending and rotation) Skin General skin exam: no rashes or lesions noted Extrem Other: Left arm pain over left triceps area. Reported paresthesias left forearm and left hand. Normal cap refill. Psych Appearance: grossly normal Mental Status: mental status grossly normal Speech and movement: Normal speech and movement present Assessment & Plan Assessment & Plan (1) Left cervical radiculopathy: Code(s): M54.12 - Radiculopathy, cervical region Plan: Cervical XR obtained does not show anything acute however does show moderate multilevel degenerative spondylosis. This appears to be a left cervical radiculopathy in the left C7/8 dermatome. I discussed this with patient. For now, I will prescribe a course of prednisone and muscle relaxers to see if this provides some benefit. We reviewed indications, use, possible side effects of these medications. If this does not improve his symptoms, he may benefit from evaluation at the spine Center or pain management office at [facility]. Patient agrees to this. He will follow up here as needed or with PCP Ryan Glogowski FISH FARMER. We discussed that if symptoms worsen or new symptoms develop, he should go to the emergency department for evaluation. All questions were answered and patient verbalizes understanding and agrees to plan. Orders: Orders XR cervical spine 2V Today M54.12 - Radiculopathy, cervical region Medications: New prednisone 40 mg (2 x 20 mg) PO DAILY 5 days 10 tabs 0RF M54.12 - Radiculopathy, cervical region cyclobenzaprine 10 mg PO TID 4 days PRN 12 tabs 0RF muscle spasm M54.12 - Radiculopathy, cervical region Coding Level of Care Code Est Pt Level 4 (47972) Diagnoses Left cervical radiculopathy M54.12
[2024-07-27 08:42] VITALS: BP 112/70; PULSE 95; TEMP 37.1; O2SAT 99
--- OUTSIDE RECORDS SUMMARY | 2024-07-27 09:01 | XMS_ITS | Encounter Summary ---
Author Organization [employer] Address [address] [place] [address] Care Team Providers Care Clerical Administrative Assistant Name Role Phone Unavailable Primary Care Provider Unavailabl e Reason for Visit * Reason Onset Date Comments tx clarification/active request 09/12/2023 Encounter Details Date Type Department Care Team (Late st Contact Info) Description 09/12/[address] [facility] [address] [place], [place] [phone] Bárbara Wilkins BDS [address] [place], [place] [phone] tx clarification/active request Social History Tobacco Use [...]
--- OUTSIDE RECORDS SUMMARY | 2024-07-27 09:01 | XMS_ITS | Encounter Summary ---
Author Organization [employer] Address [address] [place] [address] Care Team Providers Care Senior Teradata Developer Name Role Phone Unavailable Primary Care Provider Unavailabl e Reason for Visit * Reason Onset Date Comments alveloplasty CHC?? 11/10/2023 Encounter Details Date Type Department Care Team (Late st Contact Info) Description 11/10/2023 Telephone C [facility] DENTAL [address] [place], [place] [phone] Bárbara Wilkins Macy [address] [place], [place] [phone] alveloplasty CHC?? 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 I transferred call over to [facility] first time and he called back [...]
--- OUTSIDE RECORDS SUMMARY | 2024-07-27 09:01 | XMS_ITS | Clinical Summary ---
Author Organization [employer] Address [address] [place] [address] 7 [place] [address] Care Team Providers Care Ticket Machine Operator Name Role Phone Unavailable Primary Care Provider Unavailabl e Allergies No known active allergies Medications hydroCHLOROthiazid e (Microzide) 12.5 MG capsule 07/09/2023 Active lisinopril 20 MG tablet 05/09/2023 Active Social History Tobacco Use Types Packs/Day Years [...] Procedure Name Priority Date/Time Associated Diagnosis Comments PROPHYLAXIS - ADULT Routine 02/22/2024 1 1:00 AM EDT INTRAORAL - COMPLETE SERIES OF RADIOGRAPHIC IMAGES Routine 07/20/2023 10:00 AM EDT from Last 3 Months or Most Recently Relevant to Health Maintenance Insurance [facility] DENTAL - HSN PARTIAL (MEDICAID)
== END 2024-07-27 09:30 | disposition home or self-care (01) ==
PROVIDERS: PCP Nurse Practitioner Family; Visit Provider Nurse Practitioner Family
DX: M54.12 Radiculopathy, cervical region (principal); Z04.2 Encounter for examination and observation following work accident

== ENCOUNTER 2024-07-27 08:34 | Outpatient (REF) | payer OTHER, SELFPAY ==
--- NOTE | ~2024-07-27 | XR_ITS ---
EXAMINATION: XR CERVICAL SPINE CLINICAL INFORMATION: M54.12 - Radiculopathy, cervical region COMPARISON: None available. TECHNIQUE: 3 views of the cervical spine were obtained. FINDINGS: Normal lordosis. No scoliosis. No fracture, compression deformity, or suspicious bone lesion. C1-2 articulation and craniocervical junction are intact and aligned. There is a 2 mm degenerative type retrolisthesis of C3 on C4. Trace anterolisthesis C4 on C5. Alignment is otherwise anatomic. Moderate to severe disc degeneration most notable C5-6 and C6-7. Normal facet alignment. Multilevel hypertrophic degenerative facet changes, worst on the left at C5-6. The pre and paravertebral soft tissues are normal. The lung apices are clear. XR/XR cervical spine 2V IMPRESSION: 1. No acute findings of the cervical spine. 2. Moderate multilevel degenerative spondylosis. Electronically signed by: John Clayton MD 07/27/2024 09:34 AM EDT
--- OUTSIDE RECORDS SUMMARY | 2024-07-27 09:46 | XMS_ITS | Clinical Summary ---
Author Organization [employer] Address [address] [place] [address] 7 [place] [address] Care Team Providers Care Tab Builder Name Role Phone Unavailable Primary Care Provider [...] Most Recently Relevant to Health Maintenance Insurance [facility] DENTAL - HSN PARTIAL (MEDICAID)
--- OUTSIDE RECORDS SUMMARY | 2024-07-27 09:46 | XMS_ITS | Encounter Summary ---
Author Organization [employer] Address [address] [place] [address] Care Team Providers Care Bearing Machine Operator Name Role Phone Unavailable Primary Care Provider Unavailabl e Reason for Visit * Reason Onset Date Comments alveloplasty CHC?? 11/10/2023 Encounter Details Date Type Department Care Team (Late st Contact Info) Description 11/10/2023 Telephone C [facility] DENTAL [address] [place], [place] [phone] Bárbara Wilkins Macy [address] [place], [place] [phone] alveloplasty CHC?? 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 I transferred call over to [facility] first time and he called back again. [...]
--- OUTSIDE RECORDS SUMMARY | 2024-07-27 09:46 | XMS_ITS | Encounter Summary ---
Author Organization [employer] Address [address] [place] [address] Care Team Providers Care Glazing Department Supervisor Name Role Phone Unavailable Primary Care Provider Unavailabl e Reason for Visit * Reason Onset Date Comments tx clarification/active request 09/12/2023 Encounter Details Date Type Department Care Team (Late st Contact Info) Description 09/12/2023 Telephone [facility] DENTAL [address] [place], [place] [phone] Bárbara Wilkins BDS [address] [place], [place] [phone] tx clarification/active request Social History Tobacco Use [...]
== END 2024-07-27 08:35 | disposition home or self-care (01) ==
LOC: HO.HMGCX 08:34
PROVIDERS: PCP Nurse Practitioner Family; Visit Provider Nurse Practitioner Family
DX: M54.12 Radiculopathy, cervical region (principal)
CPT/HCPCS: 72040

== ENCOUNTER → 2024-07-27 09:08 | Outpatient (BNV) | payer OTHER, SELFPAY | PROVIDERS: PCP Nurse Practitioner Family; Visit Provider Radiology Diagnostic Radiology | DX: M54.12 Radiculopathy, cervical region (principal) | CPT/HCPCS: 72040 ==

== ENCOUNTER 2024-08-21 06:53 | Outpatient (AMB) | payer OTHER, SELFPAY ==
--- NOTE | 2024-08-21 07:24 | A.OFFPC_ITS ---
Intake Visit Reasons: Discuss walk-in visit/numbness/pain WC Allergies No Known Allergies Allergy (Verified 08/21/24 07:24) Medication List - Last Reconciled 08/21/24 by GEMINI Brady cyclobenzaprine 10 mg PO TID PRN 4 days dexamethasone 4 mg PO DAILY 9 days hydrochlorothiazide 12.5 mg PO DAILY 90 days lisinopril 20 mg PO DAILY nicotine 1 patch transdermal DAILY Tobacco use date assessed: 08/24/23 Dental Screening Dental Screen Date: 08/24/23 HPI Discuss walk-in visit/numbness/pain WC HPI Details History of Present Illness The patient is a 54-year-old male presenting for follow-up of a cervical spine injury incurred on July 26, 2024. 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 This was accompanied by cervical neck pain, XR identified with moderate degenerative changes, particularly severe at C5-C6 and C6-C7. The patient struggles with persistent pain affecting sleep, initially managed with muscle relaxants and a low-dose steroid (earlier this month) Review of Systems - Musculoskeletal: Reports cervical neck pain; reports pain radiating from left trapezius to fingertips; reports numbness in upper extremities. - Neurological: Reports radiculitis; rep orts difficulty sleeping due to pain. Plan Referral to [facility] for comprehensive assessment of cervical spondylosis. An MRI has been ordered to evaluate radicular symptoms further. A dexamethasone taper is initiated to manage pain and inflammation. Follow-up through the patient portal for symptom monitoring is advised pending specialist evaluation. Discussion Notes During our discussion, I informed the patient of the moderate multilevel degenerative spondylosis observed on X-ray, particularly at C5-C6 and C6-C7. I recommended a referral to [facility] for specialized intervention. An MRI will be conducted to further assess the radicular involvement correlating with the cervical spine pathology. We discussed the use of a dexamethasone taper for pain management, emphasizing its potential benefits and the monitoring plan via the patient portal. I advised the patient to report any worsening symptoms to facilitate timely adjustments to care. Patient Instructions - Begin dexamethasone taper as prescribe d. - Contact the clinic through the patient portal with any changes or worsening of symptoms. - Follow up with [facility] as scheduled. - Rest and avoid activities that may exa cerbate symptoms. - Monitor and report pain progression or difficulties in sleeping. [facility] Medical History Colostomy in place Acute diverticulitis Nicotine dependence, cigarettes, uncomplicated Fatty liver GERD (gastroesophageal reflux disease) Osteoarthritis of left hip Exposure to lead Essential hypertension Surgical History Hx of surgical procedure (~05/29/24) H/O oral surgery H/O colonoscopy Hx of surgical procedure (~01/13/24) History of esophagogastroduodenoscopy (EGD) Social History Household Members: Spouse Housing: House Are you a primary daycare teacher to a significant other at home: No Do you presently have visiting nurse or other home services: No Alcohol intake: current Alcohol intake frequency: holidays/special occasions only Comment: counts correct Patient Tobacco Use Status: Current everyday Tobacco user Tobacco use type: Cigarette Cigarettes Per Day: 4 Years Smoked: 20 Packs per year/per ci.00 e-Cigarette/Vaping Use: Never Used Second Hand Smoke Exposure: No Substance Use Type: Marijuana service: No Current occupational status: employed 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 Current occupational exposures/hazards: Yes Cognitive needs: No Hearing needs: No Vision needs: No Questionnaire Thrive Questionnaire Date Thrive assessed: 12/07/23 I am a: Patient What is your living situation today?: I choose not to answer this question Within the past 12 months, did the food you bought not last and you didn't have the money to get more?: I choose not to answer this question Within the past 12 months, did you worry whether your food would run out before you got money to buy more?: I choose not to answer this question Do you have trouble paying for medicines?: I choose not to answer this question Do you have trouble getting transportation to medical appointments?: I choose not to answer this question Do you have trouble paying your heating and electricity bill?: I choose not to answer this question Do you have trouble taking care of your child, family member or friend?: I choose not to answer this question Do you have trouble with day-to-day activities such as bathing, preparing meals, shopping, managing finances, etc.?: I choose not to answer this question Are you currently unemployed and looking for a job?: I choose not to answer this question Are you interested in more education?: I choose not to answer this question Please select the resources that you would like help with: None Currently or been in a relationship where the following occur: I choose not to answer THRIVE Score: 0 SHORTY-7 AMB Questionnaire SHORTY-7 Date SHORTY - 7 assessed: 08/24/23 Source: Developed by Drs. Daniel Rodriguez, Amarilis Pitt, Hunter Jurado and colleagues, with an educational richard from [employer]. Physical exam (Primary Care) Tobacco/Smoking Status: Tobacco use Status Tobacco use date assessed 08/24/23 08/21/24 07:26 Patient Tobacco Use Status Current everyday Tobacco 08/21/24 07:26 Tobacco use type Cigarette 08/21/24 07:26 e-Cigarette/Vaping Use Never Used 08/21/24 07:26 Thrive Assessment: Date of Thrive Assessment Date Thrive assessed 12/07/23 08/21/24 07:26 Currently or been in a relationship where the following occur: I choose not to answer Telehealth Telehealth Telehealth Platform: [facility] Location of provider rendering services: practice address Location of patient: address on file Patient Identification confirmed using: Name, : Yes Telehealth method: video Patient verbally consented to treatment: Yes Patient verbally consented to billing insurance company: Yes Patient informed of any privacy concerns related to visit: Yes Minutes spent on Phone/Video with Pt.: 15 Coding Level of Care Code Tele Est Pt Level 3 (75173) Diagnoses Cervical radiculopathy M54.12 Assessment & Plan Assessment & Plan (1) Cervical radiculopathy: Code(s): M54.12 - Radiculopathy, cervical region Category: Medical Plan . Orders: Orders MR cervical spine wo con Today M54.12 - Radiculopathy, cervical region Referrals Sports Medicine Referral M54.12 - Radiculopathy, cervical region Medications: New dexamethasone 1 tab 3 times a day for 3 days, 1 tab twice a day for 3 days, 1 tab daily for 3 days 4 mg PO DAILY 9 days 18 tabs 0RF dexamethasone 1 tab 3 times a day for 3 days, 1 tab twice a day for 3 days, 1 tab daily for 3 days 4 mg PO DAILY 18 tabs 0RF 9 days Discontinued prednisone Discontinued Reason: Doctor's Order 40 mg (2 x 20 mg) PO DAILY 5 days 10 tabs 0RF M54.12 - Radiculopathy, cervical region
== END 2024-08-21 08:01 | disposition home or self-care (01) ==
LOC: HO.HMCC 06:54
PROVIDERS: PCP Nurse Practitioner Family; Visit Provider Nurse Practitioner Family
DX: M54.12 Radiculopathy, cervical region (principal); Z04.2 Encounter for examination and observation following work accident

== ENCOUNTER → 2024-08-21 06:53 | Outpatient (BNVA) | payer OTHER, SELFPAY | PROVIDERS: PCP Nurse Practitioner Family; Visit Provider Nurse Practitioner Family ==

== ENCOUNTER 2024-08-28 14:03 | Outpatient (REF) | payer OTHER, SELFPAY ==
--- NOTE | ~2024-08-28 | MR_ITS ---
EXAMINATION: MR CERVICAL SPINE WITHOUT CONTRAST CLINICAL INFORMATION: Radiculopathy., Cervical region. COMPARISON: None available. TECHNIQUE: MRI of the cervical spine was obtained using routine sequences without contrast. FINDINGS: Craniocervical junction is intact. No bone marrow STIR signal in the. Multilevel disc desiccation marginal osteophyte formation C3 C7. Grade 1 retrolisthesis C3-4. Grade 1 anterolisthesis C4-5. Bone marrow inhomogeneity. Punctate hyperintense T2 STIR signal within the sherwin. Cervical spinal cord signal is normal. There is buckling deformity of the dorsal aspect of the thecal sac secondary to ligamentum flavum hypertrophy, C3-4 C5-6 and to a lesser extent C6-7 levels. C2-3: No disc herniation. No neuroforamina stenosis. C3-4: Broad-based disc osteophyte complex formation abutting the cord. No cord signal abnormality. Bilateral neuroforamina narrowing on a degenerative basis. C4-5: Broad-based disc osteophyte complex formation abutting the cord. Bilateral neuroforamina narrowing on a degenerative basis. C5-6: Broad-based disc osteophyte complex formation resulting in flattening of the spinal cord. Bilateral neuroforamina narrowing on a degenerative basis. C6-7: Broad-based disc osteophyte consummation abutting the cord. Left neuroforamina narrowing on a degenerative basis. C7-T1: No disc herniation. No neuroforamina stenosis. Flow-void signal within the mean vessels is normal. Right vertebral artery slightly dominant. No prevertebral compartment hematoma, mass or fluid collections. MR/MR cervical spine wo con IMPRESSION: Multilevel cervical spondylosis C3-C7 resulting in central spinal canal stenosis at C3-4, C4-5 C5-6 and C6-7 levels without cord edema and or myelopathy. Bilateral neuroforamina stenosis C3-4 to C6-7. Probable white matter disease versus old lacunar infarcts in the sherwin. Electronically signed by: David Mai MD 08/28/2024 03:39 PM EDT
--- NOTE | ~2024-08-28 | XR_ITS ---
EXAMINATION: XR SCREENING FILM FOR MR HISTORY: ORBITS, PRE MRI COMPARISON: There are no prior studies for comparison. FINDINGS: Three views of the orbits demonstrate no radiopaque foreign body. The visualized paranasal sinuses are clear. XR/XR pre mri screening IMPRESSION: No radiopaque foreign body is identified. Electronically signed by: Daniel Hu MD 08/28/2024 02:37 PM EDT
--- OUTSIDE RECORDS SUMMARY | 2024-08-28 15:21 | XMS_ITS | Encounter Summary ---
Author Organization [employer] Address [address] [place] [address] [place] [address] Care Team Providers Care Wood Barker Name Role Phone Unavailable Primary Care Provider Unavailabl e Reason for Visit * Reason Onset Date Comments alveloplasty CHC?? 11/10/2023 Encounter Details Date Type Department Care Team (Late st Contact Info) Description 11/10/2023 Telephone [facility] DENTAL [address] [place], [place] [phone] Bárbara Wilkins BDS [address] [place], [place] [phone] alveloplasty CHC?? 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 I transferred call over to [facility] first time and he called back [...]
--- OUTSIDE RECORDS SUMMARY | 2024-08-28 15:21 | XMS_ITS | Clinical Summary ---
Author Organization [employer] Address [address] [place] [address] 7 [place] [address] Care Team Providers Care Records Management Associate Name Role Phone Unavailable Primary Care Provider [...] or Tdap) 02/15/2022 02/16/2012 COVID-19 Vaccine (3 2023-2 5 season) 2023 12/04/2020, 11/06/2020 Influenza [...] Most Recently Relevant to Health Maintenance Insurance DENTAL - HSN PARTIAL (MEDICAID)
--- OUTSIDE RECORDS SUMMARY | 2024-08-28 15:21 | XMS_ITS | Encounter Summary ---
Author Organization [employer] Address [address] [place] [address] [place] [address] Care Team Providers Care Fibre Cement Moulder Name Role Phone Unavailable Primary Care Provider Unavailabl e Reason for Visit * Reason Onset Date Comments tx clarification/active request 09/12/2023 Encounter Details Date Type Department Care Team (Late st Contact Info) Description 09/12/2023 Telephone [facility] DENTAL [address] [place], [place] [phone] Bárbara Wilkins BDS [address] [place], [place] [phone] tx clarification/active request Social History Tobacco Use [...]
== END 2024-08-28 14:04 | disposition home or self-care (01) ==
LOC: HO.MRI 14:03
PROVIDERS: Absent Provider Radiology Diagnostic Radiology; PCP Nurse Practitioner Family; Visit Provider Nurse Practitioner Family
DX: M54.12 Radiculopathy, cervical region (principal)
CPT/HCPCS: 72141

== ENCOUNTER → 2024-08-28 14:35 | Outpatient (BNV) | payer OTHER, SELFPAY | PROVIDERS: Absent Provider Radiology Diagnostic Radiology; PCP Nurse Practitioner Family; Visit Provider Radiology Diagnostic Radiology | DX: M47.812 Spondylosis without myelopathy or radiculopathy, cervical region (principal); M99.61 Osseous and subluxation stenosis of intervertebral foramina of cervical region | CPT/HCPCS: 72141 ==

== ENCOUNTER 2025-02-07 07:29 | Outpatient (REF) | payer OTHER, SELFPAY ==
--- NOTE | ~2025-02-07 | CT_ITS ---
EXAMINATION: CT LUNG SCREENING HISTORY: F17.210 - Nicotine dependence, cigarettes, uncomplicated TECHNIQUE: Low dose axial images were obtained from the sternal notch to upper abdomen without IV contrast per standard departmental protocol. Sagittal and coronal reformatted images were also obtained and reviewed. One or more of the following techniques was used for dose reduction: Automated exposure control, adjustment of the mA and/or kV according to patient size, use of iterative reconstruction technique. DLP: 49 mGy-cm COMPARISON: Comparison is made with the prior examination dated 12/02/2023. FINDINGS: Lung nodules: There are scattered groundglass opacities in the anterior aspects of the bilateral upper lobes measuring up to 30 x 10 mm (series 4, image 68). No associated solid component is identified. Emphysema: mild Coronary Calcification: severe Aortic Arch Calcification: mild Potentially Significant Incidentals : none Additional Chest Findings: There is no pleural or pericardial effusion. No mediastinal or axillary lymphadenopathy is identified. Visualized upper abdomen: The visualized portions of the liver, spleen, and adrenals have an unremarkable unenhanced appearance. CT/CT lung screening IMPRESSION: No suspicious pulmonary nodules are identified. LUNG-RADS ASSESSMENT: Lung-RADS 2: Benign MANAGEMENT: Continue annual screening with LDCT in 12 months Category S: N/A Electronically signed by: Daniel Hu MD 02/07/2025 08:16 AM EDT
--- OUTSIDE RECORDS SUMMARY | 2025-02-07 07:32 | XMS_ITS | Encounter Summary ---
Author Organization [employer] Address [address] [place] [address] [place] [address] Care Team Providers Care Sail Repairer Name Role Phone Unavailable Primary Care Provider Unavailabl e Reason for Visit * Reason Onset Date Comments alveloplasty CHC?? 11/10/2023 Encounter Details Date Type Department Care Team (Late st Contact Info) Description 11/10/2023 Telephone [facility] D[facility]AL [address] [place], [place] [phone] Bárbara Wilkins BDS [address] [place], [place] [phone] alveloplasty CHC?? Social History Tobacco Use Types [...] here 2 times requesting a visit for aguilra removal prior to doing dentures/partials. I transferred call over to [facility] first time and he called [...]
--- OUTSIDE RECORDS SUMMARY | 2025-02-07 07:32 | XMS_ITS | Encounter Summary ---
Author Organization [employer] Address [address] [place] [address] [place] [address] Care Team Providers Care Trading Analyst Name Role Phone Unavailable Primary Care Provider Unavailabl e Reason for Visit * Reason Onset Date Comments tx clarification/active request 09/12/2023 Encounter Details Date Type Department Care Team (Late st Contact Info) Description 09/12/2023 Telephone [facility] DENTAL [address] [place], [place] [phone] Bárbara Wilkins BDS [address] [place], [place] [phone] tx clarification/active request Social History Tobacco Use [...]
--- OUTSIDE RECORDS SUMMARY | 2025-02-07 07:32 | XMS_ITS | Encounter Summary ---
Author Organization [facility] Address [address] [facility] [address] [place] [address] Phone Care Team Providers Care Bobbin Marker Name Role Phone Rea Melton DO Primary Care Provider [phone] Rea Melton DO Unavailable [phone] Rea Melton DO Primary Care Provider [phone] Encounter Details Date Type Department Care Team (Late st Contact Info) Description 09/18/2020 Procedure Pass [address] [place] [address] Social History Tobacco Use Types Packs/Day Years Used Date Smoking Tobacco: Never Smokeless Tobacco: Never Alcohol Use Standard Drinks/Week Comments No 0 (1 standard drink = 0.6 oz pur e alcohol) Sex and Gender Information Value Date Recorded Sex Assigned at Male 05/02/2017 9:38 AM EST Legal Sex Male 9:37 PM EDT Gender Identity Male 12/07/2018 10:13 AM EDT Sexual Orientation Choose not to disclose 2018 10:13 AM EDT documented as of this encounter Plan of Treatment Not on file documented as of this encounter Visit Diagnoses Not on filedocumented in this encounter Care Teams Bobbin Marker Relationship Specialty Start Date End Date Rea Melton DO [address] [place] [address] PCP - General 02/08/17 09/18/20 Rea Melton DO [address] [place] [address], [place] [address] PCP - General Internal Medicine 09/19/20 Rea Melton DO [address] [place] [address] [place] [address] Insurance Assigned Provider 07/23/17 02/28/22 documented as of this encounter Additional Source Comments The information contained in this document represents components of the legal health record. It is not the complete legal health record.[facility]
--- OUTSIDE RECORDS SUMMARY | 2025-02-07 07:32 | XMS_ITS | Clinical Summary ---
Author Organization [employer] Address [address] [place] [address] [place] [address] Care Team Providers Care Special Agent [employer] Name Role Phone Unavailable Primary Care Provider Unavailabl e Allergies No known active allergies Medications hydroCHLOROthiazid e (Microzide) 12.5 MG capsule 07/09/2023 Active lisinopril 20 MG tablet 05/09/2023 Active Encounters Date Type Department Care Team Description 12/26/2024 3:00 PM EDT Office Visit [facility] [address] [place] [address] Bárbara Wilkins BDS Partially edentulous maxilla, unspecified edentulism class (Primary Dx); Partially edentulous mandible, unspecified edentulism class from Last 3 Months Social History Tobacco [...] Sign Reading Time Taken Comments Blood Pressure 128/74 12/26/2024 3:36 PM EDT Pulse 91 02/22/2024 11:05 AM EDT [...] Panel 1968 SDOH Screening 1968 Sigmoidoscopy 1968 Disability Screening 1968 Alcohol/Substance Use Screening 1980 Hepatitis C Screening 1986 Hepatitis B Vaccines (1 of 3 - 19+ 3-dose series) 1987 Pneumococcal Vaccine: 50+ Years (2 of 2 - PCV) 02/15/2013 02/16/2012 Zoster Vaccines (1 of 2) 2018 DTaP/Tdap/Td Vaccines (2 - T d or Tdap) 02/15/2022 02/16/2012 Dental X-Ray: Bitewings 07/20/2024 07/20/2023 Dental Prophylaxis 08/23/2024 02/22/2024 COVID-19 Vaccine (3 - 2024-2 6 season) 2024 12/04/2020, 11/06/2020 Influenza Vaccine (#1) 2024 , 03/17/2020 Tobacco Screening 12/26/2025 12/26/2024 Dental X-Ray: Full Mouth 07/20/2026 07/20/2023 RSV [...] patient's age to complete this topic Meningococcal B Vaccine Aged Out No l onger eligible based on patient's age to complete [...] Associated Diagnosis Comments WAX TRY IN Routine 12/26/2024 3:00 PM EDT PROPHYLAXIS - ADULT Routine 02/22/2024 1 1:00 AM EDT INTRAORAL - COMPLETE SERIES OF RADIOGRAPHIC IMAGES Routine 07/20/2023 10:00 AM EDT from Last 3 Months or Most Recently Relevant to Health Maintenance Insurance [facility] - HSN PARTIAL (MEDICAID)
--- OUTSIDE RECORDS SUMMARY | 2025-02-07 07:32 | XMS_ITS | Encounter Summary ---
Author Organization [facility] Address [address] [facility] [address] [place] [address] Phone Care Team Providers Care Intake Man Name Role Phone Rea Melton DO Primary Care Provider [phone] Rea Melton DO Unavailable [phone] Rea Melton DO Primary Care Provider [phone] Encounter Details Date Type Department Care Team (Late st Contact Info) Description 09/18/2020 Ancillary Orders Virtual Department [address] [place] [address] Rea Melton, DO [address] [place] [address] Chest wall pain Social History Tobacco Use Types Packs/Day Years [...] on file documented as of this encounter Results * BI US BREAST LIMITED (LEFT) (10/02/2020 3:06 PM EDT) Anatomical Region Laterality Modality Breast Left, Breast Bilateral Left Ul trasound 10/02/2020 3:05 PM EDT Narrative 10/02/2020 3:05 PM EDT Refer to the mammogram report. Procedure Note Kaden Amador MD - 10/02/2020 Refer to the mammogram report. us Rea Margaret Furmalathilo DO IMG US BREAST Final Result * BI MAMMOGRAM DIAGNOSTIC WITH TOMOSYNTHESIS WITH CAD (BILATERAL) (10/02/2020 2:45 PM EDT) Anatomical Region Laterality Modality Breast Left, Breast Right, Breast Bilateral Bila teral Mammography 10/02/2020 2:52 PM EDT Impressions 10/02/2020 3:08 PM EDT No findings to account for lateral left breast pain. Minimal left breast gynecomastia. No mammographic evidence of malignancy. Clinical follow-up recommended. Findings relayed to the patient via the technologist. BI-RADS CATEGORY: 2 - Benign finding. DENSITY: The breast tissue is almost entirely fat. LEFT RECOMMENDATION DUE DATE: No Follow Up Required Left Clinical Follow Up RIGHT RECOMMENDATION DUE DATE: No Follow Up Required Right No Follow Up Required Narrative 10/02/2020 3:08 PM EDT 50-year-old male who presents for left breast pain at 3:00. This a baseline exam. Interpretation made in conjunction with computer-aided detection and tomosynthesis. Standard views obtained. The breasts are almost entirely fatty. Minimal increase density in the left retroareolar region. No mass, distortion or suspicious calcifications. Benign left nipple areolar complex macrocalcifications. Left breast ultrasound was obtained. Imaging was obtained of the area of pain which is lateral to the nipple. No abnormality identified. Procedure Note Kaden Amador MD - 10/02/2020 50-year-old male who presents for left breast pain at 3:00. This abaseline exam. Interpretation made in conjunction with computer-aideddetection and tomosynthesis. Standard views obtained. The breasts are almost entirely fatty. Minimalincrease density in the left retroareolar region. No mass, distortion orsuspicious calcifications. Benign left nipple areolar complexmacrocalcifications. Left breast ultrasound was obtained. Imaging was obtained of the area ofpain which is lateral to the nipple. No abnormality identified. IMPRESSION: No findings to account for lateral left breast pain. Minimal left breastgynecomastia. No mammographic evidence of malignancy. Clinical follow-uprecommended. Findings relayed to the patient via the technologist. BI-RADS CATEGORY: 2 - Benign finding. DENSITY: The breast tissue is almost entirely fat. LEFT RECOMMENDATION DUE DATE: No Follow Up Required Left Clinical Follow Up RIGHT RECOMMENDATION DUE DATE: No Follow Up Required Right No Follow Up Required us Rea Melton DO IMG MG EXAMS Final Result documented in this encounter Visit Diagnoses Diagnosis Chest wall pain Painful respiration Chest wall pain Painful respiration Chest wall pain Painful respiration documented in this encounter Care Teams Intake Man Relationship Specialty Start Date End Date Rea Melton DO [address] [place] [address] PCP - General 02/08/17 09/18/20 Rea Melton DO [address] [place] [address] PCP - General Internal Medicine 09/19/20 [place] [address] Insurance Assigned Provider 07/23/17 02/28/22 documented as of this encounter Additional Source Comments The information contained in this document represents components of the legal health record. It is not the complete legal health record.[facility]
--- OUTSIDE RECORDS SUMMARY | 2025-02-07 07:32 | XMS_ITS | Encounter Summary ---
Author Organization [facility] Address [address] [facility] [address] [place] [address] Phone Care Team Providers Care Heel Gouger Name Role Phone Rea Melton DO Primary Care Provider Rea Melton DO Unavailable [phone] Rea Melton DO Primary Care Provider [phone] Encounter Details Date Type Department Care Team (Late st Contact Info) Description 09/17/2020 Ancillary Orders Virtual Department [address] [place] [address] Rea Melton DO [address] [place] [address] Social History Tobacco Use Types Packs/Day Years [...] on filedocumented in this encounter Care Teams Heel Gouger Relationship Specialty Start Date End Date Rea Melton DO [address] [place] [address] PCP - General 02/08/17 09/18/20 Rea Melton DO [address] [place] [address] PCP - General Internal Medicine 09/19/20 Rea Melton DO [address] [place] [address] [place] [address] Insurance Assigned Provider 07/23/17 02/28/22 documented as of this encounter Additional Source Comments The information contained in this document represents components of the legal health record. It is not the complete legal health record.[facility]
--- OUTSIDE RECORDS SUMMARY | 2025-02-07 07:33 | XMS_ITS | Clinical Summary ---
Author Organization [facility] Address [address] [facility] [address] [place] [address] Phone Care Team Providers Care Slag Wheeler Name Role Phone GeronimoRea Margaret MCKAY Primary Care Provider [phone] Allergies No known active allergies Medications oxyCODONE 5 MG immediate release tablet [The details of the medication are not available because there are pending changes by a home health clinician.] 10 tablet 7 Active Additional Information Patient not taking.Reason: Therapy complete, Reported on 01/22/2024 lisinopril (PRINIVIL,ZESTR IL) 10 MG tablet 11 7 Active oxyCODONE 5 MG immediate release tablet [The details of the medication are not available because there are pending changes by a home health clinician.] 8 tablet 9 Active Additional Information Patient not taking.Reason: Therapy complete, Reported on 01/22/2024 docusate sodium (COLACE) 100 MG capsule Take 100 mg by mouth 2 (two) times a day. 4 Active oxyCODONE 5 MG immediate release tablet Take 5 mg by mouth every 4 (four) hours as needed for pain (specific location in comments). 4 Active hydroCHLOROthia zide 12.5 MG tablet Take 12.5 mg by mouth daily. 4 Active Active Problems No known active problems Family History Medical History Relation Comments Cardiovascular disease Father Cardiovascular disease Mother Relation Status Comments Father Mother Social History Tobacco Use Types Packs/Day Years Used Date Smoking Tobacco: Never Smokeless Tobacco: Never Alcohol Use Standard Drinks/Week Comments No 0 (1 standard drink = 0.6 oz pur e alcohol) Home Health Assessment: Transportation Answer Date Recorded Lack of Transportation (Medical) No 02/09/2024 Lack of Transportation (Non-Medical) No 02/09/2024 Patient Unable or Declines to Respond No 02/09/2024 Education Answer Date Recorded Are you interested in more education? Not on lita e 08/20/2022 Are you concerned about learning? Not on file 08/20/2022 No 08/20/2022 No 08/20/2022 Digital Access Answer Date Recorded No 09/18/2022 No 09/18/2022 No 09/18/2022 Reliable internet access at home? Not on file 09/18/2022 Device with a working camera? Not on file Sex and Gender Information Value Date Recorded Sex Assigned at Male 05/02/2017 9:38 AM EST Legal Sex Male 9:37 PM EDT Gender Identity Male 12/07/2018 10:13 AM EDT Sexual Orientation Choose not to disclose 2018 10:13 AM EDT Last Filed Vital Signs Vital Sign Reading Time Taken Comments Blood Pressure 112/72 02/01/2024 10:09 AM EDT Pulse 79 02/09/2024 11:59 AM EDT Temperature 36.9 C (98.5 F) 02/09/2024 11:59 AM EDT Respiratory Rate 18 01/26/2024 11:30 AM EDT Oxygen Saturation 96% 02/09/2024 11:59 AM EDT Inhaled Oxygen Concentration - - Weight 78 kg (172 lb) 01/22/2024 8:58 AM EDT Height 182.9 cm (6') 01/22/2024 8:58 AM EDT Body Mass Index 23.33 01/22/2024 8:58 AM EDT Plan of Treatment Health Maintenance Due Date Last Done Comments CREATININE LEVEL 1968 POTASSIUM LEVEL 1968 DEPRESSION SCREENING 1980 HEPATITIS C SCREENING 1986 HIV ONE-TIME SCREENING (18-6 5 YEARS) 1986 COLOGUARD 2013 COLONOSCOPY 2013 COLORECTAL CANCER SCREENING 2013 FIT TEST 2013 FOBT 2013 SIGMOIDOSCOPY 2013 VIRTUAL COLONOSCOPY 2013 PNEUMOCOCCAL VACCINES (50+ years) (2 of 2 - PCV) 2018 02/16/2012 ZOSTER VACCINES (1 of 2) 2018 Adult Td,Tdap Booster 02/15/2022 02/16/2012 INFLUENZA VACCINE (#1) 2024 03/17/2020 COVID-19 VACCINE (3 - 2024-2 6 season) 2024 12/04/2020, 11/06/2020 LIPID PANEL 03/23/2026 03/23/2021 RSV VACCINE (1 - 1-dose 75+ series) 2043 SMOKING STATUS SCREENING (On ce After 26 Yrs) Completed 12/07/2018 HEPATITIS A VACCINES Aged Out No long er eligible based on patient's age to complete this topic HIB VACCINES Aged Out No longer eligi ble based on patient's age to complete this topic MENINGOCOCCAL VACCINES (ACWY) Aged Out No longer eligible based on patient's age to complete this topic MENINGOCOCCAL VACCINES (B) Aged Out N o longer eligible based on patient's age to complete this topic Medical Devices Not on file Insurance [facility] PCP [employer] [facility] NON NSPG PCP [employer] [facility] NON [facility]SPG PCP [employer] [place] [facility] NON [facility]SPG PCP [employer] [place] [facility] NON NSPG PCP [employer] [place] [employer] NON NSPG PCP [employer] [place] Care Teams Slag Wheeler Relationship Specialty Start Date End Date Rea Melton DO [address] [place] [address] PCP - General Internal Medicine 09/19/20 Additional Source Comments The information contained in this document represents components of the legal health record. It is not the complete legal health record.[facility]
--- OUTSIDE RECORDS SUMMARY | 2025-02-07 07:33 | XMS_ITS | Encounter Summary ---
Author Organization [facility] Address [address] [facility] [address] [place] [address] Phone Care Team Providers Care Entry Level Web Developer Name Role Phone Rea Melton DO Primary Care Provider [phone] Rea Melton DO Unavailable [phone] Rea Melton DO Primary Care Provider [phone] Encounter Details Date Type Department Care Team (Late st Contact Info) Description 09/18/2020 Procedure Pass [address] [place] [address] Social History Tobacco Use Types Packs/Day Years [...] on filedocumented in this encounter Care Teams Entry Level Web Developer Relationship Specialty Start Date End Date Rea Melton DO [address] [place] [address] PCP - General 02/08/17 09/18/20 Rea Melton DO [address] [place] [address], [place] [address] PCP - General Internal Medicine 09/19/20 Rea Melton DO [address] [place] [address] [place] [address] Insurance Assigned Provider 07/23/17 02/28/22 documented as of this encounter Additional Source Comments The information contained in this document represents components of the legal health record. It is not the complete legal health record.[facility]
== END 2025-02-07 07:30 | disposition home or self-care (01) ==
LOC: HO.CT 07:29
PROVIDERS: PCP Nurse Practitioner Family; Visit Provider Physician Assistant Medical
DX: Z12.2 Encounter for screening for malignant neoplasm of respiratory organs (principal); F17.210 Nicotine dependence, cigarettes, uncomplicated
CPT/HCPCS: 71271

== ENCOUNTER → 2025-02-07 07:31 | Outpatient (BNV) | payer OTHER, SELFPAY | PROVIDERS: PCP Nurse Practitioner Family; Visit Provider Radiology Diagnostic Radiology | DX: F17.210 Nicotine dependence, cigarettes, uncomplicated (principal) | CPT/HCPCS: 71271 ==

== ENCOUNTER 2025-04-05 08:36 | Outpatient (AMB) | payer OTHER, SELFPAY ==
[2025-04-05 08:48] VITALS: BP 88/58; PULSE 92; TEMP 36.7; O2SAT 97; BMI 25.2
--- NOTE | 2025-04-05 08:48 | AM.OFFWIN_ITS ---
Intake Vital Signs 04/05/25 08:48 04/05/25 09:19 Height 6 ft Weight 186 lb BMI 25.2 BP 88/58 L 120/70 Blood Pressure Location Lt brachial Rt brachial Position Sitting Sitting Pulse 92 Pulse Source Pulse Oximeter Temp 98.1 F Temp Source Oral Pulse Oximetry (%) 97 Oxygen Delivery Method Room Air Comment low bp: states not sleeping and in lots of pain Intake Visit Reasons: EP right foot and toe pain Intake Note: pt presents with RT foot pain with very painful bump on top and RT great toe pain (also has hangnail), numbness after twisting his ankle a month ago and then re twisted 2 weeks ago Patient Tobacco Use Status: Current everyday Tobacco user Allergies No Known Allergies Allergy (Verified 04/05/25 08:52) Do you need a note to return to daycare/school/sports/work: No HPI HPI Comments History of Present Illness Details History of Present Illness - The patient is a 54-year-old male pres enting with right toe pain and mid foot pain. - Approximately one to two months ago, alejandra harrington sprained his right ankle, with swelling and bruising that resolved within a week. - He subsequently rolled the same ankle twice more, noting that his ankles feel weak. - Last week, while cutting his toenails, he cut one nail too short, which he feels caused trauma to the area. - Since then, his right great toe has be en very sore and tender, with a sensation of coldness requiring gradual warming in water. - He also reports the toe sometimes feel s like there is no circulation and feels mushy underneath. - The pain is associated with throbbing, is worse when lying down, and has interfered with his sleep. - He also notes having bad hips, which m akes it difficult to cut his own toenails. - His diet is generally not healthy, and a recent attempt to add whole grains and seeds seemed to worsen his gastrointestinal symptoms. [facility] Medical History (Updated 04/05/25 @ 09:29 by Deidre Grossman PA-C) Toe pain Colostomy in place Acute diverticulitis Nicotine dependence, cigarettes, uncomplicated Fatty liver GERD (gastroesophageal reflux disease) Osteoarthritis of left hip Exposure to lead Essential hypertension Surgical History Hx of surgical procedure (~05/29/24) H/O oral surgery H/O colonoscopy Hx of surgical procedure (~01/13/24) History of esophagogastroduodenoscopy (EGD) Social History Household Members: Spouse Housing: House Are you a primary adult caregiver to a significant other at home: No Do you presently have visiting nurse or other home services: No Alcohol intake: current Alcohol intake frequency: holidays/special occasions only Comment: counts correct Patient Tobacco Use Status: Current everyday Tobacco user Tobacco use type: Cigarette Cigarettes Per Day: 4 Years Smoked: 20 e-Cigarette/Vaping Use: Never Used Second Hand Smoke Exposure: No Substance Use Type: Marijuana service: No Current occupational status: employed Current occupation: [employer] Current occupational exposures/hazards: Yes Cognitive needs: No Hearing needs: No Vision needs: No Review of Systems Narrative Review of Systems - Musculoskeletal: Reports severe, sore pain in the right great toe and joint, making it difficult to move when cold. - Reports history of recurrent right ankle sprains and feeling of weak ankles. - Reports hip pain. - Integumentary/Vascular: Reports a sensation of coldness in the right great toe and a feeling that it has no blood at times. - Reports throbbing pain in the right foot when lying down. - Reports a sore bump on the right foot. - Constitutional: Reports poor sleep due to pain. - Gastrointestinal: History of diverticulitis. All systems reviewed and are unremarkable except as noted in HPI Physical Exam Exam Exam: Physical Exam General: Cooperative, healthy appearing, comfortable, no acute distress and well developed Orientation: Patient oriented x3 Limitations: No limitations Head: Normal to inspection Ears: Hearing grossly normal bilaterally Nose: Normal External nose present Face and sinus: Normal facial exam Eyes: Appearance normal, both eyes and all related structures Neck: Normal visual inspection and Yes full ROM Respiratory: Normal respiratory effort and able to speak in complete sentences. Skin: No rashes or lesions noted Neuro: Patient oriented x3 Extremities: Right lateral great toenail has no notable fluctuance or erythema noted however it is very tender to touch. NVI. No TTP of MTP or IP. No skin changes. TTP dorsal aspect of midfoot around the navicular bone. No TTP the post erior medial or lateral malleolus, heal or plantar aspect of the right foot. Full ROM of all toes. Vital Signs: Last Vital Signs Temp 98.1 F 04/05/25 08:48 Pulse 92 04/05/25 08:48 BP 120/70 04/05/25 09:19 Pulse Ox 97 04/05/25 08:48 Oxygen Delivery Method Room Air 04/05/25 08:48 BMI result Body Mass Index 25.2 Assessment & Plan Assessment & Plan (1) Acute foot pain: Code(s): M79.673 - Pain in unspecified foot Qualifiers: Laterality: right Qualified Code(s): M79.671 - Pain in right foot Plan: Patient was informed and verbally consented to the use of an ambient scribe for clinic note documentation during this visit. - Tenderness over the navicular and cuneiform bones is concerning for a possible fracture, which may have occurred during one of his recurrent multiple ankle sprains. We will get an XR for this today. The patient will return for an immediate review of the X-ray results upon completion. - My interpretation of the right ankle x-rays there is no acute fracture or dislocation. Gave patient Narciso wrap for stability. Recommended RICE, follow up if no improvement in pain over the coming weeks. (2) Toe pain: Code(s): M79.676 - Pain in unspecified toe(s) Qualifiers: Laterality: right Qualified Code(s): M79.674 - Pain in right toe(s) Plan: - The patient's presentation with localized tenderness around the toenail, especially after cutting it, is highly suspicious for a bacterial infection such as paronychia but there is nothing obvious to kenn. Plan is to initiate a course of antibiotics due to the high suspicion for infection. - The patient's self-reported symptoms also raise concern for gout or poor circulation. However, none of the joints in his right toe are tender, erythematous or have edema so less likely gout. - A stat referral will be placed to Podiatry for further evaluation and specialized care for both issues. Orders: Orders XR ankle RT min 3V Today M79.673 - Pain in unspecified foot Referrals Podiatry Referral M79.676 - Pain in unspecified toe(s) Medications: New cephalexin 500 mg PO Q6H 28 caps 0RF Coding Level of Care Code Est Pt Level 4 (20161) Diagnoses Acute pain of right foot M79.671 Laterality: right Pain of toe of right foot M79.674 Laterality: right
[2025-04-05 09:19] VITALS: BP 120/70
== END 2025-04-05 10:02 | disposition home or self-care (01) ==
PROVIDERS: PCP Nurse Practitioner Family; Visit Provider Physician Assistant
DX: M79.671 Pain in right foot (principal); M79.674 Pain in right toe(s)

== ENCOUNTER 2025-04-05 08:36 | Outpatient (REF) | payer OTHER, SELFPAY ==
--- NOTE | ~2025-04-05 | XR_ITS ---
EXAMINATION: XR ANKLE, RIGHT CLINICAL INFORMATION: M79.673 - Pain in unspecified foot COMPARISON: None available. TECHNIQUE: AP, lateral, and mortise views of the right ankle. FINDINGS: No fracture, dislocation, or suspicious bone lesion. There is normal alignment. The mortise is intact. The talar dome is normal. The subtalar joints and calcaneus appear normal. There is a tiny calcaneal plantar spur. There is an os trigonum. There is no ankle joint effusion. Soft tissues appear normal. XR/XR ankle RT min 3V IMPRESSION: No acute bony or soft tissue abnormalities of the right ankle. Electronically signed by: John Clayton MD 04/05/2025 09:38 AM BLAINE
== END 2025-04-05 08:37 | disposition home or self-care (01) ==
LOC: HO.HMGCX 08:36
PROVIDERS: PCP Nurse Practitioner Family; Visit Provider Physician Assistant
DX: M79.671 Pain in right foot (principal); M79.674 Pain in right toe(s)
CPT/HCPCS: 73610; 99212

== ENCOUNTER → 2025-04-05 09:25 | Outpatient (BNV) | payer OTHER, SELFPAY | PROVIDERS: PCP Nurse Practitioner Family; Visit Provider Radiology Diagnostic Radiology | DX: M79.671 Pain in right foot (principal) | CPT/HCPCS: 73610 ==

== ENCOUNTER 2025-04-10 09:45 | Outpatient (AMB) | payer OTHER, SELFPAY ==
--- OUTSIDE RECORDS SUMMARY | 2025-04-09 08:00 | XMS_ITS | Encounter Summary ---
Author Organization [facility] Address [address] [place] [address] [place] [address] Care Team Providers Care Cake Icer And Packer Name Role Phone Unavailable Primary Care Provider Unavailabl e Reason for Visit * Reason Comments Dentures Encounter Details Date Type Department Care Team (Late st Contact Info) Description 04/09/2025 8:00 AM EST Office Visit [facility] DENTAL [address] [place], [place] [phone] Quintin Molina DDS [address] [place] [address] Social History Tobacco Use Types Packs/Day Years Used Date Smoking Tobacco: Every Day Cigarettes Smokeless Tobacco: Never Sex and Gender Information Value Date Recorded Sex Assigned at Male 07/04/2023 10:59 AM EDT Legal Sex Male 10:58 AM EDT Gender Identity Male 07/04/2023 10:59 AM EDT Sexual Orientation Straight 07/04/2023 10 :59 AM EDT documented as of this encounter Plan of Treatment Upcoming Encounters Date Type Department Care Team (Late st Contact Info) Description 04/16/2025 3:00 PM EST Office Visit [facility] ADULT DENTAL [address] [place] [address] Scheduled Orders Name Type Priority Associated Diagnoses Orde r Schedule 30,31,23,24,25,26,18,19, 20 30,31,23,24,25,26,18,19, 20 MANDIBULAR PARTIAL DENTURE - FLEXIBLE BASE (INCLUDING ANY CLASPS, RESTS AND TEETH) Dental Routine 1 Occurrences s tarting 04/09/2025 2,3,4,10,11,12,13,14 2,3,4,10,11,12,13,14 MAXILLARY PARTIAL DENTURE - FLEXIBLE BASE (INCLUDING ANY CLASPS, RESTS AND TEETH) Dental Routine 1 Occurrences s tarting 04/09/2025 DENTURE FOLLOWUP Dental Routine 1 Occurr ences starting 04/09/2025 documented as of this encounter Visit Diagnoses Not on filedocumented in this encounter
--- NOTE | 2025-04-10 09:47 | A.OFFVIS_ITS ---
Intake Visit Reasons: shooting pain in toe/ previous infection in toe Intake Note: Cristian is a 54 year old male who presents today for a evaluation of his toes. Patient states that his right great toe is causing him the most pain. He states that the infection is spreading to the other toes. Patient is noticeing redness throug out the foot and he is taking anit bitoics which is not noticing any changes. Allergies No Known Allergies Allergy (Verified 04/10/25 09:52) HPI HPI shooting pain in toe/ previous infection in toe: Details: Chief complaint: The patient presents with a 2 to 3-week history of pain, coldness, hypersensitivity, and throbbing in his right great toe, which he attributes to an infection after cutting his toenail too low. HPI: The patient is a 54 year old male with pmhx of HTN and tobacco use who presents for a 2-3 week history of issues with his right great toe, which he thinks may have began after he cut the toenail too short. He describes the toe as always cold, with soreness in the joint and occasional loud cracking on movement. Symptoms include nocturnal throbbing pain that disrupts his sleep, shooting pains, and extreme skin sensitivity to touch. The pain is worse at night or when his feet are elevated and improves when he is standing. He was seen at a walk-in clinic, and he was diagnosed with an infection and started on an antibiotic on Tuesday, but his symptoms have not improved. He has a history of injuring the same toe in an accident about 10 years ago. He also reports an episode of possible frostbite a couple of weeks ago after working outside in the cold without heat. He also experiences intermittent calf pain and tightening after walking a certain distance, which he is unsure is related to his hip issues or another cause. Nicotine Dependence: The patient has a 40-year history of smoking, having started at age 13. He currently smokes about a pack a day, which is an increase due to his recent pain, and has a past history of smoking almost two packs a day. He has had prior quit attempts, including using the patch and a period of abstinence following an emergency surgery, but he relapsed. Essential Hypertension: The patient has a history of high blood pressure and is treated with lisinopril 20 mg. He notes that recent blood pressure readings have been low, and he plans to discuss potentially lowering his medication dose with his primary care doctor. Neuropathy: The patient is being treated for nerve problems and receives gabapentin 300 mg twice daily. He reports that the gabapentin is not helping with his current toe pain. Medical History: - Essential hypertension - Neuropathy - History of right great toe fracture, approximately 10 years ago - Recurrent right ankle sprains - Hip pain, awaiting surgery - Carpal tunnel syndrome, awaiting possible surgery - Possible frostbite to the right foot a few weeks ago Surgical History: - Patient reports a past emergency surgery of an unspecified nature. Medications: - Gabapentin 300 mg, two pills a day for nerve problems. - Lisinopril 20 mg for high blood pressure. - Amoxicillin, taken four times a day for a suspected toe infection, started on Tuesday. Social History: - Tobacco Use: The patient has smoked for approximately 40 years. - He currently smokes about a pack per day, an increase from his baseline due to pain, and previously smoked up to two packs per day. - Functional Status: The patient is on his feet all day for work. - His sleep is significantly disturbed by nocturnal toe pain. - He reports that walking is limited by severe calf tightening. Family History: Family history was not discussed. [facility] Medical History (Updated 04/10/25 @ 10:36 by Cristian Zamorano DPM) Toe pain Colostomy in place Acute diverticulitis Nicotine dependence, cigarettes, uncomplicated Fatty liver GERD (gastroesophageal reflux disease) Osteoarthritis of left hip Exposure to lead Essential hypertension Surgical History Hx of surgical procedure (~05/29/24) H/O oral surgery H/O colonoscopy Hx of surgical procedure (~01/13/24) History of esophagogastroduodenoscopy (EGD) Social History Household Members: Spouse Housing: House Are you a primary pharmacy care coordinator to a significant other at home: No Do you presently have visiting nurse or other home services: No Alcohol intake: current Alcohol intake frequency: holidays/special occasions only Comment: counts correct Patient Tobacco Use Status: Current everyday Tobacco user Tobacco use type: Cigarette Cigarettes Per Day: 4 Years Smoked: 20 e-Cigarette/Vaping Use: Never Used Second Hand Smoke Exposure: No Substance Use Type: Marijuana service: No Current occupational status: employed Current occupation: [employer] Current occupational exposures/hazards: Yes Cognitive needs: No Hearing needs: No Vision needs: No Review of Systems Const All systems reviewed & are unremarkable except as noted in HPI and below Physical Exam Extrem Other: *Bilateral Lower Extremity Focused Exam Vascular: DP right foot non-palpable faintly audible, AT audible monophasic, PT palpable. CFT mildly delayed to right hallux, intact to remaining digits. Derm: Dependent rubor to right hallux. no ingrown nail, no erythema, no drainage, no signs of infection. Neuro: Negative Tinel sign to the right ankle and foot MSK: Moderate tenderness on palpation on the distal and medial aspects of the right hallux. No pain on range of motion of the right IPJ and Metatarsal- phalangeal joint. Mild tenderness on palpation of the 1st and 2nd tarsometatarsal base, no pain on piano thompson test, stress abduction of the foot, or forefoot squeeze. Results Reviewed Results Reviewed: X-ray Read: 03/29/2025 X-ray right ankle 3 views (AP, Mortise, Lateral) reviewed which shows no fractures, dislocations, osteochondral defects, or gross abnormalities. Anatomic alignment of the tibiotalar joint. Bone density is within normal limits. Ossicle to the posterior talus. I personally reviewed the imaging and my findings are listed above. Assessment & Plan Assessment & Plan (1) Nicotine dependence, cigarettes, uncomplicated: Comment: (current smoker - onset 11yo, 1ppd x 42yrs, 40pyh) Code(s): F17.210 - Nicotine dependence, cigarettes, uncomplicated Category: Medical Plan: * Discussed possible PVD/ischemic symptoms from his smoking. Recommended smoking cessation. (2) Toe pain: Code(s): M79.676 - Pain in unspecified toe(s) Category: Medical Qualifiers: Laterality: right Qualified Code(s): M79.674 - Pain in right toe(s) Plan: * Rx right foot x-rays * The patient's presentation with a cold, red toe, nocturnal pain, pallor on elevation, and pain relief with dependency is highly suggestive of ischemic pain due to poor arterial blood flow rather than a bacterial infection. * Advised the patient to complete the course of amoxicillin prescribed by the walk-in clinic to definitively rule out a concurrent infection. * Discussed Naprosyn versus aspirin for pain treatment, both * Follow-up in one month. (3) Thromboangiitis obliterans (Buerger's disease): Code(s): I73.1 - Thromboangiitis obliterans [Buerger's disease] Category: Medical Plan: * Rx nitroglycerin ointment to be applied topically to the foot and toe to promote vasodilation. (4) Peripheral artery disease: Code(s): I73.9 - Peripheral vascular disease, unspecified Category: Medical Plan: * Rx US arterial duplex Orders: Orders 2 US arterial duplex LE RT Today F17.210 - Nicotine dependence, cigarettes, uncomplicated, I73.9 - Peripheral vascular disease, unspecified, M79.674 - Pain in right toe(s) XR foot RT min 3V Today M79.671 - Pain in right foot, M79.674 - Pain in right toe(s) Medications: New 2 nitroglycerin 2% administer 2 doses/day (approx. 6 hrs apart) over the right foot and big toe. 1 inch transdermal BID 30 grams 1RF peripheral artery disease I73.1 - Thromboangiitis obliterans [Buerger's disease], I73.9 - Peripheral vascular disease, unspecified Coding Level of Care Code New Pt Level 4 (98019) Diagnoses Nicotine dependence, cigarettes, uncomplicated F17.210 Pain of toe of right foot M79.674 Laterality: right Thromboangiitis obliterans (Buerger's disease) I73.1 Peripheral artery disease I73.9
--- OUTSIDE RECORDS SUMMARY | 2025-04-10 11:26 | XMS_ITS | Clinical Summary ---
Author Organization [employer] Address [address] [facility] [address] 7 [place] [address] Care Team Providers Care Linux Consultant Name Role Phone Unavailable Primary Care Provider Unavailabl e Allergies No known active allergies Medications hydroCHLOROthiazid e (Microzide) 12.5 MG capsule 07/09/2023 Active lisinopril 20 MG tablet 05/09/2023 Active cephalexin (Keflex) 500 MG capsule 04/05/2025 Active Active Problems Problem Noted Date Diagnosed Date Avascular necrosis of bone 04/09/2025 Diarrhea 04/09/2025 Acute diverticulitis 04/09/2025 Elevated blood lead level 04/09/2025 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/2025): (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; 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; improved to 3.3 on 08/29/23) Essential hypertension 04/09/2025 Exposure to lead 04/09/2025 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/2025): (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; 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; improved to 3.3 on 08/29/23) Fatty liver 04/09/2025 GERD (gastroesophageal reflux disease) History of colostomy reversal 04/09/2025 Abdominal discomfort 04/09/2025 Nicotine addiction 04/09/2025 Nicotine dependence, cigarettes, uncomplicated 1 06/10/2024 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/2025): (current smoker - onset 11yo, 1ppd x 42yrs, 40pyh) Osteoarthritis of left hip 04/09/2025 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/2025): (end-stage degenerative joint disease,grade 4 [id number] arthritis) Presence of colostomy (CMS/HCC) 04/09/2025 Physical exam 04/09/2025 Skin lesions 04/09/2025 Smoker 04/09/2025 Encounters Date Type Department Care Team Description 04/09/2025 8:00 AM EST Office Visit [facility] DENTAL [address] [place] [phone] Quintin Molina DDS 02/19/2025 Telephone [facility] DENTAL [address] [place] [phone] Bárbara Wilkins BDS appt for denture delivery from Last 3 Months Social History Tobacco [...] Mass Index - - Plan of Treatment Upcoming Encounters Date Type Department Care Team (Late st Contact Info) Description 04/16/2025 3:00 PM EST Office Visit [facility] ADULT DENTAL [address] [place] [address] Health Maintenance Due Date Last Done Comments CT Colonography 1968 Colonoscopy 1968 Colorectal Cancer Screening 1968 Dental Oral Exam 1968 Depression Screening 1968 FIT DNA/Cologuard 1968 FIT 1968 FOBT 1968 HIV Screening 1968 Lipid Panel 1968 SDOH Screening 1968 Sigmoidoscopy 1968 Disability Screening 1968 Alcohol/Substance Use Screening 1980 Hepatitis C Screening 1986 Hepatitis A Vaccines (1 of 2 - Risk 2-dose series) 1987 Hepatitis B Vaccines (1 of 3 - 19+ 3-dose series) 1987 Pneumococcal Vaccine: 50+ Years (2 of 2 - PCV) 02/15/2013 02/16/2012 RSV Patients and Patients Aged 60 years or older (1 - Risk 50-74 years 1-dose series) 2018 Zoster Vaccines (1 of 2) 2018 DTaP/Tdap/Td Vaccines (2 - T d or Tdap) 02/15/2022 02/16/2012 Dental X-Ray: Bitewings 07/20/2024 07/20/2023 Dental Prophylaxis 08/23/2024 02/22/2024 COVID-19 Vaccine (3 - 2024-2 6 season) 2024 12/04/2020, 11/06/2020 Influenza Vaccine (#1) 2024 , 03/17/2020 Tobacco Screening 04/09/2026 04/09/2025 Dental X-Ray: Full Mouth 07/20/2026 07/20/2023 HIB Vaccines Aged Out No longer eligi [...] Most Recently Relevant to Health Maintenance Insurance [facility] DENTAL - HSN PARTIAL (MEDICAID)
--- OUTSIDE RECORDS SUMMARY | 2025-04-10 11:26 | XMS_ITS | Encounter Summary ---
Author Organization [facility] Address [address] [place] [address] Phone Care Team Providers Care Legger Press Operator Name Role Phone Rea Melton DO Primary Care Provider [phone] Rea Melton DO Unavailable [phone] Rea Melton DO Primary Care Provider [phone] Encounter Details Date Type Department Care Team (Late st Contact Info) Description 09/17/2020 Ancillary Orders Virtual Department [address] [place] [address] Rea Melton DO [address] [place] [address] Social History Tobacco Use Types Packs/Day Years [...] on filedocumented in this encounter Care Teams Legger Press Operator Relationship Specialty Start Date End Date Rea Melton DO [address] [place] [address] PCP - General 02/08/17 09/18/20 Rea Melton DO [address] [place] [address] PCP - General Internal Medicine 09/19/20 Rea Melton DO [address] [place] [address] Insurance Assigned Provider 07/23/17 02/28/22 documented as of this encounter Additional Source Comments The information contained in this document represents components of the legal health record. It is not the complete legal health record.[facility]
--- OUTSIDE RECORDS SUMMARY | 2025-04-10 11:26 | XMS_ITS | Encounter Summary ---
Author Organization [facility] Address [address] [place] [address] [place] [address] Care Team Providers Care Gathering Machine Feeder Name Role Phone Unavailable Primary Care Provider Unavailabl e Reason for Visit * Reason Onset Date Comments alveloplasty [facility]?? 11/10/2023 Encounter Details Date Type Department Care Team (Late st Contact Info) Description 11/10/2023 Telephone [facility] DENTAL [address] [place], [place] [phone] Bárbara Wilkins BDS [address] [place], [place] [phone] alveloplasty [facility]C?? 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 I transferred call over to [facility] first time and he called [...] documented in this encounter Plan of Treatment Upcoming Encounters Date Type Department Care Team (Late st Contact Info) Description 04/16/2025 3:00 PM EST Office Visit [facility] ADULT DENTAL [address] [place] [address] documented as of this encounter Visit Diagnoses Not on filedocumented in this encounter
--- OUTSIDE RECORDS SUMMARY | 2025-04-10 11:26 | XMS_ITS | Encounter Summary ---
Author Organization [facility] Address [address] [place] [address] [place] [address] Care Team Providers Care Cash Specialist Name Role Phone Unavailable Primary Care Provider Unavailabl e Reason for Visit * Reason Onset Date Comments tx clarification/active request 09/12/2023 Encounter Details Date Type Department Care Team (Late st Contact Info) Description 09/12/2023 Telephone [facility] DENTAL [address] [place], [place] [phone] Bárbara Wilkins BDS [address] [place], [place] [phone] tx clarification/active request Social History Tobacco Use [...] Description 04/16/2025 3:00 PM EST Office Visit [facility] ADULT DENTAL [address] [place] [address] documented as of this encounter Visit Diagnoses Not on filedocumented in this encounter
--- OUTSIDE RECORDS SUMMARY | 2025-04-10 11:26 | XMS_ITS | Encounter Summary ---
Author Organization [facility] Address [address] [place] [address] Phone Care Team Providers Care Lining Machine Operator Name Role Phone Rea Melton DO Primary Care Provider [phone] Rea Melton DO Unavailable [phone] Rea Melton DO Primary Care Provider [phone] Encounter Details Date Type Department Care Team (Late st Contact Info) Description 09/18/2020 Ancillary Orders Virtual Department [address] [place] [address] Rea Melton DO [address] [place] [address] Chest wall pain Social History Tobacco Use [...] respiration documented in this encounter Care Teams Lining Machine Operator Relationship Specialty Start Date End Date Rea Melton DO [address] [place] [address] PCP - General 02/08/17 09/18/20 Rea Melton DO [address] [place] [address] PCP - General Internal Medicine 09/19/20 Rea Melton DO [address] [place] [phone] Insurance Assigned Provider 07/23/17 02/28/22 documented as of this encounter Additional Source Comments The information contained in this document represents components of the legal health record. It is not the complete legal health record.[facility]
--- OUTSIDE RECORDS SUMMARY | 2025-04-10 11:26 | XMS_ITS | Encounter Summary ---
Author Organization [facility] Address [address] [place] [address] [place] [address] Care Team Providers Care Research Technician Name Role Phone Unavailable Primary Care Provider Unavailabl e Reason for Visit * Reason Onset Date Comments appt for denture delivery 02/19/2025 Encounter Details Date Type Department Care Team (Late st Contact Info) Description 02/19/2025 Telephone [facility] D[facility]AL [address] [place], [place] [phone] Bárbara Wilkins BDS [address] [place], [place] [phone] appt for denture delivery Social History Tobacco Use Types Packs/Day Years [...] * Telephone Encounter - Court Brannon - 02/19/2025 12:20 PM EDT Patient seeking appointment for dentures. He stated he was waiting for call back to get new dentures run through both insurances. However some time has passed and looking to have delivery of what is in office. Please return call to patient. documented in this encounter Plan of Treatment Upcoming Encounters Date Type Department Care Team (Late st Contact Info) Description 04/16/2025 3:00 PM EST Office Visit [facility] ADULT DENTAL [address] [place], [place] [phone] documented as of this encounter Visit Diagnoses Not on filedocumented in this encounter
--- OUTSIDE RECORDS SUMMARY | 2025-04-10 11:27 | XMS_ITS | Encounter Summary ---
Author Organization [facility] Address [address] [facility] [address] [place] [address] Phone Care Team Providers Care Precision Printing Worker Name Role Phone Rea Melton DO Primary Care Provider [phone] Rea Melton DO Unavailable [phone] Rea Melton DO Primary Care Provider [phone] Encounter Details Date Type Department Care Team (Late st Contact Info) Description 09/18/2020 Procedure Pass [address] [place] [address] Social History Tobacco Use Types Packs/Day Years [...] on filedocumented in this encounter Care Teams Precision Printing Worker Relationship Specialty Start Date End Date Rea Melton DO [address] [place] [phone] PCP - General 02/08/17 09/18/20 Rea Melton DO [address] [place] [address] PCP - General Internal Medicine 09/19/20 Rea Melton DO [address] [place] [address] Insurance Assigned Provider 07/23/17 02/28/22 documented as of this encounter Additional Source Comments The information contained in this document represents components of the legal health record. It is not the complete legal health record.[facility]
--- OUTSIDE RECORDS SUMMARY | 2025-04-10 11:27 | XMS_ITS | Clinical Summary ---
Author Organization [facility] Address [address] [place] [address] Phone Care Team Providers Care Food And Beverage Order Clerk Name Role Phone GeronimoRea Margaret MCKAY Primary Care Provider [phone] Allergies No known active allergies Medications oxyCODONE [...] SCREENING (18-6 5 YEARS) 1986 COLOGUARD 2013 FIT TEST 2013 FOBT 2013 SIGMOIDOSCOPY 2013 VIRTUAL COLONOSCOPY 2013 PNEUMOCOCCAL VACCINES (50+ years) (2 of 2 - PCV) 2018 02/16/2012 ZOSTER VACCINES (1 of 2) 2018 Adult Td,Tdap Booster 02/15/2022 02/16/2012 INFLUENZA VACCINE (#1) 2024 03/17/2020 COVID-19 VACCINE (3 - 2024-2 6 season) 2024 12/04/2020, 11/06/2020 LIPID PANEL 03/23/2026 03/23/2021 COLONOSCOPY 10/30/2028 10/30/2018 COLORECTAL CANCER SCREENING 10/30/2028 RSV VACCINE (1 - 1-dose 75+ series) [...] this topic Medical Devices Not on file Procedures Procedure Name Priority Date/Time Associated Diagnosis Comments COLONOSCOPY FOR RESULT ENTRY ONLY Routine 10/30/2018 from Last 3 Months or Most Recently Relevant to Health Maintenance Results * COLONOSCOPY FOR RESULT ENTRY ONLY (10/30/2018) Colonoscopy External Historical Provider MD HEALTH MAINTENANCE Final Result from Last 3 Months or Most Recently Relevant to Health Maintenance Insurance [facility] NON [place] PCP [employer] [place] [facility] NON [place] PCP [employer] [place] [facility] NON [facility]SP[place] PCP [employer] [place] [facility] NON [place] PCP [employer] [place] [facility] [place] [facility] [employer] [place] [facility] NON [place]SP[place] PCP [employer] [place], [place] Care Teams Food And Beverage Order Clerk Relationship Specialty Start Date End Date Rea Melton DO [address] [place] [id number] PCP - General Internal Medicine 09/19/20 Additional Source Comments The information contained in this document represents components of the legal health record. It is not the complete legal health record.[facility]
--- OUTSIDE RECORDS SUMMARY | 2025-04-10 11:27 | XMS_ITS | Encounter Summary ---
Author Organization [facility] Address [address] [facility] [address] [place] [address] Phone Care Team Providers Care Radio Electronics Technician Name Role Phone Rea Melton DO Primary Care Provider [phone] Rea Melton DO Unavailable [phone] Rea Melton DO Primary Care Provider [phone] Encounter Details Date Type Department Care Team (Late st Contact Info) Description 09/18/2020 Procedure Pass [address] [place] [address] Social History Tobacco Use Types Packs/Day Years [...] on filedocumented in this encounter Care Teams Radio Electronics Technician Relationship Specialty Start Date End Date Rea Melton DO [address] [place] [address] PCP - General 02/08/17 09/18/20 Rea Melton DO [facility] [place] [address] PCP - General Internal Medicine 09/19/20 Rea Melton DO [address] [place] [address] Insurance Assigned Provider 07/23/17 02/28/22 documented as of this encounter Additional Source Comments The information contained in this document represents components of the legal health record. It is not the complete legal health record.[facility]
== END 2025-04-10 10:21 | disposition home or self-care (01) ==
LOC: HO.HPODS 09:46
PROVIDERS: PCP Nurse Practitioner Family; Visit Provider Student in an Organized Health Care Education/Training Program
DX: F17.210 Nicotine dependence, cigarettes, uncomplicated (principal); M79.674 Pain in right toe(s); I73.1 Thromboangiitis obliterans [Buerger's disease]; I73.9 Peripheral vascular disease, unspecified
CPT/HCPCS: 99204

== ENCOUNTER → 2025-04-10 09:45 | Outpatient (BNVA) | payer OTHER, SELFPAY | PROVIDERS: PCP Nurse Practitioner Family; Visit Provider Student in an Organized Health Care Education/Training Program | DX: M79.674 Pain in right toe(s) (principal); I73.9 Peripheral vascular disease, unspecified; I73.1 Thromboangiitis obliterans [Buerger's disease]; F17.210 Nicotine dependence, cigarettes, uncomplicated | CPT/HCPCS: 99202 ==

== ENCOUNTER 2025-04-16 12:40 | Outpatient (REF) | payer OTHER, SELFPAY ==
--- OUTSIDE RECORDS SUMMARY | 2025-04-16 13:44 | XMS_ITS | Encounter Summary ---
Author Organization [facility] Address [address] [facility] [address] [place] [address] Phone Care Team Providers Care Securities Dealer Name Role Phone Rea Melton DO Primary Care Provider [phone] Rea Melton DO Unavailable [phone] Rea Melton DO Primary Care Provider [phone] Encounter Details Date Type Department Care Team (Late st Contact Info) Description 09/17/2020 Ancillary Orders Virtual Department 30 [place] [address] Rea Melton DO [address] [place] [address] Social History Tobacco Use Types Packs/Day Years [...] on filedocumented in this encounter Care Teams Securities Dealer Relationship Specialty Start Date End Date Rea Melton DO [address] [place] [address] PCP - General 02/08/17 09/18/20 Rea Melton DO [address] [place] [address] PCP - General Internal Medicine 09/19/20 Rea Melton DO [address] [place] [address] Insurance Assigned Provider 07/23/17 02/28/22 documented as of this encounter Additional Source Comments The information contained in this document represents components of the legal health record. It is not the complete legal health record.[facility]
--- OUTSIDE RECORDS SUMMARY | 2025-04-16 13:44 | XMS_ITS | Encounter Summary ---
Author Organization [facility] Address [address] [facility] [address] [place] [address] Phone Care Team Providers Care Vision Specialist Name Role Phone Rea Melton DO Primary Care Provider [phone] Rea Melton DO Unavailable [phone] Rea Melton DO Primary Care Provider [phone] Encounter Details Date Type Department Care Team (Late st Contact Info) Description 09/18/2020 Ancillary Orders Virtual Department 30 [place] [address] Rea Melton DO [address] [place] [address] Chest wall pain Social History Tobacco Use [...] respiration documented in this encounter Care Teams Vision Specialist Relationship Specialty Start Date End Date Rea Melton DO 421 [place] [address] PCP - General 02/08/17 09/18/20 Rea Melton DO [address] [place] [address] PCP - General Internal Medicine 09/19/20 Rea Melton DO [address] [place] [address] Insurance Assigned Provider 07/23/17 02/28/22 documented as of this encounter Additional Source Comments The information contained in this document represents components of the legal health record. It is not the complete legal health record.[facility]
--- OUTSIDE RECORDS SUMMARY | 2025-04-16 13:44 | XMS_ITS | Encounter Summary ---
Author Organization [facility] [employer] Address [address] [place] [address] [place] [address] Care Team Providers Care Telesales Specialist Name Role Phone Unavailable Primary Care Provider Unavailabl e Reason for Visit * Reason Onset Date Comments tx clarification/active request 09/12/2023 Encounter Details Date Type Department Care Team (Late st Contact Info) Description 09/12/2023 Telephone [facility] DENTAL [address] [place], [place] [phone] Bárbara Wilkins BDS [address] [place], [place] [phone] tx clarification/active request Social History Tobacco Use [...] Description 04/16/2025 3:00 PM EST Office Visit [facility] ADULT DENTAL [address] [place] [address] documented as of this encounter Visit Diagnoses Not on filedocumented in this encounter
--- OUTSIDE RECORDS SUMMARY | 2025-04-16 13:44 | XMS_ITS | Encounter Summary ---
Author Organization [facility] Address [address] [facility] [address] [place] [address] Phone Care Team Providers Care Molder Wax Ball Name Role Phone Rea Melton DO Primary Care Provider [phone] Rea Melton DO Unavailable [phone] Rea Melton DO Primary Care Provider [phone] Encounter Details Date Type Department Care Team (Late st Contact Info) Description 09/18/2020 Procedure Pass [address] [place] [address] Social History Tobacco Use Types Packs/Day Years [...] on filedocumented in this encounter Care Teams Molder Wax Ball Relationship Specialty Start Date End Date Rea Melton DO [address] [place] [address] PCP - General 02/08/17 09/18/20 Rea Melton DO [address] [place] [address] PCP - General Internal Medicine 09/19/20 Rea Melton DO [address] [place] [address] Insurance Assigned Provider 07/23/17 02/28/22 documented as of this encounter Additional Source Comments The information contained in this document represents components of the legal health record. It is not the complete legal health record.[facility]
--- OUTSIDE RECORDS SUMMARY | 2025-04-16 13:44 | XMS_ITS | Encounter Summary ---
Author Organization [facility] Address [address] [place] [address] [place] [address] Care Team Providers Care Stem Roller Operator Name Role Phone Unavailable Primary Care Provider Unavailabl e Reason for Visit * Reason Onset Date Comments appt for denture delivery 02/19/2025 Encounter Details Date Type Department Care Team (Late st Contact Info) Description 02/19/2025 Telephone [facility] [address] [place], [place] [phone] Bárbara Wilkins BDS 91 [place], [place] [phone] appt for denture delivery Social History Tobacco [...] Description 04/16/2025 3:00 PM EST Office Visit [facility] ADULT DENTAL [address] [place], [place] [phone] documented as of this encounter Visit Diagnoses Not on filedocumented in this encounter
--- OUTSIDE RECORDS SUMMARY | 2025-04-16 13:44 | XMS_ITS | Clinical Summary ---
Author Organization [facility] Address [address] [facility] 7 [place] [address] Care Team Providers Care Construction Sales Representative Name Role Phone Unavailable Primary Care Provider Unavailabl e Allergies No known active allergies Medications hydroCHLOROthiazid e (Microzide) 12.5 MG capsule 07/09/2023 Active lisinopril 20 MG tablet 05/09/2023 Active cephalexin (Keflex) 500 MG capsule 04/05/2025 Active Active Problems Problem Noted Date Diagnosed Date Avascular necrosis of bone 04/09/2025 Diarrhea 04/09/2025 Acute diverticulitis 04/09/2025 Elevated blood lead level 04/09/2025 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; 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; improved to 3.3 on 08/29/23) Essential hypertension 04/09/2025 Exposure to lead 04/09/2025 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; 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; 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 to 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 on 08/29/23) Fatty liver 04/09/2025 GERD (gastroesophageal reflux disease) History of colostomy reversal 04/09/2025 Abdominal discomfort 04/09/2025 Nicotine addiction 04/09/2025 Nicotine dependence, cigarettes, uncomplicated 1 06/10/2024 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/2025): (current smoker - onset 11yo, 1ppd x 42yrs, 40pyh) Osteoarthritis of left hip 04/09/2025 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/2025): (end-stage degenerative joint disease,grade 4 bkdv-gl-yjri arthritis) Presence of colostomy (CMS/HCC) 04/09/2025 Physical exam 04/09/2025 Skin lesions 04/09/2025 Smoker 04/09/2025 Encounters Date Type Department Care Team Description 04/09/2025 8:00 AM EST Office Visit [facility] D[facility]AL [address] [place] [address] Quintin Molina DDS 02/19/[address] [facility] [address] [place] [address] [phone] Bárbara Wilkins BDS appt for denture delivery [...] Description 04/16/2025 3:00 PM EST Office Visit [facility] ADULT DENTAL [address] [place] [address] Health Maintenance Due Date Last Done Comments CT Colonography 1968 Colonoscopy 1968 Colorectal Cancer Screening 1968 Depression Screening 1968 FIT DNA/Cologuard 1968 [...] 11/06/2020 Influenza Vaccine (#1) 2024 , 03/17/2020 Dental Oral Exam 10/09/2025 04/09/2025 Tobacco Screening 04/09/2026 04/09/2025 Dental X-Ray: Full Mouth 04/10/2028 025, 07/20/2023 HIB Vaccines Aged Out No longer [...] Procedure Name Priority Date/Time Associated Diagnosis Comments CASE PRESENTATION, DETAILED AND EXTENSIVE TREATMENT PLANNING Routine 04/09/2025 8:00 AM EST 2,3,4,10,11,12,13,14 MAXILLARY PARTIAL DENTURE - FLEXIBLE BASE (INCLUDING ANY CLASPS, RESTS AND TEETH) Routine 04/09/2025 8:00 AM EST 30,31,29,23,24,25,26,18,1 9,20 MANDIBULAR PARTIAL DENTURE - FLEXIBLE BASE (INCLUDING ANY CLASPS, RESTS AND TEETH) Routine 04/09/2025 8:00 AM EST PANORAMIC RADIOGRAPHIC IMAGE Routine 04/09/2025 8:00 AM EST PERIODIC ORAL EVALUATION - ESTABLISHED PATIENT Routine 04/09/2025 8:00 AM EST PROPHYLAXIS - ADULT Routine 02/22/2024 1 1:00 AM EDT INTRAORAL - COMPLETE SERIES OF RADIOGRAPHIC IMAGES Routine 07/20/2023 10:00 AM EDT from Last 3 Months or Most Recently Relevant to Health Maintenance Insurance [facility] - [facility] PARTIAL (MEDICAID)
--- OUTSIDE RECORDS SUMMARY | 2025-04-16 13:44 | XMS_ITS | Encounter Summary ---
Author Organization [facility] [facility] Address [address] [place] [address] [place] [address] Care Team Providers Care Manager Community Name Role Phone Unavailable Primary Care Provider Unavailabl e Reason for Visit * Reason Onset Date Comments alveloplasty CHC?? 11/10/2023 Encounter Details Date Type Department Care Team (Late st Contact Info) Description 11/10/2023 Telephone [facility] D[facility]AL [address] [place], [place] [phone] áBrbara Wilkins BDS 91 [place], [place] [phone] alveloplasty CHC?? 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 I transferred call over to [facility] first time and he called [...] [facility] [address] [place] [address] documented as of this encounter Visit Diagnoses Not on filedocumented in this encounter
--- OUTSIDE RECORDS SUMMARY | 2025-04-16 13:44 | XMS_ITS | Encounter Summary ---
Author Organization [facility] Address [address] [facility] [address] [place] [address] Phone Care Team Providers Care Maintenance Mechanic Name Role Phone Rea Melton DO Primary Care Provider [phone] Rea Melton DO Unavailable [phone] Rea Melton DO Primary Care Provider [phone] Encounter Details Date Type Department Care Team (Late st Contact Info) Description 09/18/[address] [place] [address] Social History Tobacco Use Types Packs/Day Years [...] on filedocumented in this encounter Care Teams Maintenance Mechanic Relationship Specialty Start Date End Date Rea Melton DO [address] [place] [address] PCP - General 02/08/17 09/18/20 Rea Melton DO [facility] [place] [address] PCP - General Internal Medicine 09/19/20 Rea Melton DO [address] [place] [address] Insurance Assigned Provider 07/23/17 02/28/22 documented as of this encounter Additional Source Comments The information contained in this document represents components of the legal health record. It is not the complete legal health record.[facility]
--- OUTSIDE RECORDS SUMMARY | 2025-04-16 13:45 | XMS_ITS | Clinical Summary ---
Author Organization [facility] Address [address] [facility] [address] [place] [address] Phone Care Team Providers Care Ops Manager Name Role Phone GeronimoRea Margaret MCKAY Primary Care Provider [phone] Allergies No known active allergies Medications oxyCODONE [...] Most Recently Relevant to Health Maintenance Insurance [facility] NON NSPG PCP [employer] [place] [facility] NON [facility]SPG PCP [employer] [place] [facility] NON [facility]SPG PCP [employer] [place] [facility] NON [place]SPG PCP [employer] [place] [facility] [place] PCP [employer] [place] [facility] NON [place]SPG PCP [employer] [place] [employer] [employer] [place] Care Teams Ops Manager Relationship Specialty Start Date End Date Rea Melton DO [address] [place] [address] PCP - General Internal Medicine 09/19/20 Additional Source Comments The information contained in this document represents components of the legal health record. It is not the complete legal health record.[facility]
== END 2025-04-16 12:41 | disposition home or self-care (01) ==
LOC: HO.US 12:40
PROVIDERS: PCP Nurse Practitioner Family; Visit Provider Student in an Organized Health Care Education/Training Program
DX: M79.674 Pain in right toe(s) (principal); I73.9 Peripheral vascular disease, unspecified; F17.210 Nicotine dependence, cigarettes, uncomplicated
CPT/HCPCS: 93922; 93925

== ENCOUNTER → 2025-04-16 12:42 | Outpatient (BNV) | payer OTHER, SELFPAY | PROVIDERS: PCP Nurse Practitioner Family; Visit Provider Radiology Diagnostic Radiology | DX: I74.3 Embolism and thrombosis of arteries of the lower extremities (principal) | CPT/HCPCS: 93922; 93925 ==

== ENCOUNTER 2025-04-17 10:41 | Outpatient (AMB) | payer OTHER, SELFPAY ==
--- OUTSIDE RECORDS SUMMARY | 2025-04-16 15:00 | XMS_ITS | Encounter Summary ---
Author Organization [employer] Address [address] [place] [address] [place] [address] Care Team Providers Care Terminal Operator Name Role Phone Unavailable Primary Care Provider Unavailabl e Reason for Visit * Reason Comments Dentures Partail adjustment Encounter Details Date Type Department Care Team (Late st Contact Info) Description 04/16/2025 3:00 PM EST Office Visit [facility] ADULT DENTAL [address] [place] [address] Social History Tobacco Use Types Packs/Day Years Used Date Smoking Tobacco: Every Day Cigarettes Smokeless Tobacco: Never Tobacco Cessation:Ready to Q uit: No; Counseling Given: Not Answered Alcohol Answer Date Recorded Frequency of Alcohol Consumption Not on file 04/16/2025 Average Number of Drinks Not on file 025 How often do you have six or more drinks on one occasion? 0 04/16/2025 Sex and Gender Information Value Date Recorded Sex Assigned at Male 07/04/2023 10:59 AM EDT Legal Sex Male 10:58 AM EDT Gender Identity Male 07/04/2023 10:59 AM EDT Sexual Orientation Straight 07/04/2023 10 :59 AM EDT documented as of this encounter Plan of Treatment Upcoming Encounters Date Type Department Care Team (Late st Contact Info) Description 06/24/2025 2:15 PM EST Office Visit [facility] ADULT DENTAL [address] [place] [address] Amber Gutierrez Scheduled Orders Name Type Priority Associated Diagnoses Orde r Schedule CASE PRESENTATION, DETAILED AND EXTENSIVE TREATMENT PLANNING Dental Routine 1 Occurrences starting 04/16/2025 documented as of this encounter Visit Diagnoses Not on filedocumented in this encounter
--- OUTSIDE RECORDS SUMMARY | 2025-04-17 10:45 | XMS_ITS | Encounter Summary ---
Author Organization [facility] Address [address] [facility] [address] [place] [address] Phone Care Team Providers Care Slurry Tank Operator Name Role Phone Rea Melton DO Primary Care Provider [phone] Rea Melton DO Unavailable [phone] Rea Melton DO Primary Care Provider [phone] Encounter Details Date Type Department Care Team (Late st Contact Info) Description 09/18/2020 Procedure Pass [address] [place] [address] Social History Tobacco Use Types Packs/Day Years [...] on filedocumented in this encounter Care Teams Slurry Tank Operator Relationship Specialty Start Date End Date Rea Melton DO [address] [place] [address] PCP - General 02/08/17 09/18/20 Rea Melton DO [address] [place] [address] PCP - General Internal Medicine 09/19/20 Rea Melton DO [address] [place] [address] Insurance Assigned Provider 07/23/17 02/28/22 documented as of this encounter Additional Source Comments The information contained in this document represents components of the legal health record. It is not the complete legal health record.[facility]
--- OUTSIDE RECORDS SUMMARY | 2025-04-17 10:45 | XMS_ITS | Encounter Summary ---
Author Organization [facility] Address [address] [facility] [address] [place] [address] Phone Care Team Providers Care Hospice Physician Name Role Phone Rea Melton DO Primary Care Provider [phone] Rea Melton DO Unavailable [phone] Rea Melton DO Primary Care Provider [phone] Encounter Details Date Type Department Care Team (Late st Contact Info) Description 09/17/2020 Ancillary Orders Virtual Department 30 [place] [address] Rea Melton DO [address] [place] [address] Social History Tobacco Use Types Packs/Day Years [...] on filedocumented in this encounter Care Teams Hospice Physician Relationship Specialty Start Date End Date Rea Melton DO [address] [place] [address] PCP - General 02/08/17 09/18/20 Rea Melton DO [address] [place] [address] PCP - General Internal Medicine 09/19/20 Rea Melton DO [address] [place] [address] Insurance Assigned Provider 07/23/17 02/28/22 documented as of this encounter Additional Source Comments The information contained in this document represents components of the legal health record. It is not the complete legal health record.[facility]
--- OUTSIDE RECORDS SUMMARY | 2025-04-17 10:45 | XMS_ITS | Encounter Summary ---
Author Organization [employer] Address [address] [place] [address] [place] [address] Care Team Providers Care Data Lead Name Role Phone Unavailable Primary Care Provider Unavailabl e Reason for Visit * Reason Onset Date Comments tx clarification/active request 09/12/2023 Encounter Details Date Type Department Care Team (Late st Contact Info) Description 09/12/2023 Telephone [facility] DENTAL [address] [place], [place] [phone] Bárbara Wilkins BDS 91 [place], [place] [phone] tx clarification/active request Social History Tobacco Use [...] Description 06/24/2025 2:15 PM EST Office Visit [facility] ADULT DENTAL [address] [place] [address] Amber Gutierrez documented as of this encounter Visit Diagnoses Not on filedocumented in this encounter
--- OUTSIDE RECORDS SUMMARY | 2025-04-17 10:45 | XMS_ITS | Encounter Summary ---
Author Organization [facility] Address [address] [facility] [address] [place] [address] Phone Care Team Providers Care Welt Butter Hand Name Role Phone Rea Melton DO Primary Care Provider Rea Melton DO Unavailable [phone] Rea Melton DO Primary Care Provider [phone] Encounter Details Date Type Department Care Team (Late st Contact Info) Description 09/18/2020 Procedure Pass [address] [place] [address] Social History Tobacco Use Types Packs/Day Years [...] on filedocumented in this encounter Care Teams Welt Butter Hand Relationship Specialty Start Date End Date Rea Melton DO [address] [place] [address] PCP - General 02/08/17 09/18/20 Rea Melton DO [facility] [place] [address] PCP - General Internal Medicine 09/19/20 Rea Melton DO [address] [place] [address] Insurance Assigned Provider 07/23/17 02/28/22 documented as of this encounter Additional Source Comments The information contained in this document represents components of the legal health record. It is not the complete legal health record.[facility]
--- OUTSIDE RECORDS SUMMARY | 2025-04-17 10:45 | XMS_ITS | Clinical Summary ---
Author Organization [facility] Address [address] [facility] [address] [place] [address] Phone Care Team Providers Care Gluing Crew Leader Name Role Phone GeronimoRea Margaret MCKAY Primary Care Provider [phone] Allergies No known active allergies Medications oxyCODONE [...] Most Recently Relevant to Health Maintenance Insurance [facility] NON NSPG PCP [employer] [place] [facility] NON NSPG PCP [employer] [place] [facility] NON [facility]SPG PCP [employer] [place] [facility] NON [facility]SPG PCP [employer] [place] [facility] NON [place]SPG PCP [employer] [place] [facility] NON [place]SPG PCP [employer] [place] Care Teams Gluing Crew Leader Relationship Specialty Start Date End Date Rea Melton DO [address] [place] [address] PCP - General Internal Medicine 09/19/20 Additional Source Comments The information contained in this document represents components of the legal health record. It is not the complete legal health record.[facility]
--- OUTSIDE RECORDS SUMMARY | 2025-04-17 10:45 | XMS_ITS | Encounter Summary ---
Author Organization [facility] Address [address] [place] [address] [place] [address] Care Team Providers Care Councillor [employer] Name Role Phone Unavailable Primary Care Provider Unavailabl e Reason for Visit * Reason Onset Date Comments alveloplasty CHC?? 11/10/2023 Encounter Details Date Type Department Care Team (Late st Contact Info) Description 11/10/2023 Telephone [facility] DENTAL 91 [place], [place] [phone] Bárbara Wilkins BDS 91 [place], [place] [phone] alveloplasty CHC?? 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 I transferred call over to [facility] first time and he called back again. [...] Description 06/24/2025 2:15 PM EST Office Visit [facility]ULT D[facility] [address] [place] [address] Amber Gutierrez documented as of this encounter Visit Diagnoses Not on filedocumented in this encounter
--- OUTSIDE RECORDS SUMMARY | 2025-04-17 10:45 | XMS_ITS | Encounter Summary ---
Author Organization [facility] Address [address] [facility] [address] [place] [address] Phone Care Team Providers Care Manager Application Development Name Role Phone Rea Melton DO Primary Care Provider [phone] Rea Melton DO Unavailable [phone] Rea Melton DO Primary Care Provider [phone] Encounter Details Date Type Department Care Team (Late st Contact Info) Description 09/18/2020 Ancillary Orders Virtual Department 30 [place] [address] Rea Melton DO [address] [place] [address] Chest wall pain Social History Tobacco Use [...] respiration documented in this encounter Care Teams Manager Application Development Relationship Specialty Start Date End Date Rea Melton DO [address] [place] [address] PCP - General 02/08/17 09/18/20 Rea Melton DO [address] [place] [address] PCP - General Internal Medicine 09/19/20 Rea Melton DO [address] [place] [address] Insurance Assigned Provider 07/23/17 02/28/22 documented as of this encounter Additional Source Comments The information contained in this document represents components of the legal health record. It is not the complete legal health record.[facility]
--- OUTSIDE RECORDS SUMMARY | 2025-04-17 10:45 | XMS_ITS | Clinical Summary ---
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; 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; 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 to 3.3 on 08/29/23) Essential hypertension 04/09/2025 Exposure to lead 04/09/2025 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/2025): (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; 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; improved to 3.3 on 08/29/23) Fatty liver 04/09/2025 GERD (gastroesophageal reflux disease) History of colostomy reversal 04/09/2025 Abdominal discomfort 04/09/2025 Nicotine addiction 04/09/2025 Nicotine dependence, cigarettes, uncomplicated 1 06/10/2024 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/2025): (current smoker - onset 11yo, 1ppd x 42yrs, 40pyh) Osteoarthritis of left hip 04/09/2025 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/2025): (end-stage degenerative joint disease,grade 4 fynm-il-uant arthritis) Presence of colostomy (CMS/HCC) 04/09/2025 Physical exam 04/09/2025 Skin lesions 04/09/2025 Smoker 04/09/2025 Encounters Date Type Department Care Team Description 04/16/2025 3:00 PM EST Office Visit [facility] [address] [place] [address] 04/09/2025 8:00 AM EST Office Visit [address] [phone] Quintin Molina DDS 02/19/2025 Telephone [facility] [address] [place] [address] [phone] Bárbara Wilkins BDS appt for denture delivery [...] Description 06/24/2025 2:15 PM EST Office Visit [facility] [address] [place] [address] Amber Gutierrez Health Maintenance Due Date Last Done Comments Anal Pap 1968 CT Colonography 1968 Colonoscopy 1968 Colorectal Cancer Screening 1968 Depression Screening 1968 FIT DNA/Cologuard 1968 FIT 1968 FOBT 1968 HIV Screening 1968 Lipid Panel 1968 SDOH Screening 1968 Sigmoidoscopy 1968 Disability Screening 1968 Hepatitis C Screening 1986 Hepatitis A Vaccines [...] , 03/17/2020 Dental Oral Exam 10/09/2025 04/09/2025 Alcohol/Substance Use Screening 04/16/2026 04/16/2025 Tobacco Screening 04/16/2026 04/16/2025 Dental X-Ray: Full Mouth 04/10/2028 025, 07/20/2023 [...] Most Recently Relevant to Health Maintenance Insurance [facility] - HSN PARTIAL (MEDICAID)
--- OUTSIDE RECORDS SUMMARY | 2025-04-17 10:45 | XMS_ITS | Encounter Summary ---
Author Organization [employer] Address [address] [place] [address] [place] [address] Care Team Providers Care Club Steward Name Role Phone Unavailable Primary Care Provider Unavailabl e Reason for Visit * Reason Onset Date Comments appt for denture delivery 02/19/2025 Encounter Details Date Type Department Care Team (Late st Contact Info) Description 02/19/2025 Telephone [facility] [address] [place], [place] [phone] Bárbara Wilkins BDS [address] [place], [place] [phone] appt for denture delivery Social History Tobacco [...] Description 06/24/2025 2:15 PM EST Office Visit [facility] [address] [place] [address] Amber Gutierrez documented as of this encounter Visit Diagnoses Not on filedocumented in this encounter
--- NOTE | 2025-04-17 10:47 | MHC.OFFVIS ---
Intake Visit Reasons: [employer] STAT ref Podiatry s/p Art US 04/16/25 Intake Note: New patient presents for s/p arterial US performed on 04/16/25. Patient states his toes are turning black . About 3 months ago he had problems walking , legs were tightening. Feet are constantly cold, has trouble sleeping at night. A couple weeks ago he stepped on a rock and rolled his right ankle. 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 His symptoms began approximately three months ago with walking problems, characterized by severe tightness in his right calf after ambulating short distances, which is relieved by standing still for five minutes. Over the past two to three weeks, he has developed a cold sensation in his right foot, particularly at night, leading to sleep disruption. Due to these symptoms, he visited a walk-in clinic and was subsequently referred to a inspector advanced composite who ordered an ultrasound. The patient also reports a right ankle roll injury about a month ago. He was prescribed a topical medication for his foot by another doctor, which has not provided relief. His past surgical history includes an emergency partial colectomy for diverticulitis last year, which required a temporary ostomy. He has a history of hypertension, for which he takes a 20 mg pill, and reports his cholesterol has been high in the past, though he is not on medication for it. He denies being a diabetic but has not had blood work done in approximately two years. He is also taking gabapentin. 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 He is currently attempting to quit but still smokes about a pack a day, noting that he smokes more when his pain is unbearable. He now presents for vascular evaluation with noninvasive arterial testing [facility] Medical History Toe pain Colostomy in place Acute diverticulitis Nicotine dependence, cigarettes, uncomplicated Fatty liver GERD (gastroesophageal reflux disease) Osteoarthritis of left hip Exposure to lead Essential hypertension Surgical History Hx of surgical procedure (~05/29/24) H/O oral surgery H/O colonoscopy Hx of surgical procedure (~01/13/24) History of esophagogastroduodenoscopy (EGD) Social History Household Members: Spouse Housing: House Are you a primary youth care professional to a significant other at home: No Do you presently have visiting nurse or other home services: No Alcohol intake: current Alcohol intake frequency: holidays/special occasions only Comment: counts correct Patient Tobacco Use Status: Current everyday Tobacco user Tobacco use type: Cigarette Cigarettes Per Day: 4 Years Smoked: 20 e-Cigarette/Vaping Use: Never Used Second Hand Smoke Exposure: No Substance Use Type: Marijuana service: No Current occupational status: employed 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 Current occupational exposures/hazards: Yes Cognitive needs: No Hearing needs: No Vision needs: No Review of Systems Const All systems reviewed & are unremarkable except as noted in HPI and below Reports no additional complaints ENT Reports Normal hearing present Card Denies chest pain, Denies chest pain at rest, Denies chest pain with activity and Denies pedal edema Resp Denies cough GI Denies abdominal pain Musc Denies abnormal gait, Denies muscle cramps and Denies radiating pain into limb Skin/Breast Denies skin ulcer and Denies wounds Neuro Reports Normal hearing present and Denies abnormal gait Psych Reports no additional complaints Physical Exam Const General: cooperative, healthy appearing and comfortable Orientation/consciousness: oriented to person, oriented to place and oriented to time HEENT Head: Yes normal to inspection Neck Neck: Yes normal visual inspection Carotids: no bruits Chest Chest palpation & inspection: normal inspection of the chest Resp Effort & Inspection: normal respiratory effort and able to speak in complete sentences Auscultation: clear to auscultation bilaterally, no crackles, no rales, no rhonchi and no wheezes Cardio Other: Bilateral DP signals Rate: regular rate Rhythm: regular rhythm Heart sounds: S1 normal heart sound present and S2 normal heart sound present Bruits: no carotid bruits GI Inspection: Yes normal to inspection Skin Wounds: no wounds Hair: normal Neuro General: oriented to person, oriented to place and oriented to time Cranial nerves: Yes CN's II-XII intact bilaterally and Yes Normal hearing present Cognition (Neuro): normal cognition Motor exam (neuro): 5/5 motor strength present throughout Extrem Other: venous exam: No significant superficial varicosities or spider telangiectasias, minimal edema General: No clubbing, No cyanosis and No edema Psych Appearance: grossly normal Mental Status: mental status grossly normal Speech and movement: Normal speech and movement present Results Reviewed Results Reviewed: Arterial testing dated 04/16/2025 demonstrates LIDIA on the right of 0.46 and on the left of 0.48. Images were reviewed only. Radiology report was not available Assessment & Plan Assessment & Plan (1) Peripheral artery disease: Code(s): I73.9 - Peripheral vascular disease, unspecified Category: Medical Plan: Patient notes right great toe ulcer. I have discussed the pathophysiology of peripheral vascular disease with the patient. I have also discussed risk factor modification. I have reviewed the patient's arterial testing which reveals right SFA disease. the patient would benefit from a right leg endovascular peripheral angiogram with possible angioplasty, stent, and/or atherectomy. This has been discussed in detail with the patient along with risks, benefits, and complications. This includes but is not limited to bleeding, infection, heart attack, need for emergent surgical repair, limb ischemia, blood vessel damage, bleeding, puncture, kidney injury, bruising, allergic reaction, and skin reaction. The patient demonstrates a clear understanding. We will schedule for the next appropriate time. Thank you for allowing us to assist in this patient's care. Coding Level of Care Code New Pt Level 4 (54076) Diagnoses Peripheral artery disease I73.9
== END 2025-04-17 11:23 | disposition home or self-care (01) ==
LOC: HO.HVS 10:42
PROVIDERS: PCP Nurse Practitioner Family; Visit Provider Surgery Vascular Surgery
DX: I73.9 Peripheral vascular disease, unspecified (principal)
CPT/HCPCS: 99204

== ENCOUNTER → 2025-04-17 10:41 | Outpatient (BNVA) | payer OTHER, SELFPAY | PROVIDERS: PCP Nurse Practitioner Family; Visit Provider Surgery Vascular Surgery | DX: I73.9 Peripheral vascular disease, unspecified (principal); L97.519 Non-pressure chronic ulcer of other part of right foot with unspecified severity | CPT/HCPCS: 99202 ==